=== PATIENT | male | born 1950 | race Caucasian/White ===

== ENCOUNTER 2017-08-02 11:38 | Inpatient (IN) | payer MEDICARE, MEDICAID ==
--- NOTE | 2017-08-02 11:45 | ED Physician Chart ---
ED Chief Complaint/HPI - Patient Information Date Seen:: 08/02/17 Time Seen:: 11:35 Chief Complaint:: Syncope History of Present Illness:: onset x 3 hours of syncope; no report of trauma, H/as, S/T, neck pain, C/P, SOB , Abd. Pain, A/N/V/D/C, fever, chills, or urinary s/s Allergies:: Allergies Allergy/AdvReac Type Severity Reaction Status Date / Time No Known Allergies Allergy Verified 07/03/17 00:57 Historian:: Patient, EMS Review:: Nurse's Note Reviewed, Old Chart Reviewed, EMS run form Reviewed ED Review of Systems - Review of Systems General/Constitutional: No fever, No chills, No weight loss, No weakness, No diaphoresis, No edema, No loss of appetite Skin: No skin lesions, No rash, No bruising Head: No headache, No light-headedness Eyes: No loss of vision, No pain, No diplopia ENT: No earache, No nasal drainage, No sore throat, No tinnitus Neck: No neck pain, No swelling, No thyromegaly, No stiffness, No mass noted Cardio Vascular: No chest pain, No palpitations, No PND, No orthopnea, No edema Pulmonary: No SOB, No cough, No sputum, No wheezing GI: No nausea, No vomiting, No diarrhea, No pain, No melena, No hematochezia, No constipation, No hematemesis G/U: No dysuria, No frequency, No hematuria, No nacturia Musculoskeletal: No bone or joint pain, No back pain, No muscle pain Endocrine: No polyuria, No polydipsia Psychiatric: Prior psych history, No depression, No anxiety, No suicidal ideation, No homicidal ideation, Auditory hallucination, No visual hallucination Hematopoietic: No bruising, No lymphadenopathy Allergic/Immuno: No urticaria, No angioedema Neurological: Syncope, No focal symptoms, No weakness, No paresthesia, No headache, No seizure, No dizziness, Confusion, No vertigo ED Past Medical History - Past Medical History Obtainable: Yes Past Medical History: HTN, Asthma/COPD, PUD/GERD, Dementia Family History: HTN Social History: Non Smoker, No Alcohol, No Drug Use, Single, Care Facility Surgical History: None Psychiatricy History: Schizophrenia, Dementia Medication: Reviewed Family Medical History - Family Member Mother History Unknown: Yes Ethnicity: Unknown Living Status: Unknown ED Physical Exam - Physical Examination General/Constitutional: Awake, Well-developed, well-nourished, Alert, No distress, GCS 15, Non-toxic appearing, Ambulatory Head: Atraumatic Eyes: Lids, conjuctiva normal, PERRL, EOMI Skin: Nl inspection, No rash, No skin lesions, No ecchymosis, Well hydrated, No lymphadenopathy ENMT: External ears, nose nl, TM canals nl, Nasal exam nl, Lips, teeth, gums nl , Oropharynx nl, Tonsils nl Neck: Nontender, Full ROM w/o pain, No JVD, No nuchal rigidity, No bruit, No mass, No stridor Respiratory: Nl effort/Exclusion, Clear to Auscultation, No Wheeze/Rhonchi/Rales Cardio Vascular: RRR, No murmur, gallop, rubs, NL S1 S2, Carotid/Femoral/Distal pulses equal bilaterally GI: No tenderness/rebounding/guarding, No organomegaly, No hernia, Normal BS's, Nondistended, No mass/bruits, No McBurney tenderness : No CVA tenderness Extremities: No tenderness or effusion, Full ROM, normal strength in all extremities, No edema, Normal digits & nails Neuro/Psych: Alert/oriented, DTR's symmetric, Normal sensory exam, Normal motor strength, Judgement/insight normal, Mood normal, Normal gait, No focal deficits Misc: Normal back, No paraspinal tenderness ED Labs/Radiology/EKG Results - Lab Results Comments:: WBC: 16.7; LA: 2.22 - Radiology Results Comments:: NAD - EKG Interpretations EKG Time:: 12:05 Rate & Rhythm: 89; NSR Comments:: RBBB; LAFB; non-specific st-t changes ED Septic Shock - . Is Septic Shock (SBP<90, OR Lactate>4 mmol\L) present?: No ED Reassessment (Disposition) - Reassessment Reassessment Condition:: Improved - Diagnosis Diagnosis:: Dx: Syncope; Lactic Acidosis; Sepsis; Leukocytosis; TIA; Cardiac Arrythmias; Dementia - Aftercare/Follow up Instructions Aftercare/Follow-Up Instructions:: Counseled pt regarding lab results/diagnosis & need follow up, Counseled pt & family regarding lab results/diagnosis & need follow up - Patient Disposition Discharge/Transfer:: Acute Care w/in this hosp Accepting Physician:: Dr. Tucker Time Called:: 1330 Time Responded:: 13:30 Admitted to:: Telemetry Spoke to:: Dr. Tucker Admitting Medical Physician:: Dr. Tucker Condition at Disposition:: Stable, Improved
[2017-08-02 12:11] LABS: % EOSINOPHILS 0.4 % (0.0-5.0); % LYMPHOCYTES 8.9 % (20.0-50.0); % MONOCYTES 8.4 % (2.0-10.0); % NEUTROPHILS 82.3 % (40.0-80.0); EOSINOPHILE ABSOLUTE 0.1 Th/cmm (0.1-0.4); HEMATOCRIT 40.2 % (41.0-60); HEMOGLOBIN 13.9 gm/dL (12-16); LYMPHOCYTE ABSOLUTE 1.5 Th/cmm (1.5-3.0); MEAN CELL VOLUME 89.7 fl (80-99); MEAN CORPUSCULAR HGB CONC 34.5 pg (28.0-36.0); MEAN PLATELET VOLUME 8.5 fl; MONOCYTE ABSOLUTE 1.4 Th/cmm (0.3-1.0); NEUTROPHILE ABSOLUTE 13.7 Th/cmm (1.8-8.0); PLATELET COUNT 272 Th/cmm (150-400); RED BLOOD COUNT 4.48 Mil/cmm (3.80-5.80)
[2017-08-02 12:14] LABS: WHITE BLOOD COUNT 16.7 Th/cmm (4.8-10.8)
[2017-08-02 12:21] LABS: ALBUMIN 3.7 gm/dL (4.2-5.5); ALKALINE PHOSPHATASE 64 U/L (34-104); ANION GAP 12.8 (7.0-16.0); BILIRUBIN,TOTAL 0.5 mg/dL (0.3-1.0); BUN - UREA NITROGEN 20 mg/dL (7-25); CALCIUM SERUM 9.2 mg/dL (8.6-10.3); CHLORIDE 102 mEq/L (98-107); CHOLESTEROL 139 mg/dL (<200); CREATININE - SERUM 0.7 mg/dL (0.7-1.3); CREATININE KINASE 169 U/L (30-223); GFR AFRICAN-AMERICAN > 60.0 ml/min (>90); GFR NON AFRICAN-AMERICAN > 60.0 ml/min; GLUCOSE 99 mg/dL (70-105); HDL -HIGH DENSITY LIPOPROTEIN 27 mg/dL (23-92); INR 1.12 (0.5-1.4); POTASSIUM SERUM 3.8 mEq/L (3.5-5.1); PROTHROMBIN TIME (TEST) 11.7 SECONDS (9.5-11.5); SGOT 18 U/L (13-39); SGPT/ALT 18 U/L (7-52); SODIUM SERUM 138 mEq/L (136-145); TOTAL PROTEIN,SERUM 7.3 gm/dL (6.0-8.3); TRIGLYCERIDES 100 mg/dL (<150)
--- NOTE | 2017-08-02 12:29 | Diagnostic Imaging Report ---
CHEST X-RAY: AP view INDICATION: pain COMPARISON: None FINDINGS: Chronic changes are seen with faint increased left basal lung markings. No focal consolidation or definite effusions. Heart size is normal. Degenerative changes of the spine and shoulders are noted. IMPRESSION: Chronic lung changes with faint increased left basal lung markings which may be atelectasis versus less likely infiltrate.
--- NOTE | 2017-08-02 12:31 | Diagnostic Imaging Report ---
Head CT without intravenous contrast Indication: pain Comparison: Syncope Technique: Axial images were obtained from the vertex to the skull base without IV contrast. Coronal reconstructions were made. Total DLP: 714, CTDI34.8 FINDINGS: Images of the brain obtained without contrast demonstrate no evidence of an acute hemorrhage. Atrophy is noted. Bilateral basal ganglia calcifications are noted. The ventricles and basal cisterns are patent. No mass effect or midline shift. No evidence of a skull fracture focal soft tissue swelling. IMPRESSION: No evidence of and acute intracranial hemorrhage. Atrophy.
[2017-08-02] MEDS ORDERED: cefTRIAXone 1 GM in Sodium Chloride 0.9% 50 ML IV ONE (13:01)
[2017-08-02] MEDS: D5-0.45NS w/20 mEq KCL 1,000 ML IV SCH (16:00)
[2017-08-02] MEDS: Azithromycin 500 MG in Sodium Chloride 0.9% 250 ML IV SCH (17:49)
[2017-08-02 17:57] LABS: URINE MICROSCOPIC INDICATED? YES; URINE SOURCE CLEAN C
[2017-08-02 17:59] LABS: URINE BILIRUBIN NEGATIVE (NEGATIVE); URINE BLOOD TRACE (NEGATIVE); URINE GLUCOSE (UA) NEGATIVE (NEGATIVE); URINE KETONE TRACE mg/dL (NEGATIVE); URINE LEUKOCYTE ESTERASE NEGATIVE (NEGATIVE); URINE NITRATE NEGATIVE (NEGATIVE); URINE PH 6.5 (4.6 - 8.0); URINE PROTEIN NEGATIVE (NEGATIVE); URINE UROBILINOGEN 0.2 E.U./dL (0.2 - 1.0)
[2017-08-02 18:00] LABS: URINE CLARITY CLEAR (CLEAR); URINE COLOR YELLOW
[2017-08-02 18:01] LABS: URINE BACTERIA NONE SEEN /hpf (NONE SEEN); URINE EPITHELIAL CELLS NONE SEEN /lpf (FEW); URINE WBC NONE SEEN /hpf (0-5)
[2017-08-02] MEDS: Albuterol/Ipratropium Neb 3 ML AERS HHN SCH (18:50)
[2017-08-02] MEDS ORDERED: Maalox 30 mL Cup PO PRN (20:20)
[2017-08-02] MEDS ORDERED: Magnesium Hydroxide (MOM) 30 mL UDC PO PRN (20:20)
[2017-08-02] MEDS ORDERED: Non-Formulary Item 1 EA (Melatonin [Melatonin] 6 MG) PO SCH (21:00)
--- NOTE | 2017-08-02 21:22 | History & Physical ---
ADMIT DATE: 08/02/2017 CHIEF COMPLAINT: Cough, shortness of breath. HISTORY OF PRESENT ILLNESS: The patient is a 66-year-old male with long history of COPD, dementia, presented to the Emergency Room with cough, shortness of breath, evaluated by the ER physician. Initial workup for pneumonia, admitted to the hospital, started on IV antibiotic, breathing treatment, IV fluids, regular diet. The patient denies any chest pain, nausea or vomiting. PAST MEDICAL HISTORY: COPD, dementia. PAST SURGICAL HISTORY: No recent surgery. ALLERGIES: None. MEDICATIONS: Follow admission reconciliation. SOCIAL HISTORY: He is a chronic smoker. No alcohol or drug use. FAMILY HISTORY: Noncontributory. REVIEW OF SYSTEMS: RENAL SYSTEM: No history of chronic renal disorder. CARDIOVASCULAR SYSTEM: No coronary artery disease. ENDOCRINE SYSTEM: No diabetes or thyroid problem. GASTROINTESTINAL SYSTEM: No upper or lower gastrointestinal bleed. NEUROLOGICAL SYSTEM: No seizure disorder. SKELETOMUSCULAR SYSTEM: No muscular dystrophy. HEMATOLOGICAL SYSTEM: No bleeding tendencies. RESPIRATORY SYSTEM: History of COPD, pneumonia. GENITOURINARY SYSTEM: No dysuria or hematuria. PHYSICAL EXAMINATION: GENERAL: He is awake, alert, mildly confused. VITAL SIGNS: Temperature 98, heart rate 77, blood pressure 110/73. HEENT: Normocephalic. Pupils reactive to light and accommodation. Sclerae clear. NECK: Supple. Negative for lymphadenopathy, JVD or bruit. CHEST: Air bilaterally normal. No rhonchi or wheezing. HEART: S1, S2 normal. No murmur or gallop rhythm. ABDOMEN: Soft, bowel sounds positive. EXTREMITIES: No edema. NEUROLOGIC: He is awake, alert, oriented. No focal motor or sensory deficit. Cranial nerves 2-12 are intact. ASSESSMENT: 1. Bilateral pneumonia. 2. Chronic obstructive pulmonary disease. 3. Dementia. 4. Lactic acidosis. PLAN: The patient is in the hospital under Dr. Tucker's service. The patient started on IV fluid, IV antibiotic, breathing treatment. Regular diet. The patient will resume his medication and diet. JOB# [id number]
[2017-08-03 06:04] LABS: % BASOPHILS 0.4 % (0.0-2.0); % EOSINOPHILS 1.3 % (0.0-5.0); % MONOCYTES 10.8 % (2.0-10.0); % NEUTROPHILS 75.5 % (40.0-80.0); EOSINOPHILE ABSOLUTE 0.2 Th/cmm (0.1-0.4); HEMATOCRIT 36.9 % (41.0-60); HEMOGLOBIN 12.7 gm/dL (12-16); LYMPHOCYTE ABSOLUTE 1.5 Th/cmm (1.5-3.0); MEAN CELL VOLUME 89.5 fl (80-99); MEAN CORPUSCULAR HEMOGLOBIN 30.8 pg (27.0-31.0); MEAN CORPUSCULAR HGB CONC 34.4 pg (28.0-36.0); MEAN PLATELET VOLUME 8.3 fl; MONOCYTE ABSOLUTE 1.3 Th/cmm (0.3-1.0); NEUTROPHILE ABSOLUTE 9.3 Th/cmm (1.8-8.0); PLATELET COUNT 261 Th/cmm (150-400); RED BLOOD COUNT 4.13 Mil/cmm (3.80-5.80); RED CELL DISTRIBUTION WIDTH 13.1 % (11.5-20.0); WHITE BLOOD COUNT 12.3 Th/cmm (4.8-10.8)
[2017-08-03] MEDS: Albuterol/Ipratropium Neb 3 ML AERS HHN SCH ×5 (06:58→12:28)
[2017-08-03] MEDS ORDERED: Multivitamin Tab PO SCH (09:00)
[2017-08-03] MEDS ORDERED: Enoxaparin 30 mg/0.3 mL 0.3mL Syr SUBQ SCH (09:00)
[2017-08-03] MEDS ORDERED: cefTRIAXone 1 GM in Sodium Chloride 0.9% 50 ML IV SCH (10:00)
[2017-08-03] MEDS ORDERED: Haloperidol Lactate 5 mg/mL 1mL Vial IM ONE (10:28)
[2017-08-03] MEDS ORDERED: Haloperidol Lactate 5 mg/mL 1mL Vial ONE (10:30)
[2017-08-03] MEDS: D5-0.45NS w/20 mEq KCL 1,000 ML IV SCH (11:52)
[2017-08-03] MEDS: Azithromycin 500 MG in Sodium Chloride 0.9% 250 ML IV SCH (17:24)
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
--- NOTE | 2017-08-03 21:22 | Internal Medicine Prog Note ---
Internal Medicine Subjective - Subjective Service Date: 08/03/17 Patient seen and examined:: with staff Patient is:: awake, verbal, in bed, confused Per staff patient has:: no adverse event Internal Medicine Objective - Results Result Diagrams: 08/03/17 05:35 08/02/17 11:56 Recent Labs: Laboratory Last Values WBC 12.3 Th/cmm (4.8-10.8) H 08/03/17 05:35 RBC 4.13 Mil/cmm (3.80-5.80) 08/03/17 05:35 Hgb 12.7 gm/dL (12-16) 08/03/17 05:35 Hct 36.9 % (41.0-60) L 08/03/17 05:35 MCV 89.5 fl (80-99) 08/03/17 05:35 MCH 30.8 pg (27.0-31.0) 08/03/17 05:35 MCHC Differential 34.4 pg (28.0-36.0) 08/03/17 05:35 RDW 13.1 % (11.5-20.0) 08/03/17 05:35 Plt Count 261 Th/cmm (150-400) 08/03/17 05:35 MPV 8.3 fl 08/03/17 05:35 Neutrophils % 75.5 % (40.0-80.0) 08/03/17 05:35 Lymphocytes % 12.0 % (20.0-50.0) L 08/03/17 05:35 Monocytes % 10.8 % (2.0-10.0) H 08/03/17 05:35 Eosinophils % 1.3 % (0.0-5.0) 08/03/17 05:35 Basophils % 0.4 % (0.0-2.0) 08/03/17 05:35 PT 11.7 SECONDS (9.5-11.5) H 08/02/17 11:56 INR 1.12 (0.5-1.4) 08/02/17 11:56 Sodium 138 mEq/L (136-145) 08/02/17 11:56 Potassium 3.8 mEq/L (3.5-5.1) 08/02/17 11:56 Chloride 102 mEq/L (98-107) 08/02/17 11:56 Carbon Dioxide 27.0 mEq/L (21.0-31.0) 08/02/17 11:56 Anion Gap 12.8 (7.0-16.0) 08/02/17 11:56 BUN 20 mg/dL (7-25) 08/02/17 11:56 Creatinine 0.7 mg/dL (0.7-1.3) 08/02/17 11:56 Est GFR ( Amer) > 60.0 ml/min (>90) 08/02/17 11:56 Est GFR (Non-Af Amer) > 60.0 ml/min 08/02/17 11:56 BUN/Creatinine Ratio 28.6 08/02/17 11:56 Glucose 99 mg/dL (70-105) 08/02/17 11:56 Whole Bld Lactic Acid 1.34 mmol/L (0.60-1.99) 08/02/17 13:47 Calcium 9.2 mg/dL (8.6-10.3) 08/02/17 11:56 Total Bilirubin 0.5 mg/dL (0.3-1.0) 08/02/17 11:56 AST 18 U/L (13-39) 08/02/17 11:56 ALT 18 U/L (7-52) 08/02/17 11:56 Alkaline Phosphatase 64 U/L (34-104) 08/02/17 11:56 Creatine Kinase 169 U/L (30-223) 08/02/17 11:56 Troponin I 0.01 ng/mL (0.01-0.05) 08/02/17 11:56 B-Natriuretic Peptide 18.3 pg/mL (5.0-100.0) 08/02/17 11:56 Total Protein 7.3 gm/dL (6.0-8.3) 08/02/17 11:56 Albumin 3.7 gm/dL (4.2-5.5) L 08/02/17 11:56 Globulin 3.6 gm/dL 08/02/17 11:56 Albumin/Globulin Ratio 1.0 (1.0-1.8) 08/02/17 11:56 Triglycerides 100 mg/dL (<150) 08/02/17 11:56 Cholesterol 139 mg/dL (<200) 08/02/17 11:56 LDL Cholesterol Direct 107 mg/dL (75-193) 08/02/17 11:56 HDL Cholesterol 27 mg/dL (23-92) 08/02/17 11:56 Urine Source CLEAN C 08/02/17 15:30 Urine Color YELLOW 08/02/17 15:30 Urine Clarity CLEAR (CLEAR) 08/02/17 15:30 Urine pH 6.5 (4.6 - 8.0) 08/02/17 15:30 Ur Specific Hilger 1.015 (1.005-1.030) 08/02/17 15:30 Urine Protein NEGATIVE mg/dL (NEGATIVE) 08/02/17 15:30 Urine Glucose (UA) NEGATIVE mg/dL (NEGATIVE) 08/02/17 15:30 Urine Ketones TRACE mg/dL (NEGATIVE) 08/02/17 15:30 Urine Blood TRACE (NEGATIVE) 08/02/17 15:30 Urine Nitrate NEGATIVE (NEGATIVE) 08/02/17 15:30 Urine Bilirubin NEGATIVE (NEGATIVE) 08/02/17 15:30 Urine Urobilinogen 0.2 E.U./dL (0.2 - 1.0) 08/02/17 15:30 Ur Leukocyte Esterase NEGATIVE (NEGATIVE) 08/02/17 15:30 Urine RBC 2-5 /hpf (0-5) H 08/02/17 15:30 Urine WBC NONE SEEN /hpf (0-5) 08/02/17 15:30 Ur Epithelial Cells NONE SEEN /lpf (FEW) 08/02/17 15:30 Urine Bacteria NONE SEEN /hpf (NONE SEEN) 08/02/17 15:30 - Physical Exam Vitals and I&O: Vital Signs Temp 97.6 F 08/03/17 16:00 Pulse 91 08/03/17 16:00 Resp 20 08/03/17 16:00 BP 117/71 08/03/17 16:00 Pulse Ox 95 08/03/17 16:00 Intake & Output 08/03/17 08/03/17 08/04/17 06:59 18:59 06:59 Intake Total 1240 1200 Balance 1240 1200 Weight (lbs) 63.503 kg 63.049 kg Intake: Intake, IV Amount 1000 D5-0.45NS w/20 mEq KCL 1, 1000 000 ml @ 75 mls/hr IV . [id number] [facility] Rx#:[id number] Oral 240 1200 Other: # Voids 3 5 # Bowel Movements 2 Weight Source Bedscale Bedscale Active Medications: Current Medications Acetaminophen (Tylenol) 650 mg PO Q4H PRN PRN Reason: Pain or Fever >101 Stop: 10/01/17 20:19 Al Hydrox/Mg Hydrox/Simethicone (Maalox) 30 ml PO Q4H PRN PRN Reason: GI DISTRESS Stop: 10/01/17 20:19 Albuterol/Ipratropium (Duoneb Neb) 3 ml HHN Q6HRT [facility] Stop: 10/01/17 18:59 Last Admin: 08/03/17 06:58 Dose: 3 ml Albuterol/Ipratropium (Duoneb Neb) 3 ml HHN Q6HRT [facility] Stop: 10/02/17 00:59 Last Admin: 08/03/17 12:28 Dose: Not Given Docusate Sodium (Colace) 100 mg PO BID [facility] Stop: 10/02/17 08:59 Last Admin: 08/03/17 17:24 Dose: 100 mg Enoxaparin Sodium (Lovenox) 30 mg SUBQ DAILY [facility] Stop: 10/02/17 08:59 Last Admin: 08/03/17 08:53 Dose: 30 mg Famotidine (Pepcid) 20 mg PO DAILY [facility] Stop: 10/02/17 08:59 Last Admin: 08/03/17 08:53 Dose: 20 mg Azithromycin 500 mg/ Sodium (Chloride) 250 mls @ 250 mls/hr IV Q24HR [facility] Stop: 10/01/17 15:59 Last Admin: 08/03/17 17:24 Dose: 250 mls/hr Ceftriaxone Sodium 1 gm/ (Sodium Chloride) 50 mls @ 100 mls/hr IV Q24HR [facility] Stop: 10/02/17 09:59 Last Admin: 08/03/17 11:47 Dose: 100 mls/hr Potassium Chloride/Dextrose/Sod Cl (D5-0.45ns W/20 Meq Kcl) 1,000 mls @ 75 mls/ hr IV .[id number] [facility] Stop: 10/01/17 15:00 Last Admin: 08/03/17 11:52 Dose: 75 mls/hr Lorazepam (Ativan) 1 mg PO Q6HR PRN; Protocol PRN Reason: Anxiety Stop: 10/02/17 19:43 Magnesium Hydroxide (Milk Of Magnesia) 30 ml PO HS PRN PRN Reason: Constipation Stop: 10/01/17 20:19 Miscellaneous (Melatonin [Melatonin]) 6 mg PO HS [facility] Stop: 10/01/17 20:59 Multivitamins/Vitamin C (Theragran) 1 tab PO DAILY [facility] Stop: 10/02/17 08:59 Last Admin: 08/03/17 08:53 Dose: 1 tab General: demented HEENT: NC/AT, PERRLA, EOMI, anicteric sclerae, throat clear Neck: Supple, No JVD, No thyromegaly, +2 carotid pulse wo bruit, No LAD Cardiovascular: RRR, Normal S1, Normal S2, without murmur Abdomen: non-tender, non-distended Extremities: clear Neurological: no change Internal Medicine Assmt/Plan - Assessment Assessment: 1.PNEUMONIA. 2.DEMENTIA. 3.COPD. 4.PSYCHOSIS. - Plan Plan: PSYCH EVALUATION.
[2017-08-04] MEDS: Albuterol/Ipratropium Neb 3 ML AERS HHN SCH ×2 (01:10→01:11)
== END 2017-08-04 01:53 | DRG 194 ==
LOC: ER 11:38 → MSI 15:08
PROVIDERS: ADMIT Family Medicine; ATTEND Family Medicine
DX: J18.9 Pneumonia, unspecified organism (principal); J44.0 Chronic obstructive pulmonary disease with (acute) lower respiratory infection; E87.2 Acidosis; F03.91 Unspecified dementia, unspecified severity, with behavioral disturbance; I10 Essential (primary) hypertension; K21.9 Gastro-esophageal reflux disease without esophagitis; R55 Syncope and collapse; F29 Unspecified psychosis not due to a substance or known physiological condition; Z82.49 Family history of ischemic heart disease and other diseases of the circulatory system
CPT/HCPCS: 36415-UA; 70450-TC; 71045-TC; 80053-TC; 80061-TC; 81001-TC; 82550-TC; 83605; 83880-TC; 84484-TC; 85025-TC; 85610-TC; 90784; 93005; 94760; 96375; J0456; J0696; J1630; J1650; J2060; Z7610

== ENCOUNTER 2017-08-04 01:55 | Inpatient (IN) | payer MEDICARE, MEDICAID ==
[2017-08-04 02:30] VITALS: BP 103/56
[2017-08-04] MEDS ORDERED: Maalox 30 mL Cup PO PRN (02:34)
[2017-08-04] MEDS ORDERED: Magnesium Hydroxide (MOM) 30 mL UDC PO PRN (02:34)
[2017-08-04] MEDS: Multivitamin Tab PO SCH (09:04)
[2017-08-04] MEDS ORDERED: Codeine /Guaifenesin 200mg-20mg/10 mL UDC PO PRN (19:31)
--- NOTE | 2017-08-04 20:58 | History & Physical ---
ADMIT DATE: 08/04/2017 HISTORY OF PRESENT ILLNESS: The patient is a 66-year-old male with long history of dementia, degenerative joint disease, admitted to medical floor with pneumonia. The patient stabilized clinically, transferred to [facility] under Dr. Ramirez's service. The patient feels better, still has some cough, no fever, no chills. PAST MEDICAL HISTORY: Significant for dementia, degenerative joint disease, COPD. PAST SURGICAL HISTORY: No recent surgery. ALLERGIES: None. MEDICATIONS: Follow admission reconciliation. SOCIAL HISTORY: Ex-smoker, no alcohol or drug. FAMILY HISTORY: Noncontributory. REVIEW OF SYSTEMS: RENAL SYSTEM: No history of chronic renal disorder. CARDIOVASCULAR SYSTEM: No coronary artery disease. ENDOCRINE SYSTEM: No diabetes or thyroid problem. GASTROINTESTINAL SYSTEM: No upper or lower gastrointestinal bleed. NEUROLOGICAL SYSTEM: Has history of psychosis. PHYSICAL EXAMINATION: GENERAL: Awake, not coherent. VITAL SIGNS: Temperature 98.6, heart rate 94, blood pressure 149/93. HEENT: Normocephalic. Pupils reactive to light and accommodation. Sclerae are clear. NECK: Supple. Negative for lymphadenopathy, JVD, or bruit. CHEST: Entry of air bilaterally diminished, associated with some rhonchi. No wheezing. HEART: S1, S2 normal. No murmur or gallop rhythm. ABDOMEN: Soft, bowel sounds positive. EXTREMITIES: No edema. NEUROLOGIC: He is awake, alert, not fully oriented. ASSESSMENT: 1. Bilateral pneumonia. 2. Chronic obstructive pulmonary disease. 3. Degenerative joint disease. 4. Constipation. 5. Dementia. 6. Psychosis. PLAN: The patient admitted to hospital under Dr. Ramirez's service. Medical problems to address during hospitalization are psychosis and pneumonia. Medical problems to address at discharge are COPD, degenerative joint disease. The patient is medically stable for activity. We will continue the patient on Levaquin 750 daily for 5 more days. The patient is clinically stable for activity. Thank you Dr. Ramirez for asking me to see your patient. JOB# [id number]
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
[2017-08-05] MEDS: Multivitamin Tab PO SCH (08:27)
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
--- NOTE | 2017-08-05 14:44 | Internal Medicine Prog Note ---
Internal Medicine Subjective - Subjective Service Date: 08/05/17 Patient seen and examined:: with staff (HE STILL HAS COUGH) Patient is:: awake, verbal, in bed, confused Per staff patient has:: no adverse event Internal Medicine Objective - Physical Exam Vitals and I&O: Vital Signs Temp 97.2 F 08/05/17 14:00 Pulse 87 08/05/17 14:00 Resp 20 08/05/17 14:00 BP 112/77 08/05/17 14:00 Pulse Ox 96 08/05/17 14:00 Intake & Output 08/04/17 08/05/17 08/05/17 18:59 06:59 18:59 Intake Total 1200 120 Balance 1200 120 Intake: Oral 1200 120 Other: # Voids 3 3 # Bowel Movements 1 Active Medications: Current Medications Acetaminophen (Tylenol) 650 mg PO Q4HR PRN PRN Reason: Pain or Fever >101 Stop: 10/03/17 02:33 Al Hydrox/Mg Hydrox/Simethicone (Maalox) 30 ml PO Q4H PRN PRN Reason: GI DISTRESS Stop: 10/03/17 02:33 Divalproex Sodium (Depakote Dr) 125 mg PO Q12HR [facility]; Protocol Stop: 10/03/17 20:59 Docusate Sodium (Colace) 100 mg PO BID [facility] Stop: 10/03/17 08:59 Last Admin: 08/05/17 08:27 Dose: 100 mg Famotidine (Pepcid) 20 mg PO DAILY [facility] Stop: 10/03/17 08:59 Last Admin: 08/05/17 08:26 Dose: 20 mg Guaifenesin/Codeine Phosphate (Robitussin Ac) 10 ml PO Q6HR PRN PRN Reason: Cough Stop: 10/03/17 19:30 Levofloxacin (Levaquin) 750 mg PO DAILY [facility] Stop: 10/04/17 08:59 Last Admin: 08/05/17 08:27 Dose: 750 mg Lorazepam (Ativan) 1 mg PO Q6H PRN; Protocol PRN Reason: Anxiety/Agitation Stop: 10/03/17 02:40 Magnesium Hydroxide (Milk Of Magnesia) 30 ml PO HS PRN PRN Reason: Constipation Stop: 10/03/17 02:33 Multivitamins/Vitamin C (Theragran) 1 tab PO DAILY [facility] Stop: 10/03/17 08:59 Last Admin: 08/05/17 08:27 Dose: 1 tab Quetiapine Fumarate (Seroquel) 25 mg PO HS [facility]; Protocol Stop: 10/04/17 20:59 Zolpidem Tartrate (Ambien) 5 mg PO HS PRN PRN Reason: Insomnia Stop: 10/03/17 02:41 Last Admin: 08/04/17 21:02 Dose: 5 mg General: demented HEENT: NC/AT, PERRLA, anicteric sclerae, throat clear Neck: No JVD, No thyromegaly, +2 carotid pulse wo bruit, No LAD Lungs: CTAB, congested, ronchi Cardiovascular: Normal S1, Normal S2, without murmur Abdomen: soft, non-tender, non-distended Extremities: clear Neurological: no change Internal Medicine Assmt/Plan - Assessment Assessment: 1.BILATERAL PNEUMONIA. 2.COPD. 3.DJD. 4.DEMENTIA. - Plan Plan: CONTINUE ON CURRENT MEDICATION AND DIET.
[2017-08-06] MEDS: Multivitamin Tab PO SCH (08:44)
--- NOTE | 2017-08-06 13:09 | Consultation ---
DATE OF CONSULTATION: 08/05/2017 REFERRING PHYSICIAN: Aditya Ramirez MD TYPE OF CONSULTATION: Psychology. HISTORY OF PRESENT ILLNESS: The patient is a 66-year-old male. The patient is known to this literary writer from a previous hospitalization here on the geropsychiatric unit. The following is by record review and patient self report. The patient is being admitted after being medically cleared on the Med-Surg unit. According to the staff at the patient's facility, the patient had been screaming and yelling and aggressive towards the staff. Reports also included trying to bite staff as well as kicking and was unable to be contained. The patient presents as very angry during the clinical interview. The patient is unable to contract for safety, including no self-harm or no harm to others. The patient is not responding to redirection at the time of this clinical interview. Further evaluation will need to be continued. PAST MEDICAL HISTORY: Please see history and physical by Dr. Tucker. PAST PSYCHIATRIC HISTORY: The patient has a history of dementia and is under the care of a psychiatrist at his detention facility. SUBSTANCE ABUSE HISTORY: The patient did not answer these questions. PSYCHOSOCIAL HISTORY: The patient did not answer any of the questions presented including occupational history, educational history, taoist affiliation, physical and sexual abuse history or current legal problems. The patient is a resident of [facility] in [place]. MENTAL STATUS EXAMINATION: The patient appears to be stated age. The patient's attitude is guarded, suspicious and resistant. Eye contact is poor and avoidant. Mood is irritable and angry. Affect is constricted. Speech is loud. Thought process indicates perseveration as well as paranoid ideation. The patient did not answer questions about experiencing hallucinations or delusions. The patient did not participate in the memory assessment. The patient did not participate in interpretation of proverbs. Sensorium is alert and oriented to self and place. Impulse control is inadequate. Concentration is poor. Insight is impaired. Judgment is impaired. DIAGNOSTIC IMPRESSION: AXIS I: 1. Psychotic disorder, not otherwise specified. 2. Dementia with behavioral disturbance. AXIS II: Deferred. AXIS III: Per Dr. Tucker. TREATMENT PLAN: The patient has been seen by Dr. Ramirez for Psychiatric evaluation and for the management of the patient's psychotropic medications. The patient was started on a low dose of Depakote and Seroquel according to the record. We will provide de-escalation as well as limit setting. We will provide coping strategies for phase of life issues and for chronic severe mental illness. We will encourage the patient to demonstrate emotional, physical and self-regulation prior to discharge. We will provide motivational enhancement for the patient to become compliant and stay compliant with all aspects of his care and treatment. Thank you Dr. Ramirez for this consult and the opportunity to participate in this patient's care. [facility]# [id number] RAFAEL
--- NOTE | 2017-08-06 18:19 | Progress Notes ---
DATE: 08/06/2017 SUBJECTIVE: Staff was spoken to. The patient is interviewed. Mood is noted to be irritable. Affect is constricted. The patient is getting easily irritable and angry. Coping skills are noted to be very poor. Sleep is noted to be poor. Appetite is noted to be improving at this time. ASSESSMENT: The patient is still grossly psychotic and impulsive. PLAN: To continue the patient with the supportive therapy. I encouraged the patient to verbalize the concerns rather than to act out. JOB# [id number]
--- NOTE | 2017-08-06 23:20 | General Progress Note ---
Subjective - Review of Systems Service Date: 08/06/17 Subjective: resting comfortably no distress Objective - Physical Exam Vitals and I&O: Vital Signs Temp 98.9 F 08/06/17 20:32 Pulse 75 08/06/17 20:32 Resp 19 08/06/17 20:32 BP 153/80 08/06/17 20:32 Pulse Ox 95 08/06/17 20:32 Intake & Output 08/06/17 08/06/17 08/07/17 06:59 18:59 06:59 Intake Total 240 Balance 240 Intake: Oral 240 Other: # Voids 1 Active Medications: Current Medications Acetaminophen (Tylenol) 650 mg PO Q4HR PRN PRN Reason: Pain or Fever >101 Stop: 10/03/17 02:33 Al Hydrox/Mg Hydrox/Simethicone (Maalox) 30 ml PO Q4H PRN PRN Reason: GI DISTRESS Stop: 10/03/17 02:33 Divalproex Sodium (Depakote Dr) 125 mg PO Q12HR SIMIN; Protocol Stop: 10/03/17 20:59 Last Admin: 08/06/17 20:27 Dose: 125 mg Docusate Sodium (Colace) 100 mg PO BID [facility] Stop: 10/03/17 08:59 Last Admin: 08/06/17 17:52 Dose: 100 mg Famotidine (Pepcid) 20 mg PO DAILY [facility] Stop: 10/03/17 08:59 Last Admin: 08/06/17 08:43 Dose: 20 mg Guaifenesin/Codeine Phosphate (Robitussin Ac) 10 ml PO Q6HR PRN PRN Reason: Cough Stop: 10/03/17 19:30 Levofloxacin (Levaquin) 750 mg PO DAILY [facility] Stop: 10/04/17 08:59 Last Admin: 08/06/17 08:43 Dose: 750 mg Lorazepam (Ativan) 1 mg PO Q6H PRN; Protocol PRN Reason: Anxiety/Agitation Stop: 10/03/17 02:40 Last Admin: 08/06/17 14:11 Dose: 1 mg Magnesium Hydroxide (Milk Of Magnesia) 30 ml PO HS PRN PRN Reason: Constipation Stop: 10/03/17 02:33 Multivitamins/Vitamin C (Theragran) 1 tab PO DAILY [facility] Stop: 10/03/17 08:59 Last Admin: 08/06/17 08:44 Dose: 1 tab Quetiapine Fumarate (Seroquel) 25 mg PO HS SIMIN; Protocol Stop: 10/04/17 20:59 Last Admin: 08/06/17 20:26 Dose: 25 mg Zolpidem Tartrate (Ambien) 5 mg PO HS PRN PRN Reason: Insomnia Stop: 10/03/17 02:41 Last Admin: 08/06/17 20:26 Dose: 5 mg General: No acute distress HEENT: Atraumatic Neck: Supple, JVD Cardiovascular: Regular rate, Normal S1, Normal S2 Lungs: Clear to auscultation, Normal air movement Abdomen: Bowel sounds, Soft Assessment/Plan - Assessment Assessment: 1.BILATERAL PNEUMONIA. 2.COPD. 3.DJD. 4.DEMENTIA. - Plan Plan: cont current treatment
[2017-08-07] MEDS: Multivitamin Tab PO SCH (08:34)
--- NOTE | 2017-08-07 15:29 | Progress Notes ---
DATE: 08/07/2017 SUBJECTIVE: Staff was spoken to. The patient is interviewed. Mood is noted to be irritable. Affect is constricted. Coping skills are noted to be poor. The patient has been still very deceptive. The patient has difficult time to cope with the stress. The patient needs to be redirected. The patient has been placed on the Depakote 125 mg twice a day and Seroquel was given 25 mg at bedtime. The patient has been able to tolerate the medications at this time. ASSESSMENT: The patient is still impulsive. PLAN: To continue the patient with the supportive therapy. I encouraged the patient to verbalize the concerns rather than to act out. JOB# [id number]
[2017-08-08] MEDS: Multivitamin Tab PO SCH (09:07)
--- NOTE | 2017-08-08 17:37 | Internal Medicine Prog Note ---
Internal Medicine Subjective - Subjective Service Date: 08/08/17 Patient seen and examined:: with staff Patient is:: awake, verbal, in bed, confused Per staff patient has:: no adverse event Internal Medicine Objective - Physical Exam Vitals and I&O: Vital Signs Temp 97.3 F 08/08/17 16:00 Pulse 92 08/08/17 16:00 Resp 20 08/08/17 16:00 BP 116/72 08/08/17 16:00 Pulse Ox 96 08/08/17 16:00 Intake & Output 08/07/17 08/08/17 08/08/17 18:59 06:59 18:59 Intake Total 1200 360 Balance 1200 360 Intake: Oral 1200 360 Other: # Voids 2 2 # Bowel Movements 0 Active Medications: Current Medications Acetaminophen (Tylenol) 650 mg PO Q4HR PRN PRN Reason: Pain or Fever >101 Stop: 10/03/17 02:33 Al Hydrox/Mg Hydrox/Simethicone (Maalox) 30 ml PO Q4H PRN PRN Reason: GI DISTRESS Stop: 10/03/17 02:33 Divalproex Sodium (Depakote Dr) 125 mg PO Q12HR SIMIN; Protocol Stop: 10/03/17 20:59 Last Admin: 08/08/17 09:07 Dose: 125 mg Docusate Sodium (Colace) 100 mg PO BID [facility] Stop: 10/03/17 08:59 Last Admin: 08/08/17 09:07 Dose: 100 mg Famotidine (Pepcid) 20 mg PO DAILY [facility] Stop: 10/03/17 08:59 Last Admin: 08/08/17 09:07 Dose: 20 mg Guaifenesin/Codeine Phosphate (Robitussin Ac) 10 ml PO Q6HR PRN PRN Reason: Cough Stop: 10/03/17 19:30 Levofloxacin (Levaquin) 750 mg PO DAILY [facility] Stop: 10/04/17 08:59 Last Admin: 08/08/17 09:07 Dose: 750 mg Lorazepam (Ativan) 1 mg PO Q6H PRN; Protocol PRN Reason: Anxiety/Agitation Stop: 10/03/17 02:40 Last Admin: 08/07/17 03:19 Dose: 1 mg Magnesium Hydroxide (Milk Of Magnesia) 30 ml PO HS PRN PRN Reason: Constipation Stop: 10/03/17 02:33 Multivitamins/Vitamin C (Theragran) 1 tab PO DAILY [facility] Stop: 10/03/17 08:59 Last Admin: 08/08/17 09:07 Dose: 1 tab Quetiapine Fumarate (Seroquel) 25 mg PO HS SIMIN; Protocol Stop: 10/04/17 20:59 Last Admin: 08/07/17 21:36 Dose: 25 mg Zolpidem Tartrate (Ambien) 5 mg PO HS PRN PRN Reason: Insomnia Stop: 10/03/17 02:41 Last Admin: 08/07/17 21:37 Dose: 5 mg General: demented HEENT: NC/AT, PERRLA, anicteric sclerae, throat clear Neck: No JVD, No thyromegaly, +2 carotid pulse wo bruit, No LAD Lungs: CTAB, congested, ronchi Cardiovascular: Normal S1, Normal S2, without murmur Abdomen: soft, non-tender, non-distended Extremities: clear Neurological: no change Internal Medicine Assmt/Plan - Assessment Assessment: 1.BILATERAL PNEUMONIA. 2.COPD. 3.DJD. 4.DEMENTIA. - Plan Plan: CONTINUE ON CURRENT MEDICATION AND DIET. Nutritional Asmnt/Malnutr-PDOC - Dietary Evaluation Malnutrition Findings (Please click <Entered> for more info): Nutritional Asmnt/Malnutrition Start: 08/08/17 12: 09 Text: Status: Complete Freq: Protocol: Document 08/08/17 12:09 LCHENG (Rec: 08/08/17 12:23 [email or web address] Nutritional Asmnt/Malnutrition Patient General Information Nutritional Screening Moderate Risk Diagnosis psychosis Pertinent Medical Hx/Surgical Hx dementia, DJD, COPD Subjective Information Pt seen in rich-chair , confused. Per nurse, pt eats well. Per EMR, PO intake 100% of meals. Current Diet Order/ Nutrition Support [facility] Pertinent Medications colace, pepcid, levaquin, theragran, seroquel Pertinent Labs no labs Nutritional Hx/Data Height 1.65 m Height (Calculated Centimeters) 165.1 Current Weight (lbs) 63.049 kg Weight (Calculated Kilograms) 63.0 Weight (Calculated Grams) 28782.3 [place] Body Weight 136 Body Mass Index (BMI) 23.1 Weight Status Approriate GI Symptoms GI Symptoms None Last BM 08/05 Difficult in: None Skin Integrity/Comment: nithya, kami 15 Current %PO Good (75-100%) Estimated Nutritional Goals BEE in Kcals: Using Current wt Calories/Kcals/Kg 25-30 Kcals Calculated 7577-1120 Protein: Using Current wt Protein g/k.8-1 Protein Calculated 50-63 Fluid: ml 1575-1890ml (1ml/kcal) Nutritional Problem No current Nutrition Prob Problem N/A Malnutrition Alert Is there a minimum of two criteria No selected? Query Text:Check all the applicable criteria. A minimum of two criteria are recommended for diagnosis of either severe or non-severe malnutrition. Malnutrition Related to Morbid Obesity Malnutrition related to morbid obesity No Intervention/Recommendation Comments 1. Continue with [facility] soft [facility] diet as ordered. 2. Monitor PO intake, wt, labs and skin integrity 3. F/U as low risk in 7 days, 08/15 Expected Outcomes/Goals Expected Outcomes/Goals 1. PO intake to meet at least 75% of nutritional needs. 2. Wt stability, skin to remain intact, labs to approach WNL.
--- NOTE | 2017-08-09 04:20 | Progress Notes ---
DATE: 08/08/2017 PSYCHIATRIC PROGRESS NOTE SUBJECTIVE: Staff was spoken to. The patient is interviewed. Mood is noted to be irritable. Affect is constricted. The patient is very dysphoric. Coping skills are noted to be very poor. The patient has been getting easily agitated. The patient has both short-term as well as long-term memory deficits. ASSESSMENT: The patient is still impulsive and agitated. PLAN: To continue the patient with the current medications. I encouraged the patient to verbalize the concerns rather than to act out. JOB# [id number]
[2017-08-09] MEDS ORDERED: Probiotic Screen MC PRN (08:30)
[2017-08-09] MEDS: Multivitamin Tab PO SCH (08:40)
[2017-08-09] MEDS: Lactobacillus Rhamnosus GG 15 Billion CFU CAP.SPRINK PO SCH (08:41)
--- NOTE | 2017-08-09 21:27 | Internal Medicine Prog Note ---
Internal Medicine Subjective - Subjective Service Date: 08/09/17 Patient seen and examined:: with staff Patient is:: awake, verbal, in bed, confused Per staff patient has:: no adverse event Internal Medicine Objective - Physical Exam Vitals and I&O: Vital Signs Temp 98.1 F 08/09/17 14:53 Pulse 81 08/09/17 14:53 Resp 18 08/09/17 14:53 BP 125/66 08/09/17 14:53 Pulse Ox 96 08/09/17 14:53 Intake & Output 08/09/17 08/09/17 08/10/17 06:59 18:59 06:59 Intake Total 420 1200 Balance 420 1200 Intake: Oral 420 1200 Other: # Voids 2 3 # Bowel Movements 0 1 Active Medications: Current Medications Acetaminophen (Tylenol) 650 mg PO Q4HR PRN PRN Reason: Pain or Fever >101 Stop: 10/03/17 02:33 Al Hydrox/Mg Hydrox/Simethicone (Maalox) 30 ml PO Q4H PRN PRN Reason: GI DISTRESS Stop: 10/03/17 02:33 Divalproex Sodium (Depakote Dr) 250 mg PO Q12HR SIMIN; Protocol Stop: 10/08/17 20:59 Last Admin: 08/09/17 21:05 Dose: 250 mg Docusate Sodium (Colace) 100 mg PO BID [facility] Stop: 10/03/17 08:59 Last Admin: 08/09/17 17:26 Dose: Not Given Famotidine (Pepcid) 20 mg PO DAILY [facility] Stop: 10/03/17 08:59 Last Admin: 08/09/17 08:39 Dose: 20 mg Guaifenesin/Codeine Phosphate (Robitussin Ac) 10 ml PO Q6HR PRN PRN Reason: Cough Stop: 10/03/17 19:30 Lactobacillus Rhamnosus (Culturelle 15b) 1 each PO DAILY [facility] Stop: 10/08/17 08:59 Last Admin: 08/09/17 08:41 Dose: Not Given Levofloxacin (Levaquin) 750 mg PO DAILY [facility] Stop: 10/04/17 08:59 Last Admin: 08/09/17 08:40 Dose: 750 mg Lorazepam (Ativan) 1 mg PO Q6H PRN; Protocol PRN Reason: Anxiety/Agitation Stop: 10/03/17 02:40 Last Admin: 08/07/17 03:19 Dose: 1 mg Magnesium Hydroxide (Milk Of Magnesia) 30 ml PO HS PRN PRN Reason: Constipation Stop: 10/03/17 02:33 Miscellaneous (Probiotic Screen) 1 ea MC PRN PRN PRN Reason: PROTOCOL Stop: 10/08/17 08:29 Multivitamins/Vitamin C (Theragran) 1 tab PO DAILY [facility] Stop: 10/03/17 08:59 Last Admin: 08/09/17 08:40 Dose: 1 tab Quetiapine Fumarate (Seroquel) 25 mg PO HS [facility]IN; Protocol Stop: 10/04/17 20:59 Last Admin: 08/09/17 21:05 Dose: 25 mg Zolpidem Tartrate (Ambien) 5 mg PO HS PRN PRN Reason: Insomnia Stop: 10/03/17 02:41 Last Admin: 08/09/17 21:06 Dose: 5 mg General: demented HEENT: NC/AT, PERRLA, anicteric sclerae, throat clear Neck: No JVD, No thyromegaly, +2 carotid pulse wo bruit, No LAD Lungs: CTAB, congested, ronchi Cardiovascular: Normal S1, Normal S2, without murmur Abdomen: soft, non-tender, non-distended Extremities: clear Neurological: no change Internal Medicine Assmt/Plan - Assessment Assessment: 1.BILATERAL PNEUMONIA. 2.COPD. 3.DJD. 4.DEMENTIA. - Plan Plan: CONTINUE ON CURRENT MEDICATION AND DIET. Nutritional Asmnt/Malnutr-PDOC - Dietary Evaluation Malnutrition Findings (Please click <Entered> for more info): Nutritional Asmnt/Malnutrition Start: 08/08/17 12: 09 Text: Status: Complete Freq: Protocol: Document 08/08/17 12:09 LCHENG (Rec: 08/08/17 12:23 LCHENG [email or web address]) Nutritional Asmnt/Malnutrition Patient General Information Nutritional Screening Moderate Risk Diagnosis psychosis Pertinent Medical Hx/Surgical Hx dementia, DJD, COPD Subjective Information Pt seen in rich-chair , confused. Per nurse, pt eats well. Per EMR, PO intake 100% of meals. Current Diet Order/ Nutrition Support [facility] Pertinent Medications colace, pepcid, levaquin, theragran, seroquel Pertinent Labs no labs Nutritional Hx/Data Height 1.65 m Height (Calculated Centimeters) 165.1 Current Weight (lbs) 63.049 kg Weight (Calculated Kilograms) 63.0 Weight (Calculated Grams) 49580.3 [place] Body Weight 136 Body Mass Index (BMI) 23.1 Weight Status Approriate GI Symptoms GI Symptoms None Last BM 08/05 Difficult in: None Skin Integrity/Comment: nithya kami 15 Current %PO Good (75-100%) Estimated Nutritional Goals BEE in Kcals: Using Current wt Calories/Kcals/Kg 25-30 Kcals Calculated 8389-5929 Protein: Using Current wt Protein g/k.8-1 Protein Calculated 50-63 Fluid: ml 1575-1890ml (1ml/kcal) Nutritional Problem No current Nutrition Prob Problem N/A Malnutrition Alert Is there a minimum of two criteria No selected? Query Text:Check all the applicable criteria. A minimum of two criteria are recommended for diagnosis of either severe or non-severe malnutrition. Malnutrition Related to Morbid Obesity Malnutrition related to morbid obesity No Intervention/Recommendation Comments 1. Continue with [facility] diet as ordered. 2. Monitor PO intake, wt, labs and skin integrity 3. F/U as low risk in 7 days, 7/ Expected Outcomes/Goals Expected Outcomes/Goals 1. PO intake to meet at least 75% of nutritional needs. 2. Wt stability, skin to remain intact, labs to approach WNL.
--- NOTE | 2017-08-10 02:43 | Progress Notes ---
DATE: 08/09/2017 PSYCHIATRIC PROGRESS NOTE SUBJECTIVE: Staff was spoken to. The patient is interviewed. Mood is noted to be irritable. Affect is constricted. The patient is still very disruptive. Insight and judgment are noted to be very much impaired. Impulse control seems to be limited. The patient needs to be redirected. No side effects to the medications are noted. The patient is currently on 125 mg twice a day of the Depakote, which is going to be gradually increased to 250 mg in view of his impulsivity and the patient is going to be closely monitored. ASSESSMENT: The patient is still impulsive and demented. PLAN: To continue the patient with the supportive therapy and increase the dose on the Depakote and then follow the patient. JOB# [id number]
[2017-08-10] MEDS: Multivitamin Tab PO SCH (08:28)
[2017-08-10] MEDS: Lactobacillus Rhamnosus GG 15 Billion CFU CAP.SPRINK PO SCH (08:29)
--- NOTE | 2017-08-10 11:50 | Progress Notes ---
DATE: 08/10/2017 SUBJECTIVE: Staff was spoken to. The patient is interviewed. Chart is reviewed. The patient continues to be very disruptive today. The patient could not be redirected. The patient has no insight into his illness and constantly testing the limits at this time. The patient is hard to redirect and the patient has both short-term as well as long-term memory deficits. ASSESSMENT: The patient is still impulsive. PLAN: To continue the patient with the supportive therapy. I encouraged the patient to verbalize the concerns rather than to act out. Please note that the patient has been currently on the valproic acid 250 mg twice a day and Seroquel 25 mg at bedtime, has been able to tolerate. [facility]# [id number]
--- NOTE | 2017-08-10 19:10 | Internal Medicine Prog Note ---
Internal Medicine Subjective - Subjective Service Date: 08/10/17 Patient seen and examined:: without staff Patient is:: awake, verbal, in bed, confused Per staff patient has:: no adverse event Internal Medicine Objective - Physical Exam Vitals and I&O: Vital Signs Temp 97.6 F 08/10/17 14:49 Pulse 94 08/10/17 14:49 Resp 20 08/10/17 14:49 BP 121/73 08/10/17 14:49 Pulse Ox 97 08/10/17 14:49 Intake & Output 08/10/17 08/10/17 08/11/17 06:59 18:59 06:59 Intake Total 1320 Balance 1320 Intake: Oral 1320 Other: # Voids 3 # Bowel Movements 1 Active Medications: Current Medications Acetaminophen (Tylenol) 650 mg PO Q4HR PRN PRN Reason: Pain or Fever >101 Stop: 10/03/17 02:33 Al Hydrox/Mg Hydrox/Simethicone (Maalox) 30 ml PO Q4H PRN PRN Reason: GI DISTRESS Stop: 10/03/17 02:33 Divalproex Sodium (Depakote Dr) 250 mg PO Q12HR [facility]; Protocol Stop: 10/08/17 20:59 Last Admin: 08/10/17 08:30 Dose: 250 mg Docusate Sodium (Colace) 100 mg PO BID [facility] Stop: 10/03/17 08:59 Last Admin: 08/10/17 16:39 Dose: Not Given Famotidine (Pepcid) 20 mg PO DAILY [facility] Stop: 10/03/17 08:59 Last Admin: 08/10/17 08:29 Dose: 20 mg Guaifenesin/Codeine Phosphate (Robitussin Ac) 10 ml PO Q6HR PRN PRN Reason: Cough Stop: 10/03/17 19:30 Lactobacillus Rhamnosus (Culturelle 15b) 1 each PO DAILY [facility] Stop: 10/08/17 08:59 Last Admin: 08/10/17 08:29 Dose: 1 each Levofloxacin (Levaquin) 750 mg PO DAILY [facility] Stop: 10/04/17 08:59 Last Admin: 08/10/17 08:28 Dose: 750 mg Lorazepam (Ativan) 1 mg PO Q6H PRN; Protocol PRN Reason: Anxiety/Agitation Stop: 10/03/17 02:40 Last Admin: 08/09/17 22:03 Dose: 1 mg Magnesium Hydroxide (Milk Of Magnesia) 30 ml PO HS PRN PRN Reason: Constipation Stop: 10/03/17 02:33 Miscellaneous (Probiotic Screen) 1 ea MC PRN PRN PRN Reason: PROTOCOL Stop: 10/08/17 08:29 Multivitamins/Vitamin C (Theragran) 1 tab PO DAILY [facility] Stop: 10/03/17 08:59 Last Admin: 08/10/17 08:28 Dose: 1 tab Quetiapine Fumarate (Seroquel) 25 mg PO HS [facility]; Protocol Stop: 10/04/17 20:59 Last Admin: 08/09/17 21:05 Dose: 25 mg Zolpidem Tartrate (Ambien) 5 mg PO HS PRN PRN Reason: Insomnia Stop: 10/03/17 02:41 Last Admin: 08/09/17 21:06 Dose: 5 mg General: demented HEENT: NC/AT, PERRLA, anicteric sclerae, throat clear Neck: No JVD, No thyromegaly, +2 carotid pulse wo bruit, No LAD Lungs: CTAB, congested, ronchi Cardiovascular: Normal S1, Normal S2, without murmur Abdomen: soft, non-tender, non-distended Extremities: clear Neurological: no change Internal Medicine Assmt/Plan - Assessment Assessment: 1.COPD. 2.DJD. 3.DEMENTIA. - Plan Plan: CONTINUE ON CURRENT MEDICATION AND DIET. Nutritional Asmnt/Malnutr-PDOC - Dietary Evaluation Malnutrition Findings (Please click <Entered> for more info): Nutritional Asmnt/Malnutrition Start: 08/08/17 12: 09 Text: Status: Complete Freq: Protocol: Document 08/08/17 12:09 [facility]ENG ([facility]: 08/08/17 12[email or web address] Nutritional Asmnt/Malnutrition Patient General Information Nutritional Screening Moderate Risk Diagnosis psychosis Pertinent Medical Hx/Surgical Hx dementia, DJD, COPD Subjective Information Pt seen in rich-chair , confused. Per nurse, pt eats well. Per EMR, PO intake 100% of meals. Current Diet Order/ Nutrition Support [facility] Pertinent Medications colace, pepcid, levaquin, theragran, seroquel Pertinent Labs no labs Nutritional Hx/Data Height 1.65 m Height (Calculated Centimeters) 165.1 Current Weight (lbs) 63.049 kg Weight (Calculated Kilograms) 63.0 Weight (Calculated Grams) 14251.3 [place] Body Weight 136 Body Mass Index (BMI) 23.1 Weight Status Approriate GI Symptoms GI Symptoms None Last BM 08/05 Difficult in: None Skin Integrity/Comment: dryness, kami 15 Current %PO Good (75-100%) Estimated Nutritional Goals BEE in Kcals: Using Current wt Calories/Kcals/Kg 25-30 Kcals Calculated 2956-9421 Protein: Using Current wt Protein g/k.8-1 Protein Calculated 50-63 Fluid: ml 1575-1890ml (1ml/kcal) Nutritional Problem No current Nutrition Prob Problem N/A Malnutrition Alert Is there a minimum of two criteria No selected? Query Text:Check all the applicable criteria. A minimum of two criteria are recommended for diagnosis of either severe or non-severe malnutrition. Malnutrition Related to Morbid Obesity Malnutrition related to morbid obesity No Intervention/Recommendation Comments 1. Continue with [facility] soft ground diet as ordered. 2. Monitor PO intake, wt, labs and skin integrity 3. F/U as low risk in 7 days, 7/ Expected Outcomes/Goals Expected Outcomes/Goals 1. PO intake to meet at least 75% of nutritional needs. 2. Wt stability, skin to remain intact, labs to approach WNL.
[2017-08-11] MEDS: Multivitamin Tab PO SCH (10:20)
[2017-08-11] MEDS: Lactobacillus Rhamnosus GG 15 Billion CFU CAP.SPRINK PO SCH (10:21)
--- NOTE | 2017-08-11 17:35 | Internal Medicine Prog Note ---
Internal Medicine Subjective - Subjective Service Date: 08/11/17 Patient seen and examined:: with staff Patient is:: awake, verbal, in bed, confused Per staff patient has:: no adverse event Internal Medicine Objective - Physical Exam Vitals and I&O: Vital Signs Temp 97.6 F 08/11/17 14:00 Pulse 91 08/11/17 14:00 Resp 20 08/11/17 14:00 BP 106/68 08/11/17 14:00 Pulse Ox 98 08/11/17 14:00 Intake & Output 08/10/17 08/11/17 08/11/17 18:59 06:59 18:59 Intake Total 120 Balance 120 Intake: Oral 120 Other: # Voids 3 Active Medications: Current Medications Acetaminophen (Tylenol) 650 mg PO Q4HR PRN PRN Reason: Pain or Fever >101 Stop: 10/03/17 02:33 Al Hydrox/Mg Hydrox/Simethicone (Maalox) 30 ml PO Q4H PRN PRN Reason: GI DISTRESS Stop: 10/03/17 02:33 Divalproex Sodium (Depakote Dr) 250 mg PO Q12HR SIMIN; Protocol Stop: 10/10/17 20:59 Docusate Sodium (Colace) 100 mg PO BID [facility] Stop: 10/03/17 08:59 Last Admin: 08/11/17 10:21 Dose: 100 mg Famotidine (Pepcid) 20 mg PO DAILY [facility] Stop: 10/03/17 08:59 Last Admin: 08/11/17 10:20 Dose: 20 mg Guaifenesin/Codeine Phosphate (Robitussin Ac) 10 ml PO Q6HR PRN PRN Reason: Cough Stop: 10/03/17 19:30 Lactobacillus Rhamnosus (Culturelle 15b) 1 each PO DAILY [facility] Stop: 10/08/17 08:59 Last Admin: 08/11/17 10:21 Dose: 1 each Levofloxacin (Levaquin) 750 mg PO DAILY [facility] Stop: 10/04/17 08:59 Last Admin: 08/11/17 10:21 Dose: 750 mg Lorazepam (Ativan) 1 mg PO Q6H PRN; Protocol PRN Reason: Anxiety/Agitation Stop: 10/03/17 02:40 Last Admin: 08/09/17 22:03 Dose: 1 mg Magnesium Hydroxide (Milk Of Magnesia) 30 ml PO HS PRN PRN Reason: Constipation Stop: 10/03/17 02:33 Miscellaneous (Probiotic Screen) 1 ea MC PRN PRN PRN Reason: PROTOCOL Stop: 10/08/17 08:29 Multivitamins/Vitamin C (Theragran) 1 tab PO DAILY [facility] Stop: 10/03/17 08:59 Last Admin: 08/11/17 10:20 Dose: 1 tab Quetiapine Fumarate (Seroquel) 25 mg PO HS [facility]; Protocol Stop: 10/04/17 20:59 Last Admin: 08/10/17 21:29 Dose: 25 mg General: demented HEENT: NC/AT, PERRLA, anicteric sclerae, throat clear Neck: No JVD, No thyromegaly, +2 carotid pulse wo bruit, No LAD Lungs: CTAB, congested, ronchi Cardiovascular: Normal S1, Normal S2, without murmur Abdomen: soft, non-tender, non-distended Extremities: clear Neurological: no change Internal Medicine Assmt/Plan - Assessment Assessment: 1.COPD. 2.DJD. 3.DEMENTIA. - Plan Plan: CONTINUE ON CURRENT MEDICATION AND DIET. Nutritional Asmnt/Malnutr-PDOC - Dietary Evaluation Malnutrition Findings (Please click <Entered> for more info): Nutritional Asmnt/Malnutrition Start: 08/08/17 12: 09 Text: Status: Complete Freq: Protocol: Document 08/08/17 12:09 LCHENG (Rec: 08/08/17 12:23 LCHENG [email or web address]) Nutritional Asmnt/Malnutrition Patient General Information Nutritional Screening Moderate Risk Diagnosis psychosis Pertinent Medical Hx/Surgical Hx dementia, DJD, COPD Subjective Information Pt seen in rich-chair , confused. Per nurse, pt eats well. Per EMR, PO intake 100% of meals. Current Diet Order/ Nutrition Support [facility] soft [facility] Pertinent Medications colace, pepcid, levaquin, theragran, seroquel Pertinent Labs no labs Nutritional Hx/Data Height 1.65 m Height (Calculated Centimeters) 165.1 Current Weight (lbs) 63.049 kg Weight (Calculated Kilograms) 63.0 Weight (Calculated Grams) 35754.3 [place] Body Weight 136 Body Mass Index (BMI) 23.1 Weight Status Approriate GI Symptoms GI Symptoms None Last BM 08/05 Difficult in: None Skin Integrity/Comment: dryness, kami 15 Current %PO Good (75-100%) Estimated Nutritional Goals BEE in Kcals: Using Current wt Calories/Kcals/Kg 25-30 Kcals Calculated 1781-8204 Protein: Using Current wt Protein g/k.8-1 Protein Calculated 50-63 Fluid: ml 1575-1890ml (1ml/kcal) Nutritional Problem No current Nutrition Prob Problem N/A Malnutrition Alert Is there a minimum of two criteria No selected? Query Text:Check all the applicable criteria. A minimum of two criteria are recommended for diagnosis of either severe or non-severe malnutrition. Malnutrition Related to Morbid Obesity Malnutrition related to morbid obesity No Intervention/Recommendation Comments 1. Continue with [facility] soft ground diet as ordered. 2. Monitor PO intake, wt, labs and skin integrity 3. F/U as low risk in 7 days, 08/15 Expected Outcomes/Goals Expected Outcomes/Goals 1. PO intake to meet at least 75% of nutritional needs. 2. Wt stability, skin to remain intact, labs to approach WNL.
--- NOTE | 2017-08-12 02:47 | Progress Notes ---
DATE: 08/11/2017 SUBJECTIVE: Staff was spoken to. The patient is interviewed. Mood is noted to be irritable. Affect is constricted. The patient is still testing the limits. Coping skills are noted to be very poor. The patient is currently on Depakote and low dose of Seroquel and has been able to tolerate the medications. No side effects to the medications are noted. ASSESSMENT: The patient is still impulsive. PLAN: To continue the patient with the supportive therapy and followup. JOB# [id number]
[2017-08-12] MEDS: Lactobacillus Rhamnosus GG 15 Billion CFU CAP.SPRINK PO SCH (09:00)
[2017-08-12] MEDS: Multivitamin Tab PO SCH (09:00)
--- NOTE | 2017-08-12 16:07 | Internal Medicine Prog Note ---
Internal Medicine Subjective - Subjective Service Date: 08/12/17 Patient seen and examined:: with staff Patient is:: awake, verbal, in bed, confused Per staff patient has:: no adverse event Internal Medicine Objective - Physical Exam Vitals and I&O: Vital Signs Temp 97.6 F 08/11/17 14:00 Pulse 91 08/11/17 14:00 Resp 18 08/12/17 08:00 BP 106/68 08/11/17 14:00 Pulse Ox 98 08/11/17 14:00 Intake & Output 08/11/17 08/12/17 08/12/17 18:59 06:59 18:59 Intake Total 960 Balance 960 Intake: Oral 960 Other: # Voids 3 # Bowel Movements 1 Active Medications: Current Medications Acetaminophen (Tylenol) 650 mg PO Q4HR PRN PRN Reason: Pain or Fever >101 Stop: 10/03/17 02:33 Al Hydrox/Mg Hydrox/Simethicone (Maalox) 30 ml PO Q4H PRN PRN Reason: GI DISTRESS Stop: 10/03/17 02:33 Divalproex Sodium (Depakote Dr) 250 mg PO Q12HR [facility]; Protocol Stop: 10/10/17 20:59 Last Admin: 08/12/17 09:00 Dose: 250 mg Docusate Sodium (Colace) 100 mg PO BID [facility] Stop: 10/03/17 08:59 Last Admin: 08/12/17 09:00 Dose: 100 mg Famotidine (Pepcid) 20 mg PO DAILY [facility] Stop: 10/03/17 08:59 Last Admin: 08/12/17 09:00 Dose: 20 mg Guaifenesin/Codeine Phosphate (Robitussin Ac) 10 ml PO Q6HR PRN PRN Reason: Cough Stop: 10/03/17 19:30 Lactobacillus Rhamnosus (Culturelle 15b) 1 each PO DAILY [facility] Stop: 10/08/17 08:59 Last Admin: 08/12/17 09:00 Dose: 1 each Levofloxacin (Levaquin) 750 mg PO DAILY [facility] Stop: 10/04/17 08:59 Last Admin: 08/12/17 08:59 Dose: 750 mg Lorazepam (Ativan) 1 mg PO Q6H PRN; Protocol PRN Reason: Anxiety/Agitation Stop: 10/03/17 02:40 Last Admin: 08/11/17 20:04 Dose: 1 mg Magnesium Hydroxide (Milk Of Magnesia) 30 ml PO HS PRN PRN Reason: Constipation Stop: 10/03/17 02:33 Miscellaneous (Probiotic Screen) 1 ea MC PRN PRN PRN Reason: PROTOCOL Stop: 10/08/17 08:29 Multivitamins/Vitamin C (Theragran) 1 tab PO DAILY [facility] Stop: 10/03/17 08:59 Last Admin: 08/12/17 09:00 Dose: 1 tab Quetiapine Fumarate (Seroquel) 25 mg PO HS [facility]; Protocol Stop: 10/04/17 20:59 Last Admin: 08/11/17 20:04 Dose: 25 mg General: demented HEENT: NC/AT, PERRLA, anicteric sclerae, throat clear Neck: No JVD, No thyromegaly, +2 carotid pulse wo bruit, No LAD Lungs: CTAB, congested, ronchi Cardiovascular: Normal S1, Normal S2, without murmur Abdomen: soft, non-tender, non-distended Extremities: clear Neurological: no change Internal Medicine Assmt/Plan - Assessment Assessment: 1.COPD. 2.DJD. 3.DEMENTIA. - Plan Plan: CONTINUE ON CURRENT MEDICATION AND DIET. Nutritional Asmnt/Malnutr-PDOC - Dietary Evaluation Malnutrition Findings (Please click <Entered> for more info): Nutritional Asmnt/Malnutrition Start: 08/08/17 12: 09 Text: Status: Complete Freq: Protocol: Document 08/08/17 12:09 LCBRENDONG (Rec: 08/08/17 12:23 BRENDON [email or web address]) Nutritional Asmnt/Malnutrition Patient General Information Nutritional Screening Moderate Risk Diagnosis psychosis Pertinent Medical Hx/Surgical Hx dementia, DJD, COPD Subjective Information Pt seen in rich-chair , confused. Per nurse, pt eats well. Per EMR, PO intake 100% of meals. Current Diet Order/ Nutrition Support [facility] Pertinent Medications colace, pepcid, levaquin, theragran, seroquel Pertinent Labs no labs Nutritional Hx/Data Height 1.65 m Height (Calculated Centimeters) 165.1 Current Weight (lbs) 63.049 kg Weight (Calculated Kilograms) 63.0 Weight (Calculated Grams) 16614.3 [place] Body Weight 136 Body Mass Index (BMI) 23.1 Weight Status Approriate GI Symptoms GI Symptoms None Last BM 08/05 Difficult in: None Skin Integrity/Comment: nithya, kami 15 Current %PO Good (75-100%) Estimated Nutritional Goals BEE in Kcals: Using Current wt Calories/Kcals/Kg 25-30 Kcals Calculated 8616-6491 Protein: Using Current wt Protein g/k.8-1 Protein Calculated 50-63 Fluid: ml 1575-1890ml (1ml/kcal) Nutritional Problem No current Nutrition Prob Problem N/A Malnutrition Alert Is there a minimum of two criteria No selected? Query Text:Check all the applicable criteria. A minimum of two criteria are recommended for diagnosis of either severe or non-severe malnutrition. Malnutrition Related to Morbid Obesity Malnutrition related to morbid obesity No Intervention/Recommendation Comments 1. Continue with [facility] soft [facility] diet as ordered. 2. Monitor PO intake, wt, labs and skin integrity 3. F/U as low risk in 7 days, 7/2 Expected Outcomes/Goals Expected Outcomes/Goals 1. PO intake to meet at least 75% of nutritional needs. 2. Wt stability, skin to remain intact, labs to approach WNL.
--- NOTE | 2017-08-13 04:50 | Progress Notes ---
DATE: 08/12/2017 SUBJECTIVE: Staff was spoken to. The patient is interviewed. Mood is noted to be anxious. The patient's coping skills are noted to be poor at this time. Sleep and appetite are also noted to be poor. The patient has been walking with chair and the patient has no coping skills and impulse control is noted to be extremely poor at this time. ASSESSMENT: The patient is still impulsive. PLAN: To continue the patient with the current medications and follow up. JOB# [id number]
[2017-08-13] MEDS: Lactobacillus Rhamnosus GG 15 Billion CFU CAP.SPRINK PO SCH (08:31)
[2017-08-13] MEDS: Multivitamin Tab PO SCH (08:31)
--- NOTE | 2017-08-13 09:31 | Progress Notes ---
DATE: 08/13/2017 PSYCHIATRIC PROGRESS NOTE SUBJECTIVE: Staff was spoken to. The patient is interviewed. Mood is noted to be irritable. Affect is constricted. Insight and judgment at this time are noted to be still impaired. Impulse control is noted to be limited. Coping skills are noted be ____ throwing things around, the rest ____ to him. The patient has no insight into his illness. Impulsivity is a major concern. The patient is currently on the valproic acid 250 mg twice a day and Seroquel 25 mg at bedtime. Plan to increase the dose on the Seroquel to b.i.d. and if possible discharge with the supportive therapy. Increase the dose of the medications to 25 mg b.i.d. and follow the patient with the supportive therapy. Please note that the patient is not ready to be discharged to a lower level of care yet. JOB# [id number]
--- NOTE | 2017-08-13 09:55 | Diagnostic Imaging Report ---
Exam: KUB of the abdomen. HISTORY: Abdominal distention. Findings: Frontal summation the abdomen was reviewed. The study demonstrates distention of small large bowel consistent with ileus. Large amount of fecal impaction is noted in the cecum. Bony structures intact. IMPRESSION: fecal impaction cecum, proximal distention of the small bowel loops, distended air-filled colon . Clinical correlation recommended.
--- NOTE | 2017-08-13 11:03 | Internal Medicine Prog Note ---
Internal Medicine Subjective - Subjective Service Date: 08/13/17 Patient seen and examined:: with staff Patient is:: awake, verbal, rich chair, talking, confused Patient Complaints of:: constipation Per staff patient has:: no adverse event Internal Medicine Objective - Physical Exam Vitals and I&O: Vital Signs Temp 97.4 F 08/13/17 06:50 Pulse 71 08/13/17 06:50 Resp 18 08/13/17 06:50 BP 121/76 08/13/17 06:50 Pulse Ox 96 08/13/17 06:50 Intake & Output 08/12/17 08/13/17 08/13/17 18:59 06:59 18:59 Intake Total 1200 480 Output Total 2 Balance 1200 478 Intake: Oral 1200 480 Output: Stool 1 Urine/Stool Mix 1 Other: # Voids 3 1 # Bowel Movements 1 Active Medications: Current Medications Acetaminophen (Tylenol) 650 mg PO Q4HR PRN PRN Reason: Pain or Fever >101 Stop: 10/03/17 02:33 Al Hydrox/Mg Hydrox/Simethicone (Maalox) 30 ml PO Q4H PRN PRN Reason: GI DISTRESS Stop: 10/03/17 02:33 Divalproex Sodium (Depakote Dr) 250 mg PO Q12HR [facility]; Protocol Stop: 10/10/17 20:59 Last Admin: 08/13/17 08:31 Dose: 250 mg Docusate Sodium (Colace) 100 mg PO BID [facility] Stop: 10/03/17 08:59 Last Admin: 08/13/17 08:31 Dose: 100 mg Famotidine (Pepcid) 20 mg PO DAILY [facility] Stop: 10/03/17 08:59 Last Admin: 08/13/17 08:31 Dose: 20 mg Guaifenesin/Codeine Phosphate (Robitussin Ac) 10 ml PO Q6HR PRN PRN Reason: Cough Stop: 10/03/17 19:30 Lactobacillus Rhamnosus (Culturelle 15b) 1 each PO DAILY [facility] Stop: 10/08/17 08:59 Last Admin: 08/13/17 08:31 Dose: 1 each Lorazepam (Ativan) 1 mg PO Q6H PRN; Protocol PRN Reason: Anxiety/Agitation Stop: 10/03/17 02:40 Last Admin: 06/28/18 20:04 Dose: 1 mg Magnesium Hydroxide (Milk Of Magnesia) 30 ml PO HS PRN PRN Reason: Constipation Stop: 10/03/17 02:33 Last Admin: 08/12/17 21:04 Dose: 30 ml Metoclopramide HCl (Reglan) 10 mg PO TID [facility] Stop: 10/12/17 13:59 Miscellaneous (Probiotic Screen) 1 ea MC PRN PRN PRN Reason: PROTOCOL Stop: 10/08/17 08:29 Multivitamins/Vitamin C (Theragran) 1 tab PO DAILY [facility] Stop: 10/03/17 08:59 Last Admin: 08/13/17 08:31 Dose: 1 tab Quetiapine Fumarate (Seroquel) 25 mg PO BID [facility]; Protocol Stop: 10/12/17 08:59 Last Admin: 08/13/17 10:00 Dose: Not Given General: demented HEENT: NC/AT, PERRLA, anicteric sclerae, throat clear Neck: No JVD, No thyromegaly, +2 carotid pulse wo bruit, No LAD Lungs: CTAB, congested, ronchi Cardiovascular: Normal S1, Normal S2, without murmur Abdomen: soft, non-tender, distended Extremities: clear Neurological: no change Internal Medicine Assmt/Plan - Assessment Assessment: 1.COPD. 2.DJD. 3.DEMENTIA. 4.ABDOMINAL DISTENTION. - Plan Plan: CONTINUE ON CURRENT MEDICATION AND DIET. Nutritional Asmnt/Malnutr-PDOC - Dietary Evaluation Malnutrition Findings (Please click <Entered> for more info): Nutritional Asmnt/Malnutrition Start: 08/08/17 12: 09 Text: Status: Complete Freq: Protocol: Document 08/08/17 12:09 LCHENG (Rec: 08/08/17 12:23 LCHENG [email or web address]) Nutritional Asmnt/Malnutrition Patient General Information Nutritional Screening Moderate Risk Diagnosis psychosis Pertinent Medical Hx/Surgical Hx dementia, DJD, COPD Subjective Information Pt seen in rich-chair , confused. Per nurse, pt eats well. Per EMR, PO intake 100% of meals. Current Diet Order/ Nutrition Support [facility] Pertinent Medications colace, pepcid, levaquin, theragran, seroquel Pertinent Labs no labs Nutritional Hx/Data Height 1.65 m Height (Calculated Centimeters) 165.1 Current Weight (lbs) 63.049 kg Weight (Calculated Kilograms) 63.0 Weight (Calculated Grams) 28341.3 [place] Body Weight 136 Body Mass Index (BMI) 23.1 Weight Status Approriate GI Symptoms GI Symptoms None Last BM 08/05 Difficult in: None Skin Integrity/Comment: kami barriga 15 Current %PO Good (75-100%) Estimated Nutritional Goals BEE in Kcals: Using Current wt Calories/Kcals/Kg 25-30 Kcals Calculated 3543-0641 Protein: Using Current wt Protein g/k.8-1 Protein Calculated 50-63 Fluid: ml 1575-1890ml (1ml/kcal) Nutritional Problem No current Nutrition Prob Problem N/A Malnutrition Alert Is there a minimum of two criteria No selected? Query Text:Check all the applicable criteria. A minimum of two criteria are recommended for diagnosis of either severe or non-severe malnutrition. Malnutrition Related to Morbid Obesity Malnutrition related to morbid obesity No Intervention/Recommendation Comments 1. Continue with [facility] diet as ordered. 2. Monitor PO intake, wt, labs and skin integrity 3. F/U as low risk in 7 days, 7/2 Expected Outcomes/Goals Expected Outcomes/Goals 1. PO intake to meet at least 75% of nutritional needs. 2. Wt stability, skin to remain intact, labs to approach WNL.
[2017-08-14] MEDS: Lactobacillus Rhamnosus GG 15 Billion CFU CAP.SPRINK PO SCH (08:24)
[2017-08-14] MEDS: Multivitamin Tab PO SCH (08:24)
[2017-08-14] MEDS ORDERED: Albuterol Nebulizer 2.5mg/3mL HHN PRN (09:22)
[2017-08-14 10:20] LABS: BASOPHILE ABSOLUTE 0.2 Th/cumm (0-0.2); EOSINOPHILE ABSOLUTE 0.1 Th/cmm (0.1-0.4); HEMATOCRIT 40.5 % (41.0-60); HEMOGLOBIN 13.7 gm/dL (12-16); LYMPHOCYTE ABSOLUTE 1.1 Th/cmm (1.5-3.0); MANUAL DIFF REQUIRED? YES; MEAN CELL VOLUME 89.9 fl (80-99); MEAN CORPUSCULAR HEMOGLOBIN 30.4 pg (27.0-31.0); MEAN CORPUSCULAR HGB CONC 33.8 pg (28.0-36.0); MEAN PLATELET VOLUME 9.9 fl; MONOCYTE ABSOLUTE 1.6 Th/cmm (0.3-1.0); NEUTROPHILE ABSOLUTE 24.2 Th/cmm (1.8-8.0); PLATELET COUNT 171 Th/cmm (150-400); RED CELL DISTRIBUTION WIDTH 13.2 % (11.5-20.0)
[2017-08-14 10:38] LABS: ALB/GLOB RATIO 0.9 (1.0-1.8); ALBUMIN 2.9 gm/dL (4.2-5.5); ANION GAP 36.5 (7.0-16.0); BILIRUBIN,TOTAL 0.4 mg/dL (0.3-1.0); GFR AFRICAN-AMERICAN 4.6 ml/min (>90); GFR NON AFRICAN-AMERICAN 3.8 ml/min; TOTAL PROTEIN,SERUM 6.2 gm/dL (6.0-8.3)
[2017-08-14 10:48] LABS: WHITE BLOOD COUNT 27.2 Th/cmm (4.8-10.8)
[2017-08-14 10:56] LABS: POTASSIUM SERUM 8.7 mEq/L (3.5-5.1)
[2017-08-14 10:57] LABS: CARBON DIOXIDE 5.2 mEq/L (21.0-31.0); CREATININE - SERUM 13.8 mg/dL (0.7-1.3)
[2017-08-14 11:03] LABS: BAND NEUTROPHILE 6 % (0-10); LYMPHOCYTE 5 % (20-50); MONOCYTE 3 % (2-10); NEUTROPHILS 86 % (40-80); TOTAL CELLS COUNTED 100
--- NOTE | 2017-08-14 19:57 | Progress Notes ---
DATE: 08/14/2017 PSYCHIATRIC PROGRESS NOTE SUBJECTIVE: Staff was spoken to. The patient is reported to have been feeling to have low blood pressure and pulse rate was going very low and the patient has to be transferred to the ICU. The patient is noted to be disorganized and paranoid, but the major concerns were reported as far as the psychiatric problems are concerns. During the visit to the ICU, the patient has been getting easily anxious and agitated with labored breathing and the primary care physician is reported to have been contacted and the patient's family has been contacted with regards to the pacemaker and brother has agreed for the pacemaker placement and the brother is requested to give the papers with regards to his durable power of assistant prosecuting attorney. The patient's brother is reported to have been going to contact the assistant prosecuting attorney and then fax the paper so this is related to the staff on the ICU. JOB# [id number]
== END 2017-08-14 10:00 | disposition short-term general hospital (02) | DRG 885 ==
LOC: GERO 01:55
PROVIDERS: ADMIT Psychiatry & Neurology Psychiatry; ATTEND Psychiatry & Neurology Psychiatry
DX: F29 Unspecified psychosis not due to a substance or known physiological condition (principal); J18.9 Pneumonia, unspecified organism; F03.91 Unspecified dementia, unspecified severity, with behavioral disturbance; J44.0 Chronic obstructive pulmonary disease with (acute) lower respiratory infection; M19.90 Unspecified osteoarthritis, unspecified site; K59.00 Constipation, unspecified; R14.0 Abdominal distension (gaseous)
CPT/HCPCS: 36415-UA; 74000-TC; 80053-TC; 85007-TC; 85025-TC; 85027-TC; 90899; 94760; G0410; Z7610

== ENCOUNTER 2017-08-14 11:00 | Inpatient (IN) | payer MEDICARE, MEDICAID ==
[2017-08-14 11:29] LABS: INR 1.33 (0.5-1.4)
[2017-08-14] MEDS: Sodium Bicarbonate 8.4% 50mEq PFS IVP ONE ×2 (12:33→12:51)
[2017-08-14] MEDS: D5-0.9%NS 1,000 ML IV SCH (12:33)
[2017-08-14] MEDS: metroNIDAZOLE 500mg/NS 100mL 500 MG/100 ML BAG IV SCH ×2 (12:57→21:00)
[2017-08-14 13:00] LABS: URINE MICROSCOPIC INDICATED? YES; URINE SOURCE CATH
[2017-08-14 13:01] LABS: URINE BILIRUBIN NEGATIVE (NEGATIVE); URINE BLOOD LARGE (NEGATIVE); URINE GLUCOSE (UA) NEGATIVE (NEGATIVE); URINE KETONE NEGATIVE (NEGATIVE); URINE LEUKOCYTE ESTERASE NEGATIVE (NEGATIVE); URINE NITRATE NEGATIVE (NEGATIVE); URINE PROTEIN NEGATIVE (NEGATIVE); URINE UROBILINOGEN 0.2 E.U./dL (0.2 - 1.0)
[2017-08-14 13:10] LABS: URINE CLARITY HAZY (CLEAR); URINE COLOR YELLOW
[2017-08-14 13:12] LABS: ALB/GLOB RATIO 0.9 (1.0-1.8); ALBUMIN 2.9 gm/dL (4.2-5.5); ANION GAP 33.8 (7.0-16.0); BILIRUBIN,TOTAL 0.5 mg/dL (0.3-1.0); CALCIUM SERUM 9.2 mg/dL (8.6-10.3); GFR NON AFRICAN-AMERICAN 4.1 ml/min; TOTAL PROTEIN,SERUM 6.3 gm/dL (6.0-8.3)
[2017-08-14 13:15] LABS: URINE BACTERIA FEW /hpf (NONE SEEN); URINE EPITHELIAL CELLS FEW /lpf (FEW); URINE RBC 50-100 /hpf (0-5); URINE WBC 0-2 /hpf (0-5)
[2017-08-14 13:18] LABS: POTASSIUM SERUM 8.8 mEq/L (3.5-5.1)
--- NOTE | 2017-08-14 15:54 | History & Physical ---
ADMIT DATE: 08/14/2017 CHIEF COMPLAINT: Cardiac arrest. HISTORY OF PRESENT ILLNESS: The patient is a 66-year-old male with long history of dementia, benign prostatic hypertrophy, hypertension, resident at [facility] Department today and was found with severe bradycardia. The patient was found with almost no pulses. External pacemaker was placed and admitted to the ICU. Initial workup significant for severe hyperkalemia, his potassium was above 8. The patient started on IV fluid and 2 amp of bicarbonate was given. Freedman catheter was placed and the patient passed almost 4 liters of urine. The patient denies any chest pain, any shortness of breath, any nausea, vomiting. Dr. Jones and Dr. Karthik Marshall, Cardiology was consulted on the case, and Dr. March, the exterminator termite. PAST MEDICAL HISTORY: Significant for hypertension, benign prostatic hypertrophy, and dementia. PAST SURGICAL HISTORY: No recent surgery. ALLERGIES: None. MEDICATIONS: Follow admission reconciliation. SOCIAL HISTORY: No smoking, alcohol or drugs. FAMILY HISTORY: Noncontributory. REVIEW OF SYSTEMS: RENAL SYSTEM: No history of chronic renal disorder. CARDIOVASCULAR SYSTEM: No coronary artery disease. ENDOCRINE SYSTEM: No diabetes or thyroid problem. GASTROINTESTINAL SYSTEM: No upper or lower gastrointestinal bleed. NEUROLOGICAL SYSTEM: No seizure disorders. GENITOURINARY: He has benign prostatic hypertrophy. PHYSICAL EXAMINATION: GENERAL: He is awake, alert, mildly confused. VITAL SIGNS: His temperature is 98, heart rate 88, blood pressure 110/70. HEENT: Normocephalic. Pupils reactive to light and accommodation. Sclerae clear. NECK: Supple. Negative for lymphadenopathy, JVD or bruit. CHEST: Bilateral normal. No rhonchi or wheezing. HEART: S1, S2. No murmur or gallop rhythm. ABDOMEN: Soft, bowel sounds positive. EXTREMITIES: No edema. NEUROLOGIC: Awake, alert, mildly confused. ASSESSMENT: 1. Acute obstructive renal failure. 2. Severe hyperkalemia. 3. Severe sinus bradycardia. 4. History of dementia. PLAN: The patient admitted to the hospital under Dr. Tucker's service, started on IV fluid. The patient n.p.o. for possible dialysis. Chem-7 every 4 hours ordered. JOB# [id number]
[2017-08-14 16:13] LABS: ALB/GLOB RATIO 0.9 (1.0-1.8); ALBUMIN 3.1 gm/dL (4.2-5.5); ANION GAP 15.4 (7.0-16.0); BILIRUBIN,TOTAL 0.6 mg/dL (0.3-1.0); CALCIUM SERUM 8.8 mg/dL (8.6-10.3); CARBON DIOXIDE 28.4 mEq/L (21.0-31.0); GFR AFRICAN-AMERICAN 20.5 ml/min (>90); GFR NON AFRICAN-AMERICAN 16.9 ml/min; TOTAL PROTEIN,SERUM 6.4 gm/dL (6.0-8.3)
--- NOTE | 2017-08-14 16:59 | Consultation ---
DATE OF CONSULTATION: 08/14/2017 REFERRING PHYSICIAN: Dr. Tucker. REASON FOR CONSULTATION: Hyperkalemia. Thank you for referring this patient to me. HISTORY OF PRESENT ILLNESS: This is a 66-year-old male admitted to Geropsych Unit with a complaint of shortness of breath and was noted to have severe bradycardia in the 30s. The patient underwent CPR and was sent to ICU. The potassium was noted at 8.8 with BUN of 212 and creatinine of 13.0. PT is 14. PHYSICAL EXAMINATION: In the ICU showed the patient to be moaning and groaning with a heart rate now in the 90s. Because of the hyperkalemia, request has been made by Dr. Zavala for immediate dialysis treatment. A call was made to the brother, but has not answered. Two physicians will have to sign emergent indication for the dialysis. JOB# [id number]
--- NOTE | 2017-08-14 17:00 | General Progress Note ---
Subjective - Review of Systems Service Date: 08/14/17 Events since last encounter: Mirlande 8.8, seen by Dr. Estephania Melo inserted, dialysis STAT Objective - Results Result Diagrams: 08/14/17 12:50 Recent Labs: Laboratory Last Values PT 14.0 SECONDS (9.5-11.5) H 08/14/17 10:10 INR 1.33 (0.5-1.4) 08/14/17 10:10 PTT (Actin FS) 31.6 SECONDS (26.0-38.0) 08/14/17 10:10 Sodium 128 mEq/L (136-145) L 08/14/17 12:50 Potassium 8.8 mEq/L (3.5-5.1) H* 08/14/17 12:50 Chloride 93 mEq/L (98-107) L 08/14/17 12:50 Carbon Dioxide 10.0 mEq/L (21.0-31.0) L 08/14/17 12:50 Anion Gap 33.8 (7.0-16.0) H 08/14/17 12:50 BUN 212 mg/dL (7-25) H* 08/14/17 12:50 Creatinine 13.0 mg/dL (0.7-1.3) H* 08/14/17 12:50 Est GFR ( Amer) 5.0 ml/min (>90) 08/14/17 12:50 Est GFR (Non-Af Amer) 4.1 ml/min 08/14/17 12:50 BUN/Creatinine Ratio 16.3 08/14/17 12:50 Glucose 174 mg/dL (70-105) H 08/14/17 12:50 Calcium 9.2 mg/dL (8.6-10.3) 08/14/17 12:50 Total Bilirubin 0.5 mg/dL (0.3-1.0) 08/14/17 12:50 AST 22 U/L (13-39) 08/14/17 12:50 ALT 14 U/L (7-52) 08/14/17 12:50 Alkaline Phosphatase 68 U/L (34-104) 08/14/17 12:50 Total Protein 6.3 gm/dL (6.0-8.3) 08/14/17 12:50 Albumin 2.9 gm/dL (4.2-5.5) L 08/14/17 12:50 Globulin 3.4 gm/dL 08/14/17 12:50 Albumin/Globulin Ratio 0.9 (1.0-1.8) L 08/14/17 12:50 Urine Source CATH 08/14/17 12:50 Urine Color YELLOW 08/14/17 12:50 Urine Clarity HAZY (CLEAR) 08/14/17 12:50 Urine pH 6.0 (4.6 - 8.0) 08/14/17 12:50 Ur Specific [place] <= 1.005 (1.005-1.030) 08/14/17 12:50 Urine Protein NEGATIVE mg/dL (NEGATIVE) 08/14/17 12:50 Urine Glucose (UA) NEGATIVE mg/dL (NEGATIVE) 08/14/17 12:50 Urine Ketones NEGATIVE mg/dL (NEGATIVE) 08/14/17 12:50 Urine Blood LARGE (NEGATIVE) H 08/14/17 12:50 Urine Nitrate NEGATIVE (NEGATIVE) 08/14/17 12:50 Urine Bilirubin NEGATIVE (NEGATIVE) 08/14/17 12:50 Urine Urobilinogen 0.2 E.U./dL (0.2 - 1.0) 08/14/17 12:50 Ur Leukocyte Esterase NEGATIVE (NEGATIVE) 08/14/17 12:50 Urine RBC 50-100 /hpf (0-5) H 08/14/17 12:50 Urine WBC 0-2 /hpf (0-5) 08/14/17 12:50 Ur Epithelial Cells FEW /lpf (FEW) 08/14/17 12:50 Urine Bacteria FEW /hpf (NONE SEEN) 08/14/17 12:50 Urine Mucus FEW /lpf (FEW) 08/14/17 12:50 - Physical Exam Vitals and I&O: Vital Signs Temp 98.6 F 08/14/17 16:00 Pulse 100 08/14/17 16:45 Resp 25 08/14/17 16:45 BP 102/66 08/14/17 16:45 Pulse Ox 94 08/14/17 16:45 Intake & Output 08/13/17 08/14/17 08/14/17 18:59 06:59 18:59 Intake Total 150 Balance 150 Intake: Intake, IV Amount 150 Piperacillin Sodium/ 50 Tazobact 2.25 gm In Sodium Chloride 0.9% 50 ml @ 100 mls/hr IV Q8HR [facility] Rx#:[id number] metroNIDAZOLE 500mg/NS 100 100mL 500 mg In 100 ml @ 100 mls/hr IV Q8HR [facility] Rx #:[id number] Active Medications: Current Medications Dextrose/Sodium Chloride (D5-0.9%Ns) 1,000 mls @ 100 mls/hr IV .Q10H [facility] Stop: 10/13/17 11:53 Last Admin: 08/14/17 12:33 Dose: 100 mls/hr Metronidazole (Flagyl) 500 mg in 100 mls @ 100 mls/hr IV Q8HR [facility] Stop: 10/13/17 12:59 Last Infusion: 08/14/17 14:00 Dose: Infused Piperacillin Sod/Tazobactam (Sod 2.25 gm/ Sodium Chloride) 50 mls @ 100 mls/hr IV Q8HR [facility] Stop: 10/13/17 12:59 Last Infusion: 08/14/17 12:50 Dose: Infused
[2017-08-14 17:01] LABS: CREATININE - SERUM 3.8 mg/dL (0.7-1.3); POTASSIUM SERUM 2.8 mEq/L (3.5-5.1)
[2017-08-14 17:31] LABS: POTASSIUM SERUM 3.7 mEq/L (3.5-5.1)
[2017-08-14 17:38] LABS: CREATININE - SERUM 4.8 mg/dL (0.7-1.3)
--- NOTE | 2017-08-14 18:13 | Operative Report ---
DATE OF SURGERY: 08/14/2017 PREOPERATIVE DIAGNOSES: 1. Hyperkalemia acute. 2. Bradycardia. POSTOPERATIVE DIAGNOSES: 1. Hyperkalemia acute. 2. Bradycardia. OPERATION DONE: Insertion of Kameron catheter, left subclavian vein under ultrasound guidance. Brother was called via phone about the consent, but not available. Two physicians have to sign. Immediate necessity for hemodialysis treatment. With potassium of 8.8. DESCRIPTION OF PROCEDURE: Left chest was prepped with ChloraPrep and draped in appropriate manner. A 1% lidocaine was used to infiltrate the area identified on ultrasound. An incision was made and a size 18 needle was used to locate the vein. Guide was inserted, the dilator and then the triple lumen catheter. It was anchored to chest wall with 3-0 silk. Portable chest x-ray was done and placement was verified. The superior vena cava with no pneumothorax. JOB# [id number]
[2017-08-14 20:25] LABS: ALB/GLOB RATIO 0.9 (1.0-1.8); ALBUMIN 2.8 gm/dL (4.2-5.5); ANION GAP 15.6 (7.0-16.0); BILIRUBIN,TOTAL 0.6 mg/dL (0.3-1.0); CARBON DIOXIDE 24.1 mEq/L (21.0-31.0); CREATININE - SERUM 3.5 mg/dL (0.7-1.3); GFR AFRICAN-AMERICAN 22.5 ml/min (>90); GFR NON AFRICAN-AMERICAN 18.6 ml/min; POTASSIUM SERUM 3.7 mEq/L (3.5-5.1)
[2017-08-15 00:50] LABS: ALB/GLOB RATIO 0.9 (1.0-1.8); ALBUMIN 2.8 gm/dL (4.2-5.5); ANION GAP 13.2 (7.0-16.0); BILIRUBIN,TOTAL 0.7 mg/dL (0.3-1.0); CARBON DIOXIDE 26.6 mEq/L (21.0-31.0); CREATININE - SERUM 2.1 mg/dL (0.7-1.3); GFR AFRICAN-AMERICAN 40.6 ml/min (>90); GFR NON AFRICAN-AMERICAN 33.5 ml/min; POTASSIUM SERUM 3.8 mEq/L (3.5-5.1); TOTAL PROTEIN,SERUM 5.9 gm/dL (6.0-8.3)
[2017-08-15] MEDS: D5-0.9%NS 1,000 ML IV SCH ×2 (01:22→12:15)
--- NOTE | 2017-08-15 02:41 | Consultation ---
DATE OF CONSULTATION: 08/14/2017 RENAL CONSULTATION I am seeing this consult through the kind request of Dr. Tucker. REASON FOR CONSULTATION: Acute renal failure with hyperkalemia critical and bradycardia. HISTORY OF PRESENT ILLNESS: Information is obtained from the bedside nurse. Reportedly, the patient is a 66-year-old man from [facility] brought over to the ICU because he was bradycardic. Blood test shows he was severely hyperkalemic with a potassium of 8.7. The patient is in the ICU with an external pacemaker. They called me. I ordered for a stat Freedman catheter placement and the patient does have evidence of obstructive uropathy, so far 2 liters of urine has come out, but at the same time the patient is still extremely critical. We still have to correct his potassium, acidosis, BUN of 217 and creatinine of 13.8. PAST MEDICAL HISTORY: Chronic psychosis, dementia, degenerative joint disease, COPD. PAST SURGICAL HISTORY: Nothing recent. ALLERGIES: None. SOCIAL HISTORY: Ex-smoker, no alcohol or drug use. FAMILY HISTORY: Noncontributory. MEDICATIONS: Tylenol, Maalox, Colace, famotidine, melatonin, multivitamin. REVIEW OF SYSTEMS: Unable to obtain from the patient due to his poor mental status. PHYSICAL EXAMINATION: VITAL SIGNS: Heart rate was in the 30s, it is better now improving after the Freedman catheter was placed and he does have the external pacemaker. Blood pressure 109/64, heart rate now is 103, respiratory rate 19. He is confused. HEENT: Normocephalic, atraumatic. Pupils reactive. Oral mucosa is dry. NECK: Supple. HEART: Regular rhythm at this time. LUNGS: Clear. ABDOMEN: Soft, nondistended, nontender. EXTREMITIES: Have no edema. Freedman catheter is now in place. LABORATORY DATA: From [facility], sodium 125, potassium 8.7, chloride 92, bicarb of 5.2, BUN 217, creatinine 13.8, glucose 166. Albumin 2.9. WBC is 27.2, hemoglobin of 13.7, hematocrit 40.5, and platelet is 171. IMPRESSION AND RECOMMENDATIONS: 1. Acute kidney injury likely due to obstruction. 2. Critical hyperkalemia. The patient was bradycardic, it is better with the Freedman catheter placed. The patient still needs dialysis at least temporarily to lower potassium to a safe level. 3. Severe acidosis, will also correct with dialysis. 4. Obstructive uropathy. We will leave Freedman catheter in. Hopefully, the patient will start having renal recovery. 5. History of psychosis. Dr. Jones has been requested for the Kameron catheter placement. We will dialyze the patient, low potassium to a safe level and correct the severe acidosis. Then after that, we will be able to have time to monitor for renal function recovery. We will dialyze only 2 hours today, make sure that the patient would not have any disequilibrium syndrome. Then if needed again, we can reassess that tomorrow. Thank you again for the consult. We will follow the patient with you. JOB# [id number]
[2017-08-15 04:49] LABS: HEMOGLOBIN 13.4 gm/dL (12-16); MEAN CELL VOLUME 89.6 fl (80-99); MEAN CORPUSCULAR HEMOGLOBIN 29.9 pg (27.0-31.0); MEAN CORPUSCULAR HGB CONC 33.4 pg (28.0-36.0); PLATELET COUNT 139 Th/cmm (150-400); RED BLOOD COUNT 4.47 Mil/cmm (3.80-5.80); RED CELL DISTRIBUTION WIDTH 13.2 % (11.5-20.0)
[2017-08-15] MEDS: metroNIDAZOLE 500mg/NS 100mL 500 MG/100 ML BAG IV SCH ×3 (04:55→20:55)
[2017-08-15 05:05] LABS: ALB/GLOB RATIO 0.9 (1.0-1.8); ALBUMIN 2.8 gm/dL (4.2-5.5); ANION GAP 11.8 (7.0-16.0); BILIRUBIN,TOTAL 0.7 mg/dL (0.3-1.0); CALCIUM SERUM 9.1 mg/dL (8.6-10.3); CARBON DIOXIDE 28.1 mEq/L (21.0-31.0); CREATININE - SERUM 1.5 mg/dL (0.7-1.3); GFR AFRICAN-AMERICAN 59.9 ml/min (>90); GFR NON AFRICAN-AMERICAN 49.5 ml/min; POTASSIUM SERUM 3.9 mEq/L (3.5-5.1); TOTAL PROTEIN,SERUM 6.1 gm/dL (6.0-8.3)
[2017-08-15 06:04] LABS: LYMPHOCYTE 13 % (20-50); MONOCYTE 4 % (2-10); NEUTROPHILS 83 % (40-80); TOTAL CELLS COUNTED 100
--- NOTE | 2017-08-15 08:19 | Diagnostic Imaging Report ---
CHEST X-RAY: AP view INDICATION: Shortness of breath COMPARISON: 08/02/2017 FINDINGS: Increase bibasal lung markings are noted. No focal consolidation. There may be a small left effusion. Heart size at the upper limits of normal. IMPRESSION: Increased bibasilar lung markings, left greater than right. Findings may be due to atelectatic changes. Faint infiltrate is less likely. Clinical correlation is recommended.
--- NOTE | 2017-08-15 08:22 | Diagnostic Imaging Report ---
CHEST X-RAY: AP view INDICATION: Kameron catheter placement COMPARISON: Chest x-ray earlier the same day FINDINGS: Multiple images were obtained with final images demonstrating a left subclavian Kameron catheter with tip in the SVC. There may be a small left pneumothorax. Bibasal atelectatic changes are noted. Heart size is normal. IMPRESSION: Left subclavian Kameron catheter with tip in SVC. There may be a small left pneumothorax. Recommend repeat chest x-ray for further assessment Bibasal atelectatic changes. Results relayed to the referring team on 08/15/2017 at 8:19 AM.
--- NOTE | 2017-08-15 08:29 | General Progress Note ---
Subjective - Review of Systems Service Date: 08/15/17 Events since last encounter: Hr in 60s improving labs Objective - Results Result Diagrams: 08/15/17 04:05 08/15/17 04:05 Recent Labs: Laboratory Last Values WBC 14.0 Th/cmm (4.8-10.8) H D 08/15/17 04:05 RBC 4.47 Mil/cmm (3.80-5.80) 08/15/17 04:05 Hgb 13.4 gm/dL (12-16) 08/15/17 04:05 Hct 40.0 % (41.0-60) L 08/15/17 04:05 MCV 89.6 fl (80-99) 08/15/17 04:05 MCH 29.9 pg (27.0-31.0) 08/15/17 04:05 MCHC Differential 33.4 pg (28.0-36.0) 08/15/17 04:05 RDW 13.2 % (11.5-20.0) 08/15/17 04:05 Plt Count 139 Th/cmm (150-400) L 08/15/17 04:05 MPV 9.0 fl 08/15/17 04:05 Neutrophils % PHOTOLITHOGRAPHIC STRIPPER 08/15/17 04:05 Lymphocytes % PHOTOLITHOGRAPHIC STRIPPER 08/15/17 04:05 Monocytes % PHOTOLITHOGRAPHIC STRIPPER 08/15/17 04:05 Eosinophils % PHOTOLITHOGRAPHIC STRIPPER 08/15/17 04:05 Basophils % PHOTOLITHOGRAPHIC STRIPPER 08/15/17 04:05 Neutrophils (Manual) 83 % (40-80) H 08/15/17 04:05 Lymphocytes 13 % (20-50) L 08/15/17 04:05 Monocytes 4 % (2-10) 08/15/17 04:05 PT 14.0 SECONDS (9.5-11.5) H 08/14/17 10:10 INR 1.33 (0.5-1.4) 08/14/17 10:10 PTT (Actin FS) 31.6 SECONDS (26.0-38.0) 08/14/17 10:10 Sodium 153 mEq/L (136-145) H 08/15/17 04:05 Potassium 3.9 mEq/L (3.5-5.1) 08/15/17 04:05 Chloride 117 mEq/L (98-107) H 08/15/17 04:05 Carbon Dioxide 28.1 mEq/L (21.0-31.0) 08/15/17 04:05 Anion Gap 11.8 (7.0-16.0) 08/15/17 04:05 BUN 51 mg/dL (7-25) H 08/15/17 04:05 Creatinine 1.5 mg/dL (0.7-1.3) H 08/15/17 04:05 Est GFR ( Amer) 59.9 ml/min (>90) 08/15/17 04:05 Est GFR (Non-Af Amer) 49.5 ml/min 08/15/17 04:05 BUN/Creatinine Ratio 34.0 08/15/17 04:05 Glucose 107 mg/dL (70-105) H 08/15/17 04:05 Calcium 9.1 mg/dL (8.6-10.3) 08/15/17 04:05 Total Bilirubin 0.7 mg/dL (0.3-1.0) 08/15/17 04:05 AST 21 U/L (13-39) 08/15/17 04:05 ALT 15 U/L (7-52) 08/15/17 04:05 Alkaline Phosphatase 59 U/L (34-104) 08/15/17 04:05 Total Protein 6.1 gm/dL (6.0-8.3) 08/15/17 04:05 Albumin 2.8 gm/dL (4.2-5.5) L 08/15/17 04:05 Globulin 3.3 gm/dL 08/15/17 04:05 Albumin/Globulin Ratio 0.9 (1.0-1.8) L 08/15/17 04:05 Urine Source CATH 08/14/17 12:50 Urine Color YELLOW 08/14/17 12:50 Urine Clarity HAZY (CLEAR) 08/14/17 12:50 Urine pH 6.0 (4.6 - 8.0) 08/14/17 12:50 Ur Specific [place] <= 1.005 (1.005-1.030) 08/14/17 12:50 Urine Protein NEGATIVE mg/dL (NEGATIVE) 08/14/17 12:50 Urine Glucose (UA) NEGATIVE mg/dL (NEGATIVE) 08/14/17 12:50 Urine Ketones NEGATIVE mg/dL (NEGATIVE) 08/14/17 12:50 Urine Blood LARGE (NEGATIVE) H 08/14/17 12:50 Urine Nitrate NEGATIVE (NEGATIVE) 08/14/17 12:50 Urine Bilirubin NEGATIVE (NEGATIVE) 08/14/17 12:50 Urine Urobilinogen 0.2 E.U./dL (0.2 - 1.0) 08/14/17 12:50 Ur Leukocyte Esterase NEGATIVE (NEGATIVE) 08/14/17 12:50 Urine RBC 50-100 /hpf (0-5) H 08/14/17 12:50 Urine WBC 0-2 /hpf (0-5) 08/14/17 12:50 Ur Epithelial Cells FEW /lpf (FEW) 08/14/17 12:50 Urine Bacteria FEW /hpf (NONE SEEN) 08/14/17 12:50 Urine Mucus FEW /lpf (FEW) 08/14/17 12:50 - Physical Exam Vitals and I&O: Vital Signs Temp 97.2 F 08/15/17 05:00 Pulse 70 08/15/17 06:00 Resp 14 08/15/17 06:00 BP 97/43 08/15/17 06:00 Pulse Ox 96 08/15/17 08:00 Intake & Output 08/14/17 08/15/17 08/15/17 18:59 06:59 18:59 Intake Total 270 1150 Output Total 6800 3500 Balance -6530 -2350 Weight (lbs) 60.951 kg 59.421 kg Intake: Intake, IV Amount 150 1150 D5-0.9%Ns 1,000 ml @ 100 1000 mls/hr IV .Q10H [facility] Rx#: [id number] Piperacillin Sodium/ 50 50 Tazobact 2.25 gm In Sodium Chloride 0.9% 50 ml @ 100 mls/hr IV Q8HR [facility] Rx#:[id number] metroNIDAZOLE 500mg/NS 100 100 100mL 500 mg In 100 ml @ 100 mls/hr IV Q8HR [facility] Rx #:[id number] Oral 120 Output: Urine 6800 3500 Other: # Bowel Movements 0 Weight Source Bedscale Bedscale Active Medications: Current Medications Dextrose/Sodium Chloride (D5-0.9%Ns) 1,000 mls @ 100 mls/hr IV .Q10H [facility] Stop: 10/13/17 11:53 Last Admin: 08/15/17 01:22 Dose: 100 mls/hr Metronidazole (Flagyl) 500 mg in 100 mls @ 100 mls/hr IV Q8HR [facility] Stop: 10/13/17 12:59 Last Admin: 08/15/17 04:55 Dose: 100 mls/hr Piperacillin Sod/Tazobactam (Sod 2.25 gm/ Sodium Chloride) 50 mls @ 100 mls/hr IV Q8HR [facility] Stop: 10/13/17 12:59 Last Admin: 08/15/17 04:55 Dose: 100 mls/hr Norepinephrine Bitartrate 4 mg (/ Dextrose) 254 mls @ 0 mls/hr IV TITR PRN; Protocol PRN Reason: BP MAINTENANCE (PER PROTOCOL) Stop: 10/13/17 18:16
--- NOTE | 2017-08-15 08:32 | Diagnostic Imaging Report ---
Renal ultrasound HISTORY: Acute renal failure. COMPARISON: None Technique: Sonography of the kidneys and urinary bladder was performed in multiple planes. FINDINGS: Exam is limited due to body habitus. The right kidney measures 13.2 x 6.9 cm. There is mild right hydronephrosis. There is a sonolucent lesion probably arising from the right kidney measuring 6.6 x 6.2 cm. The left kidney measures 13.3 x 6 cm. The left renal margin is not well-defined limiting assessment for focal lesions. No obvious focal lesions identified. There is mild left hydronephrosis. The urinary bladder is severely distended with volume of 1244-mL's. A Freedman catheter seen within the urinary bladder. The urinary bladder wall measures 3 mm. The prostate gland measures 5.3 x 3.9 x 2.2 cm. Incidentally noted is a gallstone with borderline prominent gallbladder wall. The common bile duct measures 4 mm. IMPRESSION: Mild bilateral hydronephrosis. Severely distended urinary bladder with volume of 1244-mL's. A Freedman catheter is seen within the urinary bladder. Recommend clinical correlation. Mildly prominent prostate gland. 6.6 x 6.2 cm Cystic lesion of the right retroperitoneum probably a large right renal cyst. CT would further clarify Gallstones and borderline prominent gallbladder wall.
[2017-08-15 09:28] LABS: ALB/GLOB RATIO 0.9 (1.0-1.8); ALBUMIN 2.5 gm/dL (4.2-5.5); ALKALINE PHOSPHATASE 51 U/L (34-104); ANION GAP 7.8 (7.0-16.0); BILIRUBIN,TOTAL 0.6 mg/dL (0.3-1.0); BUN - UREA NITROGEN 37 mg/dL (7-25); CALCIUM SERUM 8.6 mg/dL (8.6-10.3); CARBON DIOXIDE 29.8 mEq/L (21.0-31.0); CHLORIDE 119 mEq/L (98-107); CREATININE - SERUM 0.8 mg/dL (0.7-1.3); GFR AFRICAN-AMERICAN > 60.0 ml/min (>90); GFR NON AFRICAN-AMERICAN > 60.0 ml/min; GLUCOSE 120 mg/dL (70-105); POTASSIUM SERUM 3.6 mEq/L (3.5-5.1); SGOT 21 U/L (13-39); SGPT/ALT 14 U/L (7-52); SODIUM SERUM 153 mEq/L (136-145); TOTAL PROTEIN,SERUM 5.2 gm/dL (6.0-8.3)
[2017-08-15] MEDS ORDERED: Probiotic Screen MC PRN (12:34)
--- NOTE | 2017-08-15 14:38 | General Progress Note ---
Subjective - Review of Systems Service Date: 08/15/17 Subjective: in bed no distress العراقي in place Objective - Results Result Diagrams: 08/15/17 04:05 08/15/17 08:31 Recent Labs: Laboratory Last Values WBC 14.0 Th/cmm (4.8-10.8) H D 08/15/17 04:05 RBC 4.47 Mil/cmm (3.80-5.80) 08/15/17 04:05 Hgb 13.4 gm/dL (12-16) 08/15/17 04:05 Hct 40.0 % (41.0-60) L 08/15/17 04:05 MCV 89.6 fl (80-99) 08/15/17 04:05 MCH 29.9 pg (27.0-31.0) 08/15/17 04:05 MCHC Differential 33.4 pg (28.0-36.0) 08/15/17 04:05 RDW 13.2 % (11.5-20.0) 08/15/17 04:05 Plt Count 139 Th/cmm (150-400) L 08/15/17 04:05 MPV 9.0 fl 08/15/17 04:05 Neutrophils % STATISTICAL MACHINE MECHANIC 08/15/17 04:05 Lymphocytes % STATISTICAL MACHINE MECHANIC 08/15/17 04:05 Monocytes % STATISTICAL MACHINE MECHANIC 08/15/17 04:05 Eosinophils % STATISTICAL MACHINE MECHANIC 08/15/17 04:05 Basophils % STATISTICAL MACHINE MECHANIC 08/15/17 04:05 Neutrophils (Manual) 83 % (40-80) H 08/15/17 04:05 Lymphocytes 13 % (20-50) L 08/15/17 04:05 Monocytes 4 % (2-10) 08/15/17 04:05 PT 14.0 SECONDS (9.5-11.5) H 08/14/17 10:10 INR 1.33 (0.5-1.4) 08/14/17 10:10 PTT (Actin FS) 31.6 SECONDS (26.0-38.0) 08/14/17 10:10 Sodium 153 mEq/L (136-145) H 08/15/17 08:31 Potassium 3.6 mEq/L (3.5-5.1) 08/15/17 08:31 Chloride 119 mEq/L (98-107) H 08/15/17 08:31 Carbon Dioxide 29.8 mEq/L (21.0-31.0) 08/15/17 08:31 Anion Gap 7.8 (7.0-16.0) 08/15/17 08:31 BUN 37 mg/dL (7-25) H 08/15/17 08:31 Creatinine 0.8 mg/dL (0.7-1.3) 08/15/17 08:31 Est GFR ( Amer) > 60.0 ml/min (>90) 08/15/17 08:31 Est GFR (Non-Af Amer) > 60.0 ml/min 08/15/17 08:31 BUN/Creatinine Ratio 46.3 08/15/17 08:31 Glucose 120 mg/dL (70-105) H 08/15/17 08:31 Calcium 8.6 mg/dL (8.6-10.3) 08/15/17 08:31 Total Bilirubin 0.6 mg/dL (0.3-1.0) 08/15/17 08:31 AST 21 U/L (13-39) 08/15/17 08:31 ALT 14 U/L (7-52) 08/15/17 08:31 Alkaline Phosphatase 51 U/L (34-104) 08/15/17 08:31 Total Protein 5.2 gm/dL (6.0-8.3) L 08/15/17 08:31 Albumin 2.5 gm/dL (4.2-5.5) L 08/15/17 08:31 Globulin 2.7 gm/dL 08/15/17 08:31 Albumin/Globulin Ratio 0.9 (1.0-1.8) L 08/15/17 08:31 Urine Source CATH 08/14/17 12:50 Urine Color YELLOW 08/14/17 12:50 Urine Clarity HAZY (CLEAR) 08/14/17 12:50 Urine pH 6.0 (4.6 - 8.0) 08/14/17 12:50 Ur Specific [place] <= 1.005 (1.005-1.030) 08/14/17 12:50 Urine Protein NEGATIVE mg/dL (NEGATIVE) 08/14/17 12:50 Urine Glucose (UA) NEGATIVE mg/dL (NEGATIVE) 08/14/17 12:50 Urine Ketones NEGATIVE mg/dL (NEGATIVE) 08/14/17 12:50 Urine Blood LARGE (NEGATIVE) H 08/14/17 12:50 Urine Nitrate NEGATIVE (NEGATIVE) 08/14/17 12:50 Urine Bilirubin NEGATIVE (NEGATIVE) 08/14/17 12:50 Urine Urobilinogen 0.2 E.U./dL (0.2 - 1.0) 08/14/17 12:50 Ur Leukocyte Esterase NEGATIVE (NEGATIVE) 08/14/17 12:50 Urine RBC 50-100 /hpf (0-5) H 08/14/17 12:50 Urine WBC 0-2 /hpf (0-5) 08/14/17 12:50 Ur Epithelial Cells FEW /lpf (FEW) 08/14/17 12:50 Urine Bacteria FEW /hpf (NONE SEEN) 08/14/17 12:50 Urine Mucus FEW /lpf (FEW) 08/14/17 12:50 - Physical Exam Vitals and I&O: Vital Signs Temp 97.8 F 08/15/17 12:00 Pulse 68 08/15/17 14:00 Resp 14 08/15/17 14:00 BP 100/56 08/15/17 14:00 Pulse Ox 100 08/15/17 14:00 Intake & Output 08/14/17 08/15/17 08/15/17 18:59 06:59 18:59 Intake Total 270 1300 1000 Output Total 6800 3500 Balance -6530 -2200 1000 Weight (lbs) 60.951 kg 59.421 kg Intake: Intake, IV Amount 150 1300 1000 D5-0.9%Ns 1,000 ml @ 100 1000 1000 mls/hr IV .Q10H [facility] Rx#: [id number] Piperacillin Sodium/ 50 100 Tazobact 2.25 gm In Sodium Chloride 0.9% 50 ml @ 100 mls/hr IV Q8HR [facility] Rx#:[id number] metroNIDAZOLE 500mg/NS 100 200 100mL 500 mg In 100 ml @ 100 mls/hr IV Q8HR [facility] Rx #:[id number] Oral 120 Output: Urine 6800 3500 Other: # Bowel Movements 0 Stool Characteristics Soft Brown Weight Source Bedscale Bedscale Active Medications: Current Medications Dextrose/Sodium Chloride (D5-0.9%Ns) 1,000 mls @ 100 mls/hr IV .Q10H [facility] Stop: 10/13/17 11:53 Last Admin: 08/15/17 12:15 Dose: 100 mls/hr Metronidazole (Flagyl) 500 mg in 100 mls @ 100 mls/hr IV Q8HR [facility] Stop: 10/13/17 12:59 Last Admin: 08/15/17 14:11 Dose: 100 mls/hr Piperacillin Sod/Tazobactam (Sod 2.25 gm/ Sodium Chloride) 50 mls @ 100 mls/hr IV Q8HR [facility] Stop: 10/13/17 12:59 Last Admin: 08/15/17 12:15 Dose: 100 mls/hr Norepinephrine Bitartrate 4 mg (/ Dextrose) 254 mls @ 0 mls/hr IV TITR PRN; Protocol PRN Reason: BP MAINTENANCE (PER PROTOCOL) Stop: 10/13/17 18:16 Lactobacillus Rhamnosus (Culturelle 15b) 1 each PO DAILY [facility] Stop: 10/14/17 12:59 Miscellaneous (Probiotic Screen) 1 ea MC PRN PRN PRN Reason: PROTOCOL Stop: 10/14/17 12:33 General: Alert HEENT: Atraumatic Neck: Supple Cardiovascular: Regular rate, Normal S1, Normal S2 Lungs: Clear to auscultation Abdomen: Bowel sounds - Procedures Procedures: Procedures Procedure Code Date INSERTION OF INFUSION DEV INTO L SUBCLAV VEIN, PERC APPROACH 93F668K 08/14/17 ULTRASONOGRAPHY OF LEFT SUBCLAVIAN VEIN, GUIDANCE [id number] 08/14/17 Assessment/Plan - Assessment Assessment: acute obstructive urpathy arf secondary to urinary retention hyperkalemia - Plan Plan: continue ivf D5W will rermove marylou once sure no need for HD
[2017-08-15] MEDS: Lactobacillus Rhamnosus GG 15 Billion CFU CAP.SPRINK PO SCH (15:41)
[2017-08-15] MEDS: Dextrose 5% 1,000 ML IV SCH (15:43)
--- NOTE | 2017-08-15 18:41 | Internal Medicine Prog Note ---
Internal Medicine Subjective - Subjective Service Date: 08/15/17 Patient seen and examined:: with staff Patient is:: awake, verbal, in bed, talking Per staff patient has:: no adverse event Internal Medicine Objective - Results Result Diagrams: 08/15/17 04:05 08/15/17 08:31 Recent Labs: Laboratory Last Values WBC 14.0 Th/cmm (4.8-10.8) H D 08/15/17 04:05 RBC 4.47 Mil/cmm (3.80-5.80) 08/15/17 04:05 Hgb 13.4 gm/dL (12-16) 08/15/17 04:05 Hct 40.0 % (41.0-60) L 08/15/17 04:05 MCV 89.6 fl (80-99) 08/15/17 04:05 MCH 29.9 pg (27.0-31.0) 08/15/17 04:05 MCHC Differential 33.4 pg (28.0-36.0) 08/15/17 04:05 RDW 13.2 % (11.5-20.0) 08/15/17 04:05 Plt Count 139 Th/cmm (150-400) L 08/15/17 04:05 MPV 9.0 fl 08/15/17 04:05 Neutrophils % IN STORE MARKETING ASSOCIATE 08/15/17 04:05 Lymphocytes % IN STORE MARKETING ASSOCIATE 08/15/17 04:05 Monocytes % IN STORE MARKETING ASSOCIATE 08/15/17 04:05 Eosinophils % IN STORE MARKETING ASSOCIATE 08/15/17 04:05 Basophils % IN STORE MARKETING ASSOCIATE 08/15/17 04:05 Neutrophils (Manual) 83 % (40-80) H 08/15/17 04:05 Lymphocytes 13 % (20-50) L 08/15/17 04:05 Monocytes 4 % (2-10) 08/15/17 04:05 PT 14.0 SECONDS (9.5-11.5) H 08/14/17 10:10 INR 1.33 (0.5-1.4) 08/14/17 10:10 PTT (Actin FS) 31.6 SECONDS (26.0-38.0) 08/14/17 10:10 Sodium 153 mEq/L (136-145) H 08/15/17 08:31 Potassium 3.6 mEq/L (3.5-5.1) 08/15/17 08:31 Chloride 119 mEq/L (98-107) H 08/15/17 08:31 Carbon Dioxide 29.8 mEq/L (21.0-31.0) 08/15/17 08:31 Anion Gap 7.8 (7.0-16.0) 08/15/17 08:31 BUN 37 mg/dL (7-25) H 08/15/17 08:31 Creatinine 0.8 mg/dL (0.7-1.3) 08/15/17 08:31 Est GFR ( Amer) > 60.0 ml/min (>90) 08/15/17 08:31 Est GFR (Non-Af Amer) > 60.0 ml/min 08/15/17 08:31 BUN/Creatinine Ratio 46.3 08/15/17 08:31 Glucose 120 mg/dL (70-105) H 08/15/17 08:31 Calcium 8.6 mg/dL (8.6-10.3) 08/15/17 08:31 Total Bilirubin 0.6 mg/dL (0.3-1.0) 08/15/17 08:31 AST 21 U/L (13-39) 08/15/17 08:31 ALT 14 U/L (7-52) 08/15/17 08:31 Alkaline Phosphatase 51 U/L (34-104) 08/15/17 08:31 Total Protein 5.2 gm/dL (6.0-8.3) L 08/15/17 08:31 Albumin 2.5 gm/dL (4.2-5.5) L 08/15/17 08:31 Globulin 2.7 gm/dL 08/15/17 08:31 Albumin/Globulin Ratio 0.9 (1.0-1.8) L 08/15/17 08:31 Urine Source CATH 08/14/17 12:50 Urine Color YELLOW 08/14/17 12:50 Urine Clarity HAZY (CLEAR) 08/14/17 12:50 Urine pH 6.0 (4.6 - 8.0) 08/14/17 12:50 Ur Specific [place] <= 1.005 (1.005-1.030) 08/14/17 12:50 Urine Protein NEGATIVE mg/dL (NEGATIVE) 08/14/17 12:50 Urine Glucose (UA) NEGATIVE mg/dL (NEGATIVE) 08/14/17 12:50 Urine Ketones NEGATIVE mg/dL (NEGATIVE) 08/14/17 12:50 Urine Blood LARGE (NEGATIVE) H 08/14/17 12:50 Urine Nitrate NEGATIVE (NEGATIVE) 08/14/17 12:50 Urine Bilirubin NEGATIVE (NEGATIVE) 08/14/17 12:50 Urine Urobilinogen 0.2 E.U./dL (0.2 - 1.0) 08/14/17 12:50 Ur Leukocyte Esterase NEGATIVE (NEGATIVE) 08/14/17 12:50 Urine RBC 50-100 /hpf (0-5) H 08/14/17 12:50 Urine WBC 0-2 /hpf (0-5) 08/14/17 12:50 Ur Epithelial Cells FEW /lpf (FEW) 08/14/17 12:50 Urine Bacteria FEW /hpf (NONE SEEN) 08/14/17 12:50 Urine Mucus FEW /lpf (FEW) 08/14/17 12:50 - Physical Exam Vitals and I&O: Vital Signs Temp 98.6 F 08/15/17 16:00 Pulse 67 08/15/17 16:00 Resp 14 08/15/17 16:00 BP 111/62 08/15/17 16:00 Pulse Ox 98 08/15/17 16:00 Intake & Output 08/14/17 08/15/17 08/15/17 18:59 06:59 18:59 Intake Total 270 1300 1150 Output Total 6800 3500 Balance -6530 -2200 1150 Weight (lbs) 60.951 kg 59.421 kg Intake: Intake, IV Amount 150 1300 1150 D5-0.9%Ns 1,000 ml @ 100 1000 1000 mls/hr IV .Q10H [facility] Rx#: [id number] Piperacillin Sodium/ 50 100 50 Tazobact 2.25 gm In Sodium Chloride 0.9% 50 ml @ 100 mls/hr IV Q8HR [facility] Rx#:[id number] metroNIDAZOLE 500mg/NS 100 200 100 100mL 500 mg In 100 ml @ 100 mls/hr IV Q8HR [facility] Rx #:[id number] Oral 120 Output: Urine 6800 3500 Other: # Bowel Movements 0 Stool Characteristics Soft Brown Weight Source Bedscale Bedscale Active Medications: Current Medications Metronidazole (Flagyl) 500 mg in 100 mls @ 100 mls/hr IV Q8HR [facility] Stop: 10/13/17 12:59 Last Infusion: 08/15/17 15:10 Dose: Infused Piperacillin Sod/Tazobactam (Sod 2.25 gm/ Sodium Chloride) 50 mls @ 100 mls/hr IV Q8HR [facility] Stop: 10/13/17 12:59 Last Infusion: 08/15/17 13:00 Dose: Infused Norepinephrine Bitartrate 4 mg (/ Dextrose) 254 mls @ 0 mls/hr IV TITR PRN; Protocol PRN Reason: BP MAINTENANCE (PER PROTOCOL) Stop: 10/13/17 18:16 Dextrose (D5w) 1,000 mls @ 100 mls/hr IV .Q10H [facility] Stop: 10/14/17 14:41 Last Admin: 08/15/17 15:43 Dose: 100 mls/hr Lactobacillus Rhamnosus (Culturelle 15b) 1 each PO DAILY [facility] Stop: 10/14/17 12:59 Last Admin: 08/15/17 15:41 Dose: Not Given Miscellaneous (Probiotic Screen) 1 ea MC PRN PRN PRN Reason: PROTOCOL Stop: 10/14/17 12:33 HEENT: PERRLA, anicteric sclerae, throat clear Neck: Supple, No JVD, No thyromegaly, +2 carotid pulse wo bruit, No LAD Cardiovascular: Normal S1, Normal S2, without murmur Abdomen: non-tender, non-distended Extremities: clear Neurological: no change - Procedures Procedures: Procedures Procedure Code Date INSERTION OF INFUSION DEV INTO L SUBCLAV VEIN, PERC APPROACH 12O540B 08/14/17 ULTRASONOGRAPHY OF LEFT SUBCLAVIAN VEIN, GUIDANCE [id number] 08/14/17 Internal Medicine Assmt/Plan - Assessment Assessment: 1.ACUTE OBSTRUCTIVE RENAL FAILURE. 2.BPH. 3.HISTORY OF PSYCHOSIS. 4.CONSTIPATION. - Plan Plan: FLOMAX 0.4 PO DAILY. Nutritional Asmnt/Malnutr-PDOC - Dietary Evaluation Malnutrition Findings (Please click <Entered> for more info): Nutritional Asmnt/Malnutrition Start: 08/15/17 15: 52 Text: Status: Complete Freq: Protocol: Document 08/15/17 15:54 [email or web address] (Rec: 08/15/17 16:24 [email or web address]) Nutritional Asmnt/Malnutrition Patient General Information Nutritional Screening High Risk Consult Diagnosis pacemaker placement Pertinent Medical Hx/Surgical Hx HTN, BPH, dementia Subjective Information Consult received for poor intake and wounds. Pt was NPO since admitted noted. per nurse note in the morning, pt was yelling for water and food . [facility] soft ground diet stated from lunch. Per nurse note in the afternoon, pt fed himself 100% of lunch. Pt had dialysis yetserday per nurse d /t elevated BUN/Crea and hyperkalemia. Current Diet Order/ Nutrition Support [facility] soft ground. Pertinent Medications D5w, culturelle, piperacillin Pertinent Labs 08/15 Na 153, Cl 119, BUN 37, glucose 120 08/14 Na 128, K 8.8, BUN 212, Cr 13 Nutritional Hx/Data Height 1.65 m Height (Calculated Centimeters) 165.1 Current Weight (lbs) 59.421 kg Weight (Calculated Kilograms) 59.4 Weight (Calculated Grams) 20678.6 [place] Body Weight 136 Body Mass Index (BMI) 21.8 Weight Status Approriate GI Symptoms GI Symptoms None Last BM none Difficult in: None Skin Integrity/Comment: pressure area to right buttocks, abrasion to left eye , redded to left toe and right ankle Current %PO Good (75-100%) Estimated Nutritional Goals BEE in Kcals: Using Current wt Calories/Kcals/Kg 25-30 Kcals Calculated 4105-3934 Protein: Using Current wt Protein g/k monitor renal labs Protein Calculated 60 Fluid: ml per MD Nutritional Problem 1. Problem Problem altered nutrition related labs Etiology electrolytes imbalance, renal dysfunction Signs/Symptoms: Na 153, Cl 119, BUN 37 Malnutrition Alert Is there a minimum of two criteria No selected? Query Text:Check all the applicable criteria. A minimum of two criteria are recommended for diagnosis of either severe or non-severe malnutrition. Malnutrition Related to Morbid Obesity Malnutrition related to morbid obesity No Intervention/Recommendation Comments 1. Continue with [facility] soft ground diet as ordered. Monitor renal labs and adjust diet as needed. 2. Monitor PO intake, wt, labs and skin integrity 3. F/U as high risk in 2-3 days, 08/17-08/18 Expected Outcomes/Goals Expected Outcomes/Goals 1. PO intake to meet at least 75% of nutritional needs. 2. Wt stability, skin to remain intact, labs to approach WNL.
[2017-08-15] MEDS ORDERED: Maalox 30 mL Cup PO PRN (18:43)
[2017-08-15] MEDS ORDERED: Magnesium Hydroxide (MOM) 30 mL UDC PO PRN (18:43)
[2017-08-15] MEDS ORDERED: Non-Formulary Item 1 EA (Melatonin [Melatonin] 6 MG) PO SCH (21:00)
--- NOTE | 2017-08-16 00:12 | Consultation ---
DATE OF CONSULTATION: 08/14/[address] Tucker. HISTORY OF PRESENT ILLNESS: This is a 66-year-old male patient who was admitted to [facility] at which time the patient developed bradycardia with cardiopulmonary arrest and transferred to ICU. The patient was found to have acute renal failure with hyperkalemia, which caused bradycardia. PAST MEDICAL HISTORY: The patient has a history of BPH, COPD, dementia, psychosis, and degenerative joint disease. FAMILY HISTORY: Unremarkable. SOCIAL HISTORY: No history of smoking or alcohol abuse. ALLERGIES: No known allergies. PHYSICAL EXAMINATION: VITAL SIGNS: Blood pressure 130/80, pulse 58, and respirations 28. HEAD: Normocephalic. No lumps or bumps. EYES: Pupils equal, reactive to light. Fundi show AV nicking, sclerae white, conjunctivae pink. NECK: Carotid 2+. Normal upstroke. JVD flat. Thyroid not palpable. Lymph nodes not palpable. CHEST: Shows increased AP diameter. No kyphosis, scoliosis. LUNGS: Bilateral bronchovesicular breath sounds. HEART: PMI fifth intercostal space with lateral to midclavicular line. S1, S2. No S3, S4, soft systolic murmur. ABDOMEN: Soft. Liver, spleen not palpable. No organomegaly. Bowel sounds active. NEUROLOGIC: No focal neurological deficit. EXTREMITIES: Peripheral pulses 2+. No pedal edema. CLINICAL IMPRESSION: Severe bradycardia with hyperkalemia. The patient on dialysis at the present time secondary to acute renal failure from benign prostatic hypertrophy, dementia, psychosis, chronic obstructive pulmonary disease, degenerative joint disease, and severe acidosis. PLAN: At the present time, continue dialysis. We will get echocardiogram. Monitor the patient closely for any arrhythmias. JOB# [id number]
--- NOTE | 2017-08-16 02:09 | Progress Notes ---
DATE: 08/15/2017 SUBJECTIVE: Staff was spoken to. The patient is irritable. Affect is constricted. The patient has been seen in the ICU. The patient has been reported to have a distended bladder and once it is evacuated, the patient's blood pressure and pulse rate came down. The blood pressure was normalized. White blood cell count also came down. The patient at the time of the evaluation has been noted to be disruptive, and has been throwing the feces all over. The patient needs to be redirected. No side effects to the medications are noted. The patient has been very demanding at this time. ASSESSMENT AND PLAN: The patient is being closely monitored. We will follow the patient with the supportive therapy. JOB# [id number]
[2017-08-16] MEDS: Dextrose 5% 1,000 ML IV SCH ×2 (04:09→10:45)
[2017-08-16] MEDS: metroNIDAZOLE 500mg/NS 100mL 500 MG/100 ML BAG IV SCH ×3 (04:10→20:28)
[2017-08-16 04:24] LABS: % BASOPHILS 0.3 % (0.0-2.0); % EOSINOPHILS 1.1 % (0.0-5.0); % LYMPHOCYTES 13.4 % (20.0-50.0); % MONOCYTES 10.2 % (2.0-10.0); EOSINOPHILE ABSOLUTE 0.1 Th/cmm (0.1-0.4); HEMATOCRIT 33.9 % (41.0-60); HEMOGLOBIN 11.5 gm/dL (12-16); LYMPHOCYTE ABSOLUTE 1.8 Th/cmm (1.5-3.0); MEAN CELL VOLUME 90.4 fl (80-99); MEAN CORPUSCULAR HEMOGLOBIN 30.7 pg (27.0-31.0); MEAN CORPUSCULAR HGB CONC 33.9 pg (28.0-36.0); MEAN PLATELET VOLUME 8.2 fl; MONOCYTE ABSOLUTE 1.3 Th/cmm (0.3-1.0); NEUTROPHILE ABSOLUTE 9.9 Th/cmm (1.8-8.0); PLATELET COUNT 138 Th/cmm (150-400); RED BLOOD COUNT 3.75 Mil/cmm (3.80-5.80); RED CELL DISTRIBUTION WIDTH 13.1 % (11.5-20.0); WHITE BLOOD COUNT 13.1 Th/cmm (4.8-10.8)
[2017-08-16 04:46] LABS: ALB/GLOB RATIO 0.9 (1.0-1.8); ALBUMIN 2.5 gm/dL (4.2-5.5); ALKALINE PHOSPHATASE 49 U/L (34-104); ANION GAP 7.9 (7.0-16.0); BILIRUBIN,TOTAL 0.6 mg/dL (0.3-1.0); BUN - UREA NITROGEN 14 mg/dL (7-25); CALCIUM SERUM 8.3 mg/dL (8.6-10.3); CARBON DIOXIDE 24.9 mEq/L (21.0-31.0); CHLORIDE 108 mEq/L (98-107); CREATININE - SERUM 0.5 mg/dL (0.7-1.3); GFR AFRICAN-AMERICAN > 60.0 ml/min (>90); GFR NON AFRICAN-AMERICAN > 60.0 ml/min; GLUCOSE 93 mg/dL (70-105); POTASSIUM SERUM 3.8 mEq/L (3.5-5.1); SGOT 34 U/L (13-39); SGPT/ALT 23 U/L (7-52); TOTAL PROTEIN,SERUM 5.3 gm/dL (6.0-8.3)
[2017-08-16 04:48] LABS: SODIUM SERUM 137 mEq/L (136-145)
[2017-08-16] MEDS: Multivitamin Tab PO SCH (08:07)
[2017-08-16] MEDS: Lactobacillus Rhamnosus GG 15 Billion CFU CAP.SPRINK PO SCH (08:07)
--- NOTE | 2017-08-16 09:59 | General Progress Note ---
Subjective - Review of Systems Service Date: 08/16/17 Events since last encounter: Kameron catheter out HR lowest was 57 Objective - Results Result Diagrams: 08/16/17 04:15 08/16/17 04:15 Recent Labs: Laboratory Last Values WBC 13.1 Th/cmm (4.8-10.8) H 08/16/17 04:15 RBC 3.75 Mil/cmm (3.80-5.80) L 08/16/17 04:15 Hgb 11.5 gm/dL (12-16) L 08/16/17 04:15 Hct 33.9 % (41.0-60) L 08/16/17 04:15 MCV 90.4 fl (80-99) 08/16/17 04:15 MCH 30.7 pg (27.0-31.0) 08/16/17 04:15 MCHC Differential 33.9 pg (28.0-36.0) 08/16/17 04:15 RDW 13.1 % (11.5-20.0) 08/16/17 04:15 Plt Count 138 Th/cmm (150-400) L 08/16/17 04:15 MPV 8.2 fl 08/16/17 04:15 Neutrophils % 75.0 % (40.0-80.0) 08/16/17 04:15 Lymphocytes % 13.4 % (20.0-50.0) L 08/16/17 04:15 Monocytes % 10.2 % (2.0-10.0) H 08/16/17 04:15 Eosinophils % 1.1 % (0.0-5.0) 08/16/17 04:15 Basophils % 0.3 % (0.0-2.0) 08/16/17 04:15 Neutrophils (Manual) 83 % (40-80) H 08/15/17 04:05 Lymphocytes 13 % (20-50) L 08/15/17 04:05 Monocytes 4 % (2-10) 08/15/17 04:05 PT 14.0 SECONDS (9.5-11.5) H 08/14/17 10:10 INR 1.33 (0.5-1.4) 08/14/17 10:10 PTT (Actin FS) 31.6 SECONDS (26.0-38.0) 08/14/17 10:10 Sodium 137 mEq/L (136-145) D 08/16/17 04:15 Potassium 3.8 mEq/L (3.5-5.1) 08/16/17 04:15 Chloride 108 mEq/L (98-107) H 08/16/17 04:15 Carbon Dioxide 24.9 mEq/L (21.0-31.0) 08/16/17 04:15 Anion Gap 7.9 (7.0-16.0) 08/16/17 04:15 BUN 14 mg/dL (7-25) 08/16/17 04:15 Creatinine 0.5 mg/dL (0.7-1.3) L 08/16/17 04:15 Est GFR ( Amer) > 60.0 ml/min (>90) 08/16/17 04:15 Est GFR (Non-Af Amer) > 60.0 ml/min 08/16/17 04:15 BUN/Creatinine Ratio 28.0 08/16/17 04:15 Glucose 93 mg/dL (70-105) 08/16/17 04:15 Calcium 8.3 mg/dL (8.6-10.3) L 08/16/17 04:15 Total Bilirubin 0.6 mg/dL (0.3-1.0) 08/16/17 04:15 AST 34 U/L (13-39) 08/16/17 04:15 ALT 23 U/L (7-52) 08/16/17 04:15 Alkaline Phosphatase 49 U/L (34-104) 08/16/17 04:15 Total Protein 5.3 gm/dL (6.0-8.3) L 08/16/17 04:15 Albumin 2.5 gm/dL (4.2-5.5) L 08/16/17 04:15 Globulin 2.8 gm/dL 08/16/17 04:15 Albumin/Globulin Ratio 0.9 (1.0-1.8) L 08/16/17 04:15 Urine Source CATH 08/14/17 12:50 Urine Color YELLOW 08/14/17 12:50 Urine Clarity HAZY (CLEAR) 08/14/17 12:50 Urine pH 6.0 (4.6 - 8.0) 08/14/17 12:50 Ur Specific [place] <= 1.005 (1.005-1.030) 08/14/17 12:50 Urine Protein NEGATIVE mg/dL (NEGATIVE) 08/14/17 12:50 Urine Glucose (UA) NEGATIVE mg/dL (NEGATIVE) 08/14/17 12:50 Urine Ketones NEGATIVE mg/dL (NEGATIVE) 08/14/17 12:50 Urine Blood LARGE (NEGATIVE) H 08/14/17 12:50 Urine Nitrate NEGATIVE (NEGATIVE) 08/14/17 12:50 Urine Bilirubin NEGATIVE (NEGATIVE) 08/14/17 12:50 Urine Urobilinogen 0.2 E.U./dL (0.2 - 1.0) 08/14/17 12:50 Ur Leukocyte Esterase NEGATIVE (NEGATIVE) 08/14/17 12:50 Urine RBC 50-100 /hpf (0-5) H 08/14/17 12:50 Urine WBC 0-2 /hpf (0-5) 08/14/17 12:50 Ur Epithelial Cells FEW /lpf (FEW) 08/14/17 12:50 Urine Bacteria FEW /hpf (NONE SEEN) 08/14/17 12:50 Urine Mucus FEW /lpf (FEW) 08/14/17 12:50 - Physical Exam Vitals and I&O: Vital Signs Temp 98.0 F 08/16/17 08:00 Pulse 64 08/16/17 09:00 Resp 15 08/16/17 09:00 BP 99/54 08/16/17 09:00 Pulse Ox 100 08/16/17 09:00 Intake & Output 08/15/17 08/16/17 08/16/17 18:59 06:59 18:59 Intake Total 3550 2500 Output Total 2000 Balance 1550 2500 Weight (lbs) 59.421 kg 60.781 kg Intake: Intake, IV Amount 1150 1300 D5-0.9%Ns 1,000 ml @ 100 1000 mls/hr IV .Q10H [facility] Rx#: [id number] Dextrose 5% 1,000 ml @ 1000 100 mls/hr IV .Q10H [facility] Rx#:[id number] Piperacillin Sodium/ 50 100 Tazobact 2.25 gm In Sodium Chloride 0.9% 50 ml @ 100 mls/hr IV Q8HR [facility] Rx#:[id number] metroNIDAZOLE 500mg/NS 100 200 100mL 500 mg In 100 ml @ 100 mls/hr IV Q8HR [facility] Rx #:[id number] Oral 2400 1200 Output: Urine 2000 Other: # Voids 2,400 # Bowel Movements 2 Stool Characteristics Soft Brown Weight Source Bedscale Bedscale Active Medications: Current Medications Acetaminophen (Tylenol) 650 mg PO Q4H PRN PRN Reason: Pain or Fever >101 Stop: 10/14/17 18:42 Al Hydrox/Mg Hydrox/Simethicone (Maalox) 30 ml PO Q4H PRN PRN Reason: GI DISTRESS Stop: 10/14/17 18:42 Docusate Sodium (Colace) 100 mg PO BID [facility] Stop: 10/15/17 08:59 Last Admin: 08/16/17 08:07 Dose: 100 mg Famotidine (Pepcid) 20 mg PO DAILY [facility] Stop: 10/15/17 08:59 Last Admin: 08/16/17 08:07 Dose: 20 mg Metronidazole (Flagyl) 500 mg in 100 mls @ 100 mls/hr IV Q8HR [facility] Stop: 10/13/17 12:59 Last Infusion: 08/16/17 05:10 Dose: Infused Piperacillin Sod/Tazobactam (Sod 2.25 gm/ Sodium Chloride) 50 mls @ 100 mls/hr IV Q8HR [facility] Stop: 10/13/17 12:59 Last Infusion: 08/16/17 04:40 Dose: Infused Norepinephrine Bitartrate 4 mg (/ Dextrose) 254 mls @ 0 mls/hr IV TITR PRN; Protocol PRN Reason: BP MAINTENANCE (PER PROTOCOL) Stop: 10/13/17 18:16 Dextrose (D5w) 1,000 mls @ 100 mls/hr IV .Q10H [facility] Stop: 10/14/17 14:41 Last Admin: 08/16/17 04:09 Dose: 100 mls/hr Lactobacillus Rhamnosus (Culturelle 15b) 1 each PO DAILY [facility] Stop: 10/14/17 12:59 Last Admin: 08/16/17 08:07 Dose: 1 each Magnesium Hydroxide (Milk Of Magnesia) 30 ml PO HS PRN PRN Reason: Constipation Stop: 10/14/17 18:42 Miscellaneous (Probiotic Screen) 1 ea MC PRN PRN PRN Reason: PROTOCOL Stop: 10/14/17 12:33 Miscellaneous (Melatonin [Melatonin]) 6 mg PO HS [facility] Stop: 10/14/17 20:59 Multivitamins/Vitamin C (Theragran) 1 tab PO DAILY [facility] Stop: 10/15/17 08:59 Last Admin: 08/16/17 08:07 Dose: 1 tab Tamsulosin HCl (Flomax) 0.4 mg PO DAILY [facility] Stop: 10/14/17 19:59 Last Admin: 08/16/17 08:07 Dose: 0.4 mg General: Alert HEENT: Atraumatic Neck: Supple Cardiovascular: Regular rate, Normal S1, Normal S2 Lungs: Clear to auscultation Abdomen: Bowel sounds - Procedures Procedures: Procedures Procedure Code Date INSERTION OF INFUSION DEV INTO L SUBCLAV VEIN, PERC APPROACH [id number] 08/14/17 ULTRASONOGRAPHY OF LEFT SUBCLAVIAN VEIN, GUIDANCE [id number] 08/14/17 Nutritional Asmnt/Malnutr-PDOC - Dietary Evaluation Malnutrition Findings (Please click <Entered> for more info): Nutritional Asmnt/Malnutrition Start: 08/15/17 15: 52 Text: Status: Complete Freq: Protocol: Document 08/15/17 15:54 LCHENG (Rec: 08/15/17 16:24 [email or web address] [email or web address]) Nutritional Asmnt/Malnutrition Patient General Information Nutritional Screening High Risk Consult Diagnosis pacemaker placement Pertinent Medical Hx/Surgical Hx HTN, BPH, dementia Subjective Information Consult received for poor intake and wounds. Pt was NPO since admitted noted. per nurse note in the morning, pt was yelling for water and food . [facility] soft ground diet stated from lunch. Per nurse note in the afternoon, pt fed himself 100% of lunch. Pt had dialysis yetserday per nurse d /t elevated BUN/Crea and hyperkalemia. Current Diet Order/ Nutrition Support [facility] soft ground. Pertinent Medications D5w, culturelle, piperacillin Pertinent Labs 7/ Na 153, Cl 119, BUN 37, glucose 120 7/1 Na 128, K 8.8, BUN 212, Cr 13 Nutritional Hx/Data Height 1.65 m Height (Calculated Centimeters) 165.1 Current Weight (lbs) 59.421 kg Weight (Calculated Kilograms) 59.4 Weight (Calculated Grams) 28273.6 [place] Body Weight 136 Body Mass Index (BMI) 21.8 Weight Status Approriate GI Symptoms GI Symptoms None Last BM none Difficult in: None Skin Integrity/Comment: pressure area to right buttocks, abrasion to left eye , redded to left toe and right ankle Current %PO Good (75-100%) Estimated Nutritional Goals BEE in Kcals: Using Current wt Calories/Kcals/Kg 25-30 Kcals Calculated 7464-1919 Protein: Using Current wt Protein g/k monitor renal labs Protein Calculated 60 Fluid: ml per MD Nutritional Problem 1. Problem Problem altered nutrition related labs Etiology electrolytes imbalance, renal dysfunction Signs/Symptoms: Na 153, Cl 119, BUN 37 Malnutrition Alert Is there a minimum of two criteria No selected? Query Text:Check all the applicable criteria. A minimum of two criteria are recommended for diagnosis of either severe or non-severe malnutrition. Malnutrition Related to Morbid Obesity Malnutrition related to morbid obesity No Intervention/Recommendation Comments 1. Continue with [facility] soft ground diet as ordered. Monitor renal labs and adjust diet as needed. 2. Monitor PO intake, wt, labs and skin integrity 3. F/U as high risk in 2-3 days, 08/17-08/18 Expected Outcomes/Goals Expected Outcomes/Goals 1. PO intake to meet at least 75% of nutritional needs. 2. Wt stability, skin to remain intact, labs to approach WNL.
--- NOTE | 2017-08-16 10:34 | General Progress Note ---
Subjective - Review of Systems Service Date: 08/16/17 Subjective: in bed no distress العراقي in place Objective - Results Result Diagrams: 08/16/17 04:15 08/16/17 04:15 Recent Labs: Laboratory Last Values WBC 13.1 Th/cmm (4.8-10.8) H 08/16/17 04:15 RBC 3.75 Mil/cmm (3.80-5.80) L 08/16/17 04:15 Hgb 11.5 gm/dL (12-16) L 08/16/17 04:15 Hct 33.9 % (41.0-60) L 08/16/17 04:15 MCV 90.4 fl (80-99) 08/16/17 04:15 MCH 30.7 pg (27.0-31.0) 08/16/17 04:15 MCHC Differential 33.9 pg (28.0-36.0) 08/16/17 04:15 RDW 13.1 % (11.5-20.0) 08/16/17 04:15 Plt Count 138 Th/cmm (150-400) L 08/16/17 04:15 MPV 8.2 fl 08/16/17 04:15 Neutrophils % 75.0 % (40.0-80.0) 08/16/17 04:15 Lymphocytes % 13.4 % (20.0-50.0) L 08/16/17 04:15 Monocytes % 10.2 % (2.0-10.0) H 08/16/17 04:15 Eosinophils % 1.1 % (0.0-5.0) 08/16/17 04:15 Basophils % 0.3 % (0.0-2.0) 08/16/17 04:15 Neutrophils (Manual) 83 % (40-80) H 08/15/17 04:05 Lymphocytes 13 % (20-50) L 08/15/17 04:05 Monocytes 4 % (2-10) 08/15/17 04:05 PT 14.0 SECONDS (9.5-11.5) H 08/14/17 10:10 INR 1.33 (0.5-1.4) 08/14/17 10:10 PTT (Actin FS) 31.6 SECONDS (26.0-38.0) 08/14/17 10:10 Sodium 137 mEq/L (136-145) D 08/16/17 04:15 Potassium 3.8 mEq/L (3.5-5.1) 08/16/17 04:15 Chloride 108 mEq/L (98-107) H 08/16/17 04:15 Carbon Dioxide 24.9 mEq/L (21.0-31.0) 08/16/17 04:15 Anion Gap 7.9 (7.0-16.0) 08/16/17 04:15 BUN 14 mg/dL (7-25) 08/16/17 04:15 Creatinine 0.5 mg/dL (0.7-1.3) L 08/16/17 04:15 Est GFR ( Amer) > 60.0 ml/min (>90) 08/16/17 04:15 Est GFR (Non-Af Amer) > 60.0 ml/min 08/16/17 04:15 BUN/Creatinine Ratio 28.0 08/16/17 04:15 Glucose 93 mg/dL (70-105) 08/16/17 04:15 Calcium 8.3 mg/dL (8.6-10.3) L 08/16/17 04:15 Total Bilirubin 0.6 mg/dL (0.3-1.0) 08/16/17 04:15 AST 34 U/L (13-39) 08/16/17 04:15 ALT 23 U/L (7-52) 08/16/17 04:15 Alkaline Phosphatase 49 U/L (34-104) 08/16/17 04:15 Total Protein 5.3 gm/dL (6.0-8.3) L 08/16/17 04:15 Albumin 2.5 gm/dL (4.2-5.5) L 08/16/17 04:15 Globulin 2.8 gm/dL 08/16/17 04:15 Albumin/Globulin Ratio 0.9 (1.0-1.8) L 08/16/17 04:15 Urine Source CATH 08/14/17 12:50 Urine Color YELLOW 08/14/17 12:50 Urine Clarity HAZY (CLEAR) 08/14/17 12:50 Urine pH 6.0 (4.6 - 8.0) 08/14/17 12:50 Ur Specific [place] <= 1.005 (1.005-1.030) 08/14/17 12:50 Urine Protein NEGATIVE mg/dL (NEGATIVE) 08/14/17 12:50 Urine Glucose (UA) NEGATIVE mg/dL (NEGATIVE) 08/14/17 12:50 Urine Ketones NEGATIVE mg/dL (NEGATIVE) 08/14/17 12:50 Urine Blood LARGE (NEGATIVE) H 08/14/17 12:50 Urine Nitrate NEGATIVE (NEGATIVE) 08/14/17 12:50 Urine Bilirubin NEGATIVE (NEGATIVE) 08/14/17 12:50 Urine Urobilinogen 0.2 E.U./dL (0.2 - 1.0) 08/14/17 12:50 Ur Leukocyte Esterase NEGATIVE (NEGATIVE) 08/14/17 12:50 Urine RBC 50-100 /hpf (0-5) H 08/14/17 12:50 Urine WBC 0-2 /hpf (0-5) 08/14/17 12:50 Ur Epithelial Cells FEW /lpf (FEW) 08/14/17 12:50 Urine Bacteria FEW /hpf (NONE SEEN) 08/14/17 12:50 Urine Mucus FEW /lpf (FEW) 08/14/17 12:50 - Physical Exam Vitals and I&O: Vital Signs Temp 98.0 F 08/16/17 08:00 Pulse 61 08/16/17 10:00 Resp 20 08/16/17 10:00 BP 93/49 08/16/17 10:00 Pulse Ox 100 08/16/17 10:00 Intake & Output 08/15/17 08/16/17 08/16/17 18:59 06:59 18:59 Intake Total 3550 2500 Output Total 2000 Balance 1550 2500 Weight (lbs) 59.421 kg 60.781 kg Intake: Intake, IV Amount 1150 1300 D5-0.9%Ns 1,000 ml @ 100 1000 mls/hr IV .Q10H [facility] Rx#: [id number] Dextrose 5% 1,000 ml @ 1000 100 mls/hr IV .Q10H [facility] Rx#:[id number] Piperacillin Sodium/ 50 100 Tazobact 2.25 gm In Sodium Chloride 0.9% 50 ml @ 100 mls/hr IV Q8HR [facility] Rx#:[id number] metroNIDAZOLE 500mg/NS 100 200 100mL 500 mg In 100 ml @ 100 mls/hr IV Q8HR [facility] Rx #:[id number] Oral 2400 1200 Output: Urine 2000 Other: # Voids 2,400 # Bowel Movements 2 Stool Characteristics Soft Brown Weight Source Bedscale Bedscale Active Medications: Current Medications Acetaminophen (Tylenol) 650 mg PO Q4H PRN PRN Reason: Pain or Fever >101 Stop: 10/14/17 18:42 Al Hydrox/Mg Hydrox/Simethicone (Maalox) 30 ml PO Q4H PRN PRN Reason: GI DISTRESS Stop: 10/14/17 18:42 Docusate Sodium (Colace) 100 mg PO BID [facility] Stop: 10/15/17 08:59 Last Admin: 08/16/17 08:07 Dose: 100 mg Famotidine (Pepcid) 20 mg PO DAILY [facility] Stop: 10/15/17 08:59 Last Admin: 08/16/17 08:07 Dose: 20 mg Metronidazole (Flagyl) 500 mg in 100 mls @ 100 mls/hr IV Q8HR [facility] Stop: 10/13/17 12:59 Last Infusion: 08/16/17 05:10 Dose: Infused Piperacillin Sod/Tazobactam (Sod 2.25 gm/ Sodium Chloride) 50 mls @ 100 mls/hr IV Q8HR [facility] Stop: 10/13/17 12:59 Last Infusion: 08/16/17 04:40 Dose: Infused Norepinephrine Bitartrate 4 mg (/ Dextrose) 254 mls @ 0 mls/hr IV TITR PRN; Protocol PRN Reason: BP MAINTENANCE (PER PROTOCOL) Stop: 10/13/17 18:16 Dextrose (D5w) 1,000 mls @ 100 mls/hr IV .Q10H [facility] Stop: 10/14/17 14:41 Last Admin: 08/16/17 04:09 Dose: 100 mls/hr Lactobacillus Rhamnosus (Culturelle 15b) 1 each PO DAILY [facility] Stop: 10/14/17 12:59 Last Admin: 08/16/17 08:07 Dose: 1 each Magnesium Hydroxide (Milk Of Magnesia) 30 ml PO HS PRN PRN Reason: Constipation Stop: 10/14/17 18:42 Miscellaneous (Probiotic Screen) 1 ea MC PRN PRN PRN Reason: PROTOCOL Stop: 10/14/17 12:33 Miscellaneous (Melatonin [Melatonin]) 6 mg PO HS [facility] Stop: 10/14/17 20:59 Multivitamins/Vitamin C (Theragran) 1 tab PO DAILY [facility] Stop: 10/15/17 08:59 Last Admin: 08/16/17 08:07 Dose: 1 tab Tamsulosin HCl (Flomax) 0.4 mg PO DAILY [facility] Stop: 10/14/17 19:59 Last Admin: 08/16/17 08:07 Dose: 0.4 mg General: Alert HEENT: Atraumatic Neck: Supple Cardiovascular: Regular rate, Normal S1, Normal S2 Lungs: Clear to auscultation Abdomen: Bowel sounds - Procedures Procedures: Procedures Procedure Code Date INSERTION OF INFUSION DEV INTO L SUBCLAV VEIN, PERC APPROACH [id number] 08/14/17 ULTRASONOGRAPHY OF LEFT SUBCLAVIAN VEIN, GUIDANCE [id number] 08/14/17 Assessment/Plan - Assessment Assessment: acute obstructive urpathy arf secondary to urinary retention hyperkalemia - Plan Plan: continue ivf D5W will rermove marylou Nutritional Asmnt/Malnutr-PDOC - Dietary Evaluation Malnutrition Findings (Please click <Entered> for more info): Nutritional Asmnt/Malnutrition Start: 08/15/17 15: 52 Text: Status: Complete Freq: Protocol: Document 08/15/17 15:54 AJG (Rec: 08/15/17 16:24 CURRY [email or web address]) Nutritional Asmnt/Malnutrition Patient General Information Nutritional Screening High Risk Consult Diagnosis pacemaker placement Pertinent Medical Hx/Surgical Hx HTN, BPH, dementia Subjective Information Consult received for poor intake and wounds. Pt was NPO since admitted noted. per nurse note in the morning, pt was yelling for water and food . [facility] soft ground diet stated from lunch. Per nurse note in the afternoon, pt fed himself 100% of lunch. Pt had dialysis yetserday per nurse d /t elevated BUN/Crea and hyperkalemia. Current Diet Order/ Nutrition Support [facility] soft ground. Pertinent Medications D5w, culturelle, piperacillin Pertinent Labs 7/ Na 153, Cl 119, BUN 37, glucose 120 7/ Na 128, K 8.8, BUN 212, Cr 13 Nutritional Hx/Data Height 1.65 m Height (Calculated Centimeters) 165.1 Current Weight (lbs) 59.421 kg Weight (Calculated Kilograms) 59.4 Weight (Calculated Grams) 79399.6 [place] Body Weight 136 Body Mass Index (BMI) 21.8 Weight Status Approriate GI Symptoms GI Symptoms None Last BM none Difficult in: None Skin Integrity/Comment: pressure area to right buttocks, abrasion to left eye , redded to left toe and right ankle Current %PO Good (75-100%) Estimated Nutritional Goals BEE in Kcals: Using Current wt Calories/Kcals/Kg 25-30 Kcals Calculated 1142-2638 Protein: Using Current wt Protein g/k monitor renal labs Protein Calculated 60 Fluid: ml per MD Nutritional Problem 1. Problem Problem altered nutrition related labs Etiology electrolytes imbalance, renal dysfunction Signs/Symptoms: Na 153, Cl 119, BUN 37 Malnutrition Alert Is there a minimum of two criteria No selected? Query Text:Check all the applicable criteria. A minimum of two criteria are recommended for diagnosis of either severe or non-severe malnutrition. Malnutrition Related to Morbid Obesity Malnutrition related to morbid obesity No Intervention/Recommendation Comments 1. Continue with [facility] soft ground diet as ordered. Monitor renal labs and adjust diet as needed. 2. Monitor PO intake, wt, labs and skin integrity 3. F/U as high risk in 2-3 days, 08/17-08/18 Expected Outcomes/Goals Expected Outcomes/Goals 1. PO intake to meet at least 75% of nutritional needs. 2. Wt stability, skin to remain intact, labs to approach WNL.
[2017-08-16 12:18] LABS: HEP A AB IGM Negative (Negative); HEP B CORE IGM Negative (Negative); HEP B SURFACE AG QL Negative (Negative); HEP C ANTIBODY <0.1 s/co ratio (0.0-0.9)
--- NOTE | 2017-08-16 21:36 | Internal Medicine Prog Note ---
Internal Medicine Subjective - Subjective Service Date: 08/16/17 Patient seen and examined:: with staff (HE IS DOING BETTER,EATING WELL.) Patient is:: awake, verbal, in bed, talking Per staff patient has:: no adverse event Internal Medicine Objective - Results Result Diagrams: 08/16/17 04:15 08/16/17 04:15 Recent Labs: Laboratory Last Values WBC 13.1 Th/cmm (4.8-10.8) H 08/16/17 04:15 RBC 3.75 Mil/cmm (3.80-5.80) L 08/16/17 04:15 Hgb 11.5 gm/dL (12-16) L 08/16/17 04:15 Hct 33.9 % (41.0-60) L 08/16/17 04:15 MCV 90.4 fl (80-99) 08/16/17 04:15 MCH 30.7 pg (27.0-31.0) 08/16/17 04:15 MCHC Differential 33.9 pg (28.0-36.0) 08/16/17 04:15 RDW 13.1 % (11.5-20.0) 08/16/17 04:15 Plt Count 138 Th/cmm (150-400) L 08/16/17 04:15 MPV 8.2 fl 08/16/17 04:15 Neutrophils % 75.0 % (40.0-80.0) 08/16/17 04:15 Lymphocytes % 13.4 % (20.0-50.0) L 08/16/17 04:15 Monocytes % 10.2 % (2.0-10.0) H 08/16/17 04:15 Eosinophils % 1.1 % (0.0-5.0) 08/16/17 04:15 Basophils % 0.3 % (0.0-2.0) 08/16/17 04:15 Neutrophils (Manual) 83 % (40-80) H 08/15/17 04:05 Lymphocytes 13 % (20-50) L 08/15/17 04:05 Monocytes 4 % (2-10) 08/15/17 04:05 PT 14.0 SECONDS (9.5-11.5) H 08/14/17 10:10 INR 1.33 (0.5-1.4) 08/14/17 10:10 PTT (Actin FS) 31.6 SECONDS (26.0-38.0) 08/14/17 10:10 Sodium 137 mEq/L (136-145) D 08/16/17 04:15 Potassium 3.8 mEq/L (3.5-5.1) 08/16/17 04:15 Chloride 108 mEq/L (98-107) H 08/16/17 04:15 Carbon Dioxide 24.9 mEq/L (21.0-31.0) 08/16/17 04:15 Anion Gap 7.9 (7.0-16.0) 08/16/17 04:15 BUN 14 mg/dL (7-25) 08/16/17 04:15 Creatinine 0.5 mg/dL (0.7-1.3) L 08/16/17 04:15 Est GFR ( Amer) > 60.0 ml/min (>90) 08/16/17 04:15 Est GFR (Non-Af Amer) > 60.0 ml/min 08/16/17 04:15 BUN/Creatinine Ratio 28.0 08/16/17 04:15 Glucose 93 mg/dL (70-105) 08/16/17 04:15 Calcium 8.3 mg/dL (8.6-10.3) L 08/16/17 04:15 Total Bilirubin 0.6 mg/dL (0.3-1.0) 08/16/17 04:15 AST 34 U/L (13-39) 08/16/17 04:15 ALT 23 U/L (7-52) 08/16/17 04:15 Alkaline Phosphatase 49 U/L (34-104) 08/16/17 04:15 Total Protein 5.3 gm/dL (6.0-8.3) L 08/16/17 04:15 Albumin 2.5 gm/dL (4.2-5.5) L 08/16/17 04:15 Globulin 2.8 gm/dL 08/16/17 04:15 Albumin/Globulin Ratio 0.9 (1.0-1.8) L 08/16/17 04:15 Urine Source CATH 08/14/17 12:50 Urine Color YELLOW 08/14/17 12:50 Urine Clarity HAZY (CLEAR) 08/14/17 12:50 Urine pH 6.0 (4.6 - 8.0) 08/14/17 12:50 Ur Specific [place] <= 1.005 (1.005-1.030) 08/14/17 12:50 Urine Protein NEGATIVE mg/dL (NEGATIVE) 08/14/17 12:50 Urine Glucose (UA) NEGATIVE mg/dL (NEGATIVE) 08/14/17 12:50 Urine Ketones NEGATIVE mg/dL (NEGATIVE) 08/14/17 12:50 Urine Blood LARGE (NEGATIVE) H 08/14/17 12:50 Urine Nitrate NEGATIVE (NEGATIVE) 08/14/17 12:50 Urine Bilirubin NEGATIVE (NEGATIVE) 08/14/17 12:50 Urine Urobilinogen 0.2 E.U./dL (0.2 - 1.0) 08/14/17 12:50 Ur Leukocyte Esterase NEGATIVE (NEGATIVE) 08/14/17 12:50 Urine RBC 50-100 /hpf (0-5) H 08/14/17 12:50 Urine WBC 0-2 /hpf (0-5) 08/14/17 12:50 Ur Epithelial Cells FEW /lpf (FEW) 08/14/17 12:50 Urine Bacteria FEW /hpf (NONE SEEN) 08/14/17 12:50 Urine Mucus FEW /lpf (FEW) 08/14/17 12:50 Hepatitis A IgM Ab Negative (Negative) 08/15/17 04:05 Hep Bs Antigen Negative (Negative) 08/15/17 04:05 Hep B Core IgM Ab Negative (Negative) 08/15/17 04:05 Hepatitis C Antibody <0.1 s/co ratio (0.0-0.9) 08/15/17 04:05 - Physical Exam Vitals and I&O: Vital Signs Temp 98.2 F 08/16/17 16:00 Pulse 76 08/16/17 20:00 Resp 21 08/16/17 20:00 BP 111/61 08/16/17 20:00 Pulse Ox 97 08/16/17 20:00 Intake & Output 08/16/17 08/16/17 08/17/17 06:59 18:59 06:59 Intake Total 2500 1650 50 Output Total 2900 Balance 2500 -1250 50 Weight (lbs) 60.781 kg 60.781 kg Intake: Intake, IV Amount 1300 150 50 Dextrose 5% 1,000 ml @ 1000 100 mls/hr IV .Q10H [facility] Rx#:[id number] Piperacillin Sodium/ 100 50 50 Tazobact 2.25 gm In Sodium Chloride 0.9% 50 ml @ 100 mls/hr IV Q8HR [facility] Rx#:[id number] metroNIDAZOLE 500mg/NS 200 100 100mL 500 mg In 100 ml @ 100 mls/hr IV Q8HR [facility] Rx #:[id number] Oral 1200 1500 Output: Urine 2900 Other: # Voids 2,400 # Bowel Movements 0 Weight Source Bedscale Bedscale Active Medications: Current Medications Acetaminophen (Tylenol) 650 mg PO Q4H PRN PRN Reason: Pain or Fever >101 Stop: 10/14/17 18:42 Al Hydrox/Mg Hydrox/Simethicone (Maalox) 30 ml PO Q4H PRN PRN Reason: GI DISTRESS Stop: 10/14/17 18:42 Docusate Sodium (Colace) 100 mg PO BID [facility] Stop: 10/15/17 08:59 Last Admin: 08/16/17 18:02 Dose: 100 mg Famotidine (Pepcid) 20 mg PO DAILY [facility] Stop: 10/15/17 08:59 Last Admin: 08/16/17 08:07 Dose: 20 mg Metronidazole (Flagyl) 500 mg in 100 mls @ 100 mls/hr IV Q8HR [facility] Stop: 10/13/17 12:59 Last Admin: 08/16/17 20:28 Dose: 100 mls/hr Piperacillin Sod/Tazobactam (Sod 2.25 gm/ Sodium Chloride) 50 mls @ 100 mls/hr IV Q8HR [facility] Stop: 10/13/17 12:59 Last Infusion: 08/16/17 21:02 Dose: Infused Norepinephrine Bitartrate 4 mg (/ Dextrose) 254 mls @ 0 mls/hr IV TITR PRN; Protocol PRN Reason: BP MAINTENANCE (PER PROTOCOL) Stop: 10/13/17 18:16 Dextrose (D5w) 1,000 mls @ 60 mls/hr IV .[id number] [facility] Stop: 10/15/17 10:44 Last Admin: 08/16/17 10:45 Dose: 60 mls/hr Lactobacillus Rhamnosus (Culturelle 15b) 1 each PO DAILY [facility] Stop: 10/14/17 12:59 Last Admin: 08/16/17 08:07 Dose: 1 each Magnesium Hydroxide (Milk Of Magnesia) 30 ml PO HS PRN PRN Reason: Constipation Stop: 10/14/17 18:42 Miscellaneous (Probiotic Screen) 1 ea MC PRN PRN PRN Reason: PROTOCOL Stop: 10/14/17 12:33 Miscellaneous (Melatonin [Melatonin]) 6 mg PO HS [facility] Stop: 10/14/17 20:59 Multivitamins/Vitamin C (Theragran) 1 tab PO DAILY [facility] Stop: 10/15/17 08:59 Last Admin: 08/16/17 08:07 Dose: 1 tab Tamsulosin HCl (Flomax) 0.4 mg PO DAILY [facility] Stop: 10/14/17 19:59 Last Admin: 08/16/17 08:07 Dose: 0.4 mg HEENT: PERRLA, anicteric sclerae, throat clear Neck: Supple, No JVD, No thyromegaly, +2 carotid pulse wo bruit, No LAD Cardiovascular: Normal S1, Normal S2, without murmur Abdomen: non-tender, non-distended Extremities: clear Neurological: no change - Procedures Procedures: Procedures Procedure Code Date INSERTION OF INFUSION DEV INTO L SUBCLAV VEIN, PERC APPROACH [id number] 08/14/17 PERFORMANCE OF URINARY FILTRATION, <6 HRS/DAY [id number] 08/14/17 ULTRASONOGRAPHY OF LEFT SUBCLAVIAN VEIN, GUIDANCE [id number] 08/14/17 Internal Medicine Assmt/Plan - Assessment Assessment: 1.ACUTE OBSTRUCTIVE RENAL FAILURE. 2.BPH. 3.HISTORY OF PSYCHOSIS. 4.CONSTIPATION. 5.DEMENTIA. - Plan Plan: CONTINUE ON CURRENT MEDICATION AND DIET. Nutritional Asmnt/Malnutr-PDOC - Dietary Evaluation Malnutrition Findings (Please click <Entered> for more info): Nutritional Asmnt/Malnutrition Start: 08/15/17 15: 52 Text: Status: Complete Freq: Protocol: Document 08/15/17 15:54 [email or web address] (Rec: 08/15/17 16:24 CURRY [email or web address]) Nutritional Asmnt/Malnutrition Patient General Information Nutritional Screening High Risk Consult Diagnosis pacemaker placement Pertinent Medical Hx/Surgical Hx HTN, BPH, dementia Subjective Information Consult received for poor intake and wounds. Pt was NPO since admitted noted. per nurse note in the morning, pt was yelling for water and food . [facility] soft ground diet stated from lunch. Per nurse note in the afternoon, pt fed himself 100% of lunch. Pt had dialysis yetserday per nurse d /t elevated BUN/Crea and hyperkalemia. Current Diet Order/ Nutrition Support [facility] soft ground. Pertinent Medications D5w, culturelle, piperacillin Pertinent Labs / Na 153, Cl 119, BUN 37, glucose 120 7/ Na 128, K 8.8, BUN 212, Cr 13 Nutritional Hx/Data Height 1.65 m Height (Calculated Centimeters) 165.1 Current Weight (lbs) 59.421 kg Weight (Calculated Kilograms) 59.4 Weight (Calculated Grams) 49317.6 [place] Body Weight 136 Body Mass Index (BMI) 21.8 Weight Status Approriate GI Symptoms GI Symptoms None Last BM none Difficult in: None Skin Integrity/Comment: pressure area to right buttocks, abrasion to left eye , redded to left toe and right ankle Current %PO Good (75-100%) Estimated Nutritional Goals BEE in Kcals: Using Current wt Calories/Kcals/Kg 25-30 Kcals Calculated 6968-2991 Protein: Using Current wt Protein g/k monitor renal labs Protein Calculated 60 Fluid: ml per MD Nutritional Problem 1. Problem Problem altered nutrition related labs Etiology electrolytes imbalance, renal dysfunction Signs/Symptoms: Na 153, Cl 119, BUN 37 Malnutrition Alert Is there a minimum of two criteria No selected? Query Text:Check all the applicable criteria. A minimum of two criteria are recommended for diagnosis of either severe or non-severe malnutrition. Malnutrition Related to Morbid Obesity Malnutrition related to morbid obesity No Intervention/Recommendation Comments 1. Continue with [facility] soft ground diet as ordered. Monitor renal labs and adjust diet as needed. 2. Monitor PO intake, wt, labs and skin integrity 3. F/U as high risk in 2-3 days, 08/17-08/18 Expected Outcomes/Goals Expected Outcomes/Goals 1. PO intake to meet at least 75% of nutritional needs. 2. Wt stability, skin to remain intact, labs to approach WNL.
[2017-08-17] MEDS: Dextrose 5% 1,000 ML IV SCH (04:47)
[2017-08-17] MEDS: metroNIDAZOLE 500mg/NS 100mL 500 MG/100 ML BAG IV SCH ×3 (04:47→21:28)
[2017-08-17 06:09] LABS: ANION GAP 9.9 (7.0-16.0); BUN - UREA NITROGEN 8 mg/dL (7-25); CALCIUM SERUM 8.2 mg/dL (8.6-10.3); CARBON DIOXIDE 22.8 mEq/L (21.0-31.0); CHLORIDE 106 mEq/L (98-107); CREATININE - SERUM 0.4 mg/dL (0.7-1.3); GFR AFRICAN-AMERICAN > 60.0 ml/min (>90); GFR NON AFRICAN-AMERICAN > 60.0 ml/min; GLUCOSE 102 mg/dL (70-105); POTASSIUM SERUM 3.7 mEq/L (3.5-5.1); SODIUM SERUM 135 mEq/L (136-145)
[2017-08-17] MEDS: Lactobacillus Rhamnosus GG 15 Billion CFU CAP.SPRINK PO SCH (08:37)
[2017-08-17] MEDS: Multivitamin Tab PO SCH (08:37)
[2017-08-17] MEDS ORDERED: Sodium Chloride 0.9% 500 ML IV SCH (13:30)
--- NOTE | 2017-08-17 14:50 | General Progress Note ---
Subjective - Review of Systems Service Date: 08/17/17 Subjective: in bed no distress العراقي in place Objective - Results Result Diagrams: 08/16/17 04:15 08/17/17 04:45 Recent Labs: Laboratory Last Values WBC 13.1 Th/cmm (4.8-10.8) H 08/16/17 04:15 RBC 3.75 Mil/cmm (3.80-5.80) L 08/16/17 04:15 Hgb 11.5 gm/dL (12-16) L 08/16/17 04:15 Hct 33.9 % (41.0-60) L 08/16/17 04:15 MCV 90.4 fl (80-99) 08/16/17 04:15 MCH 30.7 pg (27.0-31.0) 08/16/17 04:15 MCHC Differential 33.9 pg (28.0-36.0) 08/16/17 04:15 RDW 13.1 % (11.5-20.0) 08/16/17 04:15 Plt Count 138 Th/cmm (150-400) L 08/16/17 04:15 MPV 8.2 fl 08/16/17 04:15 Neutrophils % 75.0 % (40.0-80.0) 08/16/17 04:15 Lymphocytes % 13.4 % (20.0-50.0) L 08/16/17 04:15 Monocytes % 10.2 % (2.0-10.0) H 08/16/17 04:15 Eosinophils % 1.1 % (0.0-5.0) 08/16/17 04:15 Basophils % 0.3 % (0.0-2.0) 08/16/17 04:15 Neutrophils (Manual) 83 % (40-80) H 08/15/17 04:05 Lymphocytes 13 % (20-50) L 08/15/17 04:05 Monocytes 4 % (2-10) 08/15/17 04:05 PT 14.0 SECONDS (9.5-11.5) H 08/14/17 10:10 INR 1.33 (0.5-1.4) 08/14/17 10:10 PTT (Actin FS) 31.6 SECONDS (26.0-38.0) 08/14/17 10:10 Sodium 135 mEq/L (136-145) L 08/17/17 04:45 Potassium 3.7 mEq/L (3.5-5.1) 08/17/17 04:45 Chloride 106 mEq/L (98-107) 08/17/17 04:45 Carbon Dioxide 22.8 mEq/L (21.0-31.0) 08/17/17 04:45 Anion Gap 9.9 (7.0-16.0) 08/17/17 04:45 BUN 8 mg/dL (7-25) 08/17/17 04:45 Creatinine 0.4 mg/dL (0.7-1.3) L 08/17/17 04:45 Est GFR ( Amer) > 60.0 ml/min (>90) 08/17/17 04:45 Est GFR (Non-Af Amer) > 60.0 ml/min 08/17/17 04:45 BUN/Creatinine Ratio 20.0 08/17/17 04:45 Glucose 102 mg/dL (70-105) 08/17/17 04:45 Calcium 8.2 mg/dL (8.6-10.3) L 08/17/17 04:45 Total Bilirubin 0.6 mg/dL (0.3-1.0) 08/16/17 04:15 AST 34 U/L (13-39) 08/16/17 04:15 ALT 23 U/L (7-52) 08/16/17 04:15 Alkaline Phosphatase 49 U/L (34-104) 08/16/17 04:15 Total Protein 5.3 gm/dL (6.0-8.3) L 08/16/17 04:15 Albumin 2.5 gm/dL (4.2-5.5) L 08/16/17 04:15 Globulin 2.8 gm/dL 08/16/17 04:15 Albumin/Globulin Ratio 0.9 (1.0-1.8) L 08/16/17 04:15 Urine Source CATH 08/14/17 12:50 Urine Color YELLOW 08/14/17 12:50 Urine Clarity HAZY (CLEAR) 08/14/17 12:50 Urine pH 6.0 (4.6 - 8.0) 08/14/17 12:50 Ur Specific [place] <= 1.005 (1.005-1.030) 08/14/17 12:50 Urine Protein NEGATIVE mg/dL (NEGATIVE) 08/14/17 12:50 Urine Glucose (UA) NEGATIVE mg/dL (NEGATIVE) 08/14/17 12:50 Urine Ketones NEGATIVE mg/dL (NEGATIVE) 08/14/17 12:50 Urine Blood LARGE (NEGATIVE) H 08/14/17 12:50 Urine Nitrate NEGATIVE (NEGATIVE) 08/14/17 12:50 Urine Bilirubin NEGATIVE (NEGATIVE) 08/14/17 12:50 Urine Urobilinogen 0.2 E.U./dL (0.2 - 1.0) 08/14/17 12:50 Ur Leukocyte Esterase NEGATIVE (NEGATIVE) 08/14/17 12:50 Urine RBC 50-100 /hpf (0-5) H 08/14/17 12:50 Urine WBC 0-2 /hpf (0-5) 08/14/17 12:50 Ur Epithelial Cells FEW /lpf (FEW) 08/14/17 12:50 Urine Bacteria FEW /hpf (NONE SEEN) 08/14/17 12:50 Urine Mucus FEW /lpf (FEW) 08/14/17 12:50 Hepatitis A IgM Ab Negative (Negative) 08/15/17 04:05 Hep Bs Antigen Negative (Negative) 08/15/17 04:05 Hep B Core IgM Ab Negative (Negative) 08/15/17 04:05 Hepatitis C Antibody <0.1 s/co ratio (0.0-0.9) 08/15/17 04:05 - Physical Exam Vitals and I&O: Vital Signs Temp 98.8 F 08/17/17 14:00 Pulse 67 08/17/17 14:00 Resp 18 08/17/17 14:00 BP 111/61 08/17/17 14:00 Pulse Ox 99 08/17/17 14:00 Intake & Output 08/16/17 08/17/17 08/17/17 18:59 06:59 18:59 Intake Total 1650 2400 150 Output Total 2900 2500 Balance -1250 -100 150 Weight (lbs) 60.781 kg 62.596 kg Intake: Intake, IV Amount 150 900 150 Dextrose 5% 1,000 ml @ 60 600 mls/hr IV .[id number] [facility] Rx#:[id number] Piperacillin Sodium/ 50 100 50 Tazobact 2.25 gm In Sodium Chloride 0.9% 50 ml @ 100 mls/hr IV Q8HR [facility] Rx#:[id number] metroNIDAZOLE 500mg/NS 100 200 100 100mL 500 mg In 100 ml @ 100 mls/hr IV Q8HR [facility] Rx #:[id number] Oral 1500 1500 Output: Urine 2900 2500 Other: # Bowel Movements 0 Stool Characteristics Soft Brown Weight Source Bedscale Bedscale Active Medications: Current Medications Acetaminophen (Tylenol) 650 mg PO Q4H PRN PRN Reason: Pain or Fever >101 Stop: 10/14/17 18:42 Al Hydrox/Mg Hydrox/Simethicone (Maalox) 30 ml PO Q4H PRN PRN Reason: GI DISTRESS Stop: 10/14/17 18:42 Docusate Sodium (Colace) 100 mg PO BID [facility] Stop: 10/15/17 08:59 Last Admin: 08/17/17 08:36 Dose: 100 mg Famotidine (Pepcid) 20 mg PO DAILY [facility] Stop: 10/15/17 08:59 Last Admin: 08/17/17 08:37 Dose: 20 mg Metronidazole (Flagyl) 500 mg in 100 mls @ 100 mls/hr IV Q8HR [facility] Stop: 10/13/17 12:59 Last Infusion: 08/17/17 13:25 Dose: Infused Piperacillin Sod/Tazobactam (Sod 2.25 gm/ Sodium Chloride) 50 mls @ 100 mls/hr IV Q8HR [facility] Stop: 10/13/17 12:59 Last Infusion: 08/17/17 12:55 Dose: Infused Norepinephrine Bitartrate 4 mg (/ Dextrose) 254 mls @ 0 mls/hr IV TITR PRN; Protocol PRN Reason: BP MAINTENANCE (PER PROTOCOL) Stop: 10/13/17 18:16 Sodium Chloride (Nacl 0.9%) 500 mls @ 0 mls/hr IV .Q0M [facility] Stop: 10/16/17 13:29 Lactobacillus Rhamnosus (Culturelle 15b) 1 each PO DAILY [facility] Stop: 10/14/17 12:59 Last Admin: 08/17/17 08:37 Dose: 1 each Magnesium Hydroxide (Milk Of Magnesia) 30 ml PO HS PRN PRN Reason: Constipation Stop: 10/14/17 18:42 Miscellaneous (Probiotic Screen) 1 ea PRN PRN PRN Reason: PROTOCOL Stop: 10/14/17 12:33 Multivitamins/Vitamin C (Theragran) 1 tab PO DAILY [facility] Stop: 10/15/17 08:59 Last Admin: 08/17/17 08:37 Dose: 1 tab Tamsulosin HCl (Flomax) 0.4 mg PO DAILY [facility] Stop: 10/14/17 19:59 Last Admin: 08/17/17 08:36 Dose: 0.4 mg General: Alert HEENT: Atraumatic Neck: Supple Cardiovascular: Regular rate, Normal S1, Normal S2 Lungs: Clear to auscultation Abdomen: Bowel sounds - Procedures Procedures: Procedures Procedure Code Date INSERTION OF INFUSION DEV INTO L SUBCLAV VEIN, PERC APPROACH [id number] 08/14/17 PERFORMANCE OF URINARY FILTRATION, <6 HRS/DAY [id number] 08/14/17 ULTRASONOGRAPHY OF LEFT SUBCLAVIAN VEIN, GUIDANCE [id number] 08/14/17 Assessment/Plan - Assessment Assessment: acute obstructive urpathy arf secondary to urinary retention hyperkalemia - Plan Plan: monitor renal function Nutritional Asmnt/Malnutr-PDOC - Dietary Evaluation Malnutrition Findings (Please click <Entered> for more info): Nutritional Asmnt/Malnutrition Start: 08/15/17 15: 52 Text: Status: Complete Freq: Protocol: Document 08/15/17 15:54 LCHENG (Rec: 08/15/17 16:24 LCHENG [email or web address]) Nutritional Asmnt/Malnutrition Patient General Information Nutritional Screening High Risk Consult Diagnosis pacemaker placement Pertinent Medical Hx/Surgical Hx HTN, BPH, dementia Subjective Information Consult received for poor intake and wounds. Pt was NPO since admitted noted. per nurse note in the morning, pt was yelling for water and food . [facility] soft ground diet stated from lunch. Per nurse note in the afternoon, pt fed himself 100% of lunch. Pt had dialysis yetserday per nurse d /t elevated BUN/Crea and hyperkalemia. Current Diet Order/ Nutrition Support [facility] soft ground. Pertinent Medications D5w, culturelle, piperacillin Pertinent Labs 7/2 Na 153, Cl 119, BUN 37, glucose 120 7/1 Na 128, K 8.8, BUN 212, Cr 13 Nutritional Hx/Data Height 1.65 m Height (Calculated Centimeters) 165.1 Current Weight (lbs) 59.421 kg Weight (Calculated Kilograms) 59.4 Weight (Calculated Grams) 89138.6 [place] Body Weight 136 Body Mass Index (BMI) 21.8 Weight Status Approriate GI Symptoms GI Symptoms None Last BM none Difficult in: None Skin Integrity/Comment: pressure area to right buttocks, abrasion to left eye , redded to left toe and right ankle Current %PO Good (75-100%) Estimated Nutritional Goals BEE in Kcals: Using Current wt Calories/Kcals/Kg 25-30 Kcals Calculated 2101-0328 Protein: Using Current wt Protein g/k monitor renal labs Protein Calculated 60 Fluid: ml per MD Nutritional Problem 1. Problem Problem altered nutrition related labs Etiology electrolytes imbalance, renal dysfunction Signs/Symptoms: Na 153, Cl 119, BUN 37 Malnutrition Alert Is there a minimum of two criteria No selected? Query Text:Check all the applicable criteria. A minimum of two criteria are recommended for diagnosis of either severe or non-severe malnutrition. Malnutrition Related to Morbid Obesity Malnutrition related to morbid obesity No Intervention/Recommendation Comments 1. Continue with [facility] soft ground diet as ordered. Monitor renal labs and adjust diet as needed. 2. Monitor PO intake, wt, labs and skin integrity 3. F/U as high risk in 2-3 days, 08/17-08/18 Expected Outcomes/Goals Expected Outcomes/Goals 1. PO intake to meet at least 75% of nutritional needs. 2. Wt stability, skin to remain intact, labs to approach WNL.
--- NOTE | 2017-08-17 20:40 | Internal Medicine Prog Note ---
Internal Medicine Subjective - Subjective Service Date: 08/17/17 Patient seen and examined:: with staff (HE FEELS BETTER) Patient is:: awake, verbal, in bed, talking Per staff patient has:: no adverse event Internal Medicine Objective - Results Result Diagrams: 08/16/17 04:15 08/17/17 04:45 Recent Labs: Laboratory Last Values WBC 13.1 Th/cmm (4.8-10.8) H 08/16/17 04:15 RBC 3.75 Mil/cmm (3.80-5.80) L 08/16/17 04:15 Hgb 11.5 gm/dL (12-16) L 08/16/17 04:15 Hct 33.9 % (41.0-60) L 08/16/17 04:15 MCV 90.4 fl (80-99) 08/16/17 04:15 MCH 30.7 pg (27.0-31.0) 08/16/17 04:15 MCHC Differential 33.9 pg (28.0-36.0) 08/16/17 04:15 RDW 13.1 % (11.5-20.0) 08/16/17 04:15 Plt Count 138 Th/cmm (150-400) L 08/16/17 04:15 MPV 8.2 fl 08/16/17 04:15 Neutrophils % 75.0 % (40.0-80.0) 08/16/17 04:15 Lymphocytes % 13.4 % (20.0-50.0) L 08/16/17 04:15 Monocytes % 10.2 % (2.0-10.0) H 08/16/17 04:15 Eosinophils % 1.1 % (0.0-5.0) 08/16/17 04:15 Basophils % 0.3 % (0.0-2.0) 08/16/17 04:15 Neutrophils (Manual) 83 % (40-80) H 08/15/17 04:05 Lymphocytes 13 % (20-50) L 08/15/17 04:05 Monocytes 4 % (2-10) 08/15/17 04:05 PT 14.0 SECONDS (9.5-11.5) H 08/14/17 10:10 INR 1.33 (0.5-1.4) 08/14/17 10:10 PTT (Actin FS) 31.6 SECONDS (26.0-38.0) 08/14/17 10:10 Sodium 135 mEq/L (136-145) L 08/17/17 04:45 Potassium 3.7 mEq/L (3.5-5.1) 08/17/17 04:45 Chloride 106 mEq/L (98-107) 08/17/17 04:45 Carbon Dioxide 22.8 mEq/L (21.0-31.0) 08/17/17 04:45 Anion Gap 9.9 (7.0-16.0) 08/17/17 04:45 BUN 8 mg/dL (7-25) 08/17/17 04:45 Creatinine 0.4 mg/dL (0.7-1.3) L 08/17/17 04:45 Est GFR ( Amer) > 60.0 ml/min (>90) 08/17/17 04:45 Est GFR (Non-Af Amer) > 60.0 ml/min 08/17/17 04:45 BUN/Creatinine Ratio 20.0 08/17/17 04:45 Glucose 102 mg/dL (70-105) 08/17/17 04:45 Calcium 8.2 mg/dL (8.6-10.3) L 08/17/17 04:45 Total Bilirubin 0.6 mg/dL (0.3-1.0) 08/16/17 04:15 AST 34 U/L (13-39) 08/16/17 04:15 ALT 23 U/L (7-52) 08/16/17 04:15 Alkaline Phosphatase 49 U/L (34-104) 08/16/17 04:15 Total Protein 5.3 gm/dL (6.0-8.3) L 08/16/17 04:15 Albumin 2.5 gm/dL (4.2-5.5) L 08/16/17 04:15 Globulin 2.8 gm/dL 08/16/17 04:15 Albumin/Globulin Ratio 0.9 (1.0-1.8) L 08/16/17 04:15 Urine Source CATH 08/14/17 12:50 Urine Color YELLOW 08/14/17 12:50 Urine Clarity HAZY (CLEAR) 08/14/17 12:50 Urine pH 6.0 (4.6 - 8.0) 08/14/17 12:50 Ur Specific [place] <= 1.005 (1.005-1.030) 08/14/17 12:50 Urine Protein NEGATIVE mg/dL (NEGATIVE) 08/14/17 12:50 Urine Glucose (UA) NEGATIVE mg/dL (NEGATIVE) 08/14/17 12:50 Urine Ketones NEGATIVE mg/dL (NEGATIVE) 08/14/17 12:50 Urine Blood LARGE (NEGATIVE) H 08/14/17 12:50 Urine Nitrate NEGATIVE (NEGATIVE) 08/14/17 12:50 Urine Bilirubin NEGATIVE (NEGATIVE) 08/14/17 12:50 Urine Urobilinogen 0.2 E.U./dL (0.2 - 1.0) 08/14/17 12:50 Ur Leukocyte Esterase NEGATIVE (NEGATIVE) 08/14/17 12:50 Urine RBC 50-100 /hpf (0-5) H 08/14/17 12:50 Urine WBC 0-2 /hpf (0-5) 08/14/17 12:50 Ur Epithelial Cells FEW /lpf (FEW) 08/14/17 12:50 Urine Bacteria FEW /hpf (NONE SEEN) 08/14/17 12:50 Urine Mucus FEW /lpf (FEW) 08/14/17 12:50 Hepatitis A IgM Ab Negative (Negative) 08/15/17 04:05 Hep Bs Antigen Negative (Negative) 08/15/17 04:05 Hep B Core IgM Ab Negative (Negative) 08/15/17 04:05 Hepatitis C Antibody <0.1 s/co ratio (0.0-0.9) 08/15/17 04:05 - Physical Exam Vitals and I&O: Vital Signs Temp 99.6 F 08/17/17 18:00 Pulse 87 08/17/17 19:56 Resp 16 08/17/17 19:56 BP 108/65 08/17/17 19:00 Pulse Ox 95 08/17/17 19:56 Intake & Output 08/17/17 08/17/17 08/18/17 06:59 18:59 06:59 Intake Total 2400 750 Output Total 2500 4250 Balance -100 -3500 Weight (lbs) 62.596 kg 68.13 kg Intake: Intake, IV Amount 900 150 Dextrose 5% 1,000 ml @ 60 600 mls/hr IV .[id number] [facility] Rx#:[id number] Piperacillin Sodium/ 100 50 Tazobact 2.25 gm In Sodium Chloride 0.9% 50 ml @ 100 mls/hr IV Q8HR [facility] Rx#:[id number] metroNIDAZOLE 500mg/NS 200 100 100mL 500 mg In 100 ml @ 100 mls/hr IV Q8HR [facility] Rx #:[id number] Oral 1500 600 Output: Urine 2500 4250 Other: # Bowel Movements 2 Stool Characteristics Soft Brown Weight Source Bedscale Bedscale Active Medications: Current Medications Acetaminophen (Tylenol) 650 mg PO Q4H PRN PRN Reason: Pain or Fever >101 Stop: 10/14/17 18:42 Al Hydrox/Mg Hydrox/Simethicone (Maalox) 30 ml PO Q4H PRN PRN Reason: GI DISTRESS Stop: 10/14/17 18:42 Docusate Sodium (Colace) 100 mg PO BID [facility] Stop: 10/15/17 08:59 Last Admin: 08/17/17 17:29 Dose: 100 mg Famotidine (Pepcid) 20 mg PO DAILY [facility] Stop: 10/15/17 08:59 Last Admin: 08/17/17 08:37 Dose: 20 mg Metronidazole (Flagyl) 500 mg in 100 mls @ 100 mls/hr IV Q8HR [facility] Stop: 10/13/17 12:59 Last Infusion: 08/17/17 13:25 Dose: Infused Piperacillin Sod/Tazobactam (Sod 2.25 gm/ Sodium Chloride) 50 mls @ 100 mls/hr IV Q8HR [facility] Stop: 10/13/17 12:59 Last Infusion: 08/17/17 12:55 Dose: Infused Norepinephrine Bitartrate 4 mg (/ Dextrose) 254 mls @ 0 mls/hr IV TITR PRN; Protocol PRN Reason: BP MAINTENANCE (PER PROTOCOL) Stop: 10/13/17 18:16 Sodium Chloride (Nacl 0.9%) 500 mls @ 0 mls/hr IV .Q0M [facility] Stop: 10/16/17 13:29 Lactobacillus Rhamnosus (Culturelle 15b) 1 each PO DAILY [facility] Stop: 10/14/17 12:59 Last Admin: 08/17/17 08:37 Dose: 1 each Magnesium Hydroxide (Milk Of Magnesia) 30 ml PO HS PRN PRN Reason: Constipation Stop: 10/14/17 18:42 Miscellaneous (Probiotic Screen) 1 ea MC PRN PRN PRN Reason: PROTOCOL Stop: 10/14/17 12:33 Multivitamins/Vitamin C (Theragran) 1 tab PO DAILY [facility] Stop: 10/15/17 08:59 Last Admin: 08/17/17 08:37 Dose: 1 tab Tamsulosin HCl (Flomax) 0.4 mg PO DAILY [facility] Stop: 10/14/17 19:59 Last Admin: 08/17/17 08:36 Dose: 0.4 mg HEENT: PERRLA, anicteric sclerae, throat clear Neck: Supple, No JVD, No thyromegaly, +2 carotid pulse wo bruit, No LAD Cardiovascular: Normal S1, Normal S2, without murmur Abdomen: non-tender, non-distended Extremities: clear Neurological: no change - Procedures Procedures: Procedures Procedure Code Date INSERTION OF INFUSION DEV INTO L SUBCLAV VEIN, PERC APPROACH [id number] 08/14/17 PERFORMANCE OF URINARY FILTRATION, <6 HRS/DAY [id number] 08/14/17 ULTRASONOGRAPHY OF LEFT SUBCLAVIAN VEIN, GUIDANCE [id number] 08/14/17 Internal Medicine Assmt/Plan - Assessment Assessment: 1.ACUTE OBSTRUCTIVE RENAL FAILURE. 2.BPH. 3.HISTORY OF PSYCHOSIS. 4.CONSTIPATION. 5.DEMENTIA. - Plan Plan: CONTINUE ON CURRENT MEDICATION AND DIET.TRANSFER TO MEDICAL FLOOR. Nutritional Asmnt/Malnutr-PDOC - Dietary Evaluation Malnutrition Findings (Please click <Entered> for more info): Nutritional Asmnt/Malnutrition Start: 08/15/17 15: 52 Text: Status: Complete Freq: Protocol: Document 08/15/17 15:54 LCHENG (Rec: 08/15/17 16:24 [email or web address] [email or web address]) Nutritional Asmnt/Malnutrition Patient General Information Nutritional Screening High Risk Consult Diagnosis pacemaker placement Pertinent Medical Hx/Surgical Hx HTN, BPH, dementia Subjective Information Consult received for poor intake and wounds. Pt was NPO since admitted noted. per nurse note in the morning, pt was yelling for water and food . [facility] soft ground diet stated from lunch. Per nurse note in the afternoon, pt fed himself 100% of lunch. Pt had dialysis yetserday per nurse d /t elevated BUN/Crea and hyperkalemia. Current Diet Order/ Nutrition Support [facility] soft ground. Pertinent Medications D5w, culturelle, piperacillin Pertinent Labs 08/15 Na 153, Cl 119, BUN 37, glucose 120 08/14 Na 128, K 8.8, BUN 212, Cr 13 Nutritional Hx/Data Height 1.65 m Height (Calculated Centimeters) 165.1 Current Weight (lbs) 59.421 kg Weight (Calculated Kilograms) 59.4 Weight (Calculated Grams) 89027.6 [place] Body Weight 136 Body Mass Index (BMI) 21.8 Weight Status Approriate GI Symptoms GI Symptoms None Last BM none Difficult in: None Skin Integrity/Comment: pressure area to right buttocks, abrasion to left eye , redded to left toe and right ankle Current %PO Good (75-100%) Estimated Nutritional Goals BEE in Kcals: Using Current wt Calories/Kcals/Kg 25-30 Kcals Calculated 8791-0529 Protein: Using Current wt Protein g/k monitor renal labs Protein Calculated 60 Fluid: ml per MD Nutritional Problem 1. Problem Problem altered nutrition related labs Etiology electrolytes imbalance, renal dysfunction Signs/Symptoms: Na 153, Cl 119, BUN 37 Malnutrition Alert Is there a minimum of two criteria No selected? Query Text:Check all the applicable criteria. A minimum of two criteria are recommended for diagnosis of either severe or non-severe malnutrition. Malnutrition Related to Morbid Obesity Malnutrition related to morbid obesity No Intervention/Recommendation Comments 1. Continue with [facility] soft ground diet as ordered. Monitor renal labs and adjust diet as needed. 2. Monitor PO intake, wt, labs and skin integrity 3. F/U as high risk in 2-3 days, 08/17-08/18 Expected Outcomes/Goals Expected Outcomes/Goals 1. PO intake to meet at least 75% of nutritional needs. 2. Wt stability, skin to remain intact, labs to approach WNL.
[2017-08-18 05:30] LABS: % MONOCYTES 6.9 % (2.0-10.0); BASOPHILE ABSOLUTE 0.1 Th/cumm (0-0.2); EOSINOPHILE ABSOLUTE 0.5 Th/cmm (0.1-0.4)
[2017-08-18 05:37] LABS: % BASOPHILS 0.9 % (0.0-2.0); % EOSINOPHILS 2.8 % (0.0-5.0); % LYMPHOCYTES 12.8 % (20.0-50.0); % NEUTROPHILS 76.6 % (40.0-80.0); HEMATOCRIT 37.6 % (41.0-60); HEMOGLOBIN 12.8 gm/dL (12-16); LYMPHOCYTE ABSOLUTE 2.1 Th/cmm (1.5-3.0); MEAN CELL VOLUME 90.6 fl (80-99); MEAN CORPUSCULAR HEMOGLOBIN 30.9 pg (27.0-31.0); MEAN CORPUSCULAR HGB CONC 34.1 pg (28.0-36.0); MEAN PLATELET VOLUME 7.9 fl; MONOCYTE ABSOLUTE 1.1 Th/cmm (0.3-1.0); NEUTROPHILE ABSOLUTE 12.8 Th/cmm (1.8-8.0); PLATELET COUNT 211 Th/cmm (150-400); RED BLOOD COUNT 4.15 Mil/cmm (3.80-5.80); RED CELL DISTRIBUTION WIDTH 12.9 % (11.5-20.0)
[2017-08-18 05:39] LABS: ANION GAP 8.6 (7.0-16.0); BUN - UREA NITROGEN 12 mg/dL (7-25); CALCIUM SERUM 8.3 mg/dL (8.6-10.3); CARBON DIOXIDE 24.1 mEq/L (21.0-31.0); CHLORIDE 105 mEq/L (98-107); CREATININE - SERUM 0.4 mg/dL (0.7-1.3); GFR AFRICAN-AMERICAN > 60.0 ml/min (>90); GFR NON AFRICAN-AMERICAN > 60.0 ml/min; GLUCOSE 89 mg/dL (70-105); POTASSIUM SERUM 3.7 mEq/L (3.5-5.1); SODIUM SERUM 134 mEq/L (136-145)
[2017-08-18 05:46] LABS: WHITE BLOOD COUNT 16.6 Th/cmm (4.8-10.8)
[2017-08-18] MEDS: metroNIDAZOLE 500mg/NS 100mL 500 MG/100 ML BAG IV SCH ×3 (06:58→23:08)
[2017-08-18] MEDS: Multivitamin Tab PO SCH (08:58)
[2017-08-18] MEDS: Lactobacillus Rhamnosus GG 15 Billion CFU CAP.SPRINK PO SCH (09:03)
--- NOTE | 2017-08-18 13:24 | General Progress Note ---
Subjective - Review of Systems Service Date: 08/18/17 Subjective: in bed no distress العراقي in place Objective - Results Result Diagrams: 08/18/17 04:40 08/18/17 04:40 Recent Labs: Laboratory Last Values WBC 16.6 Th/cmm (4.8-10.8) H 08/18/17 04:40 RBC 4.15 Mil/cmm (3.80-5.80) 08/18/17 04:40 Hgb 12.8 gm/dL (12-16) 08/18/17 04:40 Hct 37.6 % (41.0-60) L 08/18/17 04:40 MCV 90.6 fl (80-99) 08/18/17 04:40 MCH 30.9 pg (27.0-31.0) 08/18/17 04:40 MCHC Differential 34.1 pg (28.0-36.0) 08/18/17 04:40 RDW 12.9 % (11.5-20.0) 08/18/17 04:40 Plt Count 211 Th/cmm (150-400) 08/18/17 04:40 MPV 7.9 fl 08/18/17 04:40 Neutrophils % 76.6 % (40.0-80.0) 08/18/17 04:40 Lymphocytes % 12.8 % (20.0-50.0) L 08/18/17 04:40 Monocytes % 6.9 % (2.0-10.0) 08/18/17 04:40 Eosinophils % 2.8 % (0.0-5.0) 08/18/17 04:40 Basophils % 0.9 % (0.0-2.0) 08/18/17 04:40 Neutrophils (Manual) 83 % (40-80) H 08/15/17 04:05 Lymphocytes 13 % (20-50) L 08/15/17 04:05 Monocytes 4 % (2-10) 08/15/17 04:05 PT 14.0 SECONDS (9.5-11.5) H 08/14/17 10:10 INR 1.33 (0.5-1.4) 08/14/17 10:10 PTT (Actin FS) 31.6 SECONDS (26.0-38.0) 08/14/17 10:10 Sodium 134 mEq/L (136-145) L 08/18/17 04:40 Potassium 3.7 mEq/L (3.5-5.1) 08/18/17 04:40 Chloride 105 mEq/L (98-107) 08/18/17 04:40 Carbon Dioxide 24.1 mEq/L (21.0-31.0) 08/18/17 04:40 Anion Gap 8.6 (7.0-16.0) 08/18/17 04:40 BUN 12 mg/dL (7-25) 08/18/17 04:40 Creatinine 0.4 mg/dL (0.7-1.3) L 08/18/17 04:40 Est GFR ( Amer) > 60.0 ml/min (>90) 08/18/17 04:40 Est GFR (Non-Af Amer) > 60.0 ml/min 08/18/17 04:40 BUN/Creatinine Ratio 30.0 08/18/17 04:40 Glucose 89 mg/dL (70-105) 08/18/17 04:40 Calcium 8.3 mg/dL (8.6-10.3) L 08/18/17 04:40 Total Bilirubin 0.6 mg/dL (0.3-1.0) 08/16/17 04:15 AST 34 U/L (13-39) 08/16/17 04:15 ALT 23 U/L (7-52) 08/16/17 04:15 Alkaline Phosphatase 49 U/L (34-104) 08/16/17 04:15 Total Protein 5.3 gm/dL (6.0-8.3) L 08/16/17 04:15 Albumin 2.5 gm/dL (4.2-5.5) L 08/16/17 04:15 Globulin 2.8 gm/dL 08/16/17 04:15 Albumin/Globulin Ratio 0.9 (1.0-1.8) L 08/16/17 04:15 Urine Source CATH 08/14/17 12:50 Urine Color YELLOW 08/14/17 12:50 Urine Clarity HAZY (CLEAR) 08/14/17 12:50 Urine pH 6.0 (4.6 - 8.0) 08/14/17 12:50 Ur Specific [place] <= 1.005 (1.005-1.030) 08/14/17 12:50 Urine Protein NEGATIVE mg/dL (NEGATIVE) 08/14/17 12:50 Urine Glucose (UA) NEGATIVE mg/dL (NEGATIVE) 08/14/17 12:50 Urine Ketones NEGATIVE mg/dL (NEGATIVE) 08/14/17 12:50 Urine Blood LARGE (NEGATIVE) H 08/14/17 12:50 Urine Nitrate NEGATIVE (NEGATIVE) 08/14/17 12:50 Urine Bilirubin NEGATIVE (NEGATIVE) 08/14/17 12:50 Urine Urobilinogen 0.2 E.U./dL (0.2 - 1.0) 08/14/17 12:50 Ur Leukocyte Esterase NEGATIVE (NEGATIVE) 08/14/17 12:50 Urine RBC 50-100 /hpf (0-5) H 08/14/17 12:50 Urine WBC 0-2 /hpf (0-5) 08/14/17 12:50 Ur Epithelial Cells FEW /lpf (FEW) 08/14/17 12:50 Urine Bacteria FEW /hpf (NONE SEEN) 08/14/17 12:50 Urine Mucus FEW /lpf (FEW) 08/14/17 12:50 Hepatitis A IgM Ab Negative (Negative) 08/15/17 04:05 Hep Bs Antigen Negative (Negative) 08/15/17 04:05 Hep B Core IgM Ab Negative (Negative) 08/15/17 04:05 Hepatitis C Antibody <0.1 s/co ratio (0.0-0.9) 08/15/17 04:05 - Physical Exam Vitals and I&O: Vital Signs Temp 98 F 08/18/17 12:00 Pulse 65 08/18/17 12:00 Resp 15 08/18/17 12:00 BP 109/65 08/18/17 12:00 Pulse Ox 100 08/18/17 12:00 Intake & Output 08/17/17 08/18/17 08/18/17 18:59 06:59 18:59 Intake Total 750 850 100 Output Total 4250 200 Balance -3500 650 100 Weight (lbs) 68.13 kg 68.039 kg Intake: Intake, IV Amount 150 200 100 Piperacillin Sodium/ 50 100 Tazobact 2.25 gm In Sodium Chloride 0.9% 50 ml @ 100 mls/hr IV Q8HR [facility] Rx#:[id number] metroNIDAZOLE 500mg/NS 100 100 100 100mL 500 mg In 100 ml @ 100 mls/hr IV Q8HR [facility] Rx #:[id number] Oral 600 650 Output: Urine 4250 200 Other: # Bowel Movements 2 Stool Characteristics Soft Brown Weight Source Bedscale Bedscale Active Medications: Current Medications Acetaminophen (Tylenol) 650 mg PO Q4H PRN PRN Reason: Pain or Fever >101 Stop: 10/14/17 18:42 Al Hydrox/Mg Hydrox/Simethicone (Maalox) 30 ml PO Q4H PRN PRN Reason: GI DISTRESS Stop: 10/14/17 18:42 Docusate Sodium (Colace) 100 mg PO BID [facility] Stop: 10/15/17 08:59 Last Admin: 08/18/17 08:58 Dose: 100 mg Famotidine (Pepcid) 20 mg PO DAILY [facility] Stop: 10/15/17 08:59 Last Admin: 08/18/17 08:58 Dose: 20 mg Metronidazole (Flagyl) 500 mg in 100 mls @ 100 mls/hr IV Q8HR [facility] Stop: 10/13/17 12:59 Last Admin: 08/18/17 12:28 Dose: 100 mls/hr Piperacillin Sod/Tazobactam (Sod 2.25 gm/ Sodium Chloride) 50 mls @ 100 mls/hr IV Q8HR [facility] Stop: 10/13/17 12:59 Last Admin: 08/18/17 12:00 Dose: 100 mls/hr Norepinephrine Bitartrate 4 mg (/ Dextrose) 254 mls @ 0 mls/hr IV TITR PRN; Protocol PRN Reason: BP MAINTENANCE (PER PROTOCOL) Stop: 10/13/17 18:16 Sodium Chloride (Nacl 0.9%) 500 mls @ 0 mls/hr IV .Q0M [facility] Stop: 10/16/17 13:29 Lactobacillus Rhamnosus (Culturelle 15b) 1 each PO DAILY [facility] Stop: 10/14/17 12:59 Last Admin: 08/18/17 09:03 Dose: 1 each Magnesium Hydroxide (Milk Of Magnesia) 30 ml PO HS PRN PRN Reason: Constipation Stop: 10/14/17 18:42 Miscellaneous (Probiotic Screen) 1 ea MC PRN PRN PRN Reason: PROTOCOL Stop: 10/14/17 12:33 Multivitamins/Vitamin C (Theragran) 1 tab PO DAILY [facility] Stop: 10/15/17 08:59 Last Admin: 08/18/17 08:58 Dose: 1 tab Tamsulosin HCl (Flomax) 0.4 mg PO DAILY [facility] Stop: 10/14/17 19:59 Last Admin: 08/18/17 09:03 Dose: 0.4 mg Tramadol HCl (Ultram) 50 mg PO Q6H PRN PRN Reason: Pain (Moderate) Stop: 10/17/17 07:18 Last Admin: 08/18/17 08:58 Dose: 50 mg General: Alert HEENT: Atraumatic Neck: Supple Cardiovascular: Regular rate, Normal S1, Normal S2 Lungs: Clear to auscultation Abdomen: Bowel sounds - Procedures Procedures: Procedures Procedure Code Date INSERTION OF INFUSION DEV INTO L SUBCLAV VEIN, PERC APPROACH [id number] 08/14/17 PERFORMANCE OF URINARY FILTRATION, <6 HRS/DAY [id number] 08/14/17 ULTRASONOGRAPHY OF LEFT SUBCLAVIAN VEIN, GUIDANCE [id number] 08/14/17 Assessment/Plan - Assessment Assessment: acute obstructive urpathy arf secondary to urinary retention hyperkalemia - Plan Plan: monitor renal function Nutritional Asmnt/Malnutr-PDOC - Dietary Evaluation Malnutrition Findings (Please click <Entered> for more info): Nutritional Asmnt/Malnutrition Start: 08/15/17 15: 52 Text: Status: Complete Freq: Protocol: Document 08/15/17 15:54 LCHENG (Rec: 08/15/17 16:24 LCHENG [email or web address]) Nutritional Asmnt/Malnutrition Patient General Information Nutritional Screening High Risk Consult Diagnosis pacemaker placement Pertinent Medical Hx/Surgical Hx HTN, BPH, dementia Subjective Information Consult received for poor intake and wounds. Pt was NPO since admitted noted. per nurse note in the morning, pt was yelling for water and food . [facility] soft ground diet stated from lunch. Per nurse note in the afternoon, pt fed himself 100% of lunch. Pt had dialysis yetserday per nurse d /t elevated BUN/Crea and hyperkalemia. Current Diet Order/ Nutrition Support [facility] soft ground. Pertinent Medications D5w, culturelle, piperacillin Pertinent Labs 08/15 Na 153, Cl 119, BUN 37, glucose 120 7/ Na 128, K 8.8, BUN 212, Cr 13 Nutritional Hx/Data Height 1.65 m Height (Calculated Centimeters) 165.1 Current Weight (lbs) 59.421 kg Weight (Calculated Kilograms) 59.4 Weight (Calculated Grams) 06637.6 [place] Body Weight 136 Body Mass Index (BMI) 21.8 Weight Status Approriate GI Symptoms GI Symptoms None Last BM none Difficult in: None Skin Integrity/Comment: pressure area to right buttocks, abrasion to left eye , redded to left toe and right ankle Current %PO Good (75-100%) Estimated Nutritional Goals BEE in Kcals: Using Current wt Calories/Kcals/Kg 25-30 Kcals Calculated 9500-5634 Protein: Using Current wt Protein g/k monitor renal labs Protein Calculated 60 Fluid: ml per MD Nutritional Problem 1. Problem Problem altered nutrition related labs Etiology electrolytes imbalance, renal dysfunction Signs/Symptoms: Na 153, Cl 119, BUN 37 Malnutrition Alert Is there a minimum of two criteria No selected? Query Text:Check all the applicable criteria. A minimum of two criteria are recommended for diagnosis of either severe or non-severe malnutrition. Malnutrition Related to Morbid Obesity Malnutrition related to morbid obesity No Intervention/Recommendation Comments 1. Continue with [facility] soft ground diet as ordered. Monitor renal labs and adjust diet as needed. 2. Monitor PO intake, wt, labs and skin integrity 3. F/U as high risk in 2-3 days, 08/17-08/18 Expected Outcomes/Goals Expected Outcomes/Goals 1. PO intake to meet at least 75% of nutritional needs. 2. Wt stability, skin to remain intact, labs to approach WNL.
--- NOTE | 2017-08-18 17:17 | Internal Medicine Prog Note ---
Internal Medicine Subjective - Subjective Service Date: 08/18/17 Patient seen and examined:: with staff (HE FEELS BETTER.) Patient is:: awake, verbal, in bed, talking Per staff patient has:: no adverse event Internal Medicine Objective - Results Result Diagrams: 08/18/17 04:40 08/18/17 04:40 Recent Labs: Laboratory Last Values WBC 16.6 Th/cmm (4.8-10.8) H 08/18/17 04:40 RBC 4.15 Mil/cmm (3.80-5.80) 08/18/17 04:40 Hgb 12.8 gm/dL (12-16) 08/18/17 04:40 Hct 37.6 % (41.0-60) L 08/18/17 04:40 MCV 90.6 fl (80-99) 08/18/17 04:40 MCH 30.9 pg (27.0-31.0) 08/18/17 04:40 MCHC Differential 34.1 pg (28.0-36.0) 08/18/17 04:40 RDW 12.9 % (11.5-20.0) 08/18/17 04:40 Plt Count 211 Th/cmm (150-400) 08/18/17 04:40 MPV 7.9 fl 08/18/17 04:40 Neutrophils % 76.6 % (40.0-80.0) 08/18/17 04:40 Lymphocytes % 12.8 % (20.0-50.0) L 08/18/17 04:40 Monocytes % 6.9 % (2.0-10.0) 08/18/17 04:40 Eosinophils % 2.8 % (0.0-5.0) 08/18/17 04:40 Basophils % 0.9 % (0.0-2.0) 08/18/17 04:40 Neutrophils (Manual) 83 % (40-80) H 08/15/17 04:05 Lymphocytes 13 % (20-50) L 08/15/17 04:05 Monocytes 4 % (2-10) 08/15/17 04:05 PT 14.0 SECONDS (9.5-11.5) H 08/14/17 10:10 INR 1.33 (0.5-1.4) 08/14/17 10:10 PTT (Actin FS) 31.6 SECONDS (26.0-38.0) 08/14/17 10:10 Sodium 134 mEq/L (136-145) L 08/18/17 04:40 Potassium 3.7 mEq/L (3.5-5.1) 08/18/17 04:40 Chloride 105 mEq/L (98-107) 08/18/17 04:40 Carbon Dioxide 24.1 mEq/L (21.0-31.0) 08/18/17 04:40 Anion Gap 8.6 (7.0-16.0) 08/18/17 04:40 BUN 12 mg/dL (7-25) 08/18/17 04:40 Creatinine 0.4 mg/dL (0.7-1.3) L 08/18/17 04:40 Est GFR ( Amer) > 60.0 ml/min (>90) 08/18/17 04:40 Est GFR (Non-Af Amer) > 60.0 ml/min 08/18/17 04:40 BUN/Creatinine Ratio 30.0 08/18/17 04:40 Glucose 89 mg/dL (70-105) 08/18/17 04:40 Calcium 8.3 mg/dL (8.6-10.3) L 08/18/17 04:40 Total Bilirubin 0.6 mg/dL (0.3-1.0) 08/16/17 04:15 AST 34 U/L (13-39) 08/16/17 04:15 ALT 23 U/L (7-52) 08/16/17 04:15 Alkaline Phosphatase 49 U/L (34-104) 08/16/17 04:15 Total Protein 5.3 gm/dL (6.0-8.3) L 08/16/17 04:15 Albumin 2.5 gm/dL (4.2-5.5) L 08/16/17 04:15 Globulin 2.8 gm/dL 08/16/17 04:15 Albumin/Globulin Ratio 0.9 (1.0-1.8) L 08/16/17 04:15 Urine Source CATH 08/14/17 12:50 Urine Color YELLOW 08/14/17 12:50 Urine Clarity HAZY (CLEAR) 08/14/17 12:50 Urine pH 6.0 (4.6 - 8.0) 08/14/17 12:50 Ur Specific [place] <= 1.005 (1.005-1.030) 08/14/17 12:50 Urine Protein NEGATIVE mg/dL (NEGATIVE) 08/14/17 12:50 Urine Glucose (UA) NEGATIVE mg/dL (NEGATIVE) 08/14/17 12:50 Urine Ketones NEGATIVE mg/dL (NEGATIVE) 08/14/17 12:50 Urine Blood LARGE (NEGATIVE) H 08/14/17 12:50 Urine Nitrate NEGATIVE (NEGATIVE) 08/14/17 12:50 Urine Bilirubin NEGATIVE (NEGATIVE) 08/14/17 12:50 Urine Urobilinogen 0.2 E.U./dL (0.2 - 1.0) 08/14/17 12:50 Ur Leukocyte Esterase NEGATIVE (NEGATIVE) 08/14/17 12:50 Urine RBC 50-100 /hpf (0-5) H 08/14/17 12:50 Urine WBC 0-2 /hpf (0-5) 08/14/17 12:50 Ur Epithelial Cells FEW /lpf (FEW) 08/14/17 12:50 Urine Bacteria FEW /hpf (NONE SEEN) 08/14/17 12:50 Urine Mucus FEW /lpf (FEW) 08/14/17 12:50 Hepatitis A IgM Ab Negative (Negative) 08/15/17 04:05 Hep Bs Antigen Negative (Negative) 08/15/17 04:05 Hep B Core IgM Ab Negative (Negative) 08/15/17 04:05 Hepatitis C Antibody <0.1 s/co ratio (0.0-0.9) 08/15/17 04:05 - Physical Exam Vitals and I&O: Vital Signs Temp 98.3 F 08/18/17 16:56 Pulse 67 08/18/17 16:56 Resp 21 08/18/17 16:56 BP 116/66 08/18/17 16:56 Pulse Ox 99 08/18/17 16:56 Intake & Output 08/17/17 08/18/17 08/18/17 18:59 06:59 18:59 Intake Total 750 850 250 Output Total 4250 200 Balance -3500 650 250 Weight (lbs) 68.13 kg 68.039 kg Intake: Intake, IV Amount 150 200 250 Piperacillin Sodium/ 50 100 50 Tazobact 2.25 gm In Sodium Chloride 0.9% 50 ml @ 100 mls/hr IV Q8HR [facility] Rx#:[id number] metroNIDAZOLE 500mg/NS 100 100 200 100mL 500 mg In 100 ml @ 100 mls/hr IV Q8HR [facility] Rx #:[id number] Oral 600 650 Output: Urine 4250 200 Other: # Bowel Movements 2 Stool Characteristics Soft Brown Weight Source Bedscale Bedscale Active Medications: Current Medications Acetaminophen (Tylenol) 650 mg PO Q4H PRN PRN Reason: Pain or Fever >101 Stop: 10/14/17 18:42 Al Hydrox/Mg Hydrox/Simethicone (Maalox) 30 ml PO Q4H PRN PRN Reason: GI DISTRESS Stop: 10/14/17 18:42 Docusate Sodium (Colace) 100 mg PO BID [facility] Stop: 10/15/17 08:59 Last Admin: 08/18/17 08:58 Dose: 100 mg Famotidine (Pepcid) 20 mg PO DAILY [facility] Stop: 10/15/17 08:59 Last Admin: 08/18/17 08:58 Dose: 20 mg Metronidazole (Flagyl) 500 mg in 100 mls @ 100 mls/hr IV Q8HR [facility] Stop: 10/13/17 12:59 Last Infusion: 08/18/17 13:30 Dose: Infused Piperacillin Sod/Tazobactam (Sod 2.25 gm/ Sodium Chloride) 50 mls @ 100 mls/hr IV Q8HR [facility] Stop: 10/13/17 12:59 Last Infusion: 08/18/17 12:30 Dose: Infused Norepinephrine Bitartrate 4 mg (/ Dextrose) 254 mls @ 0 mls/hr IV TITR PRN; Protocol PRN Reason: BP MAINTENANCE (PER PROTOCOL) Stop: 10/13/17 18:16 Sodium Chloride (Nacl 0.9%) 500 mls @ 0 mls/hr IV .Q0M [facility] Stop: 10/16/17 13:29 Lactobacillus Rhamnosus (Culturelle 15b) 1 each PO DAILY [facility] Stop: 10/14/17 12:59 Last Admin: 08/18/17 09:03 Dose: 1 each Magnesium Hydroxide (Milk Of Magnesia) 30 ml PO HS PRN PRN Reason: Constipation Stop: 10/14/17 18:42 Miscellaneous (Probiotic Screen) 1 ea MC PRN PRN PRN Reason: PROTOCOL Stop: 10/14/17 12:33 Multivitamins/Vitamin C (Theragran) 1 tab PO DAILY [facility] Stop: 10/15/17 08:59 Last Admin: 08/18/17 08:58 Dose: 1 tab Tamsulosin HCl (Flomax) 0.4 mg PO DAILY [facility] Stop: 10/14/17 19:59 Last Admin: 08/18/17 09:03 Dose: 0.4 mg Tramadol HCl (Ultram) 50 mg PO Q6H PRN PRN Reason: Pain (Moderate) Stop: 10/17/17 07:18 Last Admin: 08/18/17 08:58 Dose: 50 mg HEENT: PERRLA, anicteric sclerae, throat clear Neck: Supple, No JVD, No thyromegaly, +2 carotid pulse wo bruit, No LAD Cardiovascular: Normal S1, Normal S2, without murmur Abdomen: non-tender, non-distended Extremities: clear Neurological: no change - Procedures Procedures: Procedures Procedure Code Date INSERTION OF INFUSION DEV INTO L SUBCLAV VEIN, PERC APPROACH 88X052L 08/14/17 PERFORMANCE OF URINARY FILTRATION, <6 HRS/DAY [id number] 08/14/17 ULTRASONOGRAPHY OF LEFT SUBCLAVIAN VEIN, GUIDANCE [id number] 08/14/17 Internal Medicine Assmt/Plan - Assessment Assessment: 1.ACUTE OBSTRUCTIVE RENAL FAILURE. 2.BPH. 3.HISTORY OF PSYCHOSIS. 4.CONSTIPATION. 5.DEMENTIA. - Plan Plan: CONTINUE ON CURRENT MEDICATION AND DIET. Nutritional Asmnt/Malnutr-PDOC - Dietary Evaluation Malnutrition Findings (Please click <Entered> for more info): Nutritional Asmnt/Malnutrition Start: 08/15/17 15: 52 Text: Status: Complete Freq: Protocol: Document 08/15/17 15:54 LCHENG (Rec: 08/15/17 16:24 [email or web address] [email or web address]) Nutritional Asmnt/Malnutrition Patient General Information Nutritional Screening High Risk Consult Diagnosis pacemaker placement Pertinent Medical Hx/Surgical Hx HTN, BPH, dementia Subjective Information Consult received for poor intake and wounds. Pt was NPO since admitted noted. per nurse note in the morning, pt was yelling for water and food . [facility] soft ground diet stated from lunch. Per nurse note in the afternoon, pt fed himself 100% of lunch. Pt had dialysis yetserday per nurse d /t elevated BUN/Crea and hyperkalemia. Current Diet Order/ Nutrition Support [facility] soft ground. Pertinent Medications D5w, culturelle, piperacillin Pertinent Labs 08/15 Na 153, Cl 119, BUN 37, glucose 120 08/14 Na 128, K 8.8, BUN 212, Cr 13 Nutritional Hx/Data Height 1.65 m Height (Calculated Centimeters) 165.1 Current Weight (lbs) 59.421 kg Weight (Calculated Kilograms) 59.4 Weight (Calculated Grams) 37642.6 [place] Body Weight 136 Body Mass Index (BMI) 21.8 Weight Status Approriate GI Symptoms GI Symptoms None Last BM none Difficult in: None Skin Integrity/Comment: pressure area to right buttocks, abrasion to left eye , redded to left toe and right ankle Current %PO Good (75-100%) Estimated Nutritional Goals BEE in Kcals: Using Current wt Calories/Kcals/Kg 25-30 Kcals Calculated 2683-0391 Protein: Using Current wt Protein g/k monitor renal labs Protein Calculated 60 Fluid: ml per MD Nutritional Problem 1. Problem Problem altered nutrition related labs Etiology electrolytes imbalance, renal dysfunction Signs/Symptoms: Na 153, Cl 119, BUN 37 Malnutrition Alert Is there a minimum of two criteria No selected? Query Text:Check all the applicable criteria. A minimum of two criteria are recommended for diagnosis of either severe or non-severe malnutrition. Malnutrition Related to Morbid Obesity Malnutrition related to morbid obesity No Intervention/Recommendation Comments 1. Continue with [facility] soft ground diet as ordered. Monitor renal labs and adjust diet as needed. 2. Monitor PO intake, wt, labs and skin integrity 3. F/U as high risk in 2-3 days, 08/17-08/18 Expected Outcomes/Goals Expected Outcomes/Goals 1. PO intake to meet at least 75% of nutritional needs. 2. Wt stability, skin to remain intact, labs to approach WNL.
[2017-08-19] MEDS ORDERED: Haloperidol Lactate 5 mg/mL 1mL Vial IVP ONE (00:57)
[2017-08-19] MEDS ORDERED: Haloperidol Lactate 5 mg/mL 1mL Vial IM ONE (01:36)
[2017-08-19 03:52] LABS: % BASOPHILS 0.7 % (0.0-2.0); BASOPHILE ABSOLUTE 0.1 Th/cumm (0-0.2); EOSINOPHILE ABSOLUTE 0.5 Th/cmm (0.1-0.4)
[2017-08-19 04:06] LABS: % EOSINOPHILS 3.6 % (0.0-5.0); % LYMPHOCYTES 12.2 % (20.0-50.0); % MONOCYTES 6.8 % (2.0-10.0); % NEUTROPHILS 76.7 % (40.0-80.0); HEMATOCRIT 34.6 % (41.0-60); LYMPHOCYTE ABSOLUTE 1.8 Th/cmm (1.5-3.0); MEAN CELL VOLUME 90.2 fl (80-99); MEAN CORPUSCULAR HEMOGLOBIN 31.3 pg (27.0-31.0); MEAN CORPUSCULAR HGB CONC 34.7 pg (28.0-36.0); MEAN PLATELET VOLUME 7.7 fl; NEUTROPHILE ABSOLUTE 11.3 Th/cmm (1.8-8.0); PLATELET COUNT 244 Th/cmm (150-400); RED BLOOD COUNT 3.84 Mil/cmm (3.80-5.80); RED CELL DISTRIBUTION WIDTH 12.9 % (11.5-20.0); WHITE BLOOD COUNT 14.7 Th/cmm (4.8-10.8)
[2017-08-19 04:21] LABS: ANION GAP 5.6 (7.0-16.0); BUN - UREA NITROGEN 12 mg/dL (7-25); CALCIUM SERUM 8.3 mg/dL (8.6-10.3); CARBON DIOXIDE 26.9 mEq/L (21.0-31.0); CHLORIDE 105 mEq/L (98-107); CREATININE - SERUM 0.6 mg/dL (0.7-1.3); GFR AFRICAN-AMERICAN > 60.0 ml/min (>90); GFR NON AFRICAN-AMERICAN > 60.0 ml/min; GLUCOSE 96 mg/dL (70-105); POTASSIUM SERUM 3.5 mEq/L (3.5-5.1); SODIUM SERUM 134 mEq/L (136-145)
[2017-08-19] MEDS: metroNIDAZOLE 500mg/NS 100mL 500 MG/100 ML BAG IV SCH ×3 (05:10→20:02)
[2017-08-19] MEDS: Lactobacillus Rhamnosus GG 15 Billion CFU CAP.SPRINK PO SCH (08:44)
[2017-08-19] MEDS: Multivitamin Tab PO SCH (08:44)
--- NOTE | 2017-08-19 14:50 | General Progress Note ---
Subjective - Review of Systems Service Date: 08/19/17 Subjective: in bed no distress العراقي in place Objective - Results Result Diagrams: 08/19/17 03:30 08/19/17 03:30 Recent Labs: Laboratory Last Values WBC 14.7 Th/cmm (4.8-10.8) H 08/19/17 03:30 RBC 3.84 Mil/cmm (3.80-5.80) 08/19/17 03:30 Hgb 12.0 gm/dL (12-16) 08/19/17 03:30 Hct 34.6 % (41.0-60) L 08/19/17 03:30 MCV 90.2 fl (80-99) 08/19/17 03:30 MCH 31.3 pg (27.0-31.0) H 08/19/17 03:30 MCHC Differential 34.7 pg (28.0-36.0) 08/19/17 03:30 RDW 12.9 % (11.5-20.0) 08/19/17 03:30 Plt Count 244 Th/cmm (150-400) 08/19/17 03:30 MPV 7.7 fl 08/19/17 03:30 Neutrophils % 76.7 % (40.0-80.0) 08/19/17 03:30 Lymphocytes % 12.2 % (20.0-50.0) L 08/19/17 03:30 Monocytes % 6.8 % (2.0-10.0) 08/19/17 03:30 Eosinophils % 3.6 % (0.0-5.0) 08/19/17 03:30 Basophils % 0.7 % (0.0-2.0) 08/19/17 03:30 Neutrophils (Manual) 83 % (40-80) H 08/15/17 04:05 Lymphocytes 13 % (20-50) L 08/15/17 04:05 Monocytes 4 % (2-10) 08/15/17 04:05 PT 14.0 SECONDS (9.5-11.5) H 08/14/17 10:10 INR 1.33 (0.5-1.4) 08/14/17 10:10 PTT (Actin FS) 31.6 SECONDS (26.0-38.0) 08/14/17 10:10 Sodium 134 mEq/L (136-145) L 08/19/17 03:30 Potassium 3.5 mEq/L (3.5-5.1) 08/19/17 03:30 Chloride 105 mEq/L (98-107) 08/19/17 03:30 Carbon Dioxide 26.9 mEq/L (21.0-31.0) 08/19/17 03:30 Anion Gap 5.6 (7.0-16.0) L 08/19/17 03:30 BUN 12 mg/dL (7-25) 08/19/17 03:30 Creatinine 0.6 mg/dL (0.7-1.3) L 08/19/17 03:30 Est GFR ( Amer) > 60.0 ml/min (>90) 08/19/17 03:30 Est GFR (Non-Af Amer) > 60.0 ml/min 08/19/17 03:30 BUN/Creatinine Ratio 20.0 08/19/17 03:30 Glucose 96 mg/dL (70-105) 08/19/17 03:30 Calcium 8.3 mg/dL (8.6-10.3) L 08/19/17 03:30 Total Bilirubin 0.6 mg/dL (0.3-1.0) 08/16/17 04:15 AST 34 U/L (13-39) 08/16/17 04:15 ALT 23 U/L (7-52) 08/16/17 04:15 Alkaline Phosphatase 49 U/L (34-104) 08/16/17 04:15 Total Protein 5.3 gm/dL (6.0-8.3) L 08/16/17 04:15 Albumin 2.5 gm/dL (4.2-5.5) L 08/16/17 04:15 Globulin 2.8 gm/dL 08/16/17 04:15 Albumin/Globulin Ratio 0.9 (1.0-1.8) L 08/16/17 04:15 Urine Source CATH 08/14/17 12:50 Urine Color YELLOW 08/14/17 12:50 Urine Clarity HAZY (CLEAR) 08/14/17 12:50 Urine pH 6.0 (4.6 - 8.0) 08/14/17 12:50 Ur Specific [place] <= 1.005 (1.005-1.030) 08/14/17 12:50 Urine Protein NEGATIVE mg/dL (NEGATIVE) 08/14/17 12:50 Urine Glucose (UA) NEGATIVE mg/dL (NEGATIVE) 08/14/17 12:50 Urine Ketones NEGATIVE mg/dL (NEGATIVE) 08/14/17 12:50 Urine Blood LARGE (NEGATIVE) H 08/14/17 12:50 Urine Nitrate NEGATIVE (NEGATIVE) 08/14/17 12:50 Urine Bilirubin NEGATIVE (NEGATIVE) 08/14/17 12:50 Urine Urobilinogen 0.2 E.U./dL (0.2 - 1.0) 08/14/17 12:50 Ur Leukocyte Esterase NEGATIVE (NEGATIVE) 08/14/17 12:50 Urine RBC 50-100 /hpf (0-5) H 08/14/17 12:50 Urine WBC 0-2 /hpf (0-5) 08/14/17 12:50 Ur Epithelial Cells FEW /lpf (FEW) 08/14/17 12:50 Urine Bacteria FEW /hpf (NONE SEEN) 08/14/17 12:50 Urine Mucus FEW /lpf (FEW) 08/14/17 12:50 Hepatitis A IgM Ab Negative (Negative) 08/15/17 04:05 Hep Bs Antigen Negative (Negative) 08/15/17 04:05 Hep B Core IgM Ab Negative (Negative) 08/15/17 04:05 Hepatitis C Antibody <0.1 s/co ratio (0.0-0.9) 08/15/17 04:05 - Physical Exam Vitals and I&O: Vital Signs Temp 97.3 F 08/19/17 11:02 Pulse 70 08/19/17 11:02 Resp 18 08/19/17 11:02 BP 94/57 08/19/17 11:02 Pulse Ox 98 08/19/17 11:02 Intake & Output 08/18/17 08/19/17 08/19/17 18:59 06:59 18:59 Intake Total 1650 750 Output Total 1300 1100 Balance 350 -350 Weight (lbs) 67.84 kg 67.585 kg Intake: Intake, IV Amount 250 300 Piperacillin Sodium/ 50 100 Tazobact 2.25 gm In Sodium Chloride 0.9% 50 ml @ 100 mls/hr IV Q8HR [facility] Rx#:[id number] metroNIDAZOLE 500mg/NS 200 200 100mL 500 mg In 100 ml @ 100 mls/hr IV Q8HR [facility] Rx #:[id number] Oral 1400 450 Output: Urine 1300 1100 Other: # Bowel Movements 1 2 Weight Source Bedscale Bedscale Active Medications: Current Medications Acetaminophen (Tylenol) 650 mg PO Q4H PRN PRN Reason: Pain or Fever >101 Stop: 10/14/17 18:42 Al Hydrox/Mg Hydrox/Simethicone (Maalox) 30 ml PO Q4H PRN PRN Reason: GI DISTRESS Stop: 10/14/17 18:42 Docusate Sodium (Colace) 100 mg PO BID [facility] Stop: 10/15/17 08:59 Last Admin: 08/19/17 08:44 Dose: 100 mg Famotidine (Pepcid) 20 mg PO DAILY [facility] Stop: 10/15/17 08:59 Last Admin: 08/19/17 08:43 Dose: 20 mg Metronidazole (Flagyl) 500 mg in 100 mls @ 100 mls/hr IV Q8HR [facility] Stop: 10/13/17 12:59 Last Infusion: 08/19/17 06:17 Dose: Infused Piperacillin Sod/Tazobactam (Sod 2.25 gm/ Sodium Chloride) 50 mls @ 100 mls/hr IV Q8HR [facility] Stop: 10/13/17 12:59 Last Infusion: 08/19/17 04:35 Dose: Infused Norepinephrine Bitartrate 4 mg (/ Dextrose) 254 mls @ 0 mls/hr IV TITR PRN; Protocol PRN Reason: BP MAINTENANCE (PER PROTOCOL) Stop: 10/13/17 18:16 Sodium Chloride (Nacl 0.9%) 500 mls @ 0 mls/hr IV .Q0M [facility] Stop: 10/16/17 13:29 Lactobacillus Rhamnosus (Culturelle 15b) 1 each PO DAILY [facility] Stop: 10/14/17 12:59 Last Admin: 08/19/17 08:44 Dose: 1 each Magnesium Hydroxide (Milk Of Magnesia) 30 ml PO HS PRN PRN Reason: Constipation Stop: 10/14/17 18:42 Miscellaneous (Probiotic Screen) 1 ea MC PRN PRN PRN Reason: PROTOCOL Stop: 10/14/17 12:33 Multivitamins/Vitamin C (Theragran) 1 tab PO DAILY [facility] Stop: 10/15/17 08:59 Last Admin: 08/19/17 08:44 Dose: 1 tab Tamsulosin HCl (Flomax) 0.4 mg PO DAILY [facility] Stop: 10/14/17 19:59 Last Admin: 08/19/17 08:44 Dose: 0.4 mg Tramadol HCl (Ultram) 50 mg PO Q6H PRN PRN Reason: Pain (Moderate) Stop: 10/17/17 07:18 Last Admin: 08/18/17 08:58 Dose: 50 mg General: Alert HEENT: Atraumatic Neck: Supple Cardiovascular: Regular rate, Normal S1, Normal S2 Lungs: Clear to auscultation Abdomen: Bowel sounds - Procedures Procedures: Procedures Procedure Code Date INSERTION OF INFUSION DEV INTO L SUBCLAV VEIN, PERC APPROACH [id number] 08/14/17 PERFORMANCE OF URINARY FILTRATION, <6 HRS/DAY [id number] 08/14/17 ULTRASONOGRAPHY OF LEFT SUBCLAVIAN VEIN, GUIDANCE [id number] 08/14/17 Assessment/Plan - Assessment Assessment: acute obstructive urpathy arf secondary to urinary retention hyperkalemia - Plan Plan: adequate renal function will sign off Nutritional Asmnt/Malnutr-PDOC - Dietary Evaluation Malnutrition Findings (Please click <Entered> for more info): Nutritional Asmnt/Malnutrition Start: 08/15/17 15: 52 Text: Status: Complete Freq: Protocol: Document 08/15/17 15:54 LCHENG (Rec: 08/15/17 16:24 [email or web address] [email or web address]) Nutritional Asmnt/Malnutrition Patient General Information Nutritional Screening High Risk Consult Diagnosis pacemaker placement Pertinent Medical Hx/Surgical Hx HTN, BPH, dementia Subjective Information Consult received for poor intake and wounds. Pt was NPO since admitted noted. per nurse note in the morning, pt was yelling for water and food . [facility] soft ground diet stated from lunch. Per nurse note in the afternoon, pt fed himself 100% of lunch. Pt had dialysis yetserday per nurse d /t elevated BUN/Crea and hyperkalemia. Current Diet Order/ Nutrition Support [facility] soft ground. Pertinent Medications D5w, culturelle, piperacillin Pertinent Labs 7/2 Na 153, Cl 119, BUN 37, glucose 120 7/1 Na 128, K 8.8, BUN 212, Cr 13 Nutritional Hx/Data Height 1.65 m Height (Calculated Centimeters) 165.1 Current Weight (lbs) 59.421 kg Weight (Calculated Kilograms) 59.4 Weight (Calculated Grams) 21225.6 [place] Body Weight 136 Body Mass Index (BMI) 21.8 Weight Status Approriate GI Symptoms GI Symptoms None Last BM none Difficult in: None Skin Integrity/Comment: pressure area to right buttocks, abrasion to left eye , redded to left toe and right ankle Current %PO Good (75-100%) Estimated Nutritional Goals BEE in Kcals: Using Current wt Calories/Kcals/Kg 25-30 Kcals Calculated 1214-4642 Protein: Using Current wt Protein g/k monitor renal labs Protein Calculated 60 Fluid: ml per MD Nutritional Problem 1. Problem Problem altered nutrition related labs Etiology electrolytes imbalance, renal dysfunction Signs/Symptoms: Na 153, Cl 119, BUN 37 Malnutrition Alert Is there a minimum of two criteria No selected? Query Text:Check all the applicable criteria. A minimum of two criteria are recommended for diagnosis of either severe or non-severe malnutrition. Malnutrition Related to Morbid Obesity Malnutrition related to morbid obesity No Intervention/Recommendation Comments 1. Continue with [facility] soft ground diet as ordered. Monitor renal labs and adjust diet as needed. 2. Monitor PO intake, wt, labs and skin integrity 3. F/U as high risk in 2-3 days, 08/17-08/18 Expected Outcomes/Goals Expected Outcomes/Goals 1. PO intake to meet at least 75% of nutritional needs. 2. Wt stability, skin to remain intact, labs to approach WNL.
--- NOTE | 2017-08-19 16:33 | Internal Medicine Prog Note ---
Internal Medicine Subjective - Subjective Service Date: 08/19/17 Patient seen and examined:: with staff (HE IS CONFUSED) Patient is:: awake, verbal, in bed, talking Per staff patient has:: no adverse event Internal Medicine Objective - Results Result Diagrams: 08/19/17 03:30 08/19/17 03:30 Recent Labs: Laboratory Last Values WBC 14.7 Th/cmm (4.8-10.8) H 08/19/17 03:30 RBC 3.84 Mil/cmm (3.80-5.80) 08/19/17 03:30 Hgb 12.0 gm/dL (12-16) 08/19/17 03:30 Hct 34.6 % (41.0-60) L 08/19/17 03:30 MCV 90.2 fl (80-99) 08/19/17 03:30 MCH 31.3 pg (27.0-31.0) H 08/19/17 03:30 MCHC Differential 34.7 pg (28.0-36.0) 08/19/17 03:30 RDW 12.9 % (11.5-20.0) 08/19/17 03:30 Plt Count 244 Th/cmm (150-400) 08/19/17 03:30 MPV 7.7 fl 08/19/17 03:30 Neutrophils % 76.7 % (40.0-80.0) 08/19/17 03:30 Lymphocytes % 12.2 % (20.0-50.0) L 08/19/17 03:30 Monocytes % 6.8 % (2.0-10.0) 08/19/17 03:30 Eosinophils % 3.6 % (0.0-5.0) 08/19/17 03:30 Basophils % 0.7 % (0.0-2.0) 08/19/17 03:30 Neutrophils (Manual) 83 % (40-80) H 08/15/17 04:05 Lymphocytes 13 % (20-50) L 08/15/17 04:05 Monocytes 4 % (2-10) 08/15/17 04:05 PT 14.0 SECONDS (9.5-11.5) H 08/14/17 10:10 INR 1.33 (0.5-1.4) 08/14/17 10:10 PTT (Actin FS) 31.6 SECONDS (26.0-38.0) 08/14/17 10:10 Sodium 134 mEq/L (136-145) L 08/19/17 03:30 Potassium 3.5 mEq/L (3.5-5.1) 08/19/17 03:30 Chloride 105 mEq/L (98-107) 08/19/17 03:30 Carbon Dioxide 26.9 mEq/L (21.0-31.0) 08/19/17 03:30 Anion Gap 5.6 (7.0-16.0) L 08/19/17 03:30 BUN 12 mg/dL (7-25) 08/19/17 03:30 Creatinine 0.6 mg/dL (0.7-1.3) L 08/19/17 03:30 Est GFR ( Amer) > 60.0 ml/min (>90) 08/19/17 03:30 Est GFR (Non-Af Amer) > 60.0 ml/min 08/19/17 03:30 BUN/Creatinine Ratio 20.0 08/19/17 03:30 Glucose 96 mg/dL (70-105) 08/19/17 03:30 Calcium 8.3 mg/dL (8.6-10.3) L 08/19/17 03:30 Total Bilirubin 0.6 mg/dL (0.3-1.0) 08/16/17 04:15 AST 34 U/L (13-39) 08/16/17 04:15 ALT 23 U/L (7-52) 08/16/17 04:15 Alkaline Phosphatase 49 U/L (34-104) 08/16/17 04:15 Total Protein 5.3 gm/dL (6.0-8.3) L 08/16/17 04:15 Albumin 2.5 gm/dL (4.2-5.5) L 08/16/17 04:15 Globulin 2.8 gm/dL 08/16/17 04:15 Albumin/Globulin Ratio 0.9 (1.0-1.8) L 08/16/17 04:15 Urine Source CATH 08/14/17 12:50 Urine Color YELLOW 08/14/17 12:50 Urine Clarity HAZY (CLEAR) 08/14/17 12:50 Urine pH 6.0 (4.6 - 8.0) 08/14/17 12:50 Ur Specific [place] <= 1.005 (1.005-1.030) 08/14/17 12:50 Urine Protein NEGATIVE mg/dL (NEGATIVE) 08/14/17 12:50 Urine Glucose (UA) NEGATIVE mg/dL (NEGATIVE) 08/14/17 12:50 Urine Ketones NEGATIVE mg/dL (NEGATIVE) 08/14/17 12:50 Urine Blood LARGE (NEGATIVE) H 08/14/17 12:50 Urine Nitrate NEGATIVE (NEGATIVE) 08/14/17 12:50 Urine Bilirubin NEGATIVE (NEGATIVE) 08/14/17 12:50 Urine Urobilinogen 0.2 E.U./dL (0.2 - 1.0) 08/14/17 12:50 Ur Leukocyte Esterase NEGATIVE (NEGATIVE) 08/14/17 12:50 Urine RBC 50-100 /hpf (0-5) H 08/14/17 12:50 Urine WBC 0-2 /hpf (0-5) 08/14/17 12:50 Ur Epithelial Cells FEW /lpf (FEW) 08/14/17 12:50 Urine Bacteria FEW /hpf (NONE SEEN) 08/14/17 12:50 Urine Mucus FEW /lpf (FEW) 08/14/17 12:50 Hepatitis A IgM Ab Negative (Negative) 08/15/17 04:05 Hep Bs Antigen Negative (Negative) 08/15/17 04:05 Hep B Core IgM Ab Negative (Negative) 08/15/17 04:05 Hepatitis C Antibody <0.1 s/co ratio (0.0-0.9) 08/15/17 04:05 - Physical Exam Vitals and I&O: Vital Signs Temp 97.5 F 08/19/17 15:57 Pulse 108 08/19/17 15:57 Resp 18 08/19/17 15:57 BP 100/61 08/19/17 15:57 Pulse Ox 98 08/19/17 15:57 Intake & Output 08/18/17 08/19/17 08/19/17 18:59 06:59 18:59 Intake Total 1650 750 Output Total 1300 1100 Balance 350 -350 Weight (lbs) 67.84 kg 67.585 kg Intake: Intake, IV Amount 250 300 Piperacillin Sodium/ 50 100 Tazobact 2.25 gm In Sodium Chloride 0.9% 50 ml @ 100 mls/hr IV Q8HR [facility] Rx#:[id number] metroNIDAZOLE 500mg/NS 200 200 100mL 500 mg In 100 ml @ 100 mls/hr IV Q8HR [facility] Rx #:[id number] Oral 1400 450 Output: Urine 1300 1100 Other: # Bowel Movements 1 2 Weight Source Bedscale Bedscale Active Medications: Current Medications Acetaminophen (Tylenol) 650 mg PO Q4H PRN PRN Reason: Pain or Fever >101 Stop: 10/14/17 18:42 Al Hydrox/Mg Hydrox/Simethicone (Maalox) 30 ml PO Q4H PRN PRN Reason: GI DISTRESS Stop: 10/14/17 18:42 Docusate Sodium (Colace) 100 mg PO BID [facility] Stop: 10/15/17 08:59 Last Admin: 08/19/17 08:44 Dose: 100 mg Famotidine (Pepcid) 20 mg PO DAILY [facility] Stop: 10/15/17 08:59 Last Admin: 08/19/17 08:43 Dose: 20 mg Metronidazole (Flagyl) 500 mg in 100 mls @ 100 mls/hr IV Q8HR [facility] Stop: 10/13/17 12:59 Last Admin: 08/19/17 13:30 Dose: 100 mls/hr Piperacillin Sod/Tazobactam (Sod 2.25 gm/ Sodium Chloride) 50 mls @ 100 mls/hr IV Q8HR [facility] Stop: 10/13/17 12:59 Last Infusion: 08/19/17 04:35 Dose: Infused Norepinephrine Bitartrate 4 mg (/ Dextrose) 254 mls @ 0 mls/hr IV TITR PRN; Protocol PRN Reason: BP MAINTENANCE (PER PROTOCOL) Stop: 10/13/17 18:16 Sodium Chloride (Nacl 0.9%) 500 mls @ 0 mls/hr IV .Q0M [facility] Stop: 10/16/17 13:29 Lactobacillus Rhamnosus (Culturelle 15b) 1 each PO DAILY [facility] Stop: 10/14/17 12:59 Last Admin: 08/19/17 08:44 Dose: 1 each Magnesium Hydroxide (Milk Of Magnesia) 30 ml PO HS PRN PRN Reason: Constipation Stop: 10/14/17 18:42 Miscellaneous (Probiotic Screen) 1 ea MC PRN PRN PRN Reason: PROTOCOL Stop: 10/14/17 12:33 Multivitamins/Vitamin C (Theragran) 1 tab PO DAILY [facility] Stop: 10/15/17 08:59 Last Admin: 08/19/17 08:44 Dose: 1 tab Tamsulosin HCl (Flomax) 0.4 mg PO DAILY [facility] Stop: 10/14/17 19:59 Last Admin: 08/19/17 08:44 Dose: 0.4 mg Tramadol HCl (Ultram) 50 mg PO Q6H PRN PRN Reason: Pain (Moderate) Stop: 10/17/17 07:18 Last Admin: 08/18/17 08:58 Dose: 50 mg HEENT: PERRLA, anicteric sclerae, throat clear Neck: Supple, No JVD, No thyromegaly, +2 carotid pulse wo bruit, No LAD Cardiovascular: Normal S1, Normal S2, without murmur Abdomen: non-tender, non-distended Extremities: clear Neurological: no change - Procedures Procedures: Procedures Procedure Code Date INSERTION OF INFUSION DEV INTO L SUBCLAV VEIN, PERC APPROACH [id number] 08/14/17 PERFORMANCE OF URINARY FILTRATION, <6 HRS/DAY [id number] 08/14/17 ULTRASONOGRAPHY OF LEFT SUBCLAVIAN VEIN, GUIDANCE [id number] 08/14/17 Internal Medicine Assmt/Plan - Assessment Assessment: 1.ACUTE OBSTRUCTIVE RENAL FAILURE. 2.BPH. 3.HISTORY OF PSYCHOSIS. 4.CONSTIPATION. 5.DEMENTIA. - Plan Plan: CONTINUE ON CURRENT MEDICATION AND DIET. Nutritional Asmnt/Malnutr-PDOC - Dietary Evaluation Malnutrition Findings (Please click <Entered> for more info): Nutritional Asmnt/Malnutrition Start: 08/15/17 15: 52 Text: Status: Complete Freq: Protocol: Document 08/15/17 15:54 LCHENG (Rec: 08/15/17 16:24 [email or web address]) Nutritional Asmnt/Malnutrition Patient General Information Nutritional Screening High Risk Consult Diagnosis pacemaker placement Pertinent Medical Hx/Surgical Hx HTN, BPH, dementia Subjective Information Consult received for poor intake and wounds. Pt was NPO since admitted noted. per nurse note in the morning, pt was yelling for water and food . Mech soft ground diet stated from lunch. Per nurse note in the afternoon, pt fed himself 100% of lunch. Pt had dialysis yetserday per nurse d /t elevated BUN/Crea and hyperkalemia. Current Diet Order/ Nutrition Support [facility] soft [facility]. Pertinent Medications D5w, culturelle, piperacillin Pertinent Labs 08/15 Na 153, Cl 119, BUN 37, glucose 120 08/14 Na 128, K 8.8, BUN 212, Cr 13 Nutritional Hx/Data Height 1.65 m Height (Calculated Centimeters) 165.1 Current Weight (lbs) 59.421 kg Weight (Calculated Kilograms) 59.4 Weight (Calculated Grams) 75121.6 [place] Body Weight 136 Body Mass Index (BMI) 21.8 Weight Status Approriate GI Symptoms GI Symptoms None Last BM none Difficult in: None Skin Integrity/Comment: pressure area to right buttocks, abrasion to left eye , redded to left toe and right ankle Current %PO Good (75-100%) Estimated Nutritional Goals BEE in Kcals: Using Current wt Calories/Kcals/Kg 25-30 Kcals Calculated 1605-2498 Protein: Using Current wt Protein g/k monitor renal labs Protein Calculated 60 Fluid: ml per MD Nutritional Problem 1. Problem Problem altered nutrition related labs Etiology electrolytes imbalance, renal dysfunction Signs/Symptoms: Na 153, Cl 119, BUN 37 Malnutrition Alert Is there a minimum of two criteria No selected? Query Text:Check all the applicable criteria. A minimum of two criteria are recommended for diagnosis of either severe or non-severe malnutrition. Malnutrition Related to Morbid Obesity Malnutrition related to morbid obesity No Intervention/Recommendation Comments 1. Continue with [facility] soft ground diet as ordered. Monitor renal labs and adjust diet as needed. 2. Monitor PO intake, wt, labs and skin integrity 3. F/U as high risk in 2-3 days, 08/17-08/18 Expected Outcomes/Goals Expected Outcomes/Goals 1. PO intake to meet at least 75% of nutritional needs. 2. Wt stability, skin to remain intact, labs to approach WNL.
[2017-08-20 01:43] VITALS: BP 84/51
[2017-08-20] MEDS: metroNIDAZOLE 500mg/NS 100mL 500 MG/100 ML BAG IV SCH ×3 (04:00→22:42)
--- NOTE | 2017-08-20 04:39 | Progress Notes ---
DATE: 08/19/2017 PSYCHIATRIC PROGRESS NOTE SUBJECTIVE: Staff was spoken to. The patient is interviewed. Mood is noted to be very irritable. Affect is constricted. The patient is getting easily frustrated. The patient tends to scream and yell. The patient has been trying to get out of the bed. The patient has no insight into his illness. ASSESSMENT: The patient is still impulsive. PLAN: To continue the patient with the current medications. Closely monitor the patient's behavior, possibly use low dose of Ativan to calm the patient down. Continue the patient with supportive therapy and follow up. JOB# [id number]
[2017-08-20] MEDS: Multivitamin Tab PO SCH (11:00)
[2017-08-20] MEDS: Lactobacillus Rhamnosus GG 15 Billion CFU CAP.SPRINK PO SCH (11:00)
--- NOTE | 2017-08-20 15:58 | Internal Medicine Prog Note ---
Internal Medicine Subjective - Subjective Service Date: 08/20/17 Patient seen and examined:: without staff Patient is:: awake, verbal, in bed, talking Per staff patient has:: no adverse event Internal Medicine Objective - Results Result Diagrams: 08/19/17 03:30 08/19/17 03:30 Recent Labs: Laboratory Last Values WBC 14.7 Th/cmm (4.8-10.8) H 08/19/17 03:30 RBC 3.84 Mil/cmm (3.80-5.80) 08/19/17 03:30 Hgb 12.0 gm/dL (12-16) 08/19/17 03:30 Hct 34.6 % (41.0-60) L 08/19/17 03:30 MCV 90.2 fl (80-99) 08/19/17 03:30 MCH 31.3 pg (27.0-31.0) H 08/19/17 03:30 MCHC Differential 34.7 pg (28.0-36.0) 08/19/17 03:30 RDW 12.9 % (11.5-20.0) 08/19/17 03:30 Plt Count 244 Th/cmm (150-400) 08/19/17 03:30 MPV 7.7 fl 08/19/17 03:30 Neutrophils % 76.7 % (40.0-80.0) 08/19/17 03:30 Lymphocytes % 12.2 % (20.0-50.0) L 08/19/17 03:30 Monocytes % 6.8 % (2.0-10.0) 08/19/17 03:30 Eosinophils % 3.6 % (0.0-5.0) 08/19/17 03:30 Basophils % 0.7 % (0.0-2.0) 08/19/17 03:30 Neutrophils (Manual) 83 % (40-80) H 08/15/17 04:05 Lymphocytes 13 % (20-50) L 08/15/17 04:05 Monocytes 4 % (2-10) 08/15/17 04:05 PT 14.0 SECONDS (9.5-11.5) H 08/14/17 10:10 INR 1.33 (0.5-1.4) 08/14/17 10:10 PTT (Actin FS) 31.6 SECONDS (26.0-38.0) 08/14/17 10:10 Sodium 134 mEq/L (136-145) L 08/19/17 03:30 Potassium 3.5 mEq/L (3.5-5.1) 08/19/17 03:30 Chloride 105 mEq/L (98-107) 08/19/17 03:30 Carbon Dioxide 26.9 mEq/L (21.0-31.0) 08/19/17 03:30 Anion Gap 5.6 (7.0-16.0) L 08/19/17 03:30 BUN 12 mg/dL (7-25) 08/19/17 03:30 Creatinine 0.6 mg/dL (0.7-1.3) L 08/19/17 03:30 Est GFR ( Amer) > 60.0 ml/min (>90) 08/19/17 03:30 Est GFR (Non-Af Amer) > 60.0 ml/min 08/19/17 03:30 BUN/Creatinine Ratio 20.0 08/19/17 03:30 Glucose 96 mg/dL (70-105) 08/19/17 03:30 Calcium 8.3 mg/dL (8.6-10.3) L 08/19/17 03:30 Total Bilirubin 0.6 mg/dL (0.3-1.0) 08/16/17 04:15 AST 34 U/L (13-39) 08/16/17 04:15 ALT 23 U/L (7-52) 08/16/17 04:15 Alkaline Phosphatase 49 U/L (34-104) 08/16/17 04:15 Total Protein 5.3 gm/dL (6.0-8.3) L 08/16/17 04:15 Albumin 2.5 gm/dL (4.2-5.5) L 08/16/17 04:15 Globulin 2.8 gm/dL 08/16/17 04:15 Albumin/Globulin Ratio 0.9 (1.0-1.8) L 08/16/17 04:15 Urine Source CATH 08/14/17 12:50 Urine Color YELLOW 08/14/17 12:50 Urine Clarity HAZY (CLEAR) 08/14/17 12:50 Urine pH 6.0 (4.6 - 8.0) 08/14/17 12:50 Ur Specific [place] <= 1.005 (1.005-1.030) 08/14/17 12:50 Urine Protein NEGATIVE mg/dL (NEGATIVE) 08/14/17 12:50 Urine Glucose (UA) NEGATIVE mg/dL (NEGATIVE) 08/14/17 12:50 Urine Ketones NEGATIVE mg/dL (NEGATIVE) 08/14/17 12:50 Urine Blood LARGE (NEGATIVE) H 08/14/17 12:50 Urine Nitrate NEGATIVE (NEGATIVE) 08/14/17 12:50 Urine Bilirubin NEGATIVE (NEGATIVE) 08/14/17 12:50 Urine Urobilinogen 0.2 E.U./dL (0.2 - 1.0) 08/14/17 12:50 Ur Leukocyte Esterase NEGATIVE (NEGATIVE) 08/14/17 12:50 Urine RBC 50-100 /hpf (0-5) H 08/14/17 12:50 Urine WBC 0-2 /hpf (0-5) 08/14/17 12:50 Ur Epithelial Cells FEW /lpf (FEW) 08/14/17 12:50 Urine Bacteria FEW /hpf (NONE SEEN) 08/14/17 12:50 Urine Mucus FEW /lpf (FEW) 08/14/17 12:50 Hepatitis A IgM Ab Negative (Negative) 08/15/17 04:05 Hep Bs Antigen Negative (Negative) 08/15/17 04:05 Hep B Core IgM Ab Negative (Negative) 08/15/17 04:05 Hepatitis C Antibody <0.1 s/co ratio (0.0-0.9) 08/15/17 04:05 - Physical Exam Vitals and I&O: Vital Signs Temp 98.5 F 08/20/17 12:00 Pulse 69 08/20/17 12:00 Resp 18 08/20/17 12:00 BP 111/66 08/20/17 12:00 Pulse Ox 95 08/20/17 11:40 Intake & Output 08/19/17 08/20/17 08/20/17 18:59 06:59 18:59 Intake Total 1240 350 Output Total 1100 Balance 140 350 Weight (lbs) 67.585 kg 59.783 kg Intake: Intake, IV Amount 150 150 Piperacillin Sodium/ 50 50 Tazobact 2.25 gm In Sodium Chloride 0.9% 50 ml @ 100 mls/hr IV Q8HR [facility] Rx#:[id number] metroNIDAZOLE 500mg/NS 100 100 100mL 500 mg In 100 ml @ 100 mls/hr IV Q8HR [facility] Rx #:[id number] Oral 1090 200 Output: Urine 1100 Other: # Bowel Movements 1 Weight Source Bedscale Bedscale Active Medications: Current Medications Acetaminophen (Tylenol) 650 mg PO Q4H PRN PRN Reason: Pain or Fever >101 Stop: 10/14/17 18:42 Last Admin: 08/20/17 11:00 Dose: 650 mg Al Hydrox/Mg Hydrox/Simethicone (Maalox) 30 ml PO Q4H PRN PRN Reason: GI DISTRESS Stop: 10/14/17 18:42 Docusate Sodium (Colace) 100 mg PO BID [facility] Stop: 10/15/17 08:59 Last Admin: 08/20/17 11:00 Dose: Not Given Famotidine (Pepcid) 20 mg PO DAILY [facility] Stop: 10/15/17 08:59 Last Admin: 08/20/17 11:00 Dose: Not Given Metronidazole (Flagyl) 500 mg in 100 mls @ 100 mls/hr IV Q8HR [facility] Stop: 10/13/17 12:59 Last Admin: 08/20/17 04:00 Dose: 100 mls/hr Piperacillin Sod/Tazobactam (Sod 2.25 gm/ Sodium Chloride) 50 mls @ 100 mls/hr IV Q8HR [facility] Stop: 10/13/17 12:59 Last Admin: 08/20/17 04:00 Dose: 100 mls/hr Norepinephrine Bitartrate 4 mg (/ Dextrose) 254 mls @ 0 mls/hr IV TITR PRN; Protocol PRN Reason: BP MAINTENANCE (PER PROTOCOL) Stop: 10/13/17 18:16 Sodium Chloride (Nacl 0.9%) 500 mls @ 0 mls/hr IV .Q0M [facility] Stop: 10/16/17 13:29 Lactobacillus Rhamnosus (Culturelle 15b) 1 each PO DAILY [facility] Stop: 10/14/17 12:59 Last Admin: 08/20/17 11:00 Dose: Not Given Magnesium Hydroxide (Milk Of Magnesia) 30 ml PO HS PRN PRN Reason: Constipation Stop: 10/14/17 18:42 Miscellaneous (Probiotic Screen) 1 ea MC PRN PRN PRN Reason: PROTOCOL Stop: 10/14/17 12:33 Multivitamins/Vitamin C (Theragran) 1 tab PO DAILY [facility] Stop: 10/15/17 08:59 Last Admin: 08/20/17 11:00 Dose: Not Given Tamsulosin HCl (Flomax) 0.4 mg PO DAILY [facility] Stop: 10/14/17 19:59 Last Admin: 08/20/17 11:00 Dose: 0.4 mg Tramadol HCl (Ultram) 50 mg PO Q6H PRN PRN Reason: Pain (Moderate) Stop: 10/17/17 07:18 Last Admin: 08/20/17 11:00 Dose: 50 mg HEENT: PERRLA, anicteric sclerae, throat clear Neck: Supple, No JVD, No thyromegaly, +2 carotid pulse wo bruit, No LAD Cardiovascular: Normal S1, Normal S2, without murmur Abdomen: non-tender, non-distended Extremities: clear Neurological: no change - Procedures Procedures: Procedures Procedure Code Date INSERTION OF INFUSION DEV INTO L SUBCLAV VEIN, PERC APPROACH [id number] 08/14/17 PERFORMANCE OF URINARY FILTRATION, <6 HRS/DAY [id number] 08/14/17 ULTRASONOGRAPHY OF LEFT SUBCLAVIAN VEIN, GUIDANCE [id number] 08/14/17 Internal Medicine Assmt/Plan - Assessment Assessment: 1.ACUTE OBSTRUCTIVE RENAL FAILURE. 2.BPH. 3.HISTORY OF PSYCHOSIS. 4.CONSTIPATION. 5.DEMENTIA. - Plan Plan: CONTINUE ON CURRENT MEDICATION AND DIET. Nutritional Asmnt/Malnutr-PDOC - Dietary Evaluation Malnutrition Findings (Please click <Entered> for more info): Nutritional Asmnt/Malnutrition Start: 08/15/17 15: 52 Text: Status: Complete Freq: Protocol: Document 08/15/17 15:54 LCHENG (Rec: 08/15/17 16:24 [email or web address]) Nutritional Asmnt/Malnutrition Patient General Information Nutritional Screening High Risk Consult Diagnosis pacemaker placement Pertinent Medical Hx/Surgical Hx HTN, BPH, dementia Subjective Information Consult received for poor intake and wounds. Pt was NPO since admitted noted. per nurse note in the morning, pt was yelling for water and food . Mech soft ground diet stated from lunch. Per nurse note in the afternoon, pt fed himself 100% of lunch. Pt had dialysis yetserday per nurse d /t elevated BUN/Crea and hyperkalemia. Current Diet Order/ Nutrition Support [facility]. Pertinent Medications D5w, culturelle, piperacillin Pertinent Labs 08/15 Na 153, Cl 119, BUN 37, glucose 120 08/14 Na 128, K 8.8, BUN 212, Cr 13 Nutritional Hx/Data Height 1.65 m Height (Calculated Centimeters) 165.1 Current Weight (lbs) 59.421 kg Weight (Calculated Kilograms) 59.4 Weight (Calculated Grams) 85815.6 [place] Body Weight 136 Body Mass Index (BMI) 21.8 Weight Status Approriate GI Symptoms GI Symptoms None Last BM none Difficult in: None Skin Integrity/Comment: pressure area to right buttocks, abrasion to left eye , redded to left toe and right ankle Current %PO Good (75-100%) Estimated Nutritional Goals BEE in Kcals: Using Current wt Calories/Kcals/Kg 25-30 Kcals Calculated 1880-1667 Protein: Using Current wt Protein g/k monitor renal labs Protein Calculated 60 Fluid: ml per MD Nutritional Problem 1. Problem Problem altered nutrition related labs Etiology electrolytes imbalance, renal dysfunction Signs/Symptoms: Na 153, Cl 119, BUN 37 Malnutrition Alert Is there a minimum of two criteria No selected? Query Text:Check all the applicable criteria. A minimum of two criteria are recommended for diagnosis of either severe or non-severe malnutrition. Malnutrition Related to Morbid Obesity Malnutrition related to morbid obesity No Intervention/Recommendation Comments 1. Continue with [facility] soft ground diet as ordered. Monitor renal labs and adjust diet as needed. 2. Monitor PO intake, wt, labs and skin integrity 3. F/U as high risk in 2-3 days, 08/17-08/18 Expected Outcomes/Goals Expected Outcomes/Goals 1. PO intake to meet at least 75% of nutritional needs. 2. Wt stability, skin to remain intact, labs to approach WNL.
[2017-08-21] MEDS: metroNIDAZOLE 500mg/NS 100mL 500 MG/100 ML BAG IV SCH ×3 (05:09→21:48)
[2017-08-21] MEDS: Lactobacillus Rhamnosus GG 15 Billion CFU CAP.SPRINK PO SCH (08:43)
[2017-08-21] MEDS: Multivitamin Tab PO SCH (08:43)
--- NOTE | 2017-08-21 15:33 | Internal Medicine Prog Note ---
Internal Medicine Subjective - Subjective Service Date: 08/21/17 Patient seen and examined:: with staff Patient is:: awake, verbal, in bed, talking Per staff patient has:: no adverse event Internal Medicine Objective - Results Result Diagrams: 08/19/17 03:30 08/19/17 03:30 Recent Labs: Laboratory Last Values WBC 14.7 Th/cmm (4.8-10.8) H 08/19/17 03:30 RBC 3.84 Mil/cmm (3.80-5.80) 08/19/17 03:30 Hgb 12.0 gm/dL (12-16) 08/19/17 03:30 Hct 34.6 % (41.0-60) L 08/19/17 03:30 MCV 90.2 fl (80-99) 08/19/17 03:30 MCH 31.3 pg (27.0-31.0) H 08/19/17 03:30 MCHC Differential 34.7 pg (28.0-36.0) 08/19/17 03:30 RDW 12.9 % (11.5-20.0) 08/19/17 03:30 Plt Count 244 Th/cmm (150-400) 08/19/17 03:30 MPV 7.7 fl 08/19/17 03:30 Neutrophils % 76.7 % (40.0-80.0) 08/19/17 03:30 Lymphocytes % 12.2 % (20.0-50.0) L 08/19/17 03:30 Monocytes % 6.8 % (2.0-10.0) 08/19/17 03:30 Eosinophils % 3.6 % (0.0-5.0) 08/19/17 03:30 Basophils % 0.7 % (0.0-2.0) 08/19/17 03:30 Neutrophils (Manual) 83 % (40-80) H 08/15/17 04:05 Lymphocytes 13 % (20-50) L 08/15/17 04:05 Monocytes 4 % (2-10) 08/15/17 04:05 PT 14.0 SECONDS (9.5-11.5) H 08/14/17 10:10 INR 1.33 (0.5-1.4) 08/14/17 10:10 PTT (Actin FS) 31.6 SECONDS (26.0-38.0) 08/14/17 10:10 Sodium 134 mEq/L (136-145) L 08/19/17 03:30 Potassium 3.5 mEq/L (3.5-5.1) 08/19/17 03:30 Chloride 105 mEq/L (98-107) 08/19/17 03:30 Carbon Dioxide 26.9 mEq/L (21.0-31.0) 08/19/17 03:30 Anion Gap 5.6 (7.0-16.0) L 08/19/17 03:30 BUN 12 mg/dL (7-25) 08/19/17 03:30 Creatinine 0.6 mg/dL (0.7-1.3) L 08/19/17 03:30 Est GFR ( Amer) > 60.0 ml/min (>90) 08/19/17 03:30 Est GFR (Non-Af Amer) > 60.0 ml/min 08/19/17 03:30 BUN/Creatinine Ratio 20.0 08/19/17 03:30 Glucose 96 mg/dL (70-105) 08/19/17 03:30 Calcium 8.3 mg/dL (8.6-10.3) L 08/19/17 03:30 Total Bilirubin 0.6 mg/dL (0.3-1.0) 08/16/17 04:15 AST 34 U/L (13-39) 08/16/17 04:15 ALT 23 U/L (7-52) 08/16/17 04:15 Alkaline Phosphatase 49 U/L (34-104) 08/16/17 04:15 Total Protein 5.3 gm/dL (6.0-8.3) L 08/16/17 04:15 Albumin 2.5 gm/dL (4.2-5.5) L 08/16/17 04:15 Globulin 2.8 gm/dL 08/16/17 04:15 Albumin/Globulin Ratio 0.9 (1.0-1.8) L 08/16/17 04:15 Urine Source CATH 08/14/17 12:50 Urine Color YELLOW 08/14/17 12:50 Urine Clarity HAZY (CLEAR) 08/14/17 12:50 Urine pH 6.0 (4.6 - 8.0) 08/14/17 12:50 Ur Specific [place] <= 1.005 (1.005-1.030) 08/14/17 12:50 Urine Protein NEGATIVE mg/dL (NEGATIVE) 08/14/17 12:50 Urine Glucose (UA) NEGATIVE mg/dL (NEGATIVE) 08/14/17 12:50 Urine Ketones NEGATIVE mg/dL (NEGATIVE) 08/14/17 12:50 Urine Blood LARGE (NEGATIVE) H 08/14/17 12:50 Urine Nitrate NEGATIVE (NEGATIVE) 08/14/17 12:50 Urine Bilirubin NEGATIVE (NEGATIVE) 08/14/17 12:50 Urine Urobilinogen 0.2 E.U./dL (0.2 - 1.0) 08/14/17 12:50 Ur Leukocyte Esterase NEGATIVE (NEGATIVE) 08/14/17 12:50 Urine RBC 50-100 /hpf (0-5) H 08/14/17 12:50 Urine WBC 0-2 /hpf (0-5) 08/14/17 12:50 Ur Epithelial Cells FEW /lpf (FEW) 08/14/17 12:50 Urine Bacteria FEW /hpf (NONE SEEN) 08/14/17 12:50 Urine Mucus FEW /lpf (FEW) 08/14/17 12:50 Hepatitis A IgM Ab Negative (Negative) 08/15/17 04:05 Hep Bs Antigen Negative (Negative) 08/15/17 04:05 Hep B Core IgM Ab Negative (Negative) 08/15/17 04:05 Hepatitis C Antibody <0.1 s/co ratio (0.0-0.9) 08/15/17 04:05 - Physical Exam Vitals and I&O: Vital Signs Temp 98.6 F 08/21/17 13:19 Pulse 73 08/21/17 13:19 Resp 18 08/21/17 13:19 BP 103/69 08/21/17 13:19 Pulse Ox 95 08/21/17 12:32 Intake & Output 08/20/17 08/21/17 08/21/17 18:59 06:59 18:59 Intake Total 150 1455 Output Total 2100 Balance 150 -645 Weight (lbs) 58.06 kg Intake: Intake, IV Amount 150 255 Piperacillin Sodium/ 50 100 Tazobact 2.25 gm In Sodium Chloride 0.9% 50 ml @ 100 mls/hr IV Q8HR [facility] Rx#:[id number] metroNIDAZOLE 500mg/NS 100 155 100mL 500 mg In 100 ml @ 100 mls/hr IV Q8HR [facility] Rx #:[id number] Oral 1200 Output: Urine 2100 Stool 0 Other: Weight Source Bedscale Active Medications: Current Medications Acetaminophen (Tylenol) 650 mg PO Q4H PRN PRN Reason: Pain or Fever >101 Stop: 10/14/17 18:42 Last Admin: 08/20/17 11:00 Dose: 650 mg Al Hydrox/Mg Hydrox/Simethicone (Maalox) 30 ml PO Q4H PRN PRN Reason: GI DISTRESS Stop: 10/14/17 18:42 Docusate Sodium (Colace) 100 mg PO BID [facility] Stop: 10/15/17 08:59 Last Admin: 08/21/17 08:43 Dose: 100 mg Famotidine (Pepcid) 20 mg PO DAILY [facility] Stop: 10/15/17 08:59 Last Admin: 08/21/17 08:43 Dose: 20 mg Metronidazole (Flagyl) 500 mg in 100 mls @ 100 mls/hr IV Q8HR [facility] Stop: 10/13/17 12:59 Last Admin: 08/21/17 12:28 Dose: 100 mls/hr Piperacillin Sod/Tazobactam (Sod 2.25 gm/ Sodium Chloride) 50 mls @ 100 mls/hr IV Q8HR [facility] Stop: 10/13/17 12:59 Last Admin: 08/21/17 12:00 Dose: 100 mls/hr Norepinephrine Bitartrate 4 mg (/ Dextrose) 254 mls @ 0 mls/hr IV TITR PRN; Protocol PRN Reason: BP MAINTENANCE (PER PROTOCOL) Stop: 10/13/17 18:16 Sodium Chloride (Nacl 0.9%) 500 mls @ 0 mls/hr IV .Q0M [facility] Stop: 10/16/17 13:29 Lactobacillus Rhamnosus (Culturelle 15b) 1 each PO DAILY [facility] Stop: 10/14/17 12:59 Last Admin: 08/21/17 08:43 Dose: 1 each Magnesium Hydroxide (Milk Of Magnesia) 30 ml PO HS PRN PRN Reason: Constipation Stop: 10/14/17 18:42 Miscellaneous (Probiotic Screen) 1 ea MC PRN PRN PRN Reason: PROTOCOL Stop: 10/14/17 12:33 Multivitamins/Vitamin C (Theragran) 1 tab PO DAILY [facility] Stop: 10/15/17 08:59 Last Admin: 08/21/17 08:43 Dose: 1 tab Tamsulosin HCl (Flomax) 0.4 mg PO DAILY [facility] Stop: 10/14/17 19:59 Last Admin: 08/21/17 08:43 Dose: 0.4 mg Tramadol HCl (Ultram) 50 mg PO Q6H PRN PRN Reason: Pain (Moderate) Stop: 10/17/17 07:18 Last Admin: 08/20/17 11:00 Dose: 50 mg HEENT: PERRLA, anicteric sclerae, throat clear Neck: Supple, No JVD, No thyromegaly, +2 carotid pulse wo bruit, No LAD Cardiovascular: Normal S1, Normal S2, without murmur Abdomen: non-tender, non-distended Extremities: clear Neurological: no change - Procedures Procedures: Procedures Procedure Code Date INSERTION OF INFUSION DEV INTO L SUBCLAV VEIN, PERC APPROACH [id number] 08/14/17 PERFORMANCE OF URINARY FILTRATION, <6 HRS/DAY [id number] 08/14/17 ULTRASONOGRAPHY OF LEFT SUBCLAVIAN VEIN, GUIDANCE [id number] 08/14/17 Internal Medicine Assmt/Plan - Assessment Assessment: 1.ACUTE OBSTRUCTIVE RENAL FAILURE. 2.BPH. 3.HISTORY OF PSYCHOSIS. 4.CONSTIPATION. 5.DEMENTIA. - Plan Plan: CONTINUE ON CURRENT MEDICATION AND DIET. Nutritional Asmnt/Malnutr-PDOC - Dietary Evaluation Malnutrition Findings (Please click <Entered> for more info): Nutritional Asmnt/Malnutrition Start: 08/15/17 15: 52 Text: Status: Complete Freq: Protocol: Document 08/15/17 15:54 LCHENG (Rec: 08/15/17 16:24 [email or web address] [email or web address]) Nutritional Asmnt/Malnutrition Patient General Information Nutritional Screening High Risk Consult Diagnosis pacemaker placement Pertinent Medical Hx/Surgical Hx HTN, BPH, dementia Subjective Information Consult received for poor intake and wounds. Pt was NPO since admitted noted. per nurse note in the morning, pt was yelling for water and food . [facility] soft ground diet stated from lunch. Per nurse note in the afternoon, pt fed himself 100% of lunch. Pt had dialysis yetserday per nurse d /t elevated BUN/Crea and hyperkalemia. Current Diet Order/ Nutrition Support [facility] soft ground. Pertinent Medications D5w, culturelle, piperacillin Pertinent Labs 08/15 Na 153, Cl 119, BUN 37, glucose 120 08/14 Na 128, K 8.8, BUN 212, Cr 13 Nutritional Hx/Data Height 1.65 m Height (Calculated Centimeters) 165.1 Current Weight (lbs) 59.421 kg Weight (Calculated Kilograms) 59.4 Weight (Calculated Grams) [address]3092.6 [place] Body Weight 136 Body Mass Index (BMI) 21.8 Weight Status Approriate GI Symptoms GI Symptoms None Last BM none Difficult in: None Skin Integrity/Comment: pressure area to right buttocks, abrasion to left eye , redded to left toe and right ankle Current %PO Good (75-100%) Estimated Nutritional Goals BEE in Kcals: Using Current wt Calories/Kcals/Kg 25-30 Kcals Calculated 6073-6339 Protein: Using Current wt Protein g/k monitor renal labs Protein Calculated 60 Fluid: ml per MD Nutritional Problem 1. Problem Problem altered nutrition related labs Etiology electrolytes imbalance, renal dysfunction Signs/Symptoms: Na 153, Cl 119, BUN 37 Malnutrition Alert Is there a minimum of two criteria No selected? Query Text:Check all the applicable criteria. A minimum of two criteria are recommended for diagnosis of either severe or non-severe malnutrition. Malnutrition Related to Morbid Obesity Malnutrition related to morbid obesity No Intervention/Recommendation Comments 1. Continue with [facility] soft ground diet as ordered. Monitor renal labs and adjust diet as needed. 2. Monitor PO intake, wt, labs and skin integrity 3. F/U as high risk in 2-3 days, 08/17-08/18 Expected Outcomes/Goals Expected Outcomes/Goals 1. PO intake to meet at least 75% of nutritional needs. 2. Wt stability, skin to remain intact, labs to approach WNL.
[2017-08-22] MEDS: metroNIDAZOLE 500mg/NS 100mL 500 MG/100 ML BAG IV SCH ×3 (05:12→21:01)
[2017-08-22 05:52] LABS: % BASOPHILS 0.9 % (0.0-2.0); % EOSINOPHILS 1.2 % (0.0-5.0); % LYMPHOCYTES 17.8 % (20.0-50.0); % MONOCYTES 9.4 % (2.0-10.0); % NEUTROPHILS 70.7 % (40.0-80.0); BASOPHILE ABSOLUTE 0.1 Th/cumm (0-0.2); EOSINOPHILE ABSOLUTE 0.1 Th/cmm (0.1-0.4); HEMOGLOBIN 11.6 gm/dL (12-16); LYMPHOCYTE ABSOLUTE 2.1 Th/cmm (1.5-3.0); MEAN CORPUSCULAR HEMOGLOBIN 30.6 pg (27.0-31.0); MEAN CORPUSCULAR HGB CONC 34.1 pg (28.0-36.0); MEAN PLATELET VOLUME 8.2 fl; MONOCYTE ABSOLUTE 1.1 Th/cmm (0.3-1.0); NEUTROPHILE ABSOLUTE 8.6 Th/cmm (1.8-8.0); PLATELET COUNT 415 Th/cmm (150-400); RED BLOOD COUNT 3.78 Mil/cmm (3.80-5.80); RED CELL DISTRIBUTION WIDTH 13.4 % (11.5-20.0)
[2017-08-22 05:53] LABS: ALB/GLOB RATIO 0.7 (1.0-1.8); ALBUMIN 2.7 gm/dL (4.2-5.5); ALKALINE PHOSPHATASE 44 U/L (34-104); ANION GAP 8.6 (7.0-16.0); BILIRUBIN,TOTAL 0.4 mg/dL (0.3-1.0); BUN - UREA NITROGEN 14 mg/dL (7-25); CALCIUM SERUM 8.4 mg/dL (8.6-10.3); CARBON DIOXIDE 25.5 mEq/L (21.0-31.0); CHLORIDE 105 mEq/L (98-107); CREATININE - SERUM 0.5 mg/dL (0.7-1.3); GFR AFRICAN-AMERICAN > 60.0 ml/min (>90); GFR NON AFRICAN-AMERICAN > 60.0 ml/min; GLUCOSE 87 mg/dL (70-105); POTASSIUM SERUM 3.1 mEq/L (3.5-5.1); SGOT 15 U/L (13-39); SGPT/ALT 14 U/L (7-52); SODIUM SERUM 136 mEq/L (136-145); TOTAL PROTEIN,SERUM 6.6 gm/dL (6.0-8.3)
[2017-08-22] MEDS: Multivitamin Tab PO SCH (09:28)
[2017-08-22] MEDS: Lactobacillus Rhamnosus GG 15 Billion CFU CAP.SPRINK PO SCH (09:28)
[2017-08-22] MEDS ORDERED: Potassium Chloride 40 MEQ, Lidocaine 1% 20mL Vial 25 MG in Sodium Chloride 0.9% 250 ML IV ONE (09:32)
[2017-08-22] MEDS: KCL 20mEq/100mL Premix Bag IV SCH ×2 (11:18→11:23)
--- NOTE | 2017-08-22 18:03 | Internal Medicine Prog Note ---
Internal Medicine Subjective - Subjective Service Date: 08/22/17 Patient seen and examined:: with staff (HE IS STILL CONFUSED.) Patient is:: awake, verbal, in bed, talking Per staff patient has:: no adverse event Internal Medicine Objective - Results Result Diagrams: 08/22/17 05:05 08/22/17 05:05 Recent Labs: Laboratory Last Values WBC 12.0 Th/cmm (4.8-10.8) H 08/22/17 05:05 RBC 3.78 Mil/cmm (3.80-5.80) L 08/22/17 05:05 Hgb 11.6 gm/dL (12-16) L 08/22/17 05:05 Hct 34.0 % (41.0-60) L 08/22/17 05:05 MCV 90.0 fl (80-99) 08/22/17 05:05 MCH 30.6 pg (27.0-31.0) 08/22/17 05:05 MCHC Differential 34.1 pg (28.0-36.0) 08/22/17 05:05 RDW 13.4 % (11.5-20.0) 08/22/17 05:05 Plt Count 415 Th/cmm (150-400) H 08/22/17 05:05 MPV 8.2 fl 08/22/17 05:05 Neutrophils % 70.7 % (40.0-80.0) 08/22/17 05:05 Lymphocytes % 17.8 % (20.0-50.0) L 08/22/17 05:05 Monocytes % 9.4 % (2.0-10.0) 08/22/17 05:05 Eosinophils % 1.2 % (0.0-5.0) 08/22/17 05:05 Basophils % 0.9 % (0.0-2.0) 08/22/17 05:05 Neutrophils (Manual) 83 % (40-80) H 08/15/17 04:05 Lymphocytes 13 % (20-50) L 08/15/17 04:05 Monocytes 4 % (2-10) 08/15/17 04:05 PT 14.0 SECONDS (9.5-11.5) H 08/14/17 10:10 INR 1.33 (0.5-1.4) 08/14/17 10:10 PTT (Actin FS) 31.6 SECONDS (26.0-38.0) 08/14/17 10:10 Sodium 136 mEq/L (136-145) 08/22/17 05:05 Potassium 3.1 mEq/L (3.5-5.1) L 08/22/17 05:05 Chloride 105 mEq/L (98-107) 08/22/17 05:05 Carbon Dioxide 25.5 mEq/L (21.0-31.0) 08/22/17 05:05 Anion Gap 8.6 (7.0-16.0) 08/22/17 05:05 BUN 14 mg/dL (7-25) 08/22/17 05:05 Creatinine 0.5 mg/dL (0.7-1.3) L 08/22/17 05:05 Est GFR ( Amer) > 60.0 ml/min (>90) 08/22/17 05:05 Est GFR (Non-Af Amer) > 60.0 ml/min 08/22/17 05:05 BUN/Creatinine Ratio 28.0 08/22/17 05:05 Glucose 87 mg/dL (70-105) 08/22/17 05:05 Calcium 8.4 mg/dL (8.6-10.3) L 08/22/17 05:05 Total Bilirubin 0.4 mg/dL (0.3-1.0) 08/22/17 05:05 AST 15 U/L (13-39) 08/22/17 05:05 ALT 14 U/L (7-52) 08/22/17 05:05 Alkaline Phosphatase 44 U/L (34-104) 08/22/17 05:05 Total Protein 6.6 gm/dL (6.0-8.3) 08/22/17 05:05 Albumin 2.7 gm/dL (4.2-5.5) L 08/22/17 05:05 Globulin 3.9 gm/dL 08/22/17 05:05 Albumin/Globulin Ratio 0.7 (1.0-1.8) L 08/22/17 05:05 Urine Source CATH 08/14/17 12:50 Urine Color YELLOW 08/14/17 12:50 Urine Clarity HAZY (CLEAR) 08/14/17 12:50 Urine pH 6.0 (4.6 - 8.0) 08/14/17 12:50 Ur Specific [place] <= 1.005 (1.005-1.030) 08/14/17 12:50 Urine Protein NEGATIVE mg/dL (NEGATIVE) 08/14/17 12:50 Urine Glucose (UA) NEGATIVE mg/dL (NEGATIVE) 08/14/17 12:50 Urine Ketones NEGATIVE mg/dL (NEGATIVE) 08/14/17 12:50 Urine Blood LARGE (NEGATIVE) H 08/14/17 12:50 Urine Nitrate NEGATIVE (NEGATIVE) 08/14/17 12:50 Urine Bilirubin NEGATIVE (NEGATIVE) 08/14/17 12:50 Urine Urobilinogen 0.2 E.U./dL (0.2 - 1.0) 08/14/17 12:50 Ur Leukocyte Esterase NEGATIVE (NEGATIVE) 08/14/17 12:50 Urine RBC 50-100 /hpf (0-5) H 08/14/17 12:50 Urine WBC 0-2 /hpf (0-5) 08/14/17 12:50 Ur Epithelial Cells FEW /lpf (FEW) 08/14/17 12:50 Urine Bacteria FEW /hpf (NONE SEEN) 08/14/17 12:50 Urine Mucus FEW /lpf (FEW) 08/14/17 12:50 Hepatitis A IgM Ab Negative (Negative) 08/15/17 04:05 Hep Bs Antigen Negative (Negative) 08/15/17 04:05 Hep B Core IgM Ab Negative (Negative) 08/15/17 04:05 Hepatitis C Antibody <0.1 s/co ratio (0.0-0.9) 08/15/17 04:05 - Physical Exam Vitals and I&O: Vital Signs Temp 97.8 F 08/22/17 15:56 Pulse 60 08/22/17 15:56 Resp 18 08/22/17 15:56 BP 92/63 08/22/17 15:56 Pulse Ox 97 08/22/17 15:56 Intake & Output 08/21/17 08/22/17 08/22/17 18:59 06:59 18:59 Intake Total 1150 500 4.167 Output Total 1800 650 Balance -650 -150 4.167 Weight (lbs) 58.967 kg 58.967 kg Intake: Intake, IV Amount 150 300 4.167 KCL 20mEq/100mL Premix 20 4.167 meq In 100 ml @ 50 mls/ hr IV Q2H [facility] Rx#: [id number] Piperacillin Sodium/ 50 100 Tazobact 2.25 gm In Sodium Chloride 0.9% 50 ml @ 100 mls/hr IV Q8HR [facility] Rx#:[id number] metroNIDAZOLE 500mg/NS 100 200 100mL 500 mg In 100 ml @ 100 mls/hr IV Q8HR [facility] Rx #:[id number] Oral 1000 200 Output: Urine 1800 650 Other: # Bowel Movements 3 1 Weight Source Bedscale Bedscale Active Medications: Current Medications Acetaminophen (Tylenol) 650 mg PO Q4H PRN PRN Reason: Pain or Fever >101 Stop: 10/14/17 18:42 Last Admin: 08/20/17 11:00 Dose: 650 mg Al Hydrox/Mg Hydrox/Simethicone (Maalox) 30 ml PO Q4H PRN PRN Reason: GI DISTRESS Stop: 10/14/17 18:42 Docusate Sodium (Colace) 100 mg PO BID [facility] Stop: 10/15/17 08:59 Last Admin: 08/22/17 17:02 Dose: 100 mg Famotidine (Pepcid) 20 mg PO DAILY [facility] Stop: 10/15/17 08:59 Last Admin: 08/22/17 09:28 Dose: 20 mg Metronidazole (Flagyl) 500 mg in 100 mls @ 100 mls/hr IV Q8HR [facility] Stop: 10/13/17 12:59 Last Admin: 08/22/17 12:20 Dose: 100 mls/hr Piperacillin Sod/Tazobactam (Sod 2.25 gm/ Sodium Chloride) 50 mls @ 100 mls/hr IV Q8HR [facility] Stop: 10/13/17 12:59 Last Admin: 08/22/17 12:20 Dose: 100 mls/hr Norepinephrine Bitartrate 4 mg (/ Dextrose) 254 mls @ 0 mls/hr IV TITR PRN; Protocol PRN Reason: BP MAINTENANCE (PER PROTOCOL) Stop: 10/13/17 18:16 Sodium Chloride (Nacl 0.9%) 500 mls @ 0 mls/hr IV .Q0M [facility] Stop: 10/16/17 13:29 Lactobacillus Rhamnosus (Culturelle 15b) 1 each PO DAILY [facility] Stop: 10/14/17 12:59 Last Admin: 08/22/17 09:28 Dose: 1 each Magnesium Hydroxide (Milk Of Magnesia) 30 ml PO HS PRN PRN Reason: Constipation Stop: 10/14/17 18:42 Miscellaneous (Probiotic Screen) 1 ea MC PRN PRN PRN Reason: PROTOCOL Stop: 10/14/17 12:33 Multivitamins/Vitamin C (Theragran) 1 tab PO DAILY [facility] Stop: 10/15/17 08:59 Last Admin: 08/22/17 09:28 Dose: 1 tab Tamsulosin HCl (Flomax) 0.4 mg PO DAILY [facility] Stop: 10/14/17 19:59 Last Admin: 08/22/17 09:28 Dose: 0.4 mg Tramadol HCl (Ultram) 50 mg PO Q6H PRN PRN Reason: Pain (Moderate) Stop: 10/17/17 07:18 Last Admin: 08/20/17 11:00 Dose: 50 mg HEENT: PERRLA, anicteric sclerae, throat clear Neck: Supple, No JVD, No thyromegaly, +2 carotid pulse wo bruit, No LAD Cardiovascular: Normal S1, Normal S2, without murmur Abdomen: non-tender, non-distended Extremities: clear Neurological: no change - Procedures Procedures: Procedures Procedure Code Date INSERTION OF INFUSION DEV INTO L SUBCLAV VEIN, PERC APPROACH [id number] 08/14/17 PERFORMANCE OF URINARY FILTRATION, <6 HRS/DAY [id number] 08/14/17 ULTRASONOGRAPHY OF LEFT SUBCLAVIAN VEIN, GUIDANCE [id number] 08/14/17 Internal Medicine Assmt/Plan - Assessment Assessment: 1.ACUTE OBSTRUCTIVE RENAL FAILURE. 2.BPH. 3.HISTORY OF PSYCHOSIS. 4.CONSTIPATION. 5.DEMENTIA. - Plan Plan: CONTINUE ON CURRENT MEDICATION AND DIET.HE CAN BE TRANSFERRED TO GERIATRIC SIDE. Nutritional Asmnt/Malnutr-PDOC - Dietary Evaluation Malnutrition Findings (Please click <Entered> for more info): Nutritional Asmnt/Malnutrition Start: 08/15/17 15: 52 Text: Status: Complete Freq: Protocol: Document 08/15/17 15:54 LCHENG (Rec: 08/15/17 16:24 [email or web address] [email or web address]) Nutritional Asmnt/Malnutrition Patient General Information Nutritional Screening High Risk Consult Diagnosis pacemaker placement Pertinent Medical Hx/Surgical Hx HTN, BPH, dementia Subjective Information Consult received for poor intake and wounds. Pt was NPO since admitted noted. per nurse note in the morning, pt was yelling for water and food . [facility] soft ground diet stated from lunch. Per nurse note in the afternoon, pt fed himself 100% of lunch. Pt had dialysis yetserday per nurse d /t elevated BUN/Crea and hyperkalemia. Current Diet Order/ Nutrition Support [facility] soft ground. Pertinent Medications D5w, culturelle, piperacillin Pertinent Labs 08/15 Na 153, Cl 119, BUN 37, glucose 120 08/14 Na 128, K 8.8, BUN 212, Cr 13 Nutritional Hx/Data Height 1.65 m Height (Calculated Centimeters) 165.1 Current Weight (lbs) 59.421 kg Weight (Calculated Kilograms) 59.4 Weight (Calculated Grams) 69959.6 [place] Body Weight 136 Body Mass Index (BMI) 21.8 Weight Status Approriate GI Symptoms GI Symptoms None Last BM none Difficult in: None Skin Integrity/Comment: pressure area to right buttocks, abrasion to left eye , redded to left toe and right ankle Current %PO Good (75-100%) Estimated Nutritional Goals BEE in Kcals: Using Current wt Calories/Kcals/Kg 25-30 Kcals Calculated 5102-1075 Protein: Using Current wt Protein g/k monitor renal labs Protein Calculated 60 Fluid: ml per MD Nutritional Problem 1. Problem Problem altered nutrition related labs Etiology electrolytes imbalance, renal dysfunction Signs/Symptoms: Na 153, Cl 119, BUN 37 Malnutrition Alert Is there a minimum of two criteria No selected? Query Text:Check all the applicable criteria. A minimum of two criteria are recommended for diagnosis of either severe or non-severe malnutrition. Malnutrition Related to Morbid Obesity Malnutrition related to morbid obesity No Intervention/Recommendation Comments 1. Continue with [facility] soft ground diet as ordered. Monitor renal labs and adjust diet as needed. 2. Monitor PO intake, wt, labs and skin integrity 3. F/U as high risk in 2-3 days, 08/17-08/18 Expected Outcomes/Goals Expected Outcomes/Goals 1. PO intake to meet at least 75% of nutritional needs. 2. Wt stability, skin to remain intact, labs to approach WNL.
[2017-08-23] MEDS: metroNIDAZOLE 500mg/NS 100mL 500 MG/100 ML BAG IV SCH ×3 (05:08→21:45)
[2017-08-23 05:54] LABS: ANION GAP 9.9 (7.0-16.0); BUN - UREA NITROGEN 13 mg/dL (7-25); CALCIUM SERUM 8.7 mg/dL (8.6-10.3); CARBON DIOXIDE 22.7 mEq/L (21.0-31.0); CHLORIDE 103 mEq/L (98-107); CREATININE - SERUM 0.5 mg/dL (0.7-1.3); GFR AFRICAN-AMERICAN > 60.0 ml/min (>90); GFR NON AFRICAN-AMERICAN > 60.0 ml/min; GLUCOSE 97 mg/dL (70-105); POTASSIUM SERUM 3.6 mEq/L (3.5-5.1); SODIUM SERUM 132 mEq/L (136-145)
[2017-08-23] MEDS: Multivitamin Tab PO SCH (09:13)
[2017-08-23] MEDS: Lactobacillus Rhamnosus GG 15 Billion CFU CAP.SPRINK PO SCH (09:13)
--- NOTE | 2017-08-23 21:24 | Internal Medicine Prog Note ---
Internal Medicine Subjective - Subjective Service Date: 08/23/17 Patient seen and examined:: with staff Patient is:: awake, verbal, in bed, talking Per staff patient has:: no adverse event Internal Medicine Objective - Results Result Diagrams: 08/22/17 05:05 08/23/17 05:25 Recent Labs: Laboratory Last Values WBC 12.0 Th/cmm (4.8-10.8) H 08/22/17 05:05 RBC 3.78 Mil/cmm (3.80-5.80) L 08/22/17 05:05 Hgb 11.6 gm/dL (12-16) L 08/22/17 05:05 Hct 34.0 % (41.0-60) L 08/22/17 05:05 MCV 90.0 fl (80-99) 08/22/17 05:05 MCH 30.6 pg (27.0-31.0) 08/22/17 05:05 MCHC Differential 34.1 pg (28.0-36.0) 08/22/17 05:05 RDW 13.4 % (11.5-20.0) 08/22/17 05:05 Plt Count 415 Th/cmm (150-400) H 08/22/17 05:05 MPV 8.2 fl 08/22/17 05:05 Neutrophils % 70.7 % (40.0-80.0) 08/22/17 05:05 Lymphocytes % 17.8 % (20.0-50.0) L 08/22/17 05:05 Monocytes % 9.4 % (2.0-10.0) 08/22/17 05:05 Eosinophils % 1.2 % (0.0-5.0) 08/22/17 05:05 Basophils % 0.9 % (0.0-2.0) 08/22/17 05:05 Neutrophils (Manual) 83 % (40-80) H 08/15/17 04:05 Lymphocytes 13 % (20-50) L 08/15/17 04:05 Monocytes 4 % (2-10) 08/15/17 04:05 PT 14.0 SECONDS (9.5-11.5) H 08/14/17 10:10 INR 1.33 (0.5-1.4) 08/14/17 10:10 PTT (Actin FS) 31.6 SECONDS (26.0-38.0) 08/14/17 10:10 Sodium 132 mEq/L (136-145) L 08/23/17 05:25 Potassium 3.6 mEq/L (3.5-5.1) 08/23/17 05:25 Chloride 103 mEq/L (98-107) 08/23/17 05:25 Carbon Dioxide 22.7 mEq/L (21.0-31.0) 08/23/17 05:25 Anion Gap 9.9 (7.0-16.0) 08/23/17 05:25 BUN 13 mg/dL (7-25) 08/23/17 05:25 Creatinine 0.5 mg/dL (0.7-1.3) L 08/23/17 05:25 Est GFR ( Amer) > 60.0 ml/min (>90) 08/23/17 05:25 Est GFR (Non-Af Amer) > 60.0 ml/min 08/23/17 05:25 BUN/Creatinine Ratio 26.0 08/23/17 05:25 Glucose 97 mg/dL (70-105) 08/23/17 05:25 Calcium 8.7 mg/dL (8.6-10.3) 08/23/17 05:25 Total Bilirubin 0.4 mg/dL (0.3-1.0) 08/22/17 05:05 AST 15 U/L (13-39) 08/22/17 05:05 ALT 14 U/L (7-52) 08/22/17 05:05 Alkaline Phosphatase 44 U/L (34-104) 08/22/17 05:05 Total Protein 6.6 gm/dL (6.0-8.3) 08/22/17 05:05 Albumin 2.7 gm/dL (4.2-5.5) L 08/22/17 05:05 Globulin 3.9 gm/dL 08/22/17 05:05 Albumin/Globulin Ratio 0.7 (1.0-1.8) L 08/22/17 05:05 Urine Source CATH 08/14/17 12:50 Urine Color YELLOW 08/14/17 12:50 Urine Clarity HAZY (CLEAR) 08/14/17 12:50 Urine pH 6.0 (4.6 - 8.0) 08/14/17 12:50 Ur Specific [place] <= 1.005 (1.005-1.030) 08/14/17 12:50 Urine Protein NEGATIVE mg/dL (NEGATIVE) 08/14/17 12:50 Urine Glucose (UA) NEGATIVE mg/dL (NEGATIVE) 08/14/17 12:50 Urine Ketones NEGATIVE mg/dL (NEGATIVE) 08/14/17 12:50 Urine Blood LARGE (NEGATIVE) H 08/14/17 12:50 Urine Nitrate NEGATIVE (NEGATIVE) 08/14/17 12:50 Urine Bilirubin NEGATIVE (NEGATIVE) 08/14/17 12:50 Urine Urobilinogen 0.2 E.U./dL (0.2 - 1.0) 08/14/17 12:50 Ur Leukocyte Esterase NEGATIVE (NEGATIVE) 08/14/17 12:50 Urine RBC 50-100 /hpf (0-5) H 08/14/17 12:50 Urine WBC 0-2 /hpf (0-5) 08/14/17 12:50 Ur Epithelial Cells FEW /lpf (FEW) 08/14/17 12:50 Urine Bacteria FEW /hpf (NONE SEEN) 08/14/17 12:50 Urine Mucus FEW /lpf (FEW) 08/14/17 12:50 Hepatitis A IgM Ab Negative (Negative) 08/15/17 04:05 Hep Bs Antigen Negative (Negative) 08/15/17 04:05 Hep B Core IgM Ab Negative (Negative) 08/15/17 04:05 Hepatitis C Antibody <0.1 s/co ratio (0.0-0.9) 08/15/17 04:05 - Physical Exam Vitals and I&O: Vital Signs Temp 98.1 F 08/23/17 17:44 Pulse 78 08/23/17 19:08 Resp 20 08/23/17 19:08 BP 125/61 08/23/17 17:44 Pulse Ox 95 08/23/17 19:08 Intake & Output 08/23/17 08/23/17 08/24/17 06:59 18:59 06:59 Intake Total 300 800 150 Balance 300 800 150 Weight (lbs) 3.671 kg 58.967 kg Intake: Intake, IV Amount 300 150 Piperacillin Sodium/ 100 50 Tazobact 2.25 gm In Sodium Chloride 0.9% 50 ml @ 100 mls/hr IV Q8HR [facility] Rx#:[id number] metroNIDAZOLE 500mg/NS 200 100 100mL 500 mg In 100 ml @ 100 mls/hr IV Q8HR [facility] Rx #:[id number] Oral 800 Other: # Voids 6 # Bowel Movements 5 Stool Characteristics Soft Weight Source Bedscale Bedscale Active Medications: Current Medications Acetaminophen (Tylenol) 650 mg PO Q4H PRN PRN Reason: Pain or Fever >101 Stop: 10/14/17 18:42 Last Admin: 08/20/17 11:00 Dose: 650 mg Al Hydrox/Mg Hydrox/Simethicone (Maalox) 30 ml PO Q4H PRN PRN Reason: GI DISTRESS Stop: 10/14/17 18:42 Docusate Sodium (Colace) 100 mg PO BID [facility] Stop: 10/15/17 08:59 Last Admin: 08/23/17 17:41 Dose: Not Given Famotidine (Pepcid) 20 mg PO DAILY [facility] Stop: 10/15/17 08:59 Last Admin: 08/23/17 09:13 Dose: 20 mg Metronidazole (Flagyl) 500 mg in 100 mls @ 100 mls/hr IV Q8HR [facility] Stop: 10/13/17 12:59 Last Infusion: 08/23/17 19:58 Dose: Infused Piperacillin Sod/Tazobactam (Sod 2.25 gm/ Sodium Chloride) 50 mls @ 100 mls/hr IV Q8HR [facility] Stop: 10/13/17 12:59 Last Admin: 08/23/17 20:29 Dose: 100 mls/hr Norepinephrine Bitartrate 4 mg (/ Dextrose) 254 mls @ 0 mls/hr IV TITR PRN; Protocol PRN Reason: BP MAINTENANCE (PER PROTOCOL) Stop: 10/13/17 18:16 Sodium Chloride (Nacl 0.9%) 500 mls @ 0 mls/hr IV .Q0M [facility] Stop: 10/16/17 13:29 Lactobacillus Rhamnosus (Culturelle 15b) 1 each PO DAILY [facility] Stop: 10/14/17 12:59 Last Admin: 08/23/17 09:13 Dose: 1 each Magnesium Hydroxide (Milk Of Magnesia) 30 ml PO HS PRN PRN Reason: Constipation Stop: 10/14/17 18:42 Miscellaneous (Probiotic Screen) 1 ea MC PRN PRN PRN Reason: PROTOCOL Stop: 10/14/17 12:33 Multivitamins/Vitamin C (Theragran) 1 tab PO DAILY [facility] Stop: 10/15/17 08:59 Last Admin: 08/23/17 09:13 Dose: 1 tab Tamsulosin HCl (Flomax) 0.4 mg PO DAILY [facility] Stop: 10/14/17 19:59 Last Admin: 08/23/17 09:13 Dose: 0.4 mg Tramadol HCl (Ultram) 50 mg PO Q6H PRN PRN Reason: Pain (Moderate) Stop: 10/17/17 07:18 Last Admin: 08/20/17 11:00 Dose: 50 mg HEENT: PERRLA, anicteric sclerae, throat clear Neck: Supple, No JVD, No thyromegaly, +2 carotid pulse wo bruit, No LAD Cardiovascular: Normal S1, Normal S2, without murmur Abdomen: non-tender, non-distended Extremities: clear Neurological: no change - Procedures Procedures: Procedures Procedure Code Date INSERTION OF INFUSION DEV INTO L SUBCLAV VEIN, PERC APPROACH [id number] 08/14/17 PERFORMANCE OF URINARY FILTRATION, <6 HRS/DAY [id number] 08/14/17 ULTRASONOGRAPHY OF LEFT SUBCLAVIAN VEIN, GUIDANCE [id number] 08/14/17 Internal Medicine Assmt/Plan - Assessment Assessment: 1.ACUTE OBSTRUCTIVE RENAL FAILURE. 2.BPH. 3.HISTORY OF PSYCHOSIS. 4.CONSTIPATION. 5.DEMENTIA. - Plan Plan: CONTINUE ON CURRENT MEDICATION AND DIET. Nutritional Asmnt/Malnutr-PDOC - Dietary Evaluation Malnutrition Findings (Please click <Entered> for more info): Nutritional Asmnt/Malnutrition Start: 08/15/17 15: 52 Text: Status: Complete Freq: Protocol: Document 08/15/17 15:54 LCHENG (Rec: 08/15/17 16:24 [email or web address] [email or web address]) Nutritional Asmnt/Malnutrition Patient General Information Nutritional Screening High Risk Consult Diagnosis pacemaker placement Pertinent Medical Hx/Surgical Hx HTN, BPH, dementia Subjective Information Consult received for poor intake and wounds. Pt was NPO since admitted noted. per nurse note in the morning, pt was yelling for water and food . Mech soft ground diet stated from lunch. Per nurse note in the afternoon, pt fed himself 100% of lunch. Pt had dialysis yetserday per nurse d /t elevated BUN/Crea and hyperkalemia. Current Diet Order/ Nutrition Support [facility] soft ground. Pertinent Medications D5w, culturelle, piperacillin Pertinent Labs 08/15 Na 153, Cl 119, BUN 37, glucose 120 08/14 Na 128, K 8.8, BUN 212, Cr 13 Nutritional Hx/Data Height 1.65 m Height (Calculated Centimeters) 165.1 Current Weight (lbs) 59.421 kg Weight (Calculated Kilograms) 59.4 Weight (Calculated Grams) 05330.6 [place] Body Weight 136 Body Mass Index (BMI) 21.8 Weight Status Approriate GI Symptoms GI Symptoms None Last BM none Difficult in: None Skin Integrity/Comment: pressure area to right buttocks, abrasion to left eye , redded to left toe and right ankle Current %PO Good (75-100%) Estimated Nutritional Goals BEE in Kcals: Using Current wt Calories/Kcals/Kg 25-30 Kcals Calculated 1079-8381 Protein: Using Current wt Protein g/k monitor renal labs Protein Calculated 60 Fluid: ml per MD Nutritional Problem 1. Problem Problem altered nutrition related labs Etiology electrolytes imbalance, renal dysfunction Signs/Symptoms: Na 153, Cl 119, BUN 37 Malnutrition Alert Is there a minimum of two criteria No selected? Query Text:Check all the applicable criteria. A minimum of two criteria are recommended for diagnosis of either severe or non-severe malnutrition. Malnutrition Related to Morbid Obesity Malnutrition related to morbid obesity No Intervention/Recommendation Comments 1. Continue with [facility] soft ground diet as ordered. Monitor renal labs and adjust diet as needed. 2. Monitor PO intake, wt, labs and skin integrity 3. F/U as high risk in 2-3 days, 08/17-08/18 Expected Outcomes/Goals Expected Outcomes/Goals 1. PO intake to meet at least 75% of nutritional needs. 2. Wt stability, skin to remain intact, labs to approach WNL.
[2017-08-24] MEDS: metroNIDAZOLE 500mg/NS 100mL 500 MG/100 ML BAG IV SCH ×3 (05:11→21:20)
[2017-08-24] MEDS: Lactobacillus Rhamnosus GG 15 Billion CFU CAP.SPRINK PO SCH (08:37)
[2017-08-24] MEDS: Multivitamin Tab PO SCH (08:38)
--- NOTE | 2017-08-24 20:49 | Internal Medicine Prog Note ---
Internal Medicine Subjective - Subjective Service Date: 08/24/17 Patient is:: awake, verbal, in bed, talking Per staff patient has:: no adverse event Internal Medicine Objective - Results Result Diagrams: 08/22/17 05:05 08/23/17 05:25 Recent Labs: Laboratory Last Values WBC 12.0 Th/cmm (4.8-10.8) H 08/22/17 05:05 RBC 3.78 Mil/cmm (3.80-5.80) L 08/22/17 05:05 Hgb 11.6 gm/dL (12-16) L 08/22/17 05:05 Hct 34.0 % (41.0-60) L 08/22/17 05:05 MCV 90.0 fl (80-99) 08/22/17 05:05 MCH 30.6 pg (27.0-31.0) 08/22/17 05:05 MCHC Differential 34.1 pg (28.0-36.0) 08/22/17 05:05 RDW 13.4 % (11.5-20.0) 08/22/17 05:05 Plt Count 415 Th/cmm (150-400) H 08/22/17 05:05 MPV 8.2 fl 08/22/17 05:05 Neutrophils % 70.7 % (40.0-80.0) 08/22/17 05:05 Lymphocytes % 17.8 % (20.0-50.0) L 08/22/17 05:05 Monocytes % 9.4 % (2.0-10.0) 08/22/17 05:05 Eosinophils % 1.2 % (0.0-5.0) 08/22/17 05:05 Basophils % 0.9 % (0.0-2.0) 08/22/17 05:05 Neutrophils (Manual) 83 % (40-80) H 08/15/17 04:05 Lymphocytes 13 % (20-50) L 08/15/17 04:05 Monocytes 4 % (2-10) 08/15/17 04:05 PT 14.0 SECONDS (9.5-11.5) H 08/14/17 10:10 INR 1.33 (0.5-1.4) 08/14/17 10:10 PTT (Actin FS) 31.6 SECONDS (26.0-38.0) 08/14/17 10:10 Sodium 132 mEq/L (136-145) L 08/23/17 05:25 Potassium 3.6 mEq/L (3.5-5.1) 08/23/17 05:25 Chloride 103 mEq/L (98-107) 08/23/17 05:25 Carbon Dioxide 22.7 mEq/L (21.0-31.0) 08/23/17 05:25 Anion Gap 9.9 (7.0-16.0) 08/23/17 05:25 BUN 13 mg/dL (7-25) 08/23/17 05:25 Creatinine 0.5 mg/dL (0.7-1.3) L 08/23/17 05:25 Est GFR ( Amer) > 60.0 ml/min (>90) 08/23/17 05:25 Est GFR (Non-Af Amer) > 60.0 ml/min 08/23/17 05:25 BUN/Creatinine Ratio 26.0 08/23/17 05:25 Glucose 97 mg/dL (70-105) 08/23/17 05:25 Calcium 8.7 mg/dL (8.6-10.3) 08/23/17 05:25 Total Bilirubin 0.4 mg/dL (0.3-1.0) 08/22/17 05:05 AST 15 U/L (13-39) 08/22/17 05:05 ALT 14 U/L (7-52) 08/22/17 05:05 Alkaline Phosphatase 44 U/L (34-104) 08/22/17 05:05 Total Protein 6.6 gm/dL (6.0-8.3) 08/22/17 05:05 Albumin 2.7 gm/dL (4.2-5.5) L 08/22/17 05:05 Globulin 3.9 gm/dL 08/22/17 05:05 Albumin/Globulin Ratio 0.7 (1.0-1.8) L 08/22/17 05:05 Urine Source CATH 08/14/17 12:50 Urine Color YELLOW 08/14/17 12:50 Urine Clarity HAZY (CLEAR) 08/14/17 12:50 Urine pH 6.0 (4.6 - 8.0) 08/14/17 12:50 Ur Specific [place] <= 1.005 (1.005-1.030) 08/14/17 12:50 Urine Protein NEGATIVE mg/dL (NEGATIVE) 08/14/17 12:50 Urine Glucose (UA) NEGATIVE mg/dL (NEGATIVE) 08/14/17 12:50 Urine Ketones NEGATIVE mg/dL (NEGATIVE) 08/14/17 12:50 Urine Blood LARGE (NEGATIVE) H 08/14/17 12:50 Urine Nitrate NEGATIVE (NEGATIVE) 08/14/17 12:50 Urine Bilirubin NEGATIVE (NEGATIVE) 08/14/17 12:50 Urine Urobilinogen 0.2 E.U./dL (0.2 - 1.0) 08/14/17 12:50 Ur Leukocyte Esterase NEGATIVE (NEGATIVE) 08/14/17 12:50 Urine RBC 50-100 /hpf (0-5) H 08/14/17 12:50 Urine WBC 0-2 /hpf (0-5) 08/14/17 12:50 Ur Epithelial Cells FEW /lpf (FEW) 08/14/17 12:50 Urine Bacteria FEW /hpf (NONE SEEN) 08/14/17 12:50 Urine Mucus FEW /lpf (FEW) 08/14/17 12:50 Hepatitis A IgM Ab Negative (Negative) 08/15/17 04:05 Hep Bs Antigen Negative (Negative) 08/15/17 04:05 Hep B Core IgM Ab Negative (Negative) 08/15/17 04:05 Hepatitis C Antibody <0.1 s/co ratio (0.0-0.9) 08/15/17 04:05 - Physical Exam Vitals and I&O: Vital Signs Temp 98.3 F 08/24/17 18:00 Pulse 68 08/24/17 19:24 Resp 18 08/24/17 19:24 BP 101/63 08/24/17 18:00 Pulse Ox 97 08/24/17 19:24 Intake & Output 08/24/17 08/24/17 08/25/17 06:59 18:59 06:59 Intake Total 450 900 150 Balance 450 900 150 Weight (lbs) 60.872 kg Intake: Intake, IV Amount 450 150 Piperacillin Sodium/ 150 50 Tazobact 2.25 gm In Sodium Chloride 0.9% 50 ml @ 100 mls/hr IV Q8HR [facility] Rx#:[id number] metroNIDAZOLE 500mg/NS 300 100 100mL 500 mg In 100 ml @ 100 mls/hr IV Q8HR [facility] Rx #:[id number] Oral 900 Other: # Voids 5 # Bowel Movements 3 Stool Characteristics Soft Soft Weight Source Bedscale Active Medications: Current Medications Acetaminophen (Tylenol) 650 mg PO Q4H PRN PRN Reason: Pain or Fever >101 Stop: 10/14/17 18:42 Last Admin: 08/20/17 11:00 Dose: 650 mg Al Hydrox/Mg Hydrox/Simethicone (Maalox) 30 ml PO Q4H PRN PRN Reason: GI DISTRESS Stop: 10/14/17 18:42 Docusate Sodium (Colace) 100 mg PO BID [facility] Stop: 10/15/17 08:59 Last Admin: 08/24/17 16:41 Dose: Not Given Famotidine (Pepcid) 20 mg PO DAILY [facility] Stop: 10/15/17 08:59 Last Admin: 08/24/17 08:37 Dose: 20 mg Metronidazole (Flagyl) 500 mg in 100 mls @ 100 mls/hr IV Q8HR [facility] Stop: 10/13/17 12:59 Last Infusion: 08/24/17 19:53 Dose: Infused Piperacillin Sod/Tazobactam (Sod 2.25 gm/ Sodium Chloride) 50 mls @ 100 mls/hr IV Q8HR [facility] Stop: 10/13/17 12:59 Last Infusion: 08/24/17 19:57 Dose: Infused Norepinephrine Bitartrate 4 mg (/ Dextrose) 254 mls @ 0 mls/hr IV TITR PRN; Protocol PRN Reason: BP MAINTENANCE (PER PROTOCOL) Stop: 10/13/17 18:16 Sodium Chloride (Nacl 0.9%) 500 mls @ 0 mls/hr IV .Q0M [facility] Stop: 10/16/17 13:29 Lactobacillus Rhamnosus (Culturelle 15b) 1 each PO DAILY [facility] Stop: 10/14/17 12:59 Last Admin: 08/24/17 08:37 Dose: 1 each Magnesium Hydroxide (Milk Of Magnesia) 30 ml PO HS PRN PRN Reason: Constipation Stop: 10/14/17 18:42 Miscellaneous (Probiotic Screen) 1 ea MC PRN PRN PRN Reason: PROTOCOL Stop: 10/14/17 12:33 Multivitamins/Vitamin C (Theragran) 1 tab PO DAILY [facility] Stop: 10/15/17 08:59 Last Admin: 08/24/17 08:38 Dose: 1 tab Tamsulosin HCl (Flomax) 0.4 mg PO DAILY [facility] Stop: 10/14/17 19:59 Last Admin: 08/24/17 08:37 Dose: 0.4 mg Tramadol HCl (Ultram) 50 mg PO Q6H PRN PRN Reason: Pain (Moderate) Stop: 10/17/17 07:18 Last Admin: 08/20/17 11:00 Dose: 50 mg HEENT: PERRLA, anicteric sclerae, throat clear Neck: Supple, No JVD, No thyromegaly, +2 carotid pulse wo bruit, No LAD Cardiovascular: Normal S1, Normal S2, without murmur Abdomen: non-tender, non-distended Extremities: clear Neurological: no change - Procedures Procedures: Procedures Procedure Code Date INSERTION OF INFUSION DEV INTO L SUBCLAV VEIN, PERC APPROACH [id number] 08/14/17 PERFORMANCE OF URINARY FILTRATION, <6 HRS/DAY [id number] 08/14/17 ULTRASONOGRAPHY OF LEFT SUBCLAVIAN VEIN, GUIDANCE [id number] 08/14/17 Internal Medicine Assmt/Plan - Assessment Assessment: 1.ACUTE OBSTRUCTIVE RENAL FAILURE. 2.BPH. 3.HISTORY OF PSYCHOSIS. 4.CONSTIPATION. 5.DEMENTIA. - Plan Plan: CONTINUE ON CURRENT MEDICATION AND DIET. Nutritional Asmnt/Malnutr-PDOC - Dietary Evaluation Malnutrition Findings (Please click <Entered> for more info): Nutritional Asmnt/Malnutrition Start: 08/15/17 15: 52 Text: Status: Complete Freq: Protocol: Document 08/15/17 15:54 LCHENG (Rec: 08/15/17 16:24 LCHENG [email or web address]) Nutritional Asmnt/Malnutrition Patient General Information Nutritional Screening High Risk Consult Diagnosis pacemaker placement Pertinent Medical Hx/Surgical Hx HTN, BPH, dementia Subjective Information Consult received for poor intake and wounds. Pt was NPO since admitted noted. per nurse note in the morning, pt was yelling for water and food . Mech soft ground diet stated from lunch. Per nurse note in the afternoon, pt fed himself 100% of lunch. Pt had dialysis yetserday per nurse d /t elevated BUN/Crea and hyperkalemia. Current Diet Order/ Nutrition Support [facility] soft ground. Pertinent Medications D5w, culturelle, piperacillin Pertinent Labs 08/15 Na 153, Cl 119, BUN 37, glucose 120 08/14 Na 128, K 8.8, BUN 212, Cr 13 Nutritional Hx/Data Height 1.65 m Height (Calculated Centimeters) 165.1 Current Weight (lbs) 59.421 kg Weight (Calculated Kilograms) 59.4 Weight (Calculated Grams) 66448.6 [place] Body Weight 136 Body Mass Index (BMI) 21.8 Weight Status Approriate GI Symptoms GI Symptoms None Last BM none Difficult in: None Skin Integrity/Comment: pressure area to right buttocks, abrasion to left eye , redded to left toe and right ankle Current %PO Good (75-100%) Estimated Nutritional Goals BEE in Kcals: Using Current wt Calories/Kcals/Kg 25-30 Kcals Calculated 6472-7680 Protein: Using Current wt Protein g/k monitor renal labs Protein Calculated 60 Fluid: ml per MD Nutritional Problem 1. Problem Problem altered nutrition related labs Etiology electrolytes imbalance, renal dysfunction Signs/Symptoms: Na 153, Cl 119, BUN 37 Malnutrition Alert Is there a minimum of two criteria No selected? Query Text:Check all the applicable criteria. A minimum of two criteria are recommended for diagnosis of either severe or non-severe malnutrition. Malnutrition Related to Morbid Obesity Malnutrition related to morbid obesity No Intervention/Recommendation Comments 1. Continue with [facility] soft ground diet as ordered. Monitor renal labs and adjust diet as needed. 2. Monitor PO intake, wt, labs and skin integrity 3. F/U as high risk in 2-3 days, 08/17-08/18 Expected Outcomes/Goals Expected Outcomes/Goals 1. PO intake to meet at least 75% of nutritional needs. 2. Wt stability, skin to remain intact, labs to approach WNL.
[2017-08-25] MEDS: metroNIDAZOLE 500mg/NS 100mL 500 MG/100 ML BAG IV SCH ×3 (05:19→21:49)
[2017-08-25] MEDS: Lactobacillus Rhamnosus GG 15 Billion CFU CAP.SPRINK PO SCH (08:15)
[2017-08-25] MEDS: Multivitamin Tab PO SCH (08:15)
--- NOTE | 2017-08-25 23:13 | Internal Medicine Prog Note ---
Internal Medicine Subjective - Subjective Service Date: 08/25/17 Patient seen and examined:: with staff Patient is:: awake, verbal, in bed, talking Per staff patient has:: no adverse event Internal Medicine Objective - Results Result Diagrams: 08/22/17 05:05 08/23/17 05:25 Recent Labs: Laboratory Last Values WBC 12.0 Th/cmm (4.8-10.8) H 08/22/17 05:05 RBC 3.78 Mil/cmm (3.80-5.80) L 08/22/17 05:05 Hgb 11.6 gm/dL (12-16) L 08/22/17 05:05 Hct 34.0 % (41.0-60) L 08/22/17 05:05 MCV 90.0 fl (80-99) 08/22/17 05:05 MCH 30.6 pg (27.0-31.0) 08/22/17 05:05 MCHC Differential 34.1 pg (28.0-36.0) 08/22/17 05:05 RDW 13.4 % (11.5-20.0) 08/22/17 05:05 Plt Count 415 Th/cmm (150-400) H 08/22/17 05:05 MPV 8.2 fl 08/22/17 05:05 Neutrophils % 70.7 % (40.0-80.0) 08/22/17 05:05 Lymphocytes % 17.8 % (20.0-50.0) L 08/22/17 05:05 Monocytes % 9.4 % (2.0-10.0) 08/22/17 05:05 Eosinophils % 1.2 % (0.0-5.0) 08/22/17 05:05 Basophils % 0.9 % (0.0-2.0) 08/22/17 05:05 Neutrophils (Manual) 83 % (40-80) H 08/15/17 04:05 Lymphocytes 13 % (20-50) L 08/15/17 04:05 Monocytes 4 % (2-10) 08/15/17 04:05 PT 14.0 SECONDS (9.5-11.5) H 08/14/17 10:10 INR 1.33 (0.5-1.4) 08/14/17 10:10 PTT (Actin FS) 31.6 SECONDS (26.0-38.0) 08/14/17 10:10 Sodium 132 mEq/L (136-145) L 08/23/17 05:25 Potassium 3.6 mEq/L (3.5-5.1) 08/23/17 05:25 Chloride 103 mEq/L (98-107) 08/23/17 05:25 Carbon Dioxide 22.7 mEq/L (21.0-31.0) 08/23/17 05:25 Anion Gap 9.9 (7.0-16.0) 08/23/17 05:25 BUN 13 mg/dL (7-25) 08/23/17 05:25 Creatinine 0.5 mg/dL (0.7-1.3) L 08/23/17 05:25 Est GFR ( Amer) > 60.0 ml/min (>90) 08/23/17 05:25 Est GFR (Non-Af Amer) > 60.0 ml/min 08/23/17 05:25 BUN/Creatinine Ratio 26.0 08/23/17 05:25 Glucose 97 mg/dL (70-105) 08/23/17 05:25 Calcium 8.7 mg/dL (8.6-10.3) 08/23/17 05:25 Total Bilirubin 0.4 mg/dL (0.3-1.0) 08/22/17 05:05 AST 15 U/L (13-39) 08/22/17 05:05 ALT 14 U/L (7-52) 08/22/17 05:05 Alkaline Phosphatase 44 U/L (34-104) 08/22/17 05:05 Total Protein 6.6 gm/dL (6.0-8.3) 08/22/17 05:05 Albumin 2.7 gm/dL (4.2-5.5) L 08/22/17 05:05 Globulin 3.9 gm/dL 08/22/17 05:05 Albumin/Globulin Ratio 0.7 (1.0-1.8) L 08/22/17 05:05 Urine Source CATH 08/14/17 12:50 Urine Color YELLOW 08/14/17 12:50 Urine Clarity HAZY (CLEAR) 08/14/17 12:50 Urine pH 6.0 (4.6 - 8.0) 08/14/17 12:50 Ur Specific [place] <= 1.005 (1.005-1.030) 08/14/17 12:50 Urine Protein NEGATIVE mg/dL (NEGATIVE) 08/14/17 12:50 Urine Glucose (UA) NEGATIVE mg/dL (NEGATIVE) 08/14/17 12:50 Urine Ketones NEGATIVE mg/dL (NEGATIVE) 08/14/17 12:50 Urine Blood LARGE (NEGATIVE) H 08/14/17 12:50 Urine Nitrate NEGATIVE (NEGATIVE) 08/14/17 12:50 Urine Bilirubin NEGATIVE (NEGATIVE) 08/14/17 12:50 Urine Urobilinogen 0.2 E.U./dL (0.2 - 1.0) 08/14/17 12:50 Ur Leukocyte Esterase NEGATIVE (NEGATIVE) 08/14/17 12:50 Urine RBC 50-100 /hpf (0-5) H 08/14/17 12:50 Urine WBC 0-2 /hpf (0-5) 08/14/17 12:50 Ur Epithelial Cells FEW /lpf (FEW) 08/14/17 12:50 Urine Bacteria FEW /hpf (NONE SEEN) 08/14/17 12:50 Urine Mucus FEW /lpf (FEW) 08/14/17 12:50 Hepatitis A IgM Ab Negative (Negative) 08/15/17 04:05 Hep Bs Antigen Negative (Negative) 08/15/17 04:05 Hep B Core IgM Ab Negative (Negative) 08/15/17 04:05 Hepatitis C Antibody <0.1 s/co ratio (0.0-0.9) 08/15/17 04:05 - Physical Exam Vitals and I&O: Vital Signs Temp 97.8 F 08/25/17 18:03 Pulse 60 08/25/17 18:03 Resp 17 08/25/17 18:03 BP 98/74 08/25/17 18:03 Pulse Ox 97 08/25/17 18:03 Intake & Output 08/25/17 08/25/17 08/26/17 06:59 18:59 06:59 Intake Total 980 520 50 Output Total 2 Balance 978 520 50 Weight (lbs) 57.969 kg 60.872 kg Intake: Intake, IV Amount 400 200 50 Piperacillin Sodium/ 100 100 50 Tazobact 2.25 gm In Sodium Chloride 0.9% 50 ml @ 100 mls/hr IV Q8HR [facility] Rx#:[id number] metroNIDAZOLE 500mg/NS 300 100 100mL 500 mg In 100 ml @ 100 mls/hr IV Q8HR [facility] Rx #:[id number] Oral 580 320 Output: Stool 2 Other: # Voids 5 # Bowel Movements 0 Weight Source Bedscale Bedscale Active Medications: Current Medications Acetaminophen (Tylenol) 650 mg PO Q4H PRN PRN Reason: Pain or Fever >101 Stop: 10/14/17 18:42 Last Admin: 08/20/17 11:00 Dose: 650 mg Al Hydrox/Mg Hydrox/Simethicone (Maalox) 30 ml PO Q4H PRN PRN Reason: GI DISTRESS Stop: 10/14/17 18:42 Docusate Sodium (Colace) 100 mg PO BID [facility] Stop: 10/15/17 08:59 Last Admin: 08/25/17 18:05 Dose: 100 mg Famotidine (Pepcid) 20 mg PO DAILY [facility] Stop: 10/15/17 08:59 Last Admin: 08/25/17 08:15 Dose: 20 mg Metronidazole (Flagyl) 500 mg in 100 mls @ 100 mls/hr IV Q8HR [facility] Stop: 10/13/17 12:59 Last Admin: 08/25/17 21:49 Dose: 100 mls/hr Piperacillin Sod/Tazobactam (Sod 2.25 gm/ Sodium Chloride) 50 mls @ 100 mls/hr IV Q8HR [facility] Stop: 10/13/17 12:59 Last Infusion: 08/25/17 21:49 Dose: Infused Norepinephrine Bitartrate 4 mg (/ Dextrose) 254 mls @ 0 mls/hr IV TITR PRN; Protocol PRN Reason: BP MAINTENANCE (PER PROTOCOL) Stop: 10/13/17 18:16 Sodium Chloride (Nacl 0.9%) 500 mls @ 0 mls/hr IV .Q0M [facility] Stop: 10/16/17 13:29 Lactobacillus Rhamnosus (Culturelle 15b) 1 each PO DAILY [facility] Stop: 10/14/17 12:59 Last Admin: 08/25/17 08:15 Dose: 1 each Magnesium Hydroxide (Milk Of Magnesia) 30 ml PO HS PRN PRN Reason: Constipation Stop: 10/14/17 18:42 Miscellaneous (Probiotic Screen) 1 ea PRN PRN PRN Reason: PROTOCOL Stop: 10/14/17 12:33 Multivitamins/Vitamin C (Theragran) 1 tab PO DAILY [facility] Stop: 10/15/17 08:59 Last Admin: 08/25/17 08:15 Dose: 1 tab Tamsulosin HCl (Flomax) 0.4 mg PO DAILY [facility] Stop: 10/14/17 19:59 Last Admin: 08/25/17 08:15 Dose: 0.4 mg HEENT: PERRLA, anicteric sclerae, throat clear Neck: Supple, No JVD, No thyromegaly, +2 carotid pulse wo bruit, No LAD Cardiovascular: Normal S1, Normal S2, without murmur Abdomen: non-tender, non-distended Extremities: clear Neurological: no change - Procedures Procedures: Procedures Procedure Code Date INSERTION OF INFUSION DEV INTO L SUBCLAV VEIN, PERC APPROACH [id number] 08/14/17 PERFORMANCE OF URINARY FILTRATION, <6 HRS/DAY [id number] 08/14/17 ULTRASONOGRAPHY OF LEFT SUBCLAVIAN VEIN, GUIDANCE [id number] 08/14/17 Internal Medicine Assmt/Plan - Assessment Assessment: 1.ACUTE OBSTRUCTIVE RENAL FAILURE. 2.BPH. 3.HISTORY OF PSYCHOSIS. 4.CONSTIPATION. 5.DEMENTIA. - Plan Plan: CONTINUE ON CURRENT MEDICATION AND DIET. Nutritional Asmnt/Malnutr-PDOC - Dietary Evaluation Malnutrition Findings (Please click <Entered> for more info): Nutritional Asmnt/Malnutrition Start: 08/15/17 15: 52 Text: Status: Complete Freq: Protocol: Document 08/15/17 15:54 LCHENG (Rec: 08/15/17 16:24 [email or web address] [email or web address]) Nutritional Asmnt/Malnutrition Patient General Information Nutritional Screening High Risk Consult Diagnosis pacemaker placement Pertinent Medical Hx/Surgical Hx HTN, BPH, dementia Subjective Information Consult received for poor intake and wounds. Pt was NPO since admitted noted. per nurse note in the morning, pt was yelling for water and food . [facility] soft ground diet stated from lunch. Per nurse note in the afternoon, pt fed himself 100% of lunch. Pt had dialysis yetserday per nurse d /t elevated BUN/Crea and hyperkalemia. Current Diet Order/ Nutrition Support [facility]. Pertinent Medications D5w, culturelle, piperacillin Pertinent Labs 08/15 Na 153, Cl 119, BUN 37, glucose 120 08/14 Na 128, K 8.8, BUN 212, Cr 13 Nutritional Hx/Data Height 1.65 m Height (Calculated Centimeters) 165.1 Current Weight (lbs) 59.421 kg Weight (Calculated Kilograms) 59.4 Weight (Calculated Grams) 76603.6 [place] Body Weight 136 Body Mass Index (BMI) 21.8 Weight Status Approriate GI Symptoms GI Symptoms None Last BM none Difficult in: None Skin Integrity/Comment: pressure area to right buttocks, abrasion to left eye , redded to left toe and right ankle Current %PO Good (75-100%) Estimated Nutritional Goals BEE in Kcals: Using Current wt Calories/Kcals/Kg 25-30 Kcals Calculated 2951-4594 Protein: Using Current wt Protein g/k monitor renal labs Protein Calculated 60 Fluid: ml per MD Nutritional Problem 1. Problem Problem altered nutrition related labs Etiology electrolytes imbalance, renal dysfunction Signs/Symptoms: Na 153, Cl 119, BUN 37 Malnutrition Alert Is there a minimum of two criteria No selected? Query Text:Check all the applicable criteria. A minimum of two criteria are recommended for diagnosis of either severe or non-severe malnutrition. Malnutrition Related to Morbid Obesity Malnutrition related to morbid obesity No Intervention/Recommendation Comments 1. Continue with [facility] diet as ordered. Monitor renal labs and adjust diet as needed. 2. Monitor PO intake, wt, labs and skin integrity 3. F/U as high risk in 2-3 days, 08/17-08/18 Expected Outcomes/Goals Expected Outcomes/Goals 1. PO intake to meet at least 75% of nutritional needs. 2. Wt stability, skin to remain intact, labs to approach WNL.
[2017-08-25] MEDS ORDERED: Menthol/Zinc Oxide Oint 113gm Tube TP PRN (23:43)
[2017-08-26] MEDS: metroNIDAZOLE 500mg/NS 100mL 500 MG/100 ML BAG IV SCH ×3 (05:25→21:00)
[2017-08-26] MEDS: Multivitamin Tab PO SCH (09:20)
[2017-08-26] MEDS: Lactobacillus Rhamnosus GG 15 Billion CFU CAP.SPRINK PO SCH (09:21)
--- NOTE | 2017-08-26 19:40 | Internal Medicine Prog Note ---
Internal Medicine Subjective - Subjective Service Date: 08/26/17 Patient seen and examined:: with staff Patient is:: awake, verbal, in bed, talking Per staff patient has:: no adverse event Internal Medicine Objective - Results Result Diagrams: 08/22/17 05:05 08/23/17 05:25 Recent Labs: Laboratory Last Values WBC 12.0 Th/cmm (4.8-10.8) H 08/22/17 05:05 RBC 3.78 Mil/cmm (3.80-5.80) L 08/22/17 05:05 Hgb 11.6 gm/dL (12-16) L 08/22/17 05:05 Hct 34.0 % (41.0-60) L 08/22/17 05:05 MCV 90.0 fl (80-99) 08/22/17 05:05 MCH 30.6 pg (27.0-31.0) 08/22/17 05:05 MCHC Differential 34.1 pg (28.0-36.0) 08/22/17 05:05 RDW 13.4 % (11.5-20.0) 08/22/17 05:05 Plt Count 415 Th/cmm (150-400) H 08/22/17 05:05 MPV 8.2 fl 08/22/17 05:05 Neutrophils % 70.7 % (40.0-80.0) 08/22/17 05:05 Lymphocytes % 17.8 % (20.0-50.0) L 08/22/17 05:05 Monocytes % 9.4 % (2.0-10.0) 08/22/17 05:05 Eosinophils % 1.2 % (0.0-5.0) 08/22/17 05:05 Basophils % 0.9 % (0.0-2.0) 08/22/17 05:05 Neutrophils (Manual) 83 % (40-80) H 08/15/17 04:05 Lymphocytes 13 % (20-50) L 08/15/17 04:05 Monocytes 4 % (2-10) 08/15/17 04:05 PT 14.0 SECONDS (9.5-11.5) H 08/14/17 10:10 INR 1.33 (0.5-1.4) 08/14/17 10:10 PTT (Actin FS) 31.6 SECONDS (26.0-38.0) 08/14/17 10:10 Sodium 132 mEq/L (136-145) L 08/23/17 05:25 Potassium 3.6 mEq/L (3.5-5.1) 08/23/17 05:25 Chloride 103 mEq/L (98-107) 08/23/17 05:25 Carbon Dioxide 22.7 mEq/L (21.0-31.0) 08/23/17 05:25 Anion Gap 9.9 (7.0-16.0) 08/23/17 05:25 BUN 13 mg/dL (7-25) 08/23/17 05:25 Creatinine 0.5 mg/dL (0.7-1.3) L 08/23/17 05:25 Est GFR ( Amer) > 60.0 ml/min (>90) 08/23/17 05:25 Est GFR (Non-Af Amer) > 60.0 ml/min 08/23/17 05:25 BUN/Creatinine Ratio 26.0 08/23/17 05:25 Glucose 97 mg/dL (70-105) 08/23/17 05:25 Calcium 8.7 mg/dL (8.6-10.3) 08/23/17 05:25 Total Bilirubin 0.4 mg/dL (0.3-1.0) 08/22/17 05:05 AST 15 U/L (13-39) 08/22/17 05:05 ALT 14 U/L (7-52) 08/22/17 05:05 Alkaline Phosphatase 44 U/L (34-104) 08/22/17 05:05 Total Protein 6.6 gm/dL (6.0-8.3) 08/22/17 05:05 Albumin 2.7 gm/dL (4.2-5.5) L 08/22/17 05:05 Globulin 3.9 gm/dL 08/22/17 05:05 Albumin/Globulin Ratio 0.7 (1.0-1.8) L 08/22/17 05:05 Urine Source CATH 08/14/17 12:50 Urine Color YELLOW 08/14/17 12:50 Urine Clarity HAZY (CLEAR) 08/14/17 12:50 Urine pH 6.0 (4.6 - 8.0) 08/14/17 12:50 Ur Specific [place] <= 1.005 (1.005-1.030) 08/14/17 12:50 Urine Protein NEGATIVE mg/dL (NEGATIVE) 08/14/17 12:50 Urine Glucose (UA) NEGATIVE mg/dL (NEGATIVE) 08/14/17 12:50 Urine Ketones NEGATIVE mg/dL (NEGATIVE) 08/14/17 12:50 Urine Blood LARGE (NEGATIVE) H 08/14/17 12:50 Urine Nitrate NEGATIVE (NEGATIVE) 08/14/17 12:50 Urine Bilirubin NEGATIVE (NEGATIVE) 08/14/17 12:50 Urine Urobilinogen 0.2 E.U./dL (0.2 - 1.0) 08/14/17 12:50 Ur Leukocyte Esterase NEGATIVE (NEGATIVE) 08/14/17 12:50 Urine RBC 50-100 /hpf (0-5) H 08/14/17 12:50 Urine WBC 0-2 /hpf (0-5) 08/14/17 12:50 Ur Epithelial Cells FEW /lpf (FEW) 08/14/17 12:50 Urine Bacteria FEW /hpf (NONE SEEN) 08/14/17 12:50 Urine Mucus FEW /lpf (FEW) 08/14/17 12:50 Hepatitis A IgM Ab Negative (Negative) 08/15/17 04:05 Hep Bs Antigen Negative (Negative) 08/15/17 04:05 Hep B Core IgM Ab Negative (Negative) 08/15/17 04:05 Hepatitis C Antibody <0.1 s/co ratio (0.0-0.9) 08/15/17 04:05 - Physical Exam Vitals and I&O: Vital Signs Temp 97.8 F 08/26/17 16:00 Pulse 60 08/26/17 16:00 Resp 18 08/26/17 16:00 BP 118/72 08/26/17 16:00 Pulse Ox 100 08/26/17 16:00 Intake & Output 08/26/17 08/26/17 08/27/17 06:59 18:59 06:59 Intake Total 780 650 Balance 780 650 Weight (lbs) 60.781 kg 60.781 kg Intake: Intake, IV Amount 300 Piperacillin Sodium/ 100 Tazobact 2.25 gm In Sodium Chloride 0.9% 50 ml @ 100 mls/hr IV Q8HR [facility] Rx#:[id number] metroNIDAZOLE 500mg/NS 200 100mL 500 mg In 100 ml @ 100 mls/hr IV Q8HR [facility] Rx #:[id number] Oral 480 650 Other: # Voids 3 4 # Bowel Movements 1 3 Weight Source Bedscale Bedscale Active Medications: Current Medications Acetaminophen (Tylenol) 650 mg PO Q4H PRN PRN Reason: Pain or Fever >101 Stop: 10/14/17 18:42 Last Admin: 08/20/17 11:00 Dose: 650 mg Al Hydrox/Mg Hydrox/Simethicone (Maalox) 30 ml PO Q4H PRN PRN Reason: GI DISTRESS Stop: 10/14/17 18:42 Calamine/Phenol (Calmoseptine) 1 appl TP PRN PRN PRN Reason: AFFECTED AREA(PERIANAL AREA) Stop: 10/24/17 23:44 Docusate Sodium (Colace) 100 mg PO BID [facility] Stop: 10/15/17 08:59 Last Admin: 08/26/17 16:31 Dose: 100 mg Famotidine (Pepcid) 20 mg PO DAILY [facility] Stop: 10/15/17 08:59 Last Admin: 08/26/17 09:21 Dose: 20 mg Metronidazole (Flagyl) 500 mg in 100 mls @ 100 mls/hr IV Q8HR [facility] Stop: 10/13/17 12:59 Last Admin: 08/26/17 12:28 Dose: 100 mls/hr Piperacillin Sod/Tazobactam (Sod 2.25 gm/ Sodium Chloride) 50 mls @ 100 mls/hr IV Q8HR [facility] Stop: 10/13/17 12:59 Last Admin: 08/26/17 12:28 Dose: 100 mls/hr Sodium Chloride (Nacl 0.9%) 500 mls @ 0 mls/hr IV .Q0M [facility] Stop: 10/16/17 13:29 Lactobacillus Rhamnosus (Culturelle 15b) 1 each PO DAILY [facility] Stop: 10/14/17 12:59 Last Admin: 08/26/17 09:21 Dose: 1 each Magnesium Hydroxide (Milk Of Magnesia) 30 ml PO HS PRN PRN Reason: Constipation Stop: 10/14/17 18:42 Miscellaneous (Probiotic Screen) 1 ea MC PRN PRN PRN Reason: PROTOCOL Stop: 10/14/17 12:33 Multivitamins/Vitamin C (Theragran) 1 tab PO DAILY [facility] Stop: 10/15/17 08:59 Last Admin: 08/26/17 09:20 Dose: 1 tab Tamsulosin HCl (Flomax) 0.4 mg PO DAILY [facility] Stop: 10/14/17 19:59 Last Admin: 08/26/17 09:21 Dose: 0.4 mg HEENT: PERRLA, anicteric sclerae, throat clear Neck: Supple, No JVD, No thyromegaly, +2 carotid pulse wo bruit, No LAD Cardiovascular: Normal S1, Normal S2, without murmur Abdomen: non-tender, non-distended Extremities: clear Neurological: no change - Procedures Procedures: Procedures Procedure Code Date INSERTION OF INFUSION DEV INTO L SUBCLAV VEIN, PERC APPROACH [id number] 08/14/17 PERFORMANCE OF URINARY FILTRATION, <6 HRS/DAY [id number] 08/14/17 ULTRASONOGRAPHY OF LEFT SUBCLAVIAN VEIN, GUIDANCE [id number] 08/14/17 Internal Medicine Assmt/Plan - Assessment Assessment: 1.ACUTE OBSTRUCTIVE RENAL FAILURE. 2.BPH. 3.HISTORY OF PSYCHOSIS. 4.CONSTIPATION. 5.DEMENTIA. - Plan Plan: CONTINUE ON CURRENT MEDICATION AND DIET.TRANSFER TO [facility] WHEN BED IS AVAILABLE. Nutritional Asmnt/Malnutr-PDOC - Dietary Evaluation Malnutrition Findings (Please click <Entered> for more info): Nutritional Asmnt/Malnutrition Start: 08/15/17 15: 52 Text: Status: Complete Freq: Protocol: Document 08/15/17 15:54 LCHENG (Rec: 08/15/17 16:24 LCHENG [email or web address]) Nutritional Asmnt/Malnutrition Patient General Information Nutritional Screening High Risk Consult Diagnosis pacemaker placement Pertinent Medical Hx/Surgical Hx HTN, BPH, dementia Subjective Information Consult received for poor intake and wounds. Pt was NPO since admitted noted. per nurse note in the morning, pt was yelling for water and food . [facility] soft ground diet stated from lunch. Per nurse note in the afternoon, pt fed himself 100% of lunch. Pt had dialysis yetserday per nurse d /t elevated BUN/Crea and hyperkalemia. Current Diet Order/ Nutrition Support [facility]. Pertinent Medications D5w, culturelle, piperacillin Pertinent Labs 08/15 Na 153, Cl 119, BUN 37, glucose 120 08/14 Na 128, K 8.8, BUN 212, Cr 13 Nutritional Hx/Data Height 1.65 m Height (Calculated Centimeters) 165.1 Current Weight (lbs) 59.421 kg Weight (Calculated Kilograms) 59.4 Weight (Calculated Grams) 20985.6 [place] Body Weight 136 Body Mass Index (BMI) 21.8 Weight Status Approriate GI Symptoms GI Symptoms None Last BM none Difficult in: None Skin Integrity/Comment: pressure area to right buttocks, abrasion to left eye , redded to left toe and right ankle Current %PO Good (75-100%) Estimated Nutritional Goals BEE in Kcals: Using Current wt Calories/Kcals/Kg 25-30 Kcals Calculated 8935-9357 Protein: Using Current wt Protein g/k monitor renal labs Protein Calculated 60 Fluid: ml per MD Nutritional Problem 1. Problem Problem altered nutrition related labs Etiology electrolytes imbalance, renal dysfunction Signs/Symptoms: Na 153, Cl 119, BUN 37 Malnutrition Alert Is there a minimum of two criteria No selected? Query Text:Check all the applicable criteria. A minimum of two criteria are recommended for diagnosis of either severe or non-severe malnutrition. Malnutrition Related to Morbid Obesity Malnutrition related to morbid obesity No Intervention/Recommendation Comments 1. Continue with [facility] soft [facility] diet as ordered. Monitor renal labs and adjust diet as needed. 2. Monitor PO intake, wt, labs and skin integrity 3. F/U as high risk in 2-3 days, 08/17-08/18 Expected Outcomes/Goals Expected Outcomes/Goals 1. PO intake to meet at least 75% of nutritional needs. 2. Wt stability, skin to remain intact, labs to approach WNL.
[2017-08-27] MEDS: metroNIDAZOLE 500mg/NS 100mL 500 MG/100 ML BAG IV SCH ×3 (05:30→22:00)
[2017-08-27] MEDS: Multivitamin Tab PO SCH (09:03)
[2017-08-27] MEDS: Lactobacillus Rhamnosus GG 15 Billion CFU CAP.SPRINK PO SCH (09:03)
--- NOTE | 2017-08-27 20:28 | Internal Medicine Prog Note ---
Internal Medicine Subjective - Subjective Service Date: 08/27/17 Patient seen and examined:: with staff Patient is:: awake, verbal, in bed, talking Per staff patient has:: no adverse event Internal Medicine Objective - Results Result Diagrams: 08/22/17 05:05 08/23/17 05:25 Recent Labs: Laboratory Last Values WBC 12.0 Th/cmm (4.8-10.8) H 08/22/17 05:05 RBC 3.78 Mil/cmm (3.80-5.80) L 08/22/17 05:05 Hgb 11.6 gm/dL (12-16) L 08/22/17 05:05 Hct 34.0 % (41.0-60) L 08/22/17 05:05 MCV 90.0 fl (80-99) 08/22/17 05:05 MCH 30.6 pg (27.0-31.0) 08/22/17 05:05 MCHC Differential 34.1 pg (28.0-36.0) 08/22/17 05:05 RDW 13.4 % (11.5-20.0) 08/22/17 05:05 Plt Count 415 Th/cmm (150-400) H 08/22/17 05:05 MPV 8.2 fl 08/22/17 05:05 Neutrophils % 70.7 % (40.0-80.0) 08/22/17 05:05 Lymphocytes % 17.8 % (20.0-50.0) L 08/22/17 05:05 Monocytes % 9.4 % (2.0-10.0) 08/22/17 05:05 Eosinophils % 1.2 % (0.0-5.0) 08/22/17 05:05 Basophils % 0.9 % (0.0-2.0) 08/22/17 05:05 Neutrophils (Manual) 83 % (40-80) H 08/15/17 04:05 Lymphocytes 13 % (20-50) L 08/15/17 04:05 Monocytes 4 % (2-10) 08/15/17 04:05 PT 14.0 SECONDS (9.5-11.5) H 08/14/17 10:10 INR 1.33 (0.5-1.4) 08/14/17 10:10 PTT (Actin FS) 31.6 SECONDS (26.0-38.0) 08/14/17 10:10 Sodium 132 mEq/L (136-145) L 08/23/17 05:25 Potassium 3.6 mEq/L (3.5-5.1) 08/23/17 05:25 Chloride 103 mEq/L (98-107) 08/23/17 05:25 Carbon Dioxide 22.7 mEq/L (21.0-31.0) 08/23/17 05:25 Anion Gap 9.9 (7.0-16.0) 08/23/17 05:25 BUN 13 mg/dL (7-25) 08/23/17 05:25 Creatinine 0.5 mg/dL (0.7-1.3) L 08/23/17 05:25 Est GFR ( Amer) > 60.0 ml/min (>90) 08/23/17 05:25 Est GFR (Non-Af Amer) > 60.0 ml/min 08/23/17 05:25 BUN/Creatinine Ratio 26.0 08/23/17 05:25 Glucose 97 mg/dL (70-105) 08/23/17 05:25 Calcium 8.7 mg/dL (8.6-10.3) 08/23/17 05:25 Total Bilirubin 0.4 mg/dL (0.3-1.0) 08/22/17 05:05 AST 15 U/L (13-39) 08/22/17 05:05 ALT 14 U/L (7-52) 08/22/17 05:05 Alkaline Phosphatase 44 U/L (34-104) 08/22/17 05:05 Total Protein 6.6 gm/dL (6.0-8.3) 08/22/17 05:05 Albumin 2.7 gm/dL (4.2-5.5) L 08/22/17 05:05 Globulin 3.9 gm/dL 08/22/17 05:05 Albumin/Globulin Ratio 0.7 (1.0-1.8) L 08/22/17 05:05 Urine Source CATH 08/14/17 12:50 Urine Color YELLOW 08/14/17 12:50 Urine Clarity HAZY (CLEAR) 08/14/17 12:50 Urine pH 6.0 (4.6 - 8.0) 08/14/17 12:50 Ur Specific [place] <= 1.005 (1.005-1.030) 08/14/17 12:50 Urine Protein NEGATIVE mg/dL (NEGATIVE) 08/14/17 12:50 Urine Glucose (UA) NEGATIVE mg/dL (NEGATIVE) 08/14/17 12:50 Urine Ketones NEGATIVE mg/dL (NEGATIVE) 08/14/17 12:50 Urine Blood LARGE (NEGATIVE) H 08/14/17 12:50 Urine Nitrate NEGATIVE (NEGATIVE) 08/14/17 12:50 Urine Bilirubin NEGATIVE (NEGATIVE) 08/14/17 12:50 Urine Urobilinogen 0.2 E.U./dL (0.2 - 1.0) 08/14/17 12:50 Ur Leukocyte Esterase NEGATIVE (NEGATIVE) 08/14/17 12:50 Urine RBC 50-100 /hpf (0-5) H 08/14/17 12:50 Urine WBC 0-2 /hpf (0-5) 08/14/17 12:50 Ur Epithelial Cells FEW /lpf (FEW) 08/14/17 12:50 Urine Bacteria FEW /hpf (NONE SEEN) 08/14/17 12:50 Urine Mucus FEW /lpf (FEW) 08/14/17 12:50 Hepatitis A IgM Ab Negative (Negative) 08/15/17 04:05 Hep Bs Antigen Negative (Negative) 08/15/17 04:05 Hep B Core IgM Ab Negative (Negative) 08/15/17 04:05 Hepatitis C Antibody <0.1 s/co ratio (0.0-0.9) 08/15/17 04:05 - Physical Exam Vitals and I&O: Vital Signs Temp 97.2 F 08/27/17 16:37 Pulse 57 08/27/17 16:37 Resp 18 08/27/17 16:37 BP 137/67 08/27/17 16:37 Pulse Ox 100 08/27/17 16:37 Intake & Output 08/27/17 08/27/17 08/28/17 06:59 18:59 06:59 Intake Total 1110 1750 Output Total 1 Balance 1109 1750 Weight (lbs) 60.781 kg 60.781 kg Intake: Intake, IV Amount 450 Piperacillin Sodium/ 150 Tazobact 2.25 gm In Sodium Chloride 0.9% 50 ml @ 100 mls/hr IV Q8HR [facility] Rx#:[id number] metroNIDAZOLE 500mg/NS 300 100mL 500 mg In 100 ml @ 100 mls/hr IV Q8HR [facility] Rx #:[id number] Oral 600 1750 Other 60 Output: Stool 1 Other: # Voids 4 5 # Bowel Movements 1 1 Stool Characteristics Soft Weight Source Bedscale Bedscale Active Medications: Current Medications Acetaminophen (Tylenol) 650 mg PO Q4H PRN PRN Reason: Pain or Fever >101 Stop: 10/14/17 18:42 Last Admin: 08/20/17 11:00 Dose: 650 mg Al Hydrox/Mg Hydrox/Simethicone (Maalox) 30 ml PO Q4H PRN PRN Reason: GI DISTRESS Stop: 10/14/17 18:42 Calamine/Phenol (Calmoseptine) 1 appl TP PRN PRN PRN Reason: AFFECTED AREA(PERIANAL AREA) Stop: 10/24/17 23:44 Docusate Sodium (Colace) 100 mg PO BID [facility] Stop: 10/15/17 08:59 Last Admin: 08/27/17 16:24 Dose: 100 mg Famotidine (Pepcid) 20 mg PO DAILY [facility] Stop: 10/15/17 08:59 Last Admin: 08/27/17 09:03 Dose: 20 mg Metronidazole (Flagyl) 500 mg in 100 mls @ 100 mls/hr IV Q8HR [facility] Stop: 10/13/17 12:59 Last Admin: 08/27/17 12:04 Dose: 100 mls/hr Piperacillin Sod/Tazobactam (Sod 2.25 gm/ Sodium Chloride) 50 mls @ 100 mls/hr IV Q8HR [facility] Stop: 10/13/17 12:59 Last Admin: 08/27/17 12:04 Dose: 100 mls/hr Sodium Chloride (Nacl 0.9%) 500 mls @ 0 mls/hr IV .Q0M [facility] Stop: 10/16/17 13:29 Lactobacillus Rhamnosus (Culturelle 15b) 1 each PO DAILY [facility] Stop: 10/14/17 12:59 Last Admin: 08/27/17 09:03 Dose: 1 each Magnesium Hydroxide (Milk Of Magnesia) 30 ml PO HS PRN PRN Reason: Constipation Stop: 10/14/17 18:42 Miscellaneous (Probiotic Screen) 1 ea PRN PRN PRN Reason: PROTOCOL Stop: 10/14/17 12:33 Multivitamins/Vitamin C (Theragran) 1 tab PO DAILY [facility] Stop: 10/15/17 08:59 Last Admin: 08/27/17 09:03 Dose: 1 tab Tamsulosin HCl (Flomax) 0.4 mg PO DAILY [facility] Stop: 10/14/17 19:59 Last Admin: 08/27/17 09:03 Dose: 0.4 mg HEENT: PERRLA, anicteric sclerae, throat clear Neck: Supple, No JVD, No thyromegaly, +2 carotid pulse wo bruit, No LAD Cardiovascular: Normal S1, Normal S2, without murmur Abdomen: non-tender, non-distended Extremities: clear Neurological: no change - Procedures Procedures: Procedures Procedure Code Date INSERTION OF INFUSION DEV INTO L SUBCLAV VEIN, PERC APPROACH [id number] 08/14/17 PERFORMANCE OF URINARY FILTRATION, <6 HRS/DAY [id number] 08/14/17 ULTRASONOGRAPHY OF LEFT SUBCLAVIAN VEIN, GUIDANCE [id number] 08/14/17 Internal Medicine Assmt/Plan - Assessment Assessment: 1.ACUTE OBSTRUCTIVE RENAL FAILURE. 2.BPH. 3.HISTORY OF PSYCHOSIS. 4.CONSTIPATION. 5.DEMENTIA. - Plan Plan: CONTINUE ON CURRENT MEDICATION AND DIET.TRANSFER TO [place] WHEN BED IS AVAILABLE.CBC AND CMP IN AM. Nutritional Asmnt/Malnutr-PDOC - Dietary Evaluation Malnutrition Findings (Please click <Entered> for more info): Nutritional Asmnt/Malnutrition Start: 08/15/17 15: 52 Text: Status: Complete Freq: Protocol: Document 08/15/17 15:54 LCHENG (Rec: 08/15/17 16:24 [email or web address] [email or web address]) Nutritional Asmnt/Malnutrition Patient General Information Nutritional Screening High Risk Consult Diagnosis pacemaker placement Pertinent Medical Hx/Surgical Hx HTN, BPH, dementia Subjective Information Consult received for poor intake and wounds. Pt was NPO since admitted noted. per nurse note in the morning, pt was yelling [facility] water and food [facility]. Per nurse note in the afternoon, pt fed himself 100% of lunch. Pt had dialysis yetserday per nurse d /t elevated BUN/Crea and hyperkalemia. Current Diet Order/ Nutrition Support [facility] soft ground. Pertinent Medications D5w, culturelle, piperacillin Pertinent Labs 08/15 Na 153, Cl 119, BUN 37, glucose 120 08/14 Na 128, K 8.8, BUN 212, Cr 13 Nutritional Hx/Data Height 1.65 m Height (Calculated Centimeters) 165.1 Current Weight (lbs) 59.421 kg Weight (Calculated Kilograms) 59.4 Weight (Calculated Grams) 98079.6 [place] Body Weight 136 Body Mass Index (BMI) 21.8 Weight Status Approriate GI Symptoms GI Symptoms None Last BM none Difficult in: None Skin Integrity/Comment: pressure area to right buttocks, abrasion to left eye , redded to left toe and right ankle Current %PO Good (75-100%) Estimated Nutritional Goals BEE in Kcals: Using Current wt Calories/Kcals/Kg 25-30 Kcals Calculated 2972-7233 Protein: Using Current wt Protein g/k monitor renal labs Protein Calculated 60 Fluid: ml per MD Nutritional Problem 1. Problem Problem altered nutrition related labs Etiology electrolytes imbalance, renal dysfunction Signs/Symptoms: Na 153, Cl 119, BUN 37 Malnutrition Alert Is there a minimum of two criteria No selected? Query Text:Check all the applicable criteria. A minimum of two criteria are recommended for diagnosis of either severe or non-severe malnutrition. Malnutrition Related to Morbid Obesity Malnutrition related to morbid obesity No Intervention/Recommendation Comments 1. Continue with [facility] soft ground diet as ordered. Monitor renal labs and adjust diet as needed. 2. Monitor PO intake, wt, labs and skin integrity 3. F/U as high risk in 2-3 days, 08/17-08/18 Expected Outcomes/Goals Expected Outcomes/Goals 1. PO intake to meet at least 75% of nutritional needs. 2. Wt stability, skin to remain intact, labs to approach WNL.
[2017-08-28] MEDS: metroNIDAZOLE 500mg/NS 100mL 500 MG/100 ML BAG IV SCH ×3 (05:38→21:04)
[2017-08-28] MEDS: Multivitamin Tab PO SCH (08:09)
[2017-08-28] MEDS: Lactobacillus Rhamnosus GG 15 Billion CFU CAP.SPRINK PO SCH (08:09)
--- NOTE | 2017-08-28 17:04 | Internal Medicine Prog Note ---
Internal Medicine Subjective - Subjective Service Date: 08/28/17 Patient seen and examined:: with staff (HE FEELS BETTER) Patient is:: awake, verbal, in bed, talking Per staff patient has:: no adverse event Internal Medicine Objective - Results Result Diagrams: 08/22/17 05:05 08/23/17 05:25 Recent Labs: Laboratory Last Values WBC 12.0 Th/cmm (4.8-10.8) H 08/22/17 05:05 RBC 3.78 Mil/cmm (3.80-5.80) L 08/22/17 05:05 Hgb 11.6 gm/dL (12-16) L 08/22/17 05:05 Hct 34.0 % (41.0-60) L 08/22/17 05:05 MCV 90.0 fl (80-99) 08/22/17 05:05 MCH 30.6 pg (27.0-31.0) 08/22/17 05:05 MCHC Differential 34.1 pg (28.0-36.0) 08/22/17 05:05 RDW 13.4 % (11.5-20.0) 08/22/17 05:05 Plt Count 415 Th/cmm (150-400) H 08/22/17 05:05 MPV 8.2 fl 08/22/17 05:05 Neutrophils % 70.7 % (40.0-80.0) 08/22/17 05:05 Lymphocytes % 17.8 % (20.0-50.0) L 08/22/17 05:05 Monocytes % 9.4 % (2.0-10.0) 08/22/17 05:05 Eosinophils % 1.2 % (0.0-5.0) 08/22/17 05:05 Basophils % 0.9 % (0.0-2.0) 08/22/17 05:05 Neutrophils (Manual) 83 % (40-80) H 08/15/17 04:05 Lymphocytes 13 % (20-50) L 08/15/17 04:05 Monocytes 4 % (2-10) 08/15/17 04:05 PT 14.0 SECONDS (9.5-11.5) H 08/14/17 10:10 INR 1.33 (0.5-1.4) 08/14/17 10:10 PTT (Actin FS) 31.6 SECONDS (26.0-38.0) 08/14/17 10:10 Sodium 132 mEq/L (136-145) L 08/23/17 05:25 Potassium 3.6 mEq/L (3.5-5.1) 08/23/17 05:25 Chloride 103 mEq/L (98-107) 08/23/17 05:25 Carbon Dioxide 22.7 mEq/L (21.0-31.0) 08/23/17 05:25 Anion Gap 9.9 (7.0-16.0) 08/23/17 05:25 BUN 13 mg/dL (7-25) 08/23/17 05:25 Creatinine 0.5 mg/dL (0.7-1.3) L 08/23/17 05:25 Est GFR ( Amer) > 60.0 ml/min (>90) 08/23/17 05:25 Est GFR (Non-Af Amer) > 60.0 ml/min 08/23/17 05:25 BUN/Creatinine Ratio 26.0 08/23/17 05:25 Glucose 97 mg/dL (70-105) 08/23/17 05:25 Calcium 8.7 mg/dL (8.6-10.3) 08/23/17 05:25 Total Bilirubin 0.4 mg/dL (0.3-1.0) 08/22/17 05:05 AST 15 U/L (13-39) 08/22/17 05:05 ALT 14 U/L (7-52) 08/22/17 05:05 Alkaline Phosphatase 44 U/L (34-104) 08/22/17 05:05 Total Protein 6.6 gm/dL (6.0-8.3) 08/22/17 05:05 Albumin 2.7 gm/dL (4.2-5.5) L 08/22/17 05:05 Globulin 3.9 gm/dL 08/22/17 05:05 Albumin/Globulin Ratio 0.7 (1.0-1.8) L 08/22/17 05:05 Urine Source CATH 08/14/17 12:50 Urine Color YELLOW 08/14/17 12:50 Urine Clarity HAZY (CLEAR) 08/14/17 12:50 Urine pH 6.0 (4.6 - 8.0) 08/14/17 12:50 Ur Specific [place] <= 1.005 (1.005-1.030) 08/14/17 12:50 Urine Protein NEGATIVE mg/dL (NEGATIVE) 08/14/17 12:50 Urine Glucose (UA) NEGATIVE mg/dL (NEGATIVE) 08/14/17 12:50 Urine Ketones NEGATIVE mg/dL (NEGATIVE) 08/14/17 12:50 Urine Blood LARGE (NEGATIVE) H 08/14/17 12:50 Urine Nitrate NEGATIVE (NEGATIVE) 08/14/17 12:50 Urine Bilirubin NEGATIVE (NEGATIVE) 08/14/17 12:50 Urine Urobilinogen 0.2 E.U./dL (0.2 - 1.0) 08/14/17 12:50 Ur Leukocyte Esterase NEGATIVE (NEGATIVE) 08/14/17 12:50 Urine RBC 50-100 /hpf (0-5) H 08/14/17 12:50 Urine WBC 0-2 /hpf (0-5) 08/14/17 12:50 Ur Epithelial Cells FEW /lpf (FEW) 08/14/17 12:50 Urine Bacteria FEW /hpf (NONE SEEN) 08/14/17 12:50 Urine Mucus FEW /lpf (FEW) 08/14/17 12:50 Hepatitis A IgM Ab Negative (Negative) 08/15/17 04:05 Hep Bs Antigen Negative (Negative) 08/15/17 04:05 Hep B Core IgM Ab Negative (Negative) 08/15/17 04:05 Hepatitis C Antibody <0.1 s/co ratio (0.0-0.9) 08/15/17 04:05 - Physical Exam Vitals and I&O: Vital Signs Temp 96.8 F 08/28/17 16:00 Pulse 70 08/28/17 16:00 Resp 18 08/28/17 16:00 BP 107/66 08/28/17 16:00 Pulse Ox 98 08/28/17 16:00 Intake & Output 08/27/17 08/28/17 08/28/17 18:59 06:59 18:59 Intake Total 1750 450 560 Output Total 1 Balance 1750 450 559 Weight (lbs) 60.781 kg 60.781 kg Intake: Intake, IV Amount 450 Piperacillin Sodium/ 150 Tazobact 2.25 gm In Sodium Chloride 0.9% 50 ml @ 100 mls/hr IV Q8HR [facility] Rx#:[id number] metroNIDAZOLE 500mg/NS 300 100mL 500 mg In 100 ml @ 100 mls/hr IV Q8HR [facility] Rx #:[id number] Oral 1750 500 Other 60 Output: Stool 1 Other: # Voids 5 4 # Bowel Movements 1 1 Stool Characteristics Soft Soft Soft Weight Source Bedscale Bedscale Active Medications: Current Medications Acetaminophen (Tylenol) 650 mg PO Q4H PRN PRN Reason: Pain or Fever >101 Stop: 10/14/17 18:42 Last Admin: 08/20/17 11:00 Dose: 650 mg Al Hydrox/Mg Hydrox/Simethicone (Maalox) 30 ml PO Q4H PRN PRN Reason: GI DISTRESS Stop: 10/14/17 18:42 Calamine/Phenol (Calmoseptine) 1 appl TP PRN PRN PRN Reason: AFFECTED AREA(PERIANAL AREA) Stop: 10/24/17 23:44 Docusate Sodium (Colace) 100 mg PO BID [facility] Stop: 10/15/17 08:59 Last Admin: 08/28/17 16:20 Dose: 100 mg Famotidine (Pepcid) 20 mg PO DAILY [facility] Stop: 10/15/17 08:59 Last Admin: 08/28/17 08:08 Dose: 20 mg Metronidazole (Flagyl) 500 mg in 100 mls @ 100 mls/hr IV Q8HR [facility] Stop: 10/13/17 12:59 Last Admin: 08/28/17 12:46 Dose: 100 mls/hr Piperacillin Sod/Tazobactam (Sod 2.25 gm/ Sodium Chloride) 50 mls @ 100 mls/hr IV Q8HR [facility] Stop: 10/13/17 12:59 Last Admin: 08/28/17 12:46 Dose: 100 mls/hr Sodium Chloride (Nacl 0.9%) 500 mls @ 0 mls/hr IV .Q0M [facility] Stop: 10/16/17 13:29 Lactobacillus Rhamnosus (Culturelle 15b) 1 each PO DAILY [facility] Stop: 10/14/17 12:59 Last Admin: 08/28/17 08:09 Dose: 1 each Magnesium Hydroxide (Milk Of Magnesia) 30 ml PO HS PRN PRN Reason: Constipation Stop: 10/14/17 18:42 Miscellaneous (Probiotic Screen) 1 ea MC PRN PRN PRN Reason: PROTOCOL Stop: 10/14/17 12:33 Multivitamins/Vitamin C (Theragran) 1 tab PO DAILY [facility] Stop: 10/15/17 08:59 Last Admin: 08/28/17 08:09 Dose: 1 tab Tamsulosin HCl (Flomax) 0.4 mg PO DAILY [facility] Stop: 10/14/17 19:59 Last Admin: 08/28/17 08:09 Dose: 0.4 mg HEENT: PERRLA, anicteric sclerae, throat clear Neck: Supple, No JVD, No thyromegaly, +2 carotid pulse wo bruit, No LAD Cardiovascular: Normal S1, Normal S2, without murmur Abdomen: non-tender, non-distended Extremities: clear Neurological: no change - Procedures Procedures: Procedures Procedure Code Date INSERTION OF INFUSION DEV INTO L SUBCLAV VEIN, PERC APPROACH [id number] 08/14/17 PERFORMANCE OF URINARY FILTRATION, <6 HRS/DAY [id number] 08/14/17 ULTRASONOGRAPHY OF LEFT SUBCLAVIAN VEIN, GUIDANCE [id number] 08/14/17 Internal Medicine Assmt/Plan - Assessment Assessment: 1.ACUTE OBSTRUCTIVE RENAL FAILURE. 2.BPH. 3.HISTORY OF PSYCHOSIS. 4.CONSTIPATION. 5.DEMENTIA. 6.LEFT LOWER PNEUMONIA - Plan Plan: CONTINUE ON CURRENT MEDICATION AND DIET.TRANSFER TO [place] WHEN BED IS AVAILABLE.CBC AND CMP IN AM. Nutritional Asmnt/Malnutr-PDOC - Dietary Evaluation Malnutrition Findings (Please click <Entered> for more info): Nutritional Asmnt/Malnutrition Start: 08/15/17 15: 52 Text: Status: Complete Freq: Protocol: Document 08/15/17 15:54 LCHENG (Rec: 08/15/17 16:24 LCHENG [email or web address]) Nutritional Asmnt/Malnutrition Patient General Information Nutritional Screening High Risk Consult Diagnosis pacemaker placement Pertinent Medical Hx/Surgical Hx HTN, BPH, dementia Subjective Information Consult received for poor intake and wounds. Pt was NPO since admitted noted. per nurse note in the morning, pt was yelling for water and food . [facility] soft [facility] diet stated from lunch. Per nurse note in the afternoon, pt fed himself 100% of lunch. Pt had dialysis yetserday per nurse d /t elevated BUN/Crea and hyperkalemia. Current Diet Order/ Nutrition Support [facility] soft ground. Pertinent Medications D5w, culturelle, piperacillin Pertinent Labs 08/15 Na 153, Cl 119, BUN 37, glucose 120 08/14 Na 128, K 8.8, BUN 212, Cr 13 Nutritional Hx/Data Height 1.65 m Height (Calculated Centimeters) 165.1 Current Weight (lbs) 59.421 kg Weight (Calculated Kilograms) 59.4 Weight (Calculated Grams) 52298.6 [place] Body Weight 136 Body Mass Index (BMI) 21.8 Weight Status Approriate GI Symptoms GI Symptoms None Last BM none Difficult in: None Skin Integrity/Comment: pressure area to right buttocks, abrasion to left eye , redded to left toe and right ankle Current %PO Good (75-100%) Estimated Nutritional Goals BEE in Kcals: Using Current wt Calories/Kcals/Kg 25-30 Kcals Calculated 1295-8847 Protein: Using Current wt Protein g/k monitor renal labs Protein Calculated 60 Fluid: ml per MD Nutritional Problem 1. Problem Problem altered nutrition related labs Etiology electrolytes imbalance, renal dysfunction Signs/Symptoms: Na 153, Cl 119, BUN 37 Malnutrition Alert Is there a minimum of two criteria No selected? Query Text:Check all the applicable criteria. A minimum of two criteria are recommended for diagnosis of either severe or non-severe malnutrition. Malnutrition Related to Morbid Obesity Malnutrition related to morbid obesity No Intervention/Recommendation Comments 1. Continue with [facility] soft ground diet as ordered. Monitor renal labs and adjust diet as needed. 2. Monitor PO intake, wt, labs and skin integrity 3. F/U as high risk in 2-3 days, 08/17-08/18 Expected Outcomes/Goals Expected Outcomes/Goals 1. PO intake to meet at least 75% of nutritional needs. 2. Wt stability, skin to remain intact, labs to approach WNL.
[2017-08-29 06:29] LABS: % BASOPHILS 1.4 % (0.0-2.0); % EOSINOPHILS 3.7 % (0.0-5.0); % LYMPHOCYTES 21.4 % (20.0-50.0); % MONOCYTES 8.1 % (2.0-10.0); % NEUTROPHILS 65.4 % (40.0-80.0); BASOPHILE ABSOLUTE 0.1 Th/cumm (0-0.2); EOSINOPHILE ABSOLUTE 0.3 Th/cmm (0.1-0.4); HEMATOCRIT 33.8 % (41.0-60); HEMOGLOBIN 11.6 gm/dL (12-16); LYMPHOCYTE ABSOLUTE 1.5 Th/cmm (1.5-3.0); MEAN CELL VOLUME 90.5 fl (80-99); MEAN CORPUSCULAR HGB CONC 34.2 pg (28.0-36.0); MONOCYTE ABSOLUTE 0.6 Th/cmm (0.3-1.0); NEUTROPHILE ABSOLUTE 4.5 Th/cmm (1.8-8.0); PLATELET COUNT 274 Th/cmm (150-400); RED BLOOD COUNT 3.74 Mil/cmm (3.80-5.80)
[2017-08-29 06:43] LABS: ALB/GLOB RATIO 0.8 (1.0-1.8); ALBUMIN 2.7 gm/dL (4.2-5.5); ALKALINE PHOSPHATASE 47 U/L (34-104); ANION GAP 7.8 (7.0-16.0); BILIRUBIN,TOTAL 0.6 mg/dL (0.3-1.0); BUN - UREA NITROGEN 11 mg/dL (7-25); CALCIUM SERUM 8.6 mg/dL (8.6-10.3); CARBON DIOXIDE 29.1 mEq/L (21.0-31.0); CHLORIDE 108 mEq/L (98-107); CREATININE - SERUM 0.6 mg/dL (0.7-1.3); GFR AFRICAN-AMERICAN > 60.0 ml/min (>90); GFR NON AFRICAN-AMERICAN > 60.0 ml/min; GLUCOSE 90 mg/dL (70-105); SGOT 15 U/L (13-39); SGPT/ALT 9 U/L (7-52); SODIUM SERUM 142 mEq/L (136-145); TOTAL PROTEIN,SERUM 6.2 gm/dL (6.0-8.3)
[2017-08-29 06:51] LABS: POTASSIUM SERUM 2.9 mEq/L (3.5-5.1)
[2017-08-29] MEDS ORDERED: Potassium Chloride 20 mEq ER Tab PO ONE (08:00)
[2017-08-29] MEDS: KCL 20mEq/100mL Premix 20 MEQ/100 ML PIGGYBACK IV SCH ×2 (09:07→11:04)
[2017-08-29] MEDS: Multivitamin Tab PO SCH (09:07)
[2017-08-29] MEDS: Lactobacillus Rhamnosus GG 15 Billion CFU CAP.SPRINK PO SCH (09:07)
[2017-08-29] MEDS: NYSTATIN 100000 UNITS/GM POWD TP SCH (17:16)
--- NOTE | 2017-08-29 20:50 | Internal Medicine Prog Note ---
Internal Medicine Subjective - Subjective Service Date: 08/29/17 Patient seen and examined:: with staff Patient is:: awake, verbal, in bed, talking Per staff patient has:: no adverse event Internal Medicine Objective - Results Result Diagrams: 08/29/17 05:55 08/29/17 05:55 Recent Labs: Laboratory Last Values WBC 7.0 Th/cmm (4.8-10.8) 08/29/17 05:55 RBC 3.74 Mil/cmm (3.80-5.80) L 08/29/17 05:55 Hgb 11.6 gm/dL (12-16) L 08/29/17 05:55 Hct 33.8 % (41.0-60) L 08/29/17 05:55 MCV 90.5 fl (80-99) 08/29/17 05:55 MCH 31.0 pg (27.0-31.0) 08/29/17 05:55 MCHC Differential 34.2 pg (28.0-36.0) 08/29/17 05:55 RDW 15.0 % (11.5-20.0) 08/29/17 05:55 Plt Count 274 Th/cmm (150-400) 08/29/17 05:55 MPV 8.0 fl 08/29/17 05:55 Neutrophils % 65.4 % (40.0-80.0) 08/29/17 05:55 Lymphocytes % 21.4 % (20.0-50.0) 08/29/17 05:55 Monocytes % 8.1 % (2.0-10.0) 08/29/17 05:55 Eosinophils % 3.7 % (0.0-5.0) 08/29/17 05:55 Basophils % 1.4 % (0.0-2.0) 08/29/17 05:55 Neutrophils (Manual) 83 % (40-80) H 08/15/17 04:05 Lymphocytes 13 % (20-50) L 08/15/17 04:05 Monocytes 4 % (2-10) 08/15/17 04:05 PT 14.0 SECONDS (9.5-11.5) H 08/14/17 10:10 INR 1.33 (0.5-1.4) 08/14/17 10:10 PTT (Actin FS) 31.6 SECONDS (26.0-38.0) 08/14/17 10:10 Sodium 142 mEq/L (136-145) 08/29/17 05:55 Potassium 2.9 mEq/L (3.5-5.1) L* 08/29/17 05:55 Chloride 108 mEq/L (98-107) H 08/29/17 05:55 Carbon Dioxide 29.1 mEq/L (21.0-31.0) 08/29/17 05:55 Anion Gap 7.8 (7.0-16.0) 08/29/17 05:55 BUN 11 mg/dL (7-25) 08/29/17 05:55 Creatinine 0.6 mg/dL (0.7-1.3) L 08/29/17 05:55 Est GFR ( Amer) > 60.0 ml/min (>90) 08/29/17 05:55 Est GFR (Non-Af Amer) > 60.0 ml/min 08/29/17 05:55 BUN/Creatinine Ratio 18.3 08/29/17 05:55 Glucose 90 mg/dL (70-105) 08/29/17 05:55 Calcium 8.6 mg/dL (8.6-10.3) 08/29/17 05:55 Total Bilirubin 0.6 mg/dL (0.3-1.0) 08/29/17 05:55 AST 15 U/L (13-39) 08/29/17 05:55 ALT 9 U/L (7-52) 08/29/17 05:55 Alkaline Phosphatase 47 U/L (34-104) 08/29/17 05:55 Total Protein 6.2 gm/dL (6.0-8.3) 08/29/17 05:55 Albumin 2.7 gm/dL (4.2-5.5) L 08/29/17 05:55 Globulin 3.5 gm/dL 08/29/17 05:55 Albumin/Globulin Ratio 0.8 (1.0-1.8) L 08/29/17 05:55 Urine Source CATH 08/14/17 12:50 Urine Color YELLOW 08/14/17 12:50 Urine Clarity HAZY (CLEAR) 08/14/17 12:50 Urine pH 6.0 (4.6 - 8.0) 08/14/17 12:50 Ur Specific [place] <= 1.005 (1.005-1.030) 08/14/17 12:50 Urine Protein NEGATIVE mg/dL (NEGATIVE) 08/14/17 12:50 Urine Glucose (UA) NEGATIVE mg/dL (NEGATIVE) 08/14/17 12:50 Urine Ketones NEGATIVE mg/dL (NEGATIVE) 08/14/17 12:50 Urine Blood LARGE (NEGATIVE) H 08/14/17 12:50 Urine Nitrate NEGATIVE (NEGATIVE) 08/14/17 12:50 Urine Bilirubin NEGATIVE (NEGATIVE) 08/14/17 12:50 Urine Urobilinogen 0.2 E.U./dL (0.2 - 1.0) 08/14/17 12:50 Ur Leukocyte Esterase NEGATIVE (NEGATIVE) 08/14/17 12:50 Urine RBC 50-100 /hpf (0-5) H 08/14/17 12:50 Urine WBC 0-2 /hpf (0-5) 08/14/17 12:50 Ur Epithelial Cells FEW /lpf (FEW) 08/14/17 12:50 Urine Bacteria FEW /hpf (NONE SEEN) 08/14/17 12:50 Urine Mucus FEW /lpf (FEW) 08/14/17 12:50 Hepatitis A IgM Ab Negative (Negative) 08/15/17 04:05 Hep Bs Antigen Negative (Negative) 08/15/17 04:05 Hep B Core IgM Ab Negative (Negative) 08/15/17 04:05 Hepatitis C Antibody <0.1 s/co ratio (0.0-0.9) 08/15/17 04:05 - Physical Exam Vitals and I&O: Vital Signs Temp 98.6 F 08/29/17 20:00 Pulse 62 08/29/17 20:00 Resp 19 08/29/17 20:00 BP 108/59 08/29/17 20:00 Pulse Ox 97 08/29/17 20:00 Intake & Output 08/29/17 08/29/17 08/30/17 06:59 18:59 06:59 Intake Total 550 97.5 Balance 550 97.5 Weight (lbs) 59.874 kg Intake: Intake, IV Amount 150 97.5 KCL 20mEq/100mL Premix 20 97.5 meq In 100 ml @ 50 mls/ hr IV Q2H [facility] Rx#: [id number] Piperacillin Sodium/ 50 Tazobact 2.25 gm In Sodium Chloride 0.9% 50 ml @ 100 mls/hr IV Q8HR [facility] Rx#:[id number] metroNIDAZOLE 500mg/NS 100 100mL 500 mg In 100 ml @ 100 mls/hr IV Q8HR [facility] Rx #:[id number] Oral 400 Other: # Voids 2 # Bowel Movements 0 Stool Characteristics Soft Soft Weight Source Bedscale Active Medications: Current Medications Acetaminophen (Tylenol) 650 mg PO Q4H PRN PRN Reason: Pain or Fever >101 Stop: 10/14/17 18:42 Last Admin: 08/28/17 21:03 Dose: 650 mg Al Hydrox/Mg Hydrox/Simethicone (Maalox) 30 ml PO Q4H PRN PRN Reason: GI DISTRESS Stop: 10/14/17 18:42 Calamine/Phenol (Calmoseptine) 1 appl TP PRN PRN PRN Reason: AFFECTED AREA(PERIANAL AREA) Stop: 10/24/17 23:44 Docusate Sodium (Colace) 100 mg PO BID [facility] Stop: 10/15/17 08:59 Last Admin: 08/29/17 16:49 Dose: 100 mg Famotidine (Pepcid) 20 mg PO DAILY [facility] Stop: 10/15/17 08:59 Last Admin: 08/29/17 09:07 Dose: 20 mg Sodium Chloride (Nacl 0.9%) 500 mls @ 0 mls/hr IV .Q0M [facility] Stop: 10/16/17 13:29 Lactobacillus Rhamnosus (Culturelle 15b) 1 each PO DAILY [facility] Stop: 10/14/17 12:59 Last Admin: 08/29/17 09:07 Dose: 1 each Magnesium Hydroxide (Milk Of Magnesia) 30 ml PO HS PRN PRN Reason: Constipation Stop: 10/14/17 18:42 Miscellaneous (Probiotic Screen) 1 ea MC PRN PRN PRN Reason: PROTOCOL Stop: 10/14/17 12:33 Multivitamins/Vitamin C (Theragran) 1 tab PO DAILY [facility] Stop: 10/15/17 08:59 Last Admin: 08/29/17 09:07 Dose: 1 tab Nystatin (Nystop) 100,000 units TP BID [facility] Stop: 10/28/17 16:59 Last Admin: 08/29/17 17:16 Dose: 100,000 units Tamsulosin HCl (Flomax) 0.4 mg PO DAILY [facility] Stop: 10/14/17 19:59 Last Admin: 08/29/17 09:07 Dose: 0.4 mg HEENT: PERRLA, anicteric sclerae, throat clear Neck: Supple, No JVD, No thyromegaly, +2 carotid pulse wo bruit, No LAD Cardiovascular: Normal S1, Normal S2, without murmur Abdomen: non-tender, non-distended Extremities: clear Neurological: no change - Procedures Procedures: Procedures Procedure Code Date INSERTION OF INFUSION DEV INTO L SUBCLAV VEIN, PERC APPROACH 55I157D 08/14/17 PERFORMANCE OF URINARY FILTRATION, <6 HRS/DAY [id number] 08/14/17 ULTRASONOGRAPHY OF LEFT SUBCLAVIAN VEIN, GUIDANCE [id number] 08/14/17 Internal Medicine Assmt/Plan - Assessment Assessment: 1.ACUTE OBSTRUCTIVE RENAL FAILURE. 2.BPH. 3.HISTORY OF PSYCHOSIS. 4.CONSTIPATION. 5.DEMENTIA. 6.LEFT LOWER PNEUMONIA - Plan Plan: CONTINUE ON CURRENT MEDICATION AND DIET.TRANSFER TO [facility] IN AM. Nutritional Asmnt/Malnutr-PDOC - Dietary Evaluation Malnutrition Findings (Please click <Entered> for more info): Nutritional Asmnt/Malnutrition Start: 08/15/17 15: 52 Text: Status: Complete Freq: Protocol: Document 08/15/17 15:54 LCHENG (Rec: 08/15/17 16:24 [email or web address] [email or web address]) Nutritional Asmnt/Malnutrition Patient General Information Nutritional Screening High Risk Consult Diagnosis pacemaker placement Pertinent Medical Hx/Surgical Hx HTN, BPH, dementia Subjective Information Consult received for poor intake and wounds. Pt was NPO since admitted noted. per nurse note in the morning, pt was yelling for water and food . [facility] soft ground diet stated from lunch. Per nurse note in the afternoon, pt fed himself 100% of lunch. Pt had dialysis yetserday per nurse d /t elevated BUN/Crea and hyperkalemia. Current Diet Order/ Nutrition Support [facility] soft ground. Pertinent Medications D5w, culturelle, piperacillin Pertinent Labs 7/ Na 153, Cl 119, BUN 37, glucose 120 7/ Na 128, K 8.8, BUN 212, Cr 13 Nutritional Hx/Data Height 1.65 m Height (Calculated Centimeters) 165.1 Current Weight (lbs) 59.421 kg Weight (Calculated Kilograms) 59.4 Weight (Calculated Grams) 03173.6 [place] Body Weight 136 Body Mass Index (BMI) 21.8 Weight Status Approriate GI Symptoms GI Symptoms None Last BM none Difficult in: None Skin Integrity/Comment: pressure area to right buttocks, abrasion to left eye , redded to left toe and right ankle Current %PO Good (75-100%) Estimated Nutritional Goals BEE in Kcals: Using Current wt Calories/Kcals/Kg 25-30 Kcals Calculated 4152-6660 Protein: Using Current wt Protein g/k monitor renal labs Protein Calculated 60 Fluid: ml per MD Nutritional Problem 1. Problem Problem altered nutrition related labs Etiology electrolytes imbalance, renal dysfunction Signs/Symptoms: Na 153, Cl 119, BUN 37 Malnutrition Alert Is there a minimum of two criteria No selected? Query Text:Check all the applicable criteria. A minimum of two criteria are recommended for diagnosis of either severe or non-severe malnutrition. Malnutrition Related to Morbid Obesity Malnutrition related to morbid obesity No Intervention/Recommendation Comments 1. Continue with [facility] soft ground diet as ordered. Monitor renal labs and adjust diet as needed. 2. Monitor PO intake, wt, labs and skin integrity 3. F/U as high risk in 2-3 days, 08/17-08/18 Expected Outcomes/Goals Expected Outcomes/Goals 1. PO intake to meet at least 75% of nutritional needs. 2. Wt stability, skin to remain intact, labs to approach WNL.
[2017-08-30 05:41] LABS: ALBUMIN 2.8 gm/dL (4.2-5.5); ANION GAP 8.4 (7.0-16.0); BUN - UREA NITROGEN 10 mg/dL (7-25); CALCIUM SERUM 8.5 mg/dL (8.6-10.3); CARBON DIOXIDE 28.9 mEq/L (21.0-31.0); CHLORIDE 106 mEq/L (98-107); CREATININE - SERUM 0.6 mg/dL (0.7-1.3); GFR AFRICAN-AMERICAN > 60.0 ml/min (>90); GFR NON AFRICAN-AMERICAN > 60.0 ml/min; GLUCOSE 90 mg/dL (70-105); POTASSIUM SERUM 3.3 mEq/L (3.5-5.1); SODIUM SERUM 140 mEq/L (136-145); TOTAL PROTEIN,SERUM 6.1 gm/dL (6.0-8.3)
[2017-08-30 05:42] LABS: ALB/GLOB RATIO 0.9 (1.0-1.8); ALKALINE PHOSPHATASE 47 U/L (34-104); BILIRUBIN,TOTAL 0.5 mg/dL (0.3-1.0); SGOT 16 U/L (13-39); SGPT/ALT 8 U/L (7-52)
[2017-08-30] MEDS: Multivitamin Tab PO SCH (10:50)
[2017-08-30] MEDS: NYSTATIN 100000 UNITS/GM POWD TP SCH ×2 (10:50→16:44)
[2017-08-30] MEDS: Lactobacillus Rhamnosus GG 15 Billion CFU CAP.SPRINK PO SCH (10:50)
--- NOTE | 2017-08-30 22:07 | Internal Medicine Prog Note ---
Internal Medicine Subjective - Subjective Service Date: 08/30/17 Patient seen and examined:: with staff Patient is:: awake, verbal, in bed, talking Per staff patient has:: no adverse event Internal Medicine Objective - Results Result Diagrams: 08/29/17 05:55 08/30/17 05:01 Recent Labs: Laboratory Last Values WBC 7.0 Th/cmm (4.8-10.8) 08/29/17 05:55 RBC 3.74 Mil/cmm (3.80-5.80) L 08/29/17 05:55 Hgb 11.6 gm/dL (12-16) L 08/29/17 05:55 Hct 33.8 % (41.0-60) L 08/29/17 05:55 MCV 90.5 fl (80-99) 08/29/17 05:55 MCH 31.0 pg (27.0-31.0) 08/29/17 05:55 MCHC Differential 34.2 pg (28.0-36.0) 08/29/17 05:55 RDW 15.0 % (11.5-20.0) 08/29/17 05:55 Plt Count 274 Th/cmm (150-400) 08/29/17 05:55 MPV 8.0 fl 08/29/17 05:55 Neutrophils % 65.4 % (40.0-80.0) 08/29/17 05:55 Lymphocytes % 21.4 % (20.0-50.0) 08/29/17 05:55 Monocytes % 8.1 % (2.0-10.0) 08/29/17 05:55 Eosinophils % 3.7 % (0.0-5.0) 08/29/17 05:55 Basophils % 1.4 % (0.0-2.0) 08/29/17 05:55 Neutrophils (Manual) 83 % (40-80) H 08/15/17 04:05 Lymphocytes 13 % (20-50) L 08/15/17 04:05 Monocytes 4 % (2-10) 08/15/17 04:05 PT 14.0 SECONDS (9.5-11.5) H 08/14/17 10:10 INR 1.33 (0.5-1.4) 08/14/17 10:10 PTT (Actin FS) 31.6 SECONDS (26.0-38.0) 08/14/17 10:10 Sodium 140 mEq/L (136-145) 08/30/17 05:01 Potassium 3.3 mEq/L (3.5-5.1) L 08/30/17 05:01 Chloride 106 mEq/L (98-107) 08/30/17 05:01 Carbon Dioxide 28.9 mEq/L (21.0-31.0) 08/30/17 05:01 Anion Gap 8.4 (7.0-16.0) 08/30/17 05:01 BUN 10 mg/dL (7-25) 08/30/17 05:01 Creatinine 0.6 mg/dL (0.7-1.3) L 08/30/17 05:01 Est GFR ( Amer) > 60.0 ml/min (>90) 08/30/17 05:01 Est GFR (Non-Af Amer) > 60.0 ml/min 08/30/17 05:01 BUN/Creatinine Ratio 16.7 08/30/17 05:01 Glucose 90 mg/dL (70-105) 08/30/17 05:01 Calcium 8.5 mg/dL (8.6-10.3) L 08/30/17 05:01 Total Bilirubin 0.5 mg/dL (0.3-1.0) 08/30/17 05:01 AST 16 U/L (13-39) 08/30/17 05:01 ALT 8 U/L (7-52) 08/30/17 05:01 Alkaline Phosphatase 47 U/L (34-104) 08/30/17 05:01 Total Protein 6.1 gm/dL (6.0-8.3) 08/30/17 05:01 Albumin 2.8 gm/dL (4.2-5.5) L 08/30/17 05:01 Globulin 3.3 gm/dL 08/30/17 05:01 Albumin/Globulin Ratio 0.9 (1.0-1.8) L 08/30/17 05:01 Urine Source CATH 08/14/17 12:50 Urine Color YELLOW 08/14/17 12:50 Urine Clarity HAZY (CLEAR) 08/14/17 12:50 Urine pH 6.0 (4.6 - 8.0) 08/14/17 12:50 Ur Specific [place] <= 1.005 (1.005-1.030) 08/14/17 12:50 Urine Protein NEGATIVE mg/dL (NEGATIVE) 08/14/17 12:50 Urine Glucose (UA) NEGATIVE mg/dL (NEGATIVE) 08/14/17 12:50 Urine Ketones NEGATIVE mg/dL (NEGATIVE) 08/14/17 12:50 Urine Blood LARGE (NEGATIVE) H 08/14/17 12:50 Urine Nitrate NEGATIVE (NEGATIVE) 08/14/17 12:50 Urine Bilirubin NEGATIVE (NEGATIVE) 08/14/17 12:50 Urine Urobilinogen 0.2 E.U./dL (0.2 - 1.0) 08/14/17 12:50 Ur Leukocyte Esterase NEGATIVE (NEGATIVE) 08/14/17 12:50 Urine RBC 50-100 /hpf (0-5) H 08/14/17 12:50 Urine WBC 0-2 /hpf (0-5) 08/14/17 12:50 Ur Epithelial Cells FEW /lpf (FEW) 08/14/17 12:50 Urine Bacteria FEW /hpf (NONE SEEN) 08/14/17 12:50 Urine Mucus FEW /lpf (FEW) 08/14/17 12:50 Hepatitis A IgM Ab Negative (Negative) 08/15/17 04:05 Hep Bs Antigen Negative (Negative) 08/15/17 04:05 Hep B Core IgM Ab Negative (Negative) 08/15/17 04:05 Hepatitis C Antibody <0.1 s/co ratio (0.0-0.9) 08/15/17 04:05 - Physical Exam Vitals and I&O: Vital Signs Temp 98.1 F 08/30/17 16:00 Pulse 64 08/30/17 16:00 Resp 20 08/30/17 16:00 BP 100/67 08/30/17 16:00 Pulse Ox 96 08/30/17 16:00 Intake & Output 08/30/17 08/30/17 08/31/17 06:59 18:59 06:59 Intake Total 180 2400 Balance 180 2400 Weight (lbs) 59.874 kg 59.874 kg Intake: Oral 180 2400 Other: # Voids 1 4 # Bowel Movements 1 2 Stool Characteristics Soft Liquid Weight Source Bedscale Bedscale Active Medications: Current Medications Acetaminophen (Tylenol) 650 mg PO Q4H PRN PRN Reason: Pain or Fever >101 Stop: 10/14/17 18:42 Last Admin: 08/28/17 21:03 Dose: 650 mg Al Hydrox/Mg Hydrox/Simethicone (Maalox) 30 ml PO Q4H PRN PRN Reason: GI DISTRESS Stop: 10/14/17 18:42 Calamine/Phenol (Calmoseptine) 1 appl TP PRN PRN PRN Reason: AFFECTED AREA(PERIANAL AREA) Stop: 10/24/17 23:44 Docusate Sodium (Colace) 100 mg PO BID [facility] Stop: 10/15/17 08:59 Last Admin: 08/30/17 16:45 Dose: Not Given Famotidine (Pepcid) 20 mg PO DAILY [facility] Stop: 10/15/17 08:59 Last Admin: 08/30/17 10:50 Dose: 20 mg Sodium Chloride (Nacl 0.9%) 500 mls @ 0 mls/hr IV .Q0M [facility] Stop: 10/16/17 13:29 Lactobacillus Rhamnosus (Culturelle 15b) 1 each PO DAILY [facility] Stop: 10/14/17 12:59 Last Admin: 08/30/17 10:50 Dose: 1 each Magnesium Hydroxide (Milk Of Magnesia) 30 ml PO HS PRN PRN Reason: Constipation Stop: 10/14/17 18:42 Miscellaneous (Probiotic Screen) 1 ea MC PRN PRN PRN Reason: PROTOCOL Stop: 10/14/17 12:33 Multivitamins/Vitamin C (Theragran) 1 tab PO DAILY [facility] Stop: 10/15/17 08:59 Last Admin: 08/30/17 10:50 Dose: 1 tab Nystatin (Nystop) 100,000 units TP BID [facility] Stop: 10/28/17 16:59 Last Admin: 08/30/17 16:44 Dose: 100,000 units Tamsulosin HCl (Flomax) 0.4 mg PO DAILY [facility] Stop: 10/14/17 19:59 Last Admin: 08/30/17 10:50 Dose: 0.4 mg HEENT: PERRLA, anicteric sclerae, throat clear Neck: Supple, No JVD, No thyromegaly, +2 carotid pulse wo bruit, No LAD Cardiovascular: Normal S1, Normal S2, without murmur Abdomen: non-tender, non-distended Extremities: clear Neurological: no change - Procedures Procedures: Procedures Procedure Code Date INSERTION OF INFUSION DEV INTO L SUBCLAV VEIN, PERC APPROACH 31K281L 08/14/17 PERFORMANCE OF URINARY FILTRATION, <6 HRS/DAY [id number] 08/14/17 ULTRASONOGRAPHY OF LEFT SUBCLAVIAN VEIN, GUIDANCE [id number] 08/14/17 Internal Medicine Assmt/Plan - Assessment Assessment: 1.ACUTE OBSTRUCTIVE RENAL FAILURE. 2.BPH. 3.HISTORY OF PSYCHOSIS. 4.CONSTIPATION. 5.DEMENTIA. 6.LEFT LOWER PNEUMONIA - Plan Plan: CONTINUE ON CURRENT MEDICATION AND DIET. Nutritional Asmnt/Malnutr-PDOC - Dietary Evaluation Malnutrition Findings (Please click <Entered> for more info): Nutritional Asmnt/Malnutrition Start: 08/15/17 15: 52 Text: Status: Complete Freq: Protocol: Document 08/15/17 15:54 LCHENG (Rec: 08/15/17 16:24 LCHENG [email or web address]) Nutritional Asmnt/Malnutrition Patient General Information Nutritional Screening High Risk Consult Diagnosis pacemaker placement Pertinent Medical Hx/Surgical Hx HTN, BPH, dementia Subjective Information Consult received for poor intake and wounds. Pt was NPO since admitted noted. per nurse note in the morning, pt was yelling [facility] water and [facility]. Per nurse note in the afternoon, pt fed himself 100% of lunch. Pt had dialysis yetserday per nurse d /t elevated BUN/Crea and hyperkalemia. Current Diet Order/ Nutrition Support [facility] soft ground. Pertinent Medications D5w, culturelle, piperacillin Pertinent Labs 08/15 Na 153, Cl 119, BUN 37, glucose 120 7/ Na 128, K 8.8, BUN 212, Cr 13 Nutritional Hx/Data Height 1.65 m Height (Calculated Centimeters) 165.1 Current Weight (lbs) 59.421 kg Weight (Calculated Kilograms) 59.4 Weight (Calculated Grams) 07525.6 [place] Body Weight 136 Body Mass Index (BMI) 21.8 Weight Status Approriate GI Symptoms GI Symptoms None Last BM none Difficult in: None Skin Integrity/Comment: pressure area to right buttocks, abrasion to left eye , redded to left toe and right ankle Current %PO Good (75-100%) Estimated Nutritional Goals BEE in Kcals: Using Current wt Calories/Kcals/Kg 25-30 Kcals Calculated 4322-9771 Protein: Using Current wt Protein g/k monitor renal labs Protein Calculated 60 Fluid: ml per MD Nutritional Problem 1. Problem Problem altered nutrition related labs Etiology electrolytes imbalance, renal dysfunction Signs/Symptoms: Na 153, Cl 119, BUN 37 Malnutrition Alert Is there a minimum of two criteria No selected? Query Text:Check all the applicable criteria. A minimum of two criteria are recommended for diagnosis of either severe or non-severe malnutrition. Malnutrition Related to Morbid Obesity Malnutrition related to morbid obesity No Intervention/Recommendation Comments 1. Continue with [facility] soft ground diet as ordered. Monitor renal labs and adjust diet as needed. 2. Monitor PO intake, wt, labs and skin integrity 3. F/U as high risk in 2-3 days, 08/17-08/18 Expected Outcomes/Goals Expected Outcomes/Goals 1. PO intake to meet at least 75% of nutritional needs. 2. Wt stability, skin to remain intact, labs to approach WNL.
[2017-08-31] MEDS: NYSTATIN 100000 UNITS/GM POWD TP SCH ×2 (09:25→16:51)
[2017-08-31] MEDS: Multivitamin Tab PO SCH (09:25)
[2017-08-31] MEDS: Lactobacillus Rhamnosus GG 15 Billion CFU CAP.SPRINK PO SCH (09:25)
--- NOTE | 2017-08-31 21:32 | Internal Medicine Prog Note ---
Internal Medicine Subjective - Subjective Service Date: 08/31/17 Patient seen and examined:: with staff Patient is:: awake, verbal, in bed, talking Per staff patient has:: no adverse event Internal Medicine Objective - Results Result Diagrams: 08/29/17 05:55 08/30/17 05:01 Recent Labs: Laboratory Last Values WBC 7.0 Th/cmm (4.8-10.8) 08/29/17 05:55 RBC 3.74 Mil/cmm (3.80-5.80) L 08/29/17 05:55 Hgb 11.6 gm/dL (12-16) L 08/29/17 05:55 Hct 33.8 % (41.0-60) L 08/29/17 05:55 MCV 90.5 fl (80-99) 08/29/17 05:55 MCH 31.0 pg (27.0-31.0) 08/29/17 05:55 MCHC Differential 34.2 pg (28.0-36.0) 08/29/17 05:55 RDW 15.0 % (11.5-20.0) 08/29/17 05:55 Plt Count 274 Th/cmm (150-400) 08/29/17 05:55 MPV 8.0 fl 08/29/17 05:55 Neutrophils % 65.4 % (40.0-80.0) 08/29/17 05:55 Lymphocytes % 21.4 % (20.0-50.0) 08/29/17 05:55 Monocytes % 8.1 % (2.0-10.0) 08/29/17 05:55 Eosinophils % 3.7 % (0.0-5.0) 08/29/17 05:55 Basophils % 1.4 % (0.0-2.0) 08/29/17 05:55 Neutrophils (Manual) 83 % (40-80) H 08/15/17 04:05 Lymphocytes 13 % (20-50) L 08/15/17 04:05 Monocytes 4 % (2-10) 08/15/17 04:05 PT 14.0 SECONDS (9.5-11.5) H 08/14/17 10:10 INR 1.33 (0.5-1.4) 08/14/17 10:10 PTT (Actin FS) 31.6 SECONDS (26.0-38.0) 08/14/17 10:10 Sodium 140 mEq/L (136-145) 08/30/17 05:01 Potassium 3.3 mEq/L (3.5-5.1) L 08/30/17 05:01 Chloride 106 mEq/L (98-107) 08/30/17 05:01 Carbon Dioxide 28.9 mEq/L (21.0-31.0) 08/30/17 05:01 Anion Gap 8.4 (7.0-16.0) 08/30/17 05:01 BUN 10 mg/dL (7-25) 08/30/17 05:01 Creatinine 0.6 mg/dL (0.7-1.3) L 08/30/17 05:01 Est GFR ( Amer) > 60.0 ml/min (>90) 08/30/17 05:01 Est GFR (Non-Af Amer) > 60.0 ml/min 08/30/17 05:01 BUN/Creatinine Ratio 16.7 08/30/17 05:01 Glucose 90 mg/dL (70-105) 08/30/17 05:01 Calcium 8.5 mg/dL (8.6-10.3) L 08/30/17 05:01 Total Bilirubin 0.5 mg/dL (0.3-1.0) 08/30/17 05:01 AST 16 U/L (13-39) 08/30/17 05:01 ALT 8 U/L (7-52) 08/30/17 05:01 Alkaline Phosphatase 47 U/L (34-104) 08/30/17 05:01 Total Protein 6.1 gm/dL (6.0-8.3) 08/30/17 05:01 Albumin 2.8 gm/dL (4.2-5.5) L 08/30/17 05:01 Globulin 3.3 gm/dL 08/30/17 05:01 Albumin/Globulin Ratio 0.9 (1.0-1.8) L 08/30/17 05:01 Urine Source CATH 08/14/17 12:50 Urine Color YELLOW 08/14/17 12:50 Urine Clarity HAZY (CLEAR) 08/14/17 12:50 Urine pH 6.0 (4.6 - 8.0) 08/14/17 12:50 Ur Specific [place] <= 1.005 (1.005-1.030) 08/14/17 12:50 Urine Protein NEGATIVE mg/dL (NEGATIVE) 08/14/17 12:50 Urine Glucose (UA) NEGATIVE mg/dL (NEGATIVE) 08/14/17 12:50 Urine Ketones NEGATIVE mg/dL (NEGATIVE) 08/14/17 12:50 Urine Blood LARGE (NEGATIVE) H 08/14/17 12:50 Urine Nitrate NEGATIVE (NEGATIVE) 08/14/17 12:50 Urine Bilirubin NEGATIVE (NEGATIVE) 08/14/17 12:50 Urine Urobilinogen 0.2 E.U./dL (0.2 - 1.0) 08/14/17 12:50 Ur Leukocyte Esterase NEGATIVE (NEGATIVE) 08/14/17 12:50 Urine RBC 50-100 /hpf (0-5) H 08/14/17 12:50 Urine WBC 0-2 /hpf (0-5) 08/14/17 12:50 Ur Epithelial Cells FEW /lpf (FEW) 08/14/17 12:50 Urine Bacteria FEW /hpf (NONE SEEN) 08/14/17 12:50 Urine Mucus FEW /lpf (FEW) 08/14/17 12:50 Hepatitis A IgM Ab Negative (Negative) 08/15/17 04:05 Hep Bs Antigen Negative (Negative) 08/15/17 04:05 Hep B Core IgM Ab Negative (Negative) 08/15/17 04:05 Hepatitis C Antibody <0.1 s/co ratio (0.0-0.9) 08/15/17 04:05 - Physical Exam Vitals and I&O: Vital Signs Temp 97.1 F 08/31/17 16:13 Pulse 81 08/31/17 16:13 Resp 18 08/31/17 16:13 BP 130/80 08/31/17 16:13 Pulse Ox 96 08/31/17 16:13 Intake & Output 08/31/17 08/31/17 09/01/17 06:59 18:59 06:59 Intake Total 3000 Balance 3000 Weight (lbs) 59.421 kg Intake: Oral 3000 Other: # Voids 4 # Bowel Movements 1 Stool Characteristics Soft Weight Source Bedscale Active Medications: Current Medications Acetaminophen (Tylenol) 650 mg PO Q4H PRN PRN Reason: Pain or Fever >101 Stop: 10/14/17 18:42 Last Admin: 08/31/17 20:16 Dose: 650 mg Al Hydrox/Mg Hydrox/Simethicone (Maalox) 30 ml PO Q4H PRN PRN Reason: GI DISTRESS Stop: 10/14/17 18:42 Calamine/Phenol (Calmoseptine) 1 appl TP PRN PRN PRN Reason: AFFECTED AREA(PERIANAL AREA) Stop: 10/24/17 23:44 Docusate Sodium (Colace) 100 mg PO BID [facility] Stop: 10/15/17 08:59 Last Admin: 08/31/17 16:52 Dose: Not Given Famotidine (Pepcid) 20 mg PO DAILY [facility] Stop: 10/15/17 08:59 Last Admin: 08/31/17 09:25 Dose: 20 mg Sodium Chloride (Nacl 0.9%) 500 mls @ 0 mls/hr IV .Q0M [facility] Stop: 10/16/17 13:29 Lactobacillus Rhamnosus (Culturelle 15b) 1 each PO DAILY [facility] Stop: 10/14/17 12:59 Last Admin: 08/31/17 09:25 Dose: 1 each Lorazepam (Ativan) 1 mg PO Q6HR PRN; Protocol PRN Reason: Agitation Stop: 10/30/17 11:14 Last Admin: 08/31/17 20:16 Dose: 1 mg Magnesium Hydroxide (Milk Of Magnesia) 30 ml PO HS PRN PRN Reason: Constipation Stop: 10/14/17 18:42 Miscellaneous (Probiotic Screen) 1 ea PRN PRN PRN Reason: PROTOCOL Stop: 10/14/17 12:33 Multivitamins/Vitamin C (Theragran) 1 tab PO DAILY [facility] Stop: 10/15/17 08:59 Last Admin: 08/31/17 09:25 Dose: 1 tab Nystatin (Nystop) 100,000 units TP BID [facility] Stop: 10/28/17 16:59 Last Admin: 08/31/17 16:51 Dose: 100,000 units Tamsulosin HCl (Flomax) 0.4 mg PO DAILY [facility] Stop: 10/14/17 19:59 Last Admin: 08/31/17 09:25 Dose: 0.4 mg HEENT: PERRLA, anicteric sclerae, throat clear Neck: Supple, No JVD, No thyromegaly, +2 carotid pulse wo bruit, No LAD Cardiovascular: Normal S1, Normal S2, without murmur Abdomen: non-tender, non-distended Extremities: clear Neurological: no change - Procedures Procedures: Procedures Procedure Code Date INSERTION OF INFUSION DEV INTO L SUBCLAV VEIN, PERC APPROACH [id number] 08/14/17 PERFORMANCE OF URINARY FILTRATION, <6 HRS/DAY [id number] 08/14/17 ULTRASONOGRAPHY OF LEFT SUBCLAVIAN VEIN, GUIDANCE [id number] 08/14/17 Internal Medicine Assmt/Plan - Assessment Assessment: 1.ACUTE OBSTRUCTIVE RENAL FAILURE. 2.BPH. 3.HISTORY OF PSYCHOSIS. 4.CONSTIPATION. 5.DEMENTIA. 6.LEFT LOWER PNEUMONIA - Plan Plan: CONTINUE ON CURRENT MEDICATION AND DIET. Nutritional Asmnt/Malnutr-PDOC - Dietary Evaluation Malnutrition Findings (Please click <Entered> for more info): Nutritional Asmnt/Malnutrition Start: 08/15/17 15: 52 Text: Status: Complete Freq: Protocol: Document 08/15/17 15:54 [facility] (Rec: 08/15/17 16:24 HEN [email or web address]) Nutritional Asmnt/Malnutrition Patient General Information Nutritional Screening High Risk Consult Diagnosis pacemaker placement Pertinent Medical Hx/Surgical Hx HTN, BPH, dementia Subjective Information Consult received for poor intake and wounds. Pt was NPO since admitted noted. per nurse note in the morning, pt was yelling for water and food . [facility] soft ground diet stated from lunch. Per nurse note in the afternoon, pt fed himself 100% of lunch. Pt had dialysis yetserday per nurse d /t elevated BUN/Crea and hyperkalemia. Current Diet Order/ Nutrition Support [facility] soft ground. Pertinent Medications D5w, culturelle, piperacillin Pertinent Labs 7/2 Na 153, Cl 119, BUN 37, glucose 120 7/1 Na 128, K 8.8, BUN 212, Cr 13 Nutritional Hx/Data Height 1.65 m Height (Calculated Centimeters) 165.1 Current Weight (lbs) 59.421 kg Weight (Calculated Kilograms) 59.4 Weight (Calculated Grams) 82454.6 [place] Body Weight 136 Body Mass Index (BMI) 21.8 Weight Status Approriate GI Symptoms GI Symptoms None Last BM none Difficult in: None Skin Integrity/Comment: pressure area to right buttocks, abrasion to left eye , redded to left toe and right ankle Current %PO Good (75-100%) Estimated Nutritional Goals BEE in Kcals: Using Current wt Calories/Kcals/Kg 25-30 Kcals Calculated 0227-7400 Protein: Using Current wt Protein g/k monitor renal labs Protein Calculated 60 Fluid: ml per MD Nutritional Problem 1. Problem Problem altered nutrition related labs Etiology electrolytes imbalance, renal dysfunction Signs/Symptoms: Na 153, Cl 119, BUN 37 Malnutrition Alert Is there a minimum of two criteria No selected? Query Text:Check all the applicable criteria. A minimum of two criteria are recommended for diagnosis of either severe or non-severe malnutrition. Malnutrition Related to Morbid Obesity Malnutrition related to morbid obesity No Intervention/Recommendation Comments 1. Continue with [facility] soft ground diet as ordered. Monitor renal labs and adjust diet as needed. 2. Monitor PO intake, wt, labs and skin integrity 3. F/U as high risk in 2-3 days, 08/17-08/18 Expected Outcomes/Goals Expected Outcomes/Goals 1. PO intake to meet at least 75% of nutritional needs. 2. Wt stability, skin to remain intact, labs to approach WNL.
[2017-09-01] MEDS: Multivitamin Tab PO SCH (08:06)
[2017-09-01] MEDS: Lactobacillus Rhamnosus GG 15 Billion CFU CAP.SPRINK PO SCH (08:06)
[2017-09-01] MEDS: NYSTATIN 100000 UNITS/GM POWD TP SCH ×2 (08:07→16:13)
[2017-09-01] MEDS ORDERED: Potassium Chloride 20 mEq ER Tab PO ONE (11:35)
--- NOTE | 2017-09-01 21:18 | Internal Medicine Prog Note ---
Internal Medicine Subjective - Subjective Service Date: 09/01/17 Patient seen and examined:: with staff Patient is:: awake, verbal, in bed, talking Per staff patient has:: no adverse event Internal Medicine Objective - Results Result Diagrams: 08/29/17 05:55 08/30/17 05:01 Recent Labs: Laboratory Last Values WBC 7.0 Th/cmm (4.8-10.8) 08/29/17 05:55 RBC 3.74 Mil/cmm (3.80-5.80) L 08/29/17 05:55 Hgb 11.6 gm/dL (12-16) L 08/29/17 05:55 Hct 33.8 % (41.0-60) L 08/29/17 05:55 MCV 90.5 fl (80-99) 08/29/17 05:55 MCH 31.0 pg (27.0-31.0) 08/29/17 05:55 MCHC Differential 34.2 pg (28.0-36.0) 08/29/17 05:55 RDW 15.0 % (11.5-20.0) 08/29/17 05:55 Plt Count 274 Th/cmm (150-400) 08/29/17 05:55 MPV 8.0 fl 08/29/17 05:55 Neutrophils % 65.4 % (40.0-80.0) 08/29/17 05:55 Lymphocytes % 21.4 % (20.0-50.0) 08/29/17 05:55 Monocytes % 8.1 % (2.0-10.0) 08/29/17 05:55 Eosinophils % 3.7 % (0.0-5.0) 08/29/17 05:55 Basophils % 1.4 % (0.0-2.0) 08/29/17 05:55 Neutrophils (Manual) 83 % (40-80) H 08/15/17 04:05 Lymphocytes 13 % (20-50) L 08/15/17 04:05 Monocytes 4 % (2-10) 08/15/17 04:05 PT 14.0 SECONDS (9.5-11.5) H 08/14/17 10:10 INR 1.33 (0.5-1.4) 08/14/17 10:10 PTT (Actin FS) 31.6 SECONDS (26.0-38.0) 08/14/17 10:10 Sodium 140 mEq/L (136-145) 08/30/17 05:01 Potassium 3.3 mEq/L (3.5-5.1) L 08/30/17 05:01 Chloride 106 mEq/L (98-107) 08/30/17 05:01 Carbon Dioxide 28.9 mEq/L (21.0-31.0) 08/30/17 05:01 Anion Gap 8.4 (7.0-16.0) 08/30/17 05:01 BUN 10 mg/dL (7-25) 08/30/17 05:01 Creatinine 0.6 mg/dL (0.7-1.3) L 08/30/17 05:01 Est GFR ( Amer) > 60.0 ml/min (>90) 08/30/17 05:01 Est GFR (Non-Af Amer) > 60.0 ml/min 08/30/17 05:01 BUN/Creatinine Ratio 16.7 08/30/17 05:01 Glucose 90 mg/dL (70-105) 08/30/17 05:01 Calcium 8.5 mg/dL (8.6-10.3) L 08/30/17 05:01 Total Bilirubin 0.5 mg/dL (0.3-1.0) 08/30/17 05:01 AST 16 U/L (13-39) 08/30/17 05:01 ALT 8 U/L (7-52) 08/30/17 05:01 Alkaline Phosphatase 47 U/L (34-104) 08/30/17 05:01 Total Protein 6.1 gm/dL (6.0-8.3) 08/30/17 05:01 Albumin 2.8 gm/dL (4.2-5.5) L 08/30/17 05:01 Globulin 3.3 gm/dL 08/30/17 05:01 Albumin/Globulin Ratio 0.9 (1.0-1.8) L 08/30/17 05:01 Urine Source CATH 08/14/17 12:50 Urine Color YELLOW 08/14/17 12:50 Urine Clarity HAZY (CLEAR) 08/14/17 12:50 Urine pH 6.0 (4.6 - 8.0) 08/14/17 12:50 Ur Specific [place] <= 1.005 (1.005-1.030) 08/14/17 12:50 Urine Protein NEGATIVE mg/dL (NEGATIVE) 08/14/17 12:50 Urine Glucose (UA) NEGATIVE mg/dL (NEGATIVE) 08/14/17 12:50 Urine Ketones NEGATIVE mg/dL (NEGATIVE) 08/14/17 12:50 Urine Blood LARGE (NEGATIVE) H 08/14/17 12:50 Urine Nitrate NEGATIVE (NEGATIVE) 08/14/17 12:50 Urine Bilirubin NEGATIVE (NEGATIVE) 08/14/17 12:50 Urine Urobilinogen 0.2 E.U./dL (0.2 - 1.0) 08/14/17 12:50 Ur Leukocyte Esterase NEGATIVE (NEGATIVE) 08/14/17 12:50 Urine RBC 50-100 /hpf (0-5) H 08/14/17 12:50 Urine WBC 0-2 /hpf (0-5) 08/14/17 12:50 Ur Epithelial Cells FEW /lpf (FEW) 08/14/17 12:50 Urine Bacteria FEW /hpf (NONE SEEN) 08/14/17 12:50 Urine Mucus FEW /lpf (FEW) 08/14/17 12:50 Hepatitis A IgM Ab Negative (Negative) 08/15/17 04:05 Hep Bs Antigen Negative (Negative) 08/15/17 04:05 Hep B Core IgM Ab Negative (Negative) 08/15/17 04:05 Hepatitis C Antibody <0.1 s/co ratio (0.0-0.9) 08/15/17 04:05 - Physical Exam Vitals and I&O: Vital Signs Temp 98.1 F 09/01/17 16:02 Pulse 67 09/01/17 16:02 Resp 18 09/01/17 16:02 BP 127/80 09/01/17 16:02 Pulse Ox 99 09/01/17 16:02 Intake & Output 09/01/17 09/01/17 09/02/17 06:59 18:59 06:59 Intake Total 1000 680 Output Total 1 Balance 999 680 Weight (lbs) 61.326 kg 61.235 kg Intake: Oral 1000 680 Output: Stool 1 Other: # Voids 3 4 # Bowel Movements 1 0 Stool Characteristics Soft Soft Weight Source Bedscale Bedscale Active Medications: Current Medications Acetaminophen (Tylenol) 650 mg PO Q4H PRN PRN Reason: Pain or Fever >101 Stop: 10/14/17 18:42 Last Admin: 08/31/17 20:16 Dose: 650 mg Al Hydrox/Mg Hydrox/Simethicone (Maalox) 30 ml PO Q4H PRN PRN Reason: GI DISTRESS Stop: 10/14/17 18:42 Calamine/Phenol (Calmoseptine) 1 appl TP PRN PRN PRN Reason: AFFECTED AREA(PERIANAL AREA) Stop: 10/24/17 23:44 Last Admin: 09/01/17 08:06 Dose: 1 appl Docusate Sodium (Colace) 100 mg PO BID [facility] Stop: 10/15/17 08:59 Last Admin: 09/01/17 16:13 Dose: 100 mg Famotidine (Pepcid) 20 mg PO DAILY [facility] Stop: 10/15/17 08:59 Last Admin: 09/01/17 08:06 Dose: 20 mg Sodium Chloride (Nacl 0.9%) 500 mls @ 0 mls/hr IV .Q0M [facility] Stop: 10/16/17 13:29 Lactobacillus Rhamnosus (Culturelle 15b) 1 each PO DAILY [facility] Stop: 10/14/17 12:59 Last Admin: 09/01/17 08:06 Dose: 1 each Lorazepam (Ativan) 1 mg PO Q6HR PRN; Protocol PRN Reason: Agitation Stop: 10/30/17 11:14 Last Admin: 08/31/17 20:16 Dose: 1 mg Magnesium Hydroxide (Milk Of Magnesia) 30 ml PO HS PRN PRN Reason: Constipation Stop: 10/14/17 18:42 Miscellaneous (Probiotic Screen) 1 ea MC PRN PRN PRN Reason: PROTOCOL Stop: 10/14/17 12:33 Multivitamins/Vitamin C (Theragran) 1 tab PO DAILY [facility] Stop: 10/15/17 08:59 Last Admin: 09/01/17 08:06 Dose: 1 tab Nystatin (Nystop) 100,000 units TP BID [facility] Stop: 10/28/17 16:59 Last Admin: 09/01/17 16:13 Dose: 100,000 units Tamsulosin HCl (Flomax) 0.4 mg PO DAILY [facility] Stop: 10/14/17 19:59 Last Admin: 09/01/17 08:06 Dose: 0.4 mg HEENT: PERRLA, anicteric sclerae, throat clear Neck: Supple, No JVD, No thyromegaly, +2 carotid pulse wo bruit, No LAD Cardiovascular: Normal S1, Normal S2, without murmur Abdomen: non-tender, non-distended Extremities: clear Neurological: no change - Procedures Procedures: Procedures Procedure Code Date INSERTION OF INFUSION DEV INTO L SUBCLAV VEIN, PERC APPROACH [id number] 08/14/17 PERFORMANCE OF URINARY FILTRATION, <6 HRS/DAY [id number] 08/14/17 ULTRASONOGRAPHY OF LEFT SUBCLAVIAN VEIN, GUIDANCE [id number] 08/14/17 Internal Medicine Assmt/Plan - Assessment Assessment: 1.ACUTE OBSTRUCTIVE RENAL FAILURE. 2.BPH. 3.HISTORY OF PSYCHOSIS. 4.CONSTIPATION. 5.DEMENTIA. 6.LEFT LOWER PNEUMONIA - Plan Plan: CONTINUE ON CURRENT MEDICATION AND DIET. Nutritional Asmnt/Malnutr-PDOC - Dietary Evaluation Malnutrition Findings (Please click <Entered> for more info): Nutritional Asmnt/Malnutrition Start: 08/15/17 15: 52 Text: Status: Complete Freq: Protocol: Document 08/15/17 15:54 [facility] (Rec: 08/15/17 16:24 LCHENG [email or web address]) Nutritional Asmnt/Malnutrition Patient General Information Nutritional Screening High Risk Consult Diagnosis pacemaker placement Pertinent Medical Hx/Surgical Hx HTN, BPH, dementia Subjective Information Consult received for poor intake and wounds. Pt was NPO since admitted noted. per nurse note in the morning, pt was yelling for water and food . [facility] soft ground diet stated from lunch. Per nurse note in the afternoon, pt fed himself 100% of lunch. Pt had dialysis yetserday per nurse d /t elevated BUN/Crea and hyperkalemia. Current Diet Order/ Nutrition Support [facility] soft ground. Pertinent Medications D5w, culturelle, piperacillin Pertinent Labs 7/ Na 153, Cl 119, BUN 37, glucose 120 7/1 Na 128, K 8.8, BUN 212, Cr 13 Nutritional Hx/Data Height 1.65 m Height (Calculated Centimeters) 165.1 Current Weight (lbs) 59.421 kg Weight (Calculated Kilograms) 59.4 Weight (Calculated Grams) 17608.6 [place] Body Weight 136 Body Mass Index (BMI) 21.8 Weight Status Approriate GI Symptoms GI Symptoms None Last BM none Difficult in: None Skin Integrity/Comment: pressure area to right buttocks, abrasion to left eye , redded to left toe and right ankle Current %PO Good (75-100%) Estimated Nutritional Goals BEE in Kcals: Using Current wt Calories/Kcals/Kg 25-30 Kcals Calculated 6012-2021 Protein: Using Current wt Protein g/k monitor renal labs Protein Calculated 60 Fluid: ml per MD Nutritional Problem 1. Problem Problem altered nutrition related labs Etiology electrolytes imbalance, renal dysfunction Signs/Symptoms: Na 153, Cl 119, BUN 37 Malnutrition Alert Is there a minimum of two criteria No selected? Query Text:Check all the applicable criteria. A minimum of two criteria are recommended for diagnosis of either severe or non-severe malnutrition. Malnutrition Related to Morbid Obesity Malnutrition related to morbid obesity No Intervention/Recommendation Comments 1. Continue with [facility] soft ground diet as ordered. Monitor renal labs and adjust diet as needed. 2. Monitor PO intake, wt, labs and skin integrity 3. F/U as high risk in 2-3 days, 08/17-08/18 Expected Outcomes/Goals Expected Outcomes/Goals 1. PO intake to meet at least 75% of nutritional needs. 2. Wt stability, skin to remain intact, labs to approach WNL.
[2017-09-02 06:05] LABS: ANION GAP 6.3 (7.0-16.0); BUN - UREA NITROGEN 11 mg/dL (7-25); CALCIUM SERUM 9.2 mg/dL (8.6-10.3); CARBON DIOXIDE 31.7 mEq/L (21.0-31.0); CHLORIDE 106 mEq/L (98-107); CREATININE - SERUM 0.6 mg/dL (0.7-1.3); GFR AFRICAN-AMERICAN > 60.0 ml/min (>90); GFR NON AFRICAN-AMERICAN > 60.0 ml/min; GLUCOSE 88 mg/dL (70-105); SODIUM SERUM 141 mEq/L (136-145)
[2017-09-02] MEDS: Lactobacillus Rhamnosus GG 15 Billion CFU CAP.SPRINK PO SCH (08:54)
[2017-09-02] MEDS: Multivitamin Tab PO SCH (08:54)
[2017-09-02] MEDS: Potassium Chloride 20 mEq ER Tab PO SCH ×2 (08:54→18:18)
[2017-09-02] MEDS: NYSTATIN 100000 UNITS/GM POWD TP SCH ×2 (09:18→18:19)
--- NOTE | 2017-09-02 16:41 | Internal Medicine Prog Note ---
Internal Medicine Subjective - Subjective Service Date: 09/02/17 Patient seen and examined:: with staff Patient is:: awake, verbal, in bed, talking Per staff patient has:: no adverse event Internal Medicine Objective - Results Result Diagrams: 08/29/17 05:55 09/02/17 05:30 Recent Labs: Laboratory Last Values WBC 7.0 Th/cmm (4.8-10.8) 08/29/17 05:55 RBC 3.74 Mil/cmm (3.80-5.80) L 08/29/17 05:55 Hgb 11.6 gm/dL (12-16) L 08/29/17 05:55 Hct 33.8 % (41.0-60) L 08/29/17 05:55 MCV 90.5 fl (80-99) 08/29/17 05:55 MCH 31.0 pg (27.0-31.0) 08/29/17 05:55 MCHC Differential 34.2 pg (28.0-36.0) 08/29/17 05:55 RDW 15.0 % (11.5-20.0) 08/29/17 05:55 Plt Count 274 Th/cmm (150-400) 08/29/17 05:55 MPV 8.0 fl 08/29/17 05:55 Neutrophils % 65.4 % (40.0-80.0) 08/29/17 05:55 Lymphocytes % 21.4 % (20.0-50.0) 08/29/17 05:55 Monocytes % 8.1 % (2.0-10.0) 08/29/17 05:55 Eosinophils % 3.7 % (0.0-5.0) 08/29/17 05:55 Basophils % 1.4 % (0.0-2.0) 08/29/17 05:55 Neutrophils (Manual) 83 % (40-80) H 08/15/17 04:05 Lymphocytes 13 % (20-50) L 08/15/17 04:05 Monocytes 4 % (2-10) 08/15/17 04:05 PT 14.0 SECONDS (9.5-11.5) H 08/14/17 10:10 INR 1.33 (0.5-1.4) 08/14/17 10:10 PTT (Actin FS) 31.6 SECONDS (26.0-38.0) 08/14/17 10:10 Sodium 141 mEq/L (136-145) 09/02/17 05:30 Potassium 3.0 mEq/L (3.5-5.1) L 09/02/17 05:30 Chloride 106 mEq/L (98-107) 09/02/17 05:30 Carbon Dioxide 31.7 mEq/L (21.0-31.0) H 09/02/17 05:30 Anion Gap 6.3 (7.0-16.0) L 09/02/17 05:30 BUN 11 mg/dL (7-25) 09/02/17 05:30 Creatinine 0.6 mg/dL (0.7-1.3) L 09/02/17 05:30 Est GFR ( Amer) > 60.0 ml/min (>90) 09/02/17 05:30 Est GFR (Non-Af Amer) > 60.0 ml/min 09/02/17 05:30 BUN/Creatinine Ratio 18.3 09/02/17 05:30 Glucose 88 mg/dL (70-105) 09/02/17 05:30 Calcium 9.2 mg/dL (8.6-10.3) 09/02/17 05:30 Total Bilirubin 0.5 mg/dL (0.3-1.0) 08/30/17 05:01 AST 16 U/L (13-39) 08/30/17 05:01 ALT 8 U/L (7-52) 08/30/17 05:01 Alkaline Phosphatase 47 U/L (34-104) 08/30/17 05:01 Total Protein 6.1 gm/dL (6.0-8.3) 08/30/17 05:01 Albumin 2.8 gm/dL (4.2-5.5) L 08/30/17 05:01 Globulin 3.3 gm/dL 08/30/17 05:01 Albumin/Globulin Ratio 0.9 (1.0-1.8) L 08/30/17 05:01 Urine Source CATH 08/14/17 12:50 Urine Color YELLOW 08/14/17 12:50 Urine Clarity HAZY (CLEAR) 08/14/17 12:50 Urine pH 6.0 (4.6 - 8.0) 08/14/17 12:50 Ur Specific [place] <= 1.005 (1.005-1.030) 08/14/17 12:50 Urine Protein NEGATIVE mg/dL (NEGATIVE) 08/14/17 12:50 Urine Glucose (UA) NEGATIVE mg/dL (NEGATIVE) 08/14/17 12:50 Urine Ketones NEGATIVE mg/dL (NEGATIVE) 08/14/17 12:50 Urine Blood LARGE (NEGATIVE) H 08/14/17 12:50 Urine Nitrate NEGATIVE (NEGATIVE) 08/14/17 12:50 Urine Bilirubin NEGATIVE (NEGATIVE) 08/14/17 12:50 Urine Urobilinogen 0.2 E.U./dL (0.2 - 1.0) 08/14/17 12:50 Ur Leukocyte Esterase NEGATIVE (NEGATIVE) 08/14/17 12:50 Urine RBC 50-100 /hpf (0-5) H 08/14/17 12:50 Urine WBC 0-2 /hpf (0-5) 08/14/17 12:50 Ur Epithelial Cells FEW /lpf (FEW) 08/14/17 12:50 Urine Bacteria FEW /hpf (NONE SEEN) 08/14/17 12:50 Urine Mucus FEW /lpf (FEW) 08/14/17 12:50 Hepatitis A IgM Ab Negative (Negative) 08/15/17 04:05 Hep Bs Antigen Negative (Negative) 08/15/17 04:05 Hep B Core IgM Ab Negative (Negative) 08/15/17 04:05 Hepatitis C Antibody <0.1 s/co ratio (0.0-0.9) 08/15/17 04:05 - Physical Exam Vitals and I&O: Vital Signs Temp 97.9 F 09/02/17 15:06 Pulse 75 09/02/17 15:06 Resp 17 09/02/17 15:06 BP 130/82 09/02/17 15:06 Pulse Ox 97 09/02/17 15:06 Intake & Output 09/01/17 09/02/17 09/02/17 18:59 06:59 18:59 Intake Total 680 500 Balance 680 500 Weight (lbs) 61.235 kg 60.781 kg Intake: Oral 680 500 Other: # Voids 4 3 # Bowel Movements 0 3 Stool Characteristics Soft Weight Source Bedscale Bedscale Active Medications: Current Medications Acetaminophen (Tylenol) 650 mg PO Q4H PRN PRN Reason: Pain or Fever >101 Stop: 10/14/17 18:42 Last Admin: 08/31/17 20:16 Dose: 650 mg Al Hydrox/Mg Hydrox/Simethicone (Maalox) 30 ml PO Q4H PRN PRN Reason: GI DISTRESS Stop: 10/14/17 18:42 Calamine/Phenol (Calmoseptine) 1 appl TP PRN PRN PRN Reason: AFFECTED AREA(PERIANAL AREA) Stop: 10/24/17 23:44 Last Admin: 09/01/17 08:06 Dose: 1 appl Docusate Sodium (Colace) 100 mg PO BID SIMIN Stop: 10/15/17 08:59 Last Admin: 09/02/17 08:54 Dose: 100 mg Famotidine (Pepcid) 20 mg PO DAILY [facility] Stop: 10/15/17 08:59 Last Admin: 09/02/17 08:54 Dose: 20 mg Sodium Chloride (Nacl 0.9%) 500 mls @ 0 mls/hr IV .Q0M [facility] Stop: 10/16/17 13:29 Lactobacillus Rhamnosus (Culturelle 15b) 1 each PO DAILY SIMIN Stop: 10/14/17 12:59 Last Admin: 09/02/17 08:54 Dose: 1 each Lorazepam (Ativan) 1 mg PO Q6HR PRN; Protocol PRN Reason: Agitation Stop: 10/30/17 11:14 Last Admin: 09/02/17 03:34 Dose: 1 mg Magnesium Hydroxide (Milk Of Magnesia) 30 ml PO HS PRN PRN Reason: Constipation Stop: 10/14/17 18:42 Miscellaneous (Probiotic Screen) 1 ea MC PRN PRN PRN Reason: PROTOCOL Stop: 10/14/17 12:33 Multivitamins/Vitamin C (Theragran) 1 tab PO DAILY SIMNI Stop: 10/15/17 08:59 Last Admin: 09/02/17 08:54 Dose: 1 tab Nystatin (Nystop) 100,000 units TP BID SIMIN Stop: 10/28/17 16:59 Last Admin: 09/01/17 16:13 Dose: 100,000 units Potassium Chloride (Klor-Con) 40 meq PO BID SIMIN Stop: 11/01/17 08:59 Last Admin: 09/02/17 08:54 Dose: 40 meq Tamsulosin HCl (Flomax) 0.4 mg PO DAILY SIMIN Stop: 10/14/17 19:59 Last Admin: 09/02/17 08:55 Dose: 0.4 mg HEENT: PERRLA, anicteric sclerae, throat clear Neck: Supple, No JVD, No thyromegaly, +2 carotid pulse wo bruit, No LAD Cardiovascular: Normal S1, Normal S2, without murmur Abdomen: non-tender, non-distended Extremities: clear Neurological: no change - Procedures Procedures: Procedures Procedure Code Date INSERTION OF INFUSION DEV INTO L SUBCLAV VEIN, PERC APPROACH [id number] 08/14/17 PERFORMANCE OF URINARY FILTRATION, <6 HRS/DAY [id number] 08/14/17 ULTRASONOGRAPHY OF LEFT SUBCLAVIAN VEIN, GUIDANCE [id number] 08/14/17 Internal Medicine Assmt/Plan - Assessment Assessment: 1.ACUTE OBSTRUCTIVE RENAL FAILURE. 2.BPH. 3.HISTORY OF PSYCHOSIS. 4.CONSTIPATION. 5.DEMENTIA. 6.LEFT LOWER PNEUMONIA - Plan Plan: CONTINUE ON CURRENT MEDICATION AND DIET. Nutritional Asmnt/Malnutr-PDOC - Dietary Evaluation Malnutrition Findings (Please click <Entered> for more info): Nutritional Asmnt/Malnutrition Start: 08/15/17 15: 52 Text: Status: Complete Freq: Protocol: Document 08/15/17 15:54 LCHENG (Rec: 08/15/17 16:24 HENG [id number]) Nutritional Asmnt/Malnutrition Patient General Information Nutritional Screening High Risk Consult Diagnosis pacemaker placement Pertinent Medical Hx/Surgical Hx HTN, BPH, dementia Subjective Information Consult received for poor intake and wounds. Pt was NPO since admitted noted. per nurse note in the morning, pt was yelling for water and food . [facility] soft ground diet stated from lunch. Per nurse note in the afternoon, pt fed himself 100% of lunch. Pt had dialysis yetserday per nurse d /t elevated BUN/Crea and hyperkalemia. Current Diet Order/ Nutrition Support [facility] soft ground. Pertinent Medications D5w, culturelle, piperacillin Pertinent Labs 7/ Na 153, Cl 119, BUN 37, glucose 120 7/ Na 128, K 8.8, BUN 212, Cr 13 Nutritional Hx/Data Height 1.65 m Height (Calculated Centimeters) 165.1 Current Weight (lbs) 59.421 kg Weight (Calculated Kilograms) 59.4 Weight (Calculated Grams) 26927.6 [place] Body Weight 136 Body Mass Index (BMI) 21.8 Weight Status Approriate GI Symptoms GI Symptoms None Last BM none Difficult in: None Skin Integrity/Comment: pressure area to right buttocks, abrasion to left eye , redded to left toe and right ankle Current %PO Good (75-100%) Estimated Nutritional Goals BEE in Kcals: Using Current wt Calories/Kcals/Kg 25-30 Kcals Calculated 4646-4384 Protein: Using Current wt Protein g/k monitor renal labs Protein Calculated 60 Fluid: ml per MD Nutritional Problem 1. Problem Problem altered nutrition related labs Etiology electrolytes imbalance, renal dysfunction Signs/Symptoms: Na 153, Cl 119, BUN 37 Malnutrition Alert Is there a minimum of two criteria No selected? Query Text:Check all the applicable criteria. A minimum of two criteria are recommended for diagnosis of either severe or non-severe malnutrition. Malnutrition Related to Morbid Obesity Malnutrition related to morbid obesity No Intervention/Recommendation Comments 1. Continue with [facility] soft ground diet as ordered. Monitor renal labs and adjust diet as needed. 2. Monitor PO intake, wt, labs and skin integrity 3. F/U as high risk in 2-3 days, 08/17-08/18 Expected Outcomes/Goals Expected Outcomes/Goals 1. PO intake to meet at least 75% of nutritional needs. 2. Wt stability, skin to remain intact, labs to approach WNL.
== END 2017-09-02 19:56 | DRG 725 ==
LOC: ICU 11:00 → TELE 08-19 10:44 → MSI 08-19 16:31
PROVIDERS: ADMIT Family Medicine; ATTEND Family Medicine
PROC: 02HV33Z Insertion of Infusion Device into Superior Vena Cava, Percutaneous Approach (ICD-10-PCS; principal; 2017-08-14)
PROC: B548ZZA Ultrasonography of Superior Vena Cava, Guidance (ICD-10-PCS; 2017-08-14)
PROC: 5A1D70Z Performance of Urinary Filtration, Intermittent, Less than 6 Hours Per Day (ICD-10-PCS; 2017-08-14)
DX: N40.1 Benign prostatic hyperplasia with lower urinary tract symptoms (principal); E43 Unspecified severe protein-calorie malnutrition; N17.8 Other acute kidney failure; E87.2 Acidosis; N13.8 Other obstructive and reflux uropathy; E87.5 Hyperkalemia; R00.1 Bradycardia, unspecified; F03.90 Unspecified dementia, unspecified severity, without behavioral disturbance, psychotic disturbance, mood disturbance, and anxiety; F29 Unspecified psychosis not due to a substance or known physiological condition; M19.90 Unspecified osteoarthritis, unspecified site; K59.00 Constipation, unspecified; I10 Essential (primary) hypertension; J44.9 Chronic obstructive pulmonary disease, unspecified; R33.8 Other retention of urine; Z68.22 Body mass index [BMI] 22.0-22.9, adult
CPT/HCPCS: 36415-UA; 71045-TC; 76770-TC; 80048-TC; 80053-TC; 80074-90; 81001-TC; 82565-TC; 84132-TC; 84520-TC; 85007-TC; 85025-TC; 85027-TC; 85610-TC; 87086-90; 90799; 90937; 93005; 94760; J1630; J1644; J2543; J3480; J7030; J7040; J7042; J7070; Z7610

== ENCOUNTER 2017-09-02 19:57 | Inpatient (IN) | payer MEDICARE, MEDICAID ==
[2017-09-03 00:46] VITALS: BP 102/59
[2017-09-03] MEDS ORDERED: Maalox 30 mL Cup PO PRN (00:49)
[2017-09-03] MEDS ORDERED: Magnesium Hydroxide (MOM) 30 mL UDC PO PRN (00:49)
[2017-09-03] MEDS: Multivitamin Tab PO SCH (09:40)
--- NOTE | 2017-09-03 16:24 | History & Physical ---
ADMIT DATE: 09/03/2017 REASON FOR ADMISSION: Agitation. HISTORY OF PRESENT ILLNESS: A 66-year-old male with past medical history significant for psychiatric disorder, presents after a stay in the acute unit for dehydration. The patient is awake and alert, but poor historian. Denies any medical complaints. PAST MEDICAL HISTORY: The patient has a history of benign prostatic hypertrophy and dementia. MEDICATIONS: Pepcid, docusate and Flomax. ALLERGIES: No known drug allergy. SOCIAL HISTORY: No known tobacco, alcohol or illicit drug use. FAMILY HISTORY: Noncontributory. REVIEW OF SYSTEMS: IMMUNOLOGIC: No recurrent infection. CARDIOVASCULAR: No heart disease, no hypertension. GASTROINTESTINAL: No nausea, vomiting or diarrhea. ENDOCRINE: No diabetes or thyroid disorder. NEUROLOGIC: No seizure or stroke. HEMATOLOGIC: No bleeding or clotting disorder. PHYSICAL EXAMINATION: GENERAL: The patient is awake and alert, in no acute distress. The patient appears cachectic. VITAL SIGNS: Temperature 97.8, pulse 74, respiration 18 and blood pressure 119/68. HEENT: Pupils equally round, anicteric sclerae. NECK: Supple, no JVD, mass or bruit auscultation. HEART: S1 and S2. Regular rate and rhythm. ABDOMEN: Soft, nontender, positive bowel sounds. EXTREMITIES: No clubbing, cyanosis or edema. SKIN: The patient has a scab on the left side of his nose towards the eye and without any discharge or erythema. NEUROLOGIC: Moves all extremities equally. He is poor in following commands. IMPRESSION: 1. Dementia. 2. Benign prostatic hypertrophy. PLAN: Continue Flomax as well as the patient's other home medications. He is medically cleared to participate in activity. Advised to follow up with primary care physician upon discharge. JOB# [id number]
--- NOTE | 2017-09-03 18:01 | Psychiatric Evaluation ---
DATE OF SERVICE: 09/03/2017 IDENTIFYING DATA: The patient is a 66-year-old male initially admitted to the Geropsych Unit from [facility] in [place] and has been transferred to the Med/Surg Unit following which he has been medically stabilized and has been transferred over here for further observation. PAST PSYCHIATRIC HISTORY: Please refer to the above. MEDICAL HISTORY: Physical examination was requested done by Dr. Tucker. SUBSTANCE ABUSE HISTORY: None. PHYSICAL OR SEXUAL ABUSE HISTORY: None. LEGAL PROBLEMS: None at this time. MENTAL STATUS EXAMINATION: The patient is a 66-year-old, looking his stated age, superficially cooperative. Eye contact is poor. Mood is noted to be irritable. Affect is constricted. The patient is screaming and yelling. Insight and judgment at this time are noted to be still impaired. Impulse control noted to be limited. Coping skills are noted to be limited. The patient is alert and oriented to place and attention span and concentration are noted to be poor. The patient gets easily agitated. The patient has no insight into his illness. The patient's behavior is equally danger to others at this time and also self. DIAGNOSES: AXIS I: A. Psychotic disorder, not otherwise specified. B. Dementia and behavioral change, secondary trait. IMMEDIATE TREATMENT PLAN: The patient is going to be observed on the inpatient unit, provided with supportive psychotherapy. The patient is going to be stabilized. Once stabilized, the patient is going to be discharged to [facility] to be followed up on an outpatient basis. JOB# [id number]
[2017-09-04 08:45] LABS: ANION GAP 7.8 (7.0-16.0); BUN - UREA NITROGEN 12 mg/dL (7-25); CALCIUM SERUM 9.3 mg/dL (8.6-10.3); CARBON DIOXIDE 30.3 mEq/L (21.0-31.0); CHLORIDE 106 mEq/L (98-107); CREATININE - SERUM 0.6 mg/dL (0.7-1.3); GFR AFRICAN-AMERICAN > 60.0 ml/min (>90); GFR NON AFRICAN-AMERICAN > 60.0 ml/min; GLUCOSE 131 mg/dL (70-105); POTASSIUM SERUM 3.1 mEq/L (3.5-5.1); SODIUM SERUM 141 mEq/L (136-145)
[2017-09-04] MEDS: Multivitamin Tab PO SCH (08:46)
[2017-09-04 09:05] LABS: % BASOPHILS 1.1 % (0.0-2.0); % EOSINOPHILS 4.9 % (0.0-5.0); % LYMPHOCYTES 24.1 % (20.0-50.0); % MONOCYTES 8.8 % (2.0-10.0); % NEUTROPHILS 61.1 % (40.0-80.0); BASOPHILE ABSOLUTE 0.1 Th/cumm (0-0.2); EOSINOPHILE ABSOLUTE 0.3 Th/cmm (0.1-0.4); HEMATOCRIT 38.6 % (41.0-60); HEMOGLOBIN 13.1 gm/dL (12-16); LYMPHOCYTE ABSOLUTE 1.5 Th/cmm (1.5-3.0); MEAN CELL VOLUME 91.6 fl (80-99); MEAN CORPUSCULAR HGB CONC 33.8 pg (28.0-36.0); MEAN PLATELET VOLUME 8.4 fl; MONOCYTE ABSOLUTE 0.5 Th/cmm (0.3-1.0); NEUTROPHILE ABSOLUTE 3.8 Th/cmm (1.8-8.0); PLATELET COUNT 274 Th/cmm (150-400); RED BLOOD COUNT 4.22 Mil/cmm (3.80-5.80); RED CELL DISTRIBUTION WIDTH 15.7 % (11.5-20.0); WHITE BLOOD COUNT 6.2 Th/cmm (4.8-10.8)
--- NOTE | 2017-09-04 18:14 | General Progress Note ---
Subjective - Review of Systems Service Date: 09/04/17 Subjective: resting comfortably no distress Objective - Results Result Diagrams: 09/04/17 08:15 09/04/17 08:15 Recent Labs: Laboratory Last Values WBC 6.2 Th/cmm (4.8-10.8) 09/04/17 08:15 RBC 4.22 Mil/cmm (3.80-5.80) 09/04/17 08:15 Hgb 13.1 gm/dL (12-16) 09/04/17 08:15 Hct 38.6 % (41.0-60) L 09/04/17 08:15 MCV 91.6 fl (80-99) 09/04/17 08:15 MCH 31.0 pg (27.0-31.0) 09/04/17 08:15 MCHC Differential 33.8 pg (28.0-36.0) 09/04/17 08:15 RDW 15.7 % (11.5-20.0) 09/04/17 08:15 Plt Count 274 Th/cmm (150-400) 09/04/17 08:15 MPV 8.4 fl 09/04/17 08:15 Neutrophils % 61.1 % (40.0-80.0) 09/04/17 08:15 Lymphocytes % 24.1 % (20.0-50.0) 09/04/17 08:15 Monocytes % 8.8 % (2.0-10.0) 09/04/17 08:15 Eosinophils % 4.9 % (0.0-5.0) 09/04/17 08:15 Basophils % 1.1 % (0.0-2.0) 09/04/17 08:15 Sodium 141 mEq/L (136-145) 09/04/17 08:15 Potassium 3.1 mEq/L (3.5-5.1) L 09/04/17 08:15 Chloride 106 mEq/L (98-107) 09/04/17 08:15 Carbon Dioxide 30.3 mEq/L (21.0-31.0) 09/04/17 08:15 Anion Gap 7.8 (7.0-16.0) 09/04/17 08:15 BUN 12 mg/dL (7-25) 09/04/17 08:15 Creatinine 0.6 mg/dL (0.7-1.3) L 09/04/17 08:15 Est GFR ( Amer) > 60.0 ml/min (>90) 09/04/17 08:15 Est GFR (Non-Af Amer) > 60.0 ml/min 09/04/17 08:15 BUN/Creatinine Ratio 20.0 09/04/17 08:15 Glucose 131 mg/dL (70-105) H 09/04/17 08:15 Calcium 9.3 mg/dL (8.6-10.3) 09/04/17 08:15 - Physical Exam Vitals and I&O: Vital Signs Temp 97.7 F 09/04/17 15:54 Pulse 80 09/04/17 15:54 Resp 20 09/04/17 15:54 BP 105/64 09/04/17 15:54 Pulse Ox 95 09/04/17 15:54 Intake & Output 09/03/17 09/04/17 09/04/17 18:59 06:59 18:59 Intake Total 950 Balance 950 Intake: Oral 950 Other: # Voids 4 # Bowel Movements 2 Active Medications: Current Medications Acetaminophen (Tylenol) 650 mg PO Q4HR PRN PRN Reason: Mild Pain / Temp above 100 Stop: 11/02/17 00:48 Al Hydrox/Mg Hydrox/Simethicone (Maalox) 30 ml PO Q4HR PRN PRN Reason: GI DISTRESS Stop: 11/02/17 00:48 Haloperidol (Haldol) 2 mg PO BID SIMIN; Protocol Stop: 11/03/17 16:59 Last Admin: 09/04/17 17:38 Dose: 2 mg Lorazepam (Ativan) 0.5 mg PO Q4HR PRN; Protocol PRN Reason: Anxiety Stop: 10/03/17 00:48 Last Admin: 09/04/17 08:46 Dose: 0.5 mg Magnesium Hydroxide (Milk Of Magnesia) 30 ml PO HS PRN PRN Reason: Constipation Multivitamins/Vitamin C (Theragran) 1 tab PO DAILY SIMIN Stop: 11/02/17 08:59 Last Admin: 09/04/17 08:46 Dose: 1 tab Tamsulosin HCl (Flomax) 0.4 mg PO DAILY [facility] Stop: 11/03/17 08:59 Last Admin: 09/04/17 08:46 Dose: 0.4 mg Zolpidem Tartrate (Ambien) 5 mg PO HS PRN PRN Reason: Insomnia Stop: 11/02/17 00:48 Last Admin: 09/03/17 21:19 Dose: 5 mg General: Alert, No acute distress HEENT: Atraumatic, PERRLA Neck: Supple, JVD Cardiovascular: Regular rate, Normal S1, Normal S2 Lungs: Clear to auscultation Abdomen: Bowel sounds, Soft - Procedures Procedures: Procedures Procedure Code Date INSERTION OF INFUSION DEV INTO L SUBCLAV VEIN, PERC APPROACH [id number] 08/14/17 PERFORMANCE OF URINARY FILTRATION, <6 HRS/DAY [id number] 08/14/17 ULTRASONOGRAPHY OF LEFT SUBCLAVIAN VEIN, GUIDANCE [id number] 08/14/17 Assessment/Plan - Assessment Assessment: dementia BPH - Plan Plan: continue current treatment
--- NOTE | 2017-09-04 22:18 | Progress Notes ---
DATE: 09/04/2017 SUBJECTIVE: Staff was spoken to. The patient is interviewed. Mood is noted to be irritable. Affect is constricted. Insight and judgment at this time are noted to be still impaired. Impulse control is noted to be poor. Coping skills are noted to be very poor. The patient is grossly psychotic and has been playing with the feces and trying to create more problems on the unit. The patient has no insight into his illness. The patient is screaming and yelling and has been becoming difficult to redirect the patient in view of this one, it is decided to ____ the patient on haloperidol, which is going to be given at 2 mg twice a day and the patient is going to be followed up with the supportive therapy. Please note that the patient is grossly psychotic and impulsive and has no place to return to. PLAN: Plan to continue the patient with the supportive therapy with the current medications and followup. JOB# [id number]
[2017-09-05] MEDS: Multivitamin Tab PO SCH (09:44)
--- NOTE | 2017-09-05 20:41 | Internal Medicine Prog Note ---
Internal Medicine Subjective - Subjective Service Date: 09/05/17 Patient seen and examined:: with staff (HE FEELS BETTER) Patient is:: awake, verbal, in bed, talking Per staff patient has:: no adverse event Internal Medicine Objective - Results Result Diagrams: 09/04/17 08:15 09/04/17 08:15 Recent Labs: Laboratory Last Values WBC 6.2 Th/cmm (4.8-10.8) 09/04/17 08:15 RBC 4.22 Mil/cmm (3.80-5.80) 09/04/17 08:15 Hgb 13.1 gm/dL (12-16) 09/04/17 08:15 Hct 38.6 % (41.0-60) L 09/04/17 08:15 MCV 91.6 fl (80-99) 09/04/17 08:15 MCH 31.0 pg (27.0-31.0) 09/04/17 08:15 MCHC Differential 33.8 pg (28.0-36.0) 09/04/17 08:15 RDW 15.7 % (11.5-20.0) 09/04/17 08:15 Plt Count 274 Th/cmm (150-400) 09/04/17 08:15 MPV 8.4 fl 09/04/17 08:15 Neutrophils % 61.1 % (40.0-80.0) 09/04/17 08:15 Lymphocytes % 24.1 % (20.0-50.0) 09/04/17 08:15 Monocytes % 8.8 % (2.0-10.0) 09/04/17 08:15 Eosinophils % 4.9 % (0.0-5.0) 09/04/17 08:15 Basophils % 1.1 % (0.0-2.0) 09/04/17 08:15 Sodium 141 mEq/L (136-145) 09/04/17 08:15 Potassium 3.1 mEq/L (3.5-5.1) L 09/04/17 08:15 Chloride 106 mEq/L (98-107) 09/04/17 08:15 Carbon Dioxide 30.3 mEq/L (21.0-31.0) 09/04/17 08:15 Anion Gap 7.8 (7.0-16.0) 09/04/17 08:15 BUN 12 mg/dL (7-25) 09/04/17 08:15 Creatinine 0.6 mg/dL (0.7-1.3) L 09/04/17 08:15 Est GFR ( Amer) > 60.0 ml/min (>90) 09/04/17 08:15 Est GFR (Non-Af Amer) > 60.0 ml/min 09/04/17 08:15 BUN/Creatinine Ratio 20.0 09/04/17 08:15 Glucose 131 mg/dL (70-105) H 09/04/17 08:15 Calcium 9.3 mg/dL (8.6-10.3) 09/04/17 08:15 - Physical Exam Vitals and I&O: Vital Signs Temp 97.2 F 09/05/17 20:33 Pulse 71 09/05/17 20:33 Resp 20 09/05/17 20:33 BP 103/65 09/05/17 20:33 Pulse Ox 95 09/05/17 20:33 Intake & Output 09/05/17 09/05/17 09/06/17 06:59 18:59 06:59 Intake Total 120 950 180 Balance 120 950 180 Intake: Oral 120 950 180 Other: # Voids 3 4 2 # Bowel Movements 0 1 1 Active Medications: Current Medications Acetaminophen (Tylenol) 650 mg PO Q4HR PRN PRN Reason: Mild Pain / Temp above 100 Stop: 11/02/17 00:48 Al Hydrox/Mg Hydrox/Simethicone (Maalox) 30 ml PO Q4HR PRN PRN Reason: GI DISTRESS Stop: 11/02/17 00:48 Haloperidol (Haldol) 2 mg PO BID SIMIN; Protocol Stop: 11/03/17 16:59 Last Admin: 09/05/17 17:15 Dose: 2 mg Lorazepam (Ativan) 0.5 mg PO Q4HR PRN; Protocol PRN Reason: Anxiety Stop: 10/03/17 00:48 Last Admin: 09/04/17 21:49 Dose: 0.5 mg Magnesium Hydroxide (Milk Of Magnesia) 30 ml PO HS PRN PRN Reason: Constipation Multivitamins/Vitamin C (Theragran) 1 tab PO DAILY SIMIN Stop: 11/02/17 08:59 Last Admin: 09/05/17 09:44 Dose: 1 tab Tamsulosin HCl (Flomax) 0.4 mg PO DAILY SIMIN Stop: 11/03/17 08:59 Last Admin: 09/05/17 09:44 Dose: 0.4 mg Zolpidem Tartrate (Ambien) 5 mg PO HS PRN PRN Reason: Insomnia Stop: 11/02/17 00:48 Last Admin: 09/04/17 21:49 Dose: 5 mg General: demented HEENT: NC/AT, PERRLA, EOMI, anicteric sclerae, throat clear Neck: Supple, No JVD, No thyromegaly, +2 carotid pulse wo bruit, No LAD Lungs: CTAB Cardiovascular: RRR, Normal S1, Normal S2, without murmur Abdomen: soft, non-tender, non-distended Extremities: clear Neurological: no change - Procedures Procedures: Procedures Procedure Code Date INSERTION OF INFUSION DEV INTO SUP VENA CAVA, PERC APPROACH [id number] 08/14/17 PERFORMANCE OF URINARY FILTRATION, <6 HRS/DAY [id number] 08/14/17 ULTRASONOGRAPHY OF SUPERIOR VENA CAVA, GUIDANCE [id number] 08/14/17 Internal Medicine Assmt/Plan - Assessment Assessment: 1.COPD. 2.BPH. 3.DEMENTIA. - Plan Plan: CONTINUE ON CURRENT MEDICVATION AND DIET.
--- NOTE | 2017-09-05 21:52 | Consultation ---
DATE OF CONSULTATION: 09/05/2017 REFERRING PHYSICIAN: Aditya Ramirez M.D. TYPE OF CONSULTATION: Psychology. HISTORY OF PRESENT ILLNESS: The patient is a 66-year-old male. 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 The patient is a resident of [facility]. The patient had been transferred to the [facility] unit. The patient was medically stabilized and then transferred here for further observation and treatment. Upon interview, the patient is irritable and angry and raising his voice. The patient was unable to verbally contract for safety. The patient is having difficulty following through with staff direction as well as compliance with treatment. The patient did not answer questions about suicidal ideation, plan or intention or wish to . PAST MEDICAL HISTORY: Please see history and physical by Dr. Tucker. PAST PSYCHIATRIC HISTORY: The patient has a history of dementia with behavioral disturbance as well as psychotic disorder, not otherwise specified. The patient is under the care of a psychiatrist and psychologist at his longterm facility. The patient has previous hospitalizations here at [facility]. SUBSTANCE ABUSE HISTORY: The patient denied any history. PSYCHOSOCIAL HISTORY: The patient did not answer questions about occupational or educational history or jewish affiliation. The patient did not answer questions about family involvement, family relationships, and marital status, etc. The patient did not answer questions about history of physical or sexual abuse. The patient did not answer the question about current legal problems. MENTAL STATUS EXAMINATION: The patient appears to be his stated age. The patient's attitude is cooperative. Eye contact is poor. Speech is pressured and loud with yelling episodes. Mood is irritable and angry. Affect is constricted. Thought process shows to be confused. The patient did not answer questions about suicidal ideation, plan or intention. The patient did not answer questions about delusions or auditory or visual hallucinations. The patient's behavior has been screaming and yelling on the unit and difficult to redirect as well as poor compliance with care. Impulse control is inadequate. Concentration is poor. The patient's sensorium is alert and oriented to place. The patient was unable to sustain focus and attention. The patient is easily agitated. The patient did not participate in the memory assessment. Review of the medical record indicates impaired short term and manager forensic memory. The patient did not participate in the interpretation of proverbs. Insight is impaired. Judgment is impaired. DIAGNOSTIC IMPRESSION: AXIS I: 1. Psychotic disorder, not otherwise specified. 2. History of dementia with behavioral disturbance. AXIS II: Deferred. AXIS III: Please see history and physical by Dr. Tucker. PLAN: The patient has been seen by Dr. Ramirez for psychiatric evaluation and for the management of the patient's psychotropic medications. We will provide supportive psychotherapy to include limit setting and de-escalation. We will provide motivational enhancement for the patient to become compliant and stay compliant with all aspects of his care and treatment plan. We will provide daily opportunities for the patient to verbally contract for safety, including no harm to self and no harm to others. We will provide reality orientation, reality integration and reality differentiation. We will provide coping strategies for phase of life issues. We will encourage the patient to be able to demonstrate emotional and self-regulation prior to his discharge. Thank you, Dr. Ramirez for this consult and the opportunity to participate in this patient's care. [facility]# [id number] RAFAEL
--- NOTE | 2017-09-06 01:38 | Progress Notes ---
DATE: 09/05/2017 SUBJECTIVE: Staff was spoken to. The patient is interviewed. Mood is noted to be irritable. Affect is constricted. The patient is regressing. The patient has been playing with the feces and has smearing all over. Insight and judgment at this time are very much impaired. Impulse control is noted to be limited. The patient is to be closely monitored. The patient has been ____ psychiatric medications: So far has been able to tolerate. ASSESSMENT: The patient is still impulsive. PLAN: To continue the patient with the supportive therapy and followup. JOB# [id number]
[2017-09-06] MEDS: Multivitamin Tab PO SCH (09:18)
--- NOTE | 2017-09-06 21:03 | Internal Medicine Prog Note ---
Internal Medicine Subjective - Subjective Service Date: 09/06/17 Patient seen and examined:: with staff Patient is:: awake, verbal, in bed, talking Per staff patient has:: no adverse event Internal Medicine Objective - Results Result Diagrams: 09/04/17 08:15 09/04/17 08:15 Recent Labs: Laboratory Last Values WBC 6.2 Th/cmm (4.8-10.8) 09/04/17 08:15 RBC 4.22 Mil/cmm (3.80-5.80) 09/04/17 08:15 Hgb 13.1 gm/dL (12-16) 09/04/17 08:15 Hct 38.6 % (41.0-60) L 09/04/17 08:15 MCV 91.6 fl (80-99) 09/04/17 08:15 MCH 31.0 pg (27.0-31.0) 09/04/17 08:15 MCHC Differential 33.8 pg (28.0-36.0) 09/04/17 08:15 RDW 15.7 % (11.5-20.0) 09/04/17 08:15 Plt Count 274 Th/cmm (150-400) 09/04/17 08:15 MPV 8.4 fl 09/04/17 08:15 Neutrophils % 61.1 % (40.0-80.0) 09/04/17 08:15 Lymphocytes % 24.1 % (20.0-50.0) 09/04/17 08:15 Monocytes % 8.8 % (2.0-10.0) 09/04/17 08:15 Eosinophils % 4.9 % (0.0-5.0) 09/04/17 08:15 Basophils % 1.1 % (0.0-2.0) 09/04/17 08:15 Sodium 141 mEq/L (136-145) 09/04/17 08:15 Potassium 3.1 mEq/L (3.5-5.1) L 09/04/17 08:15 Chloride 106 mEq/L (98-107) 09/04/17 08:15 Carbon Dioxide 30.3 mEq/L (21.0-31.0) 09/04/17 08:15 Anion Gap 7.8 (7.0-16.0) 09/04/17 08:15 BUN 12 mg/dL (7-25) 09/04/17 08:15 Creatinine 0.6 mg/dL (0.7-1.3) L 09/04/17 08:15 Est GFR ( Amer) > 60.0 ml/min (>90) 09/04/17 08:15 Est GFR (Non-Af Amer) > 60.0 ml/min 09/04/17 08:15 BUN/Creatinine Ratio 20.0 09/04/17 08:15 Glucose 131 mg/dL (70-105) H 09/04/17 08:15 Calcium 9.3 mg/dL (8.6-10.3) 09/04/17 08:15 - Physical Exam Vitals and I&O: Vital Signs Temp 97.6 F 09/06/17 14:00 Pulse 93 09/06/17 14:00 Resp 20 09/06/17 14:00 BP 102/60 09/06/17 14:00 Pulse Ox 97 09/06/17 14:00 Intake & Output 09/06/17 09/06/17 09/07/17 06:59 18:59 06:59 Intake Total 180 1600 Balance 180 1600 Intake: Oral 180 1600 Other: # Voids 3 4 # Bowel Movements 1 1 Active Medications: Current Medications Acetaminophen (Tylenol) 650 mg PO Q4HR PRN PRN Reason: Mild Pain / Temp above 100 Stop: 11/02/17 00:48 Al Hydrox/Mg Hydrox/Simethicone (Maalox) 30 ml PO Q4HR PRN PRN Reason: GI DISTRESS Stop: 11/02/17 00:48 Haloperidol (Haldol) 2 mg PO BID SIMIN; Protocol Stop: 11/03/17 16:59 Last Admin: 09/06/17 16:53 Dose: 2 mg Lorazepam (Ativan) 0.5 mg PO Q4HR PRN; Protocol PRN Reason: Anxiety Stop: 10/03/17 00:48 Last Admin: 09/06/17 05:34 Dose: 0.5 mg Magnesium Hydroxide (Milk Of Magnesia) 30 ml PO HS PRN PRN Reason: Constipation Multivitamins/Vitamin C (Theragran) 1 tab PO DAILY SIMIN Stop: 11/02/17 08:59 Last Admin: 09/06/17 09:18 Dose: 1 tab Tamsulosin HCl (Flomax) 0.4 mg PO DAILY SIMIN Stop: 11/03/17 08:59 Last Admin: 09/06/17 09:17 Dose: 0.4 mg Zolpidem Tartrate (Ambien) 5 mg PO HS PRN PRN Reason: Insomnia Stop: 11/02/17 00:48 Last Admin: 09/05/17 21:24 Dose: 5 mg General: demented HEENT: NC/AT, PERRLA, EOMI, anicteric sclerae, throat clear Neck: Supple, No JVD, No thyromegaly, +2 carotid pulse wo bruit, No LAD Lungs: CTAB Cardiovascular: RRR, Normal S1, Normal S2, without murmur Abdomen: soft, non-tender, non-distended Extremities: clear Neurological: no change - Procedures Procedures: Procedures Procedure Code Date INSERTION OF INFUSION DEV INTO SUP VENA CAVA, PERC APPROACH [id number] 08/14/17 PERFORMANCE OF URINARY FILTRATION, <6 HRS/DAY [id number] 08/14/17 ULTRASONOGRAPHY OF SUPERIOR VENA CAVA, GUIDANCE [id number] 08/14/17 Internal Medicine Assmt/Plan - Assessment Assessment: 1.COPD. 2.BPH. 3.DEMENTIA. - Plan Plan: CONTINUE ON CURRENT MEDICVATION AND DIET. Nutritional Asmnt/Malnutr-PDOC - Dietary Evaluation Malnutrition Findings (Please click <Entered> for more info): Nutritional Asmnt/Malnutrition Start: 09/06/17 13: 19 Text: Status: Complete Freq: Protocol: Document 09/06/17 13:19 LCHENG (Rec: 09/06/17 13:28 [email or web address]) Nutritional Asmnt/Malnutrition Patient General Information Nutritional Screening Moderate Risk Diagnosis psychosis Pertinent Medical Hx/Surgical Hx BPH, dementia Subjective Information Pt seen sitting in rich-chair at dining room. Pt stated hungry. Per EMR, PO intake 100 % of meals. Current Diet Order/ Nutrition Support CCHO-60gm Pertinent Medications theragran Pertinent Labs 09/04 K 3.1, Cr 0.6, glucose 131 Nutritional Hx/Data Height 1.65 m Height (Calculated Centimeters) 165.1 Current Weight (lbs) 60.781 kg Weight (Calculated Kilograms) 60.8 Weight (Calculated Grams) 30808.4 [place] Body Weight 136 Body Mass Index (BMI) 22.3 Weight Status Approriate GI Symptoms GI Symptoms None Last BM 09/06 Difficult in: None Skin Integrity/Comment: dryness Current %PO Good (75-100%) Estimated Nutritional Goals BEE in Kcals: Using Current wt Calories/Kcals/Kg 25-30 Kcals Calculated 9615-3188 Protein: Using Current wt Protein g/k Protein Calculated 61 Fluid: ml 7846-8473 Nutritional Problem No current Nutrition Prob Problem N/A Malnutrition Alert Is there a minimum of two criteria No selected? Query Text:Check all the applicable criteria. A minimum of two criteria are recommended for diagnosis of either severe or non-severe malnutrition. Malnutrition Related to Morbid Obesity Malnutrition related to morbid obesity No Intervention/Recommendation Comments 1. Continue with CCHO 60gm diet as ordered. If glucose level change toward to normal range, will consider removing CCHO restriction. 2. Monitor PO intake, wt, labs and skin integrity 3. F/U as low risk in 7 days, 09/13. Expected Outcomes/Goals Expected Outcomes/Goals 1. PO intake to meet at least 75% of nutritional needs. 2. Wt stability, skin to remain intact, labs to approach WNL.
--- NOTE | 2017-09-07 00:47 | Progress Notes ---
DATE: 09/06/2017 SUBJECTIVE: Staff was spoken to. The patient is interviewed. Mood is noted to be irritable. Affect is constricted. Insight and judgment at this time are noted to be still impaired. Impulse control is noted to be poor. Coping skills are noted to be very poor. The patient has been having difficult time to cope with the stress. The patient is agitated and disorganized and has been resorting to aggressive behavior such as throwing the feces on the floor. ASSESSMENT: The patient is still impulsive and paranoid. PLAN: To continue the patient with the Haldol and encouraged the patient to verbalize the concerns rather than to act out. JOB# [id number]
[2017-09-07] MEDS: Multivitamin Tab PO SCH (08:21)
--- NOTE | 2017-09-07 19:56 | Progress Notes ---
DATE: 09/07/2017 PSYCHIATRIC PROGRESS NOTE SUBJECTIVE: Staff was spoken to. The patient is interviewed. Mood is noted to be irritable. Affect is constricted. The patient is still very disruptive. The patient has no placement yet. Coping skills are noted to be very poor. Insight and judgment are also noted to be limited. ASSESSMENT: The patient is still psychotic. PLAN: To continue the patient with the current medications. I encouraged the patient to verbalize the concerns rather than to act out. [facility]# [id number]
--- NOTE | 2017-09-07 21:50 | Internal Medicine Prog Note ---
Internal Medicine Subjective - Subjective Service Date: 09/07/17 Patient seen and examined:: with staff Patient is:: awake, verbal, in bed, talking Per staff patient has:: no adverse event Internal Medicine Objective - Results Result Diagrams: 09/04/17 08:15 09/04/17 08:15 Recent Labs: Laboratory Last Values WBC 6.2 Th/cmm (4.8-10.8) 09/04/17 08:15 RBC 4.22 Mil/cmm (3.80-5.80) 09/04/17 08:15 Hgb 13.1 gm/dL (12-16) 09/04/17 08:15 Hct 38.6 % (41.0-60) L 09/04/17 08:15 MCV 91.6 fl (80-99) 09/04/17 08:15 MCH 31.0 pg (27.0-31.0) 09/04/17 08:15 MCHC Differential 33.8 pg (28.0-36.0) 09/04/17 08:15 RDW 15.7 % (11.5-20.0) 09/04/17 08:15 Plt Count 274 Th/cmm (150-400) 09/04/17 08:15 MPV 8.4 fl 09/04/17 08:15 Neutrophils % 61.1 % (40.0-80.0) 09/04/17 08:15 Lymphocytes % 24.1 % (20.0-50.0) 09/04/17 08:15 Monocytes % 8.8 % (2.0-10.0) 09/04/17 08:15 Eosinophils % 4.9 % (0.0-5.0) 09/04/17 08:15 Basophils % 1.1 % (0.0-2.0) 09/04/17 08:15 Sodium 141 mEq/L (136-145) 09/04/17 08:15 Potassium 3.1 mEq/L (3.5-5.1) L 09/04/17 08:15 Chloride 106 mEq/L (98-107) 09/04/17 08:15 Carbon Dioxide 30.3 mEq/L (21.0-31.0) 09/04/17 08:15 Anion Gap 7.8 (7.0-16.0) 09/04/17 08:15 BUN 12 mg/dL (7-25) 09/04/17 08:15 Creatinine 0.6 mg/dL (0.7-1.3) L 09/04/17 08:15 Est GFR ( Amer) > 60.0 ml/min (>90) 09/04/17 08:15 Est GFR (Non-Af Amer) > 60.0 ml/min 09/04/17 08:15 BUN/Creatinine Ratio 20.0 09/04/17 08:15 Glucose 131 mg/dL (70-105) H 09/04/17 08:15 Calcium 9.3 mg/dL (8.6-10.3) 09/04/17 08:15 - Physical Exam Vitals and I&O: Vital Signs Temp 97.2 F 09/07/17 20:00 Pulse 99 09/07/17 20:00 Resp 20 09/07/17 20:00 BP 107/72 09/07/17 20:00 Pulse Ox 97 09/07/17 20:00 Intake & Output 09/07/17 09/07/17 09/08/17 06:59 18:59 06:59 Intake Total 120 900 Balance 120 900 Intake: Oral 120 900 Other: # Voids 3 3 # Bowel Movements 2 Active Medications: Current Medications Acetaminophen (Tylenol) 650 mg PO Q4HR PRN PRN Reason: Mild Pain / Temp above 100 Stop: 11/02/17 00:48 Al Hydrox/Mg Hydrox/Simethicone (Maalox) 30 ml PO Q4HR PRN PRN Reason: GI DISTRESS Stop: 11/02/17 00:48 Haloperidol (Haldol) 2 mg PO BID SIMIN; Protocol Stop: 11/03/17 16:59 Last Admin: 09/07/17 17:11 Dose: 2 mg Lorazepam (Ativan) 0.5 mg PO Q4HR PRN; Protocol PRN Reason: Anxiety Stop: 10/03/17 00:48 Last Admin: 09/07/17 17:11 Dose: 0.5 mg Magnesium Hydroxide (Milk Of Magnesia) 30 ml PO HS PRN PRN Reason: Constipation Multivitamins/Vitamin C (Theragran) 1 tab PO DAILY SIMIN Stop: 11/02/17 08:59 Last Admin: 09/07/17 08:21 Dose: 1 tab Tamsulosin HCl (Flomax) 0.4 mg PO DAILY SIMIN Stop: 11/03/17 08:59 Last Admin: 09/07/17 08:21 Dose: 0.4 mg Zolpidem Tartrate (Ambien) 5 mg PO HS PRN PRN Reason: Insomnia Stop: 11/02/17 00:48 Last Admin: 09/06/17 22:26 Dose: 5 mg General: demented HEENT: NC/AT, PERRLA, EOMI, anicteric sclerae, throat clear Neck: Supple, No JVD, No thyromegaly, +2 carotid pulse wo bruit, No LAD Lungs: CTAB Cardiovascular: RRR, Normal S1, Normal S2, without murmur Abdomen: soft, non-tender, non-distended Extremities: clear Neurological: no change - Procedures Procedures: Procedures Procedure Code Date INSERTION OF INFUSION DEV INTO SUP VENA CAVA, PERC APPROACH [id number] 08/14/17 PERFORMANCE OF URINARY FILTRATION, <6 HRS/DAY [id number] 08/14/17 ULTRASONOGRAPHY OF SUPERIOR VENA CAVA, GUIDANCE [id number] 08/14/17 Internal Medicine Assmt/Plan - Assessment Assessment: 1.COPD. 2.BPH. 3.DEMENTIA. - Plan Plan: CONTINUE ON CURRENT MEDICVATION AND DIET. Nutritional Asmnt/Malnutr-PDOC - Dietary Evaluation Malnutrition Findings (Please click <Entered> for more info): Nutritional Asmnt/Malnutrition Start: 09/06/17 13: 19 Text: Status: Complete Freq: Protocol: Document 09/06/17 13:19 LCHENG (Rec: 09/06/17 13:28 LCHENG [email or web address]) Nutritional Asmnt/Malnutrition Patient General Information Nutritional Screening Moderate Risk Diagnosis psychosis Pertinent Medical Hx/Surgical Hx BPH, dementia Subjective Information Pt seen sitting in rich-chair at dining room. Pt stated hungry. Per EMR, PO intake 100 % of meals. Current Diet Order/ Nutrition Support CCHO-60gm Pertinent Medications theragran Pertinent Labs 09/04 K 3.1, Cr 0.6, glucose 131 Nutritional Hx/Data Height 1.65 m Height (Calculated Centimeters) 165.1 Current Weight (lbs) 60.781 kg Weight (Calculated Kilograms) 60.8 Weight (Calculated Grams) 88918.4 [place] Body Weight 136 Body Mass Index (BMI) 22.3 Weight Status Approriate GI Symptoms GI Symptoms None Last BM 09/06 Difficult in: None Skin Integrity/Comment: dryness Current %PO Good (75-100%) Estimated Nutritional Goals BEE in Kcals: Using Current wt Calories/Kcals/Kg 25-30 Kcals Calculated 2204-0651 Protein: Using Current wt Protein g/k Protein Calculated 61 Fluid: ml 1282-7851 Nutritional Problem No current Nutrition Prob Problem N/A Malnutrition Alert Is there a minimum of two criteria No selected? Query Text:Check all the applicable criteria. A minimum of two criteria are recommended for diagnosis of either severe or non-severe malnutrition. Malnutrition Related to Morbid Obesity Malnutrition related to morbid obesity No Intervention/Recommendation Comments 1. Continue with CCHO 60gm diet as ordered. If glucose level change toward to normal range, will consider removing CCHO restriction. 2. Monitor PO intake, wt, labs and skin integrity 3. F/U as low risk in 7 days, 09/13. Expected Outcomes/Goals Expected Outcomes/Goals 1. PO intake to meet at least 75% of nutritional needs. 2. Wt stability, skin to remain intact, labs to approach WNL.
[2017-09-08] MEDS: Multivitamin Tab PO SCH (08:32)
--- NOTE | 2017-09-08 14:59 | Progress Notes ---
DATE: 09/08/2017 PSYCHIATRIC PROGRESS NOTE SUBJECTIVE: Staff was spoken to. The patient is interviewed. Mood is noted to be irritable. Affect is constricted. Insight and judgment at this time are noted to be still impaired. Impulse control seems to be limited. The patient has been just resorting to aggressive behavior. The patient needs to be redirected constantly. ASSESSMENT: The patient is still impulsive and psychotic. PLAN: To continue the patient with the current medications and followup. JOB# [id number]
--- NOTE | 2017-09-08 22:21 | Internal Medicine Prog Note ---
Internal Medicine Subjective - Subjective Service Date: 09/08/17 Patient seen and examined:: with staff Patient is:: awake, verbal, in bed, talking Per staff patient has:: no adverse event Internal Medicine Objective - Results Result Diagrams: 09/04/17 08:15 09/04/17 08:15 Recent Labs: Laboratory Last Values WBC 6.2 Th/cmm (4.8-10.8) 09/04/17 08:15 RBC 4.22 Mil/cmm (3.80-5.80) 09/04/17 08:15 Hgb 13.1 gm/dL (12-16) 09/04/17 08:15 Hct 38.6 % (41.0-60) L 09/04/17 08:15 MCV 91.6 fl (80-99) 09/04/17 08:15 MCH 31.0 pg (27.0-31.0) 09/04/17 08:15 MCHC Differential 33.8 pg (28.0-36.0) 09/04/17 08:15 RDW 15.7 % (11.5-20.0) 09/04/17 08:15 Plt Count 274 Th/cmm (150-400) 09/04/17 08:15 MPV 8.4 fl 09/04/17 08:15 Neutrophils % 61.1 % (40.0-80.0) 09/04/17 08:15 Lymphocytes % 24.1 % (20.0-50.0) 09/04/17 08:15 Monocytes % 8.8 % (2.0-10.0) 09/04/17 08:15 Eosinophils % 4.9 % (0.0-5.0) 09/04/17 08:15 Basophils % 1.1 % (0.0-2.0) 09/04/17 08:15 Sodium 141 mEq/L (136-145) 09/04/17 08:15 Potassium 3.1 mEq/L (3.5-5.1) L 09/04/17 08:15 Chloride 106 mEq/L (98-107) 09/04/17 08:15 Carbon Dioxide 30.3 mEq/L (21.0-31.0) 09/04/17 08:15 Anion Gap 7.8 (7.0-16.0) 09/04/17 08:15 BUN 12 mg/dL (7-25) 09/04/17 08:15 Creatinine 0.6 mg/dL (0.7-1.3) L 09/04/17 08:15 Est GFR ( Amer) > 60.0 ml/min (>90) 09/04/17 08:15 Est GFR (Non-Af Amer) > 60.0 ml/min 09/04/17 08:15 BUN/Creatinine Ratio 20.0 09/04/17 08:15 Glucose 131 mg/dL (70-105) H 09/04/17 08:15 Calcium 9.3 mg/dL (8.6-10.3) 09/04/17 08:15 - Physical Exam Vitals and I&O: Vital Signs Temp 97.8 F 09/08/17 14:00 Pulse 82 09/08/17 14:00 Resp 20 09/08/17 14:00 BP 126/79 09/08/17 14:00 Pulse Ox 93 09/08/17 14:00 Intake & Output 09/08/17 09/08/17 09/09/17 06:59 18:59 06:59 Intake Total 120 Balance 120 Intake: Oral 120 Other: # Voids 3 # Bowel Movements 1 Active Medications: Current Medications Acetaminophen (Tylenol) 650 mg PO Q4HR PRN PRN Reason: Mild Pain / Temp above 100 Stop: 11/02/17 00:48 Al Hydrox/Mg Hydrox/Simethicone (Maalox) 30 ml PO Q4HR PRN PRN Reason: GI DISTRESS Stop: 11/02/17 00:48 Haloperidol (Haldol) 2 mg PO BID SIMIN; Protocol Stop: 11/03/17 16:59 Last Admin: 09/08/17 16:30 Dose: 2 mg Lorazepam (Ativan) 0.5 mg PO Q4HR PRN; Protocol PRN Reason: Anxiety Stop: 10/03/17 00:48 Last Admin: 09/08/17 20:59 Dose: 0.5 mg Magnesium Hydroxide (Milk Of Magnesia) 30 ml PO HS PRN PRN Reason: Constipation Multivitamins/Vitamin C (Theragran) 1 tab PO DAILY SIMIN Stop: 11/02/17 08:59 Last Admin: 09/08/17 08:32 Dose: 1 tab Tamsulosin HCl (Flomax) 0.4 mg PO DAILY SIMIN Stop: 11/03/17 08:59 Last Admin: 09/08/17 08:32 Dose: 0.4 mg Zolpidem Tartrate (Ambien) 5 mg PO HS PRN PRN Reason: Insomnia Stop: 11/02/17 00:48 Last Admin: 09/08/17 20:59 Dose: 5 mg General: demented HEENT: NC/AT, PERRLA, EOMI, anicteric sclerae, throat clear Neck: Supple, No JVD, No thyromegaly, +2 carotid pulse wo bruit, No LAD Lungs: CTAB Cardiovascular: RRR, Normal S1, Normal S2, without murmur Abdomen: soft, non-tender, non-distended Extremities: clear Neurological: no change - Procedures Procedures: Procedures Procedure Code Date INSERTION OF INFUSION DEV INTO SUP VENA CAVA, PERC APPROACH [id number] 08/14/17 PERFORMANCE OF URINARY FILTRATION, <6 HRS/DAY [id number] 08/14/17 ULTRASONOGRAPHY OF SUPERIOR VENA CAVA, GUIDANCE [id number] 08/14/17 Internal Medicine Assmt/Plan - Assessment Assessment: 1.COPD. 2.BPH. 3.DEMENTIA. - Plan Plan: CONTINUE ON CURRENT MEDICVATION AND DIET. Nutritional Asmnt/Malnutr-PDOC - Dietary Evaluation Malnutrition Findings (Please click <Entered> for more info): Nutritional Asmnt/Malnutrition Start: 09/06/17 13: 19 Text: Status: Complete Freq: Protocol: Document 09/06/17 13:19 LCHENG (Rec: 09/06/17 13:28 LCHENG [email or web address]) Nutritional Asmnt/Malnutrition Patient General Information Nutritional Screening Moderate Risk Diagnosis psychosis Pertinent Medical Hx/Surgical Hx BPH, dementia Subjective Information Pt seen sitting in rich-chair at dining room. Pt stated hungry. Per EMR, PO intake 100 % of meals. Current Diet Order/ Nutrition Support CCHO-60gm Pertinent Medications theragran Pertinent Labs 09/04 K 3.1, Cr 0.6, glucose 131 Nutritional Hx/Data Height 1.65 m Height (Calculated Centimeters) 165.1 Current Weight (lbs) 60.781 kg Weight (Calculated Kilograms) 60.8 Weight (Calculated Grams) 28282.4 [place] Body Weight 136 Body Mass Index (BMI) 22.3 Weight Status Approriate GI Symptoms GI Symptoms None Last BM 09/06 Difficult in: None Skin Integrity/Comment: dryness Current %PO Good (75-100%) Estimated Nutritional Goals BEE in Kcals: Using Current wt Calories/Kcals/Kg 25-30 Kcals Calculated 1505-3982 Protein: Using Current wt Protein g/k Protein Calculated 61 Fluid: ml 3324-2230 Nutritional Problem No current Nutrition Prob Problem N/A Malnutrition Alert Is there a minimum of two criteria No selected? Query Text:Check all the applicable criteria. A minimum of two criteria are recommended for diagnosis of either severe or non-severe malnutrition. Malnutrition Related to Morbid Obesity Malnutrition related to morbid obesity No Intervention/Recommendation Comments 1. Continue with CCHO 60gm diet as ordered. If glucose level change toward to normal range, will consider removing CCHO restriction. 2. Monitor PO intake, wt, labs and skin integrity 3. F/U as low risk in 7 days, 09/13. Expected Outcomes/Goals Expected Outcomes/Goals 1. PO intake to meet at least 75% of nutritional needs. 2. Wt stability, skin to remain intact, labs to approach WNL.
[2017-09-09] MEDS: Multivitamin Tab PO SCH (08:33)
--- NOTE | 2017-09-09 22:52 | Internal Medicine Prog Note ---
Internal Medicine Subjective - Subjective Service Date: 09/09/17 Patient seen and examined:: with staff Patient is:: awake, verbal, in bed, talking Per staff patient has:: no adverse event Internal Medicine Objective - Results Result Diagrams: 09/04/17 08:15 09/04/17 08:15 Recent Labs: Laboratory Last Values WBC 6.2 Th/cmm (4.8-10.8) 09/04/17 08:15 RBC 4.22 Mil/cmm (3.80-5.80) 09/04/17 08:15 Hgb 13.1 gm/dL (12-16) 09/04/17 08:15 Hct 38.6 % (41.0-60) L 09/04/17 08:15 MCV 91.6 fl (80-99) 09/04/17 08:15 MCH 31.0 pg (27.0-31.0) 09/04/17 08:15 MCHC Differential 33.8 pg (28.0-36.0) 09/04/17 08:15 RDW 15.7 % (11.5-20.0) 09/04/17 08:15 Plt Count 274 Th/cmm (150-400) 09/04/17 08:15 MPV 8.4 fl 09/04/17 08:15 Neutrophils % 61.1 % (40.0-80.0) 09/04/17 08:15 Lymphocytes % 24.1 % (20.0-50.0) 09/04/17 08:15 Monocytes % 8.8 % (2.0-10.0) 09/04/17 08:15 Eosinophils % 4.9 % (0.0-5.0) 09/04/17 08:15 Basophils % 1.1 % (0.0-2.0) 09/04/17 08:15 Sodium 141 mEq/L (136-145) 09/04/17 08:15 Potassium 3.1 mEq/L (3.5-5.1) L 09/04/17 08:15 Chloride 106 mEq/L (98-107) 09/04/17 08:15 Carbon Dioxide 30.3 mEq/L (21.0-31.0) 09/04/17 08:15 Anion Gap 7.8 (7.0-16.0) 09/04/17 08:15 BUN 12 mg/dL (7-25) 09/04/17 08:15 Creatinine 0.6 mg/dL (0.7-1.3) L 09/04/17 08:15 Est GFR ( Amer) > 60.0 ml/min (>90) 09/04/17 08:15 Est GFR (Non-Af Amer) > 60.0 ml/min 09/04/17 08:15 BUN/Creatinine Ratio 20.0 09/04/17 08:15 Glucose 131 mg/dL (70-105) H 09/04/17 08:15 Calcium 9.3 mg/dL (8.6-10.3) 09/04/17 08:15 - Physical Exam Vitals and I&O: Vital Signs Temp 98.2 F 09/09/17 14:00 Pulse 82 09/09/17 14:00 Resp 19 09/09/17 14:00 BP 115/63 09/09/17 14:00 Pulse Ox 98 09/09/17 14:00 Intake & Output 09/09/17 09/09/17 09/10/17 06:59 18:59 06:59 Intake Total 500 1000 Balance 500 1000 Intake: Oral 500 1000 Other: # Voids 3 4 # Bowel Movements 0 1 Active Medications: Current Medications Acetaminophen (Tylenol) 650 mg PO Q4HR PRN PRN Reason: Mild Pain / Temp above 100 Stop: 11/02/17 00:48 Al Hydrox/Mg Hydrox/Simethicone (Maalox) 30 ml PO Q4HR PRN PRN Reason: GI DISTRESS Stop: 11/02/17 00:48 Haloperidol (Haldol) 2 mg PO BID SIMIN; Protocol Stop: 11/03/17 16:59 Last Admin: 09/09/17 16:11 Dose: 2 mg Lorazepam (Ativan) 0.5 mg PO Q4HR PRN; Protocol PRN Reason: Anxiety Stop: 10/03/17 00:48 Last Admin: 09/09/17 20:54 Dose: 0.5 mg Magnesium Hydroxide (Milk Of Magnesia) 30 ml PO HS PRN PRN Reason: Constipation Multivitamins/Vitamin C (Theragran) 1 tab PO DAILY SIMIN Stop: 11/02/17 08:59 Last Admin: 09/09/17 08:33 Dose: 1 tab Tamsulosin HCl (Flomax) 0.4 mg PO DAILY SIMIN Stop: 11/03/17 08:59 Last Admin: 09/09/17 08:33 Dose: 0.4 mg Zolpidem Tartrate (Ambien) 5 mg PO HS PRN PRN Reason: Insomnia Stop: 11/02/17 00:48 Last Admin: 09/09/17 20:54 Dose: 5 mg General: demented HEENT: NC/AT, PERRLA, EOMI, anicteric sclerae, throat clear Neck: Supple, No JVD, No thyromegaly, +2 carotid pulse wo bruit, No LAD Lungs: CTAB Cardiovascular: RRR, Normal S1, Normal S2, without murmur Abdomen: soft, non-tender, non-distended Extremities: clear Neurological: no change - Procedures Procedures: Procedures Procedure Code Date INSERTION OF INFUSION DEV INTO SUP VENA CAVA, PERC APPROACH [id number] 08/14/17 PERFORMANCE OF URINARY FILTRATION, <6 HRS/DAY [id number] 08/14/17 ULTRASONOGRAPHY OF SUPERIOR VENA CAVA, GUIDANCE [id number] 08/14/17 Internal Medicine Assmt/Plan - Assessment Assessment: 1.COPD. 2.BPH. 3.DEMENTIA. - Plan Plan: CONTINUE ON CURRENT MEDICATION AND DIET. Nutritional Asmnt/Malnutr-PDOC - Dietary Evaluation Malnutrition Findings (Please click <Entered> for more info): Nutritional Asmnt/Malnutrition Start: 09/06/17 13: 19 Text: Status: Complete Freq: Protocol: Document 09/06/17 13:19 LCHENG (Rec: 09/06/17 13:28 [email or web address] [email or web address]) Nutritional Asmnt/Malnutrition Patient General Information Nutritional Screening Moderate Risk Diagnosis psychosis Pertinent Medical Hx/Surgical Hx BPH, dementia Subjective Information Pt seen sitting in rich-chair at dining room. Pt stated hungry. Per EMR, PO intake 100 % of meals. Current Diet Order/ Nutrition Support CCHO-60gm Pertinent Medications theragran Pertinent Labs 09/04 K 3.1, Cr 0.6, glucose 131 Nutritional Hx/Data Height 1.65 m Height (Calculated Centimeters) 165.1 Current Weight (lbs) 60.781 kg Weight (Calculated Kilograms) 60.8 Weight (Calculated Grams) 39366.4 [place] Body Weight 136 Body Mass Index (BMI) 22.3 Weight Status Approriate GI Symptoms GI Symptoms None Last BM 09/06 Difficult in: None Skin Integrity/Comment: dryness Current %PO Good (75-100%) Estimated Nutritional Goals BEE in Kcals: Using Current wt Calories/Kcals/Kg 25-30 Kcals Calculated 2397-2855 Protein: Using Current wt Protein g/k Protein Calculated 61 Fluid: ml 5666-2728 Nutritional Problem No current Nutrition Prob Problem N/A Malnutrition Alert Is there a minimum of two criteria No selected? Query Text:Check all the applicable criteria. A minimum of two criteria are recommended for diagnosis of either severe or non-severe malnutrition. Malnutrition Related to Morbid Obesity Malnutrition related to morbid obesity No Intervention/Recommendation Comments 1. Continue with CCHO 60gm diet as ordered. If glucose level change toward to normal range, will consider removing CCHO restriction. 2. Monitor PO intake, wt, labs and skin integrity 3. F/U as low risk in 7 days, 09/13. Expected Outcomes/Goals Expected Outcomes/Goals 1. PO intake to meet at least 75% of nutritional needs. 2. Wt stability, skin to remain intact, labs to approach WNL.
--- NOTE | 2017-09-10 09:28 | Progress Notes ---
DATE: 09/09/2017 PSYCHIATRIC PROGRESS NOTE SUBJECTIVE: Staff was spoken to. The patient is interviewed. Mood is noted to be irritable. Affect is constricted. Insight and judgment at this time are noted to be still impaired. Impulse control is noted to be limited. Coping skills are also noted to be limited. The patient has been having difficult time to cope with the stress. The patient has been getting easily frustrated. The patient is currently on haloperidol 2 mg twice a day and has been able to tolerate the medications. No side effects to the medications are noted. ASSESSMENT: The patient is still impulsive and awaiting placement. PLAN: To continue the patient with supportive therapy. I encouraged the patient to verbalize the concerns rather than to act out. [facility]# [phone] [id number]
[2017-09-10] MEDS: Multivitamin Tab PO SCH (09:44)
--- NOTE | 2017-09-10 19:02 | Progress Notes ---
DATE: 09/10/2017 PSYCHIATRIC PROGRESS NOTE SUBJECTIVE: Staff was spoken to. The patient is interviewed. Mood is noted to be irritable. Affect is constricted. The patient focuses are noted to be poor. The patient has been getting easily frustrated. No side effects to the medications are noted at this time. The patient is currently on low dose of Haldol and has been able to tolerate the medications. a problem for this patient. intervention manager, working with the same. ASSESSMENT: The patient is still impulsive. PLAN: To continue the patient with supportive therapy and followup. JOB# [id number]
--- NOTE | 2017-09-10 19:40 | Internal Medicine Prog Note ---
Internal Medicine Subjective - Subjective Service Date: 09/10/17 Patient seen and examined:: without staff Patient is:: awake, verbal, in bed, talking Per staff patient has:: no adverse event Internal Medicine Objective - Results Result Diagrams: 09/04/17 08:15 09/04/17 08:15 Recent Labs: Laboratory Last Values WBC 6.2 Th/cmm (4.8-10.8) 09/04/17 08:15 RBC 4.22 Mil/cmm (3.80-5.80) 09/04/17 08:15 Hgb 13.1 gm/dL (12-16) 09/04/17 08:15 Hct 38.6 % (41.0-60) L 09/04/17 08:15 MCV 91.6 fl (80-99) 09/04/17 08:15 MCH 31.0 pg (27.0-31.0) 09/04/17 08:15 MCHC Differential 33.8 pg (28.0-36.0) 09/04/17 08:15 RDW 15.7 % (11.5-20.0) 09/04/17 08:15 Plt Count 274 Th/cmm (150-400) 09/04/17 08:15 MPV 8.4 fl 09/04/17 08:15 Neutrophils % 61.1 % (40.0-80.0) 09/04/17 08:15 Lymphocytes % 24.1 % (20.0-50.0) 09/04/17 08:15 Monocytes % 8.8 % (2.0-10.0) 09/04/17 08:15 Eosinophils % 4.9 % (0.0-5.0) 09/04/17 08:15 Basophils % 1.1 % (0.0-2.0) 09/04/17 08:15 Sodium 141 mEq/L (136-145) 09/04/17 08:15 Potassium 3.1 mEq/L (3.5-5.1) L 09/04/17 08:15 Chloride 106 mEq/L (98-107) 09/04/17 08:15 Carbon Dioxide 30.3 mEq/L (21.0-31.0) 09/04/17 08:15 Anion Gap 7.8 (7.0-16.0) 09/04/17 08:15 BUN 12 mg/dL (7-25) 09/04/17 08:15 Creatinine 0.6 mg/dL (0.7-1.3) L 09/04/17 08:15 Est GFR ( Amer) > 60.0 ml/min (>90) 09/04/17 08:15 Est GFR (Non-Af Amer) > 60.0 ml/min 09/04/17 08:15 BUN/Creatinine Ratio 20.0 09/04/17 08:15 Glucose 131 mg/dL (70-105) H 09/04/17 08:15 Calcium 9.3 mg/dL (8.6-10.3) 09/04/17 08:15 - Physical Exam Vitals and I&O: Vital Signs Temp 98.7 F 09/10/17 14:00 Pulse 73 09/10/17 14:00 Resp 18 09/10/17 14:00 BP 124/75 09/10/17 14:00 Pulse Ox 95 09/10/17 14:00 Intake & Output 09/10/17 09/10/17 09/11/17 06:59 18:59 06:59 Intake Total 1500 Balance 1500 Intake: Oral 1500 Other: # Voids 4 # Bowel Movements 2 Active Medications: Current Medications Acetaminophen (Tylenol) 650 mg PO Q4HR PRN PRN Reason: Mild Pain / Temp above 100 Stop: 11/02/17 00:48 Al Hydrox/Mg Hydrox/Simethicone (Maalox) 30 ml PO Q4HR PRN PRN Reason: GI DISTRESS Stop: 11/02/17 00:48 Haloperidol (Haldol) 2 mg PO BID SIMIN; Protocol Stop: 11/03/17 16:59 Last Admin: 09/10/17 16:49 Dose: 2 mg Lorazepam (Ativan) 0.5 mg PO Q4HR PRN; Protocol PRN Reason: Anxiety Stop: 10/03/17 00:48 Last Admin: 09/09/17 20:54 Dose: 0.5 mg Magnesium Hydroxide (Milk Of Magnesia) 30 ml PO HS PRN PRN Reason: Constipation Multivitamins/Vitamin C (Theragran) 1 tab PO DAILY SIMIN Stop: 11/02/17 08:59 Last Admin: 09/10/17 09:44 Dose: 1 tab Tamsulosin HCl (Flomax) 0.4 mg PO DAILY SIMIN Stop: 11/03/17 08:59 Last Admin: 09/10/17 09:44 Dose: 0.4 mg Zolpidem Tartrate (Ambien) 5 mg PO HS PRN PRN Reason: Insomnia Stop: 11/02/17 00:48 Last Admin: 09/09/17 20:54 Dose: 5 mg General: demented HEENT: NC/AT, PERRLA, EOMI, anicteric sclerae, throat clear Neck: Supple, No JVD, No thyromegaly, +2 carotid pulse wo bruit, No LAD Lungs: CTAB Cardiovascular: RRR, Normal S1, Normal S2, without murmur Abdomen: soft, non-tender, non-distended Extremities: clear Neurological: no change - Procedures Procedures: Procedures Procedure Code Date INSERTION OF INFUSION DEV INTO SUP VENA CAVA, PERC APPROACH [id number] 08/14/17 PERFORMANCE OF URINARY FILTRATION, <6 HRS/DAY [id number] 08/14/17 ULTRASONOGRAPHY OF SUPERIOR VENA CAVA, GUIDANCE [id number] 08/14/17 Internal Medicine Assmt/Plan - Assessment Assessment: 1.COPD. 2.BPH. 3.DEMENTIA. - Plan Plan: CONTINUE ON CURRENT MEDICATION AND DIET. Nutritional Asmnt/Malnutr-PDOC - Dietary Evaluation Malnutrition Findings (Please click <Entered> for more info): Nutritional Asmnt/Malnutrition Start: 09/06/17 13: 19 Text: Status: Complete Freq: Protocol: Document 09/06/17 13:19 LCHENG (Rec: 09/06/17 13:28 LCHENG [email or web address]) Nutritional Asmnt/Malnutrition Patient General Information Nutritional Screening Moderate Risk Diagnosis psychosis Pertinent Medical Hx/Surgical Hx BPH, dementia Subjective Information Pt seen sitting in rich-chair at dining room. Pt stated hungry. Per EMR, PO intake 100 % of meals. Current Diet Order/ Nutrition Support CCHO-60gm Pertinent Medications theragran Pertinent Labs 09/04 K 3.1, Cr 0.6, glucose 131 Nutritional Hx/Data Height 1.65 m Height (Calculated Centimeters) 165.1 Current Weight (lbs) 60.781 kg Weight (Calculated Kilograms) 60.8 Weight (Calculated Grams) 46958.4 [place] Body Weight 136 Body Mass Index (BMI) 22.3 Weight Status Approriate GI Symptoms GI Symptoms None Last BM 09/06 Difficult in: None Skin Integrity/Comment: dryness Current %PO Good (75-100%) Estimated Nutritional Goals BEE in Kcals: Using Current wt Calories/Kcals/Kg 25-30 Kcals Calculated 9832-2222 Protein: Using Current wt Protein g/k Protein Calculated 61 Fluid: ml 7447-1216 Nutritional Problem No current Nutrition Prob Problem N/A Malnutrition Alert Is there a minimum of two criteria No selected? Query Text:Check all the applicable criteria. A minimum of two criteria are recommended for diagnosis of either severe or non-severe malnutrition. Malnutrition Related to Morbid Obesity Malnutrition related to morbid obesity No Intervention/Recommendation Comments 1. Continue with CCHO 60gm diet as ordered. If glucose level change toward to normal range, will consider removing CCHO restriction. 2. Monitor PO intake, wt, labs and skin integrity 3. F/U as low risk in 7 days, 09/13. Expected Outcomes/Goals Expected Outcomes/Goals 1. PO intake to meet at least 75% of nutritional needs. 2. Wt stability, skin to remain intact, labs to approach WNL.
[2017-09-11] MEDS: Multivitamin Tab PO SCH (09:18)
--- NOTE | 2017-09-11 13:15 | Internal Medicine Prog Note ---
Internal Medicine Subjective - Subjective Service Date: 09/11/17 Patient seen and examined:: with staff Patient is:: awake, verbal, in bed, talking Per staff patient has:: no adverse event Internal Medicine Objective - Results Result Diagrams: 09/04/17 08:15 09/04/17 08:15 Recent Labs: Laboratory Last Values WBC 6.2 Th/cmm (4.8-10.8) 09/04/17 08:15 RBC 4.22 Mil/cmm (3.80-5.80) 09/04/17 08:15 Hgb 13.1 gm/dL (12-16) 09/04/17 08:15 Hct 38.6 % (41.0-60) L 09/04/17 08:15 MCV 91.6 fl (80-99) 09/04/17 08:15 MCH 31.0 pg (27.0-31.0) 09/04/17 08:15 MCHC Differential 33.8 pg (28.0-36.0) 09/04/17 08:15 RDW 15.7 % (11.5-20.0) 09/04/17 08:15 Plt Count 274 Th/cmm (150-400) 09/04/17 08:15 MPV 8.4 fl 09/04/17 08:15 Neutrophils % 61.1 % (40.0-80.0) 09/04/17 08:15 Lymphocytes % 24.1 % (20.0-50.0) 09/04/17 08:15 Monocytes % 8.8 % (2.0-10.0) 09/04/17 08:15 Eosinophils % 4.9 % (0.0-5.0) 09/04/17 08:15 Basophils % 1.1 % (0.0-2.0) 09/04/17 08:15 Sodium 141 mEq/L (136-145) 09/04/17 08:15 Potassium 3.1 mEq/L (3.5-5.1) L 09/04/17 08:15 Chloride 106 mEq/L (98-107) 09/04/17 08:15 Carbon Dioxide 30.3 mEq/L (21.0-31.0) 09/04/17 08:15 Anion Gap 7.8 (7.0-16.0) 09/04/17 08:15 BUN 12 mg/dL (7-25) 09/04/17 08:15 Creatinine 0.6 mg/dL (0.7-1.3) L 09/04/17 08:15 Est GFR ( Amer) > 60.0 ml/min (>90) 09/04/17 08:15 Est GFR (Non-Af Amer) > 60.0 ml/min 09/04/17 08:15 BUN/Creatinine Ratio 20.0 09/04/17 08:15 Glucose 131 mg/dL (70-105) H 09/04/17 08:15 Calcium 9.3 mg/dL (8.6-10.3) 09/04/17 08:15 - Physical Exam Vitals and I&O: Vital Signs Temp 98.4 F 09/11/17 06:29 Pulse 74 09/11/17 06:29 Resp 20 09/11/17 06:29 BP 132/79 09/11/17 06:29 Pulse Ox 98 09/11/17 06:29 Intake & Output 09/10/17 09/11/17 09/11/17 18:59 06:59 18:59 Intake Total 1500 Balance 1500 Intake: Oral 1500 Other: # Voids 4 # Bowel Movements 2 Active Medications: Current Medications Acetaminophen (Tylenol) 650 mg PO Q4HR PRN PRN Reason: Mild Pain / Temp above 100 Stop: 11/02/17 00:48 Al Hydrox/Mg Hydrox/Simethicone (Maalox) 30 ml PO Q4HR PRN PRN Reason: GI DISTRESS Stop: 11/02/17 00:48 Haloperidol (Haldol) 2 mg PO BID SIMIN; Protocol Stop: 11/03/17 16:59 Last Admin: 09/11/17 09:18 Dose: 2 mg Lorazepam (Ativan) 0.5 mg PO Q4HR PRN; Protocol PRN Reason: Anxiety Stop: 10/03/17 00:48 Last Admin: 09/11/17 10:46 Dose: 0.5 mg Magnesium Hydroxide (Milk Of Magnesia) 30 ml PO HS PRN PRN Reason: Constipation Multivitamins/Vitamin C (Theragran) 1 tab PO DAILY SIMIN Stop: 11/02/17 08:59 Last Admin: 09/11/17 09:18 Dose: 1 tab Tamsulosin HCl (Flomax) 0.4 mg PO DAILY SIMIN Stop: 11/03/17 08:59 Last Admin: 09/11/17 09:18 Dose: 0.4 mg Zolpidem Tartrate (Ambien) 5 mg PO HS PRN PRN Reason: Insomnia Stop: 11/02/17 00:48 Last Admin: 09/10/17 20:40 Dose: 5 mg General: demented HEENT: NC/AT, PERRLA, EOMI, anicteric sclerae, throat clear Neck: Supple, No JVD, No thyromegaly, +2 carotid pulse wo bruit, No LAD Lungs: CTAB Cardiovascular: RRR, Normal S1, Normal S2, without murmur Abdomen: soft, non-tender, non-distended Extremities: clear Neurological: no change - Procedures Procedures: Procedures Procedure Code Date INSERTION OF INFUSION DEV INTO SUP VENA CAVA, PERC APPROACH [id number] 08/14/17 PERFORMANCE OF URINARY FILTRATION, <6 HRS/DAY [id number] 08/14/17 ULTRASONOGRAPHY OF SUPERIOR VENA CAVA, GUIDANCE [id number] 08/14/17 Internal Medicine Assmt/Plan - Assessment Assessment: 1.COPD. 2.BPH. 3.DEMENTIA. - Plan Plan: CONTINUE ON CURRENT MEDICATION AND DIET. Nutritional Asmnt/Malnutr-PDOC - Dietary Evaluation Malnutrition Findings (Please click <Entered> for more info): Nutritional Asmnt/Malnutrition Start: 09/06/17 13: 19 Text: Status: Complete Freq: Protocol: Document 09/06/17 13:19 LCHENG (Rec: 09/06/17 13:28 LCHENG [email or web address]) Nutritional Asmnt/Malnutrition Patient General Information Nutritional Screening Moderate Risk Diagnosis psychosis Pertinent Medical Hx/Surgical Hx BPH, dementia Subjective Information Pt seen sitting in rich-chair at dining room. Pt stated hungry. Per EMR, PO intake 100 % of meals. Current Diet Order/ Nutrition Support CCHO-60gm Pertinent Medications theragran Pertinent Labs 09/04 K 3.1, Cr 0.6, glucose 131 Nutritional Hx/Data Height 1.65 m Height (Calculated Centimeters) 165.1 Current Weight (lbs) 60.781 kg Weight (Calculated Kilograms) 60.8 Weight (Calculated Grams) 86168.4 [place] Body Weight 136 Body Mass Index (BMI) 22.3 Weight Status Approriate GI Symptoms GI Symptoms None Last BM 09/06 Difficult in: None Skin Integrity/Comment: dryness Current %PO Good (75-100%) Estimated Nutritional Goals BEE in Kcals: Using Current wt Calories/Kcals/Kg 25-30 Kcals Calculated 7795-2361 Protein: Using Current wt Protein g/k Protein Calculated 61 Fluid: ml 8285-5875 Nutritional Problem No current Nutrition Prob Problem N/A Malnutrition Alert Is there a minimum of two criteria No selected? Query Text:Check all the applicable criteria. A minimum of two criteria are recommended for diagnosis of either severe or non-severe malnutrition. Malnutrition Related to Morbid Obesity Malnutrition related to morbid obesity No Intervention/Recommendation Comments 1. Continue with CCHO 60gm diet as ordered. If glucose level change toward to normal range, will consider removing CCHO restriction. 2. Monitor PO intake, wt, labs and skin integrity 3. F/U as low risk in 7 days, 09/13. Expected Outcomes/Goals Expected Outcomes/Goals 1. PO intake to meet at least 75% of nutritional needs. 2. Wt stability, skin to remain intact, labs to approach WNL.
--- NOTE | 2017-09-11 20:58 | Progress Notes ---
DATE: 09/11/2017 PSYCHIATRIC PROGRESS NOTE SUBJECTIVE: Staff was spoken to. The patient is interviewed. Mood is noted to be less irritable. Affect is appropriate. The patient's aggression seems to be coming under control. Paranoia is less. The patient denies any auditory hallucinations, but the patient gets angry when he does not get his way. ASSESSMENT: The patient's verbally abusive behavior has been coming under control. PLAN: To continue the patient with the current medications and follow up with the supportive therapy. JOB# [id number]
[2017-09-12] MEDS: Multivitamin Tab PO SCH (09:00)
--- NOTE | 2017-09-12 14:05 | Progress Notes ---
DATE: 09/12/2017 SUBJECTIVE: Staff was spoken to. The patient is interviewed. Mood is noted to be dysphoric. Coping skills are noted to be poor. Insight and judgment also noted to be still impaired. No side effects to the medications are noted. The patient is still testing the limits, but not that aggressive like before. No side effects to the medications are noted. ASSESSMENT: The patient is still impulsive. PLAN: To continue the patient with the supportive therapy and followup. [facility]# [phone] [id number]
--- NOTE | 2017-09-12 22:18 | Internal Medicine Prog Note ---
Internal Medicine Subjective - Subjective Service Date: 09/12/17 Patient seen and examined:: with staff Patient is:: awake, verbal, in bed, talking Per staff patient has:: no adverse event Internal Medicine Objective - Results Result Diagrams: 09/04/17 08:15 09/04/17 08:15 Recent Labs: Laboratory Last Values WBC 6.2 Th/cmm (4.8-10.8) 09/04/17 08:15 RBC 4.22 Mil/cmm (3.80-5.80) 09/04/17 08:15 Hgb 13.1 gm/dL (12-16) 09/04/17 08:15 Hct 38.6 % (41.0-60) L 09/04/17 08:15 MCV 91.6 fl (80-99) 09/04/17 08:15 MCH 31.0 pg (27.0-31.0) 09/04/17 08:15 MCHC Differential 33.8 pg (28.0-36.0) 09/04/17 08:15 RDW 15.7 % (11.5-20.0) 09/04/17 08:15 Plt Count 274 Th/cmm (150-400) 09/04/17 08:15 MPV 8.4 fl 09/04/17 08:15 Neutrophils % 61.1 % (40.0-80.0) 09/04/17 08:15 Lymphocytes % 24.1 % (20.0-50.0) 09/04/17 08:15 Monocytes % 8.8 % (2.0-10.0) 09/04/17 08:15 Eosinophils % 4.9 % (0.0-5.0) 09/04/17 08:15 Basophils % 1.1 % (0.0-2.0) 09/04/17 08:15 Sodium 141 mEq/L (136-145) 09/04/17 08:15 Potassium 3.1 mEq/L (3.5-5.1) L 09/04/17 08:15 Chloride 106 mEq/L (98-107) 09/04/17 08:15 Carbon Dioxide 30.3 mEq/L (21.0-31.0) 09/04/17 08:15 Anion Gap 7.8 (7.0-16.0) 09/04/17 08:15 BUN 12 mg/dL (7-25) 09/04/17 08:15 Creatinine 0.6 mg/dL (0.7-1.3) L 09/04/17 08:15 Est GFR ( Amer) > 60.0 ml/min (>90) 09/04/17 08:15 Est GFR (Non-Af Amer) > 60.0 ml/min 09/04/17 08:15 BUN/Creatinine Ratio 20.0 09/04/17 08:15 Glucose 131 mg/dL (70-105) H 09/04/17 08:15 Calcium 9.3 mg/dL (8.6-10.3) 09/04/17 08:15 - Physical Exam Vitals and I&O: Vital Signs Temp 98.4 F 09/12/17 20:40 Pulse 91 09/12/17 20:40 Resp 20 09/12/17 20:40 BP 127/79 09/12/17 20:40 Pulse Ox 97 09/12/17 20:40 Intake & Output 09/12/17 09/12/17 09/13/17 06:59 18:59 06:59 Intake Total 180 1200 180 Balance 180 1200 180 Intake: Oral 180 1200 180 Other: # Voids 3 3 2 # Bowel Movements 1 1 1 Stool Characteristics Soft Formed Brown Active Medications: Current Medications Acetaminophen (Tylenol) 650 mg PO Q4HR PRN PRN Reason: Mild Pain / Temp above 100 Stop: 11/02/17 00:48 Al Hydrox/Mg Hydrox/Simethicone (Maalox) 30 ml PO Q4HR PRN PRN Reason: GI DISTRESS Stop: 11/02/17 00:48 Haloperidol (Haldol) 2 mg PO BID SIMIN; Protocol Stop: 11/03/17 16:59 Last Admin: 09/12/17 17:31 Dose: 2 mg Lorazepam (Ativan) 0.5 mg PO Q4HR PRN; Protocol PRN Reason: Anxiety Stop: 10/03/17 00:48 Last Admin: 09/12/17 17:31 Dose: 0.5 mg Magnesium Hydroxide (Milk Of Magnesia) 30 ml PO HS PRN PRN Reason: Constipation Multivitamins/Vitamin C (Theragran) 1 tab PO DAILY SIMIN Stop: 11/02/17 08:59 Last Admin: 09/12/17 09:00 Dose: 1 tab Tamsulosin HCl (Flomax) 0.4 mg PO DAILY SIMIN Stop: 11/03/17 08:59 Last Admin: 09/12/17 09:00 Dose: 0.4 mg Zolpidem Tartrate (Ambien) 5 mg PO HS PRN PRN Reason: Insomnia Stop: 11/02/17 00:48 Last Admin: 09/11/17 20:54 Dose: 5 mg General: demented HEENT: NC/AT, PERRLA, EOMI, anicteric sclerae, throat clear Neck: Supple, No JVD, No thyromegaly, +2 carotid pulse wo bruit, No LAD Lungs: CTAB Cardiovascular: RRR, Normal S1, Normal S2, without murmur Abdomen: soft, non-tender, non-distended Extremities: clear Neurological: no change - Procedures Procedures: Procedures Procedure Code Date INSERTION OF INFUSION DEV INTO SUP VENA CAVA, PERC APPROACH [id number] 08/14/17 PERFORMANCE OF URINARY FILTRATION, <6 HRS/DAY [id number] 08/14/17 ULTRASONOGRAPHY OF SUPERIOR VENA CAVA, GUIDANCE [id number] 08/14/17 Internal Medicine Assmt/Plan - Assessment Assessment: 1.COPD. 2.BPH. 3.DEMENTIA. - Plan Plan: CONTINUE ON CURRENT MEDICATION AND DIET. Nutritional Asmnt/Malnutr-PDOC - Dietary Evaluation Malnutrition Findings (Please click <Entered> for more info): Nutritional Asmnt/Malnutrition Start: 09/06/17 13: 19 Text: Status: Complete Freq: Protocol: Document 09/06/17 13:19 LCHENG (Rec: 09/06/17 13:28 LCBRENDONG [email or web address]) Nutritional Asmnt/Malnutrition Patient General Information Nutritional Screening Moderate Risk Diagnosis psychosis Pertinent Medical Hx/Surgical Hx BPH, dementia Subjective Information Pt seen sitting in rich-chair at dining room. Pt stated hungry. Per EMR, PO intake 100 % of meals. [facility] Diet [facility] Pertinent Medications theragran Pertinent Labs 09/04 K 3.1, Cr 0.6, glucose 131 Nutritional Hx/Data Height 1.65 m Height (Calculated Centimeters) 165.1 Current Weight (lbs) 60.781 kg Weight (Calculated Kilograms) 60.8 Weight (Calculated Grams) 03478.4 [place] Body Weight 136 Body Mass Index (BMI) 22.3 Weight Status Approriate GI Symptoms GI Symptoms None Last BM 09/06 Difficult in: None Skin Integrity/Comment: dryness Current %PO Good (75-100%) Estimated Nutritional Goals BEE in Kcals: Using Current wt Calories/Kcals/Kg 25-30 Kcals Calculated 3887-6998 Protein: Using Current wt Protein g/k Protein Calculated 61 Fluid: ml 4600-4256 Nutritional Problem No current Nutrition Prob Problem N/A Malnutrition Alert Is there a minimum of two criteria No selected? Query Text:Check all the applicable criteria. A minimum of two criteria are recommended for diagnosis of either severe or non-severe malnutrition. Malnutrition Related to Morbid Obesity Malnutrition related to morbid obesity No Intervention/Recommendation Comments 1. Continue with CCHO 60gm diet as ordered. If glucose level change toward to normal range, will consider removing CCHO restriction. 2. Monitor PO intake, wt, labs and skin integrity 3. F/U as low risk in 7 days, 09/13. Expected Outcomes/Goals Expected Outcomes/Goals 1. PO intake to meet at least 75% of nutritional needs. 2. Wt stability, skin to remain intact, labs to approach WNL.
[2017-09-13] MEDS: Multivitamin Tab PO SCH (08:19)
--- NOTE | 2017-09-13 11:56 | Internal Medicine Prog Note ---
Internal Medicine Subjective - Subjective Service Date: 09/13/17 Patient seen and examined:: with staff Patient is:: awake, verbal, in bed, talking Per staff patient has:: no adverse event Internal Medicine Objective - Results Result Diagrams: 09/04/17 08:15 09/04/17 08:15 Recent Labs: Laboratory Last Values WBC 6.2 Th/cmm (4.8-10.8) 09/04/17 08:15 RBC 4.22 Mil/cmm (3.80-5.80) 09/04/17 08:15 Hgb 13.1 gm/dL (12-16) 09/04/17 08:15 Hct 38.6 % (41.0-60) L 09/04/17 08:15 MCV 91.6 fl (80-99) 09/04/17 08:15 MCH 31.0 pg (27.0-31.0) 09/04/17 08:15 MCHC Differential 33.8 pg (28.0-36.0) 09/04/17 08:15 RDW 15.7 % (11.5-20.0) 09/04/17 08:15 Plt Count 274 Th/cmm (150-400) 09/04/17 08:15 MPV 8.4 fl 09/04/17 08:15 Neutrophils % 61.1 % (40.0-80.0) 09/04/17 08:15 Lymphocytes % 24.1 % (20.0-50.0) 09/04/17 08:15 Monocytes % 8.8 % (2.0-10.0) 09/04/17 08:15 Eosinophils % 4.9 % (0.0-5.0) 09/04/17 08:15 Basophils % 1.1 % (0.0-2.0) 09/04/17 08:15 Sodium 141 mEq/L (136-145) 09/04/17 08:15 Potassium 3.1 mEq/L (3.5-5.1) L 09/04/17 08:15 Chloride 106 mEq/L (98-107) 09/04/17 08:15 Carbon Dioxide 30.3 mEq/L (21.0-31.0) 09/04/17 08:15 Anion Gap 7.8 (7.0-16.0) 09/04/17 08:15 BUN 12 mg/dL (7-25) 09/04/17 08:15 Creatinine 0.6 mg/dL (0.7-1.3) L 09/04/17 08:15 Est GFR ( Amer) > 60.0 ml/min (>90) 09/04/17 08:15 Est GFR (Non-Af Amer) > 60.0 ml/min 09/04/17 08:15 BUN/Creatinine Ratio 20.0 09/04/17 08:15 Glucose 131 mg/dL (70-105) H 09/04/17 08:15 Calcium 9.3 mg/dL (8.6-10.3) 09/04/17 08:15 - Physical Exam Vitals and I&O: Vital Signs Temp 97.5 F 09/13/17 06:39 Pulse 68 09/13/17 06:39 Resp 19 09/13/17 11:21 BP 124/76 09/13/17 06:39 Pulse Ox 98 09/13/17 06:39 Intake & Output 09/12/17 09/13/17 09/13/17 18:59 06:59 18:59 Intake Total 1200 300 Balance 1200 300 Intake: Oral 1200 300 Other: # Voids 3 2 # Bowel Movements 1 0 Stool Characteristics Soft Soft Formed Formed Brown Brown Active Medications: Current Medications Acetaminophen (Tylenol) 650 mg PO Q4HR PRN PRN Reason: Mild Pain / Temp above 100 Stop: 11/02/17 00:48 Al Hydrox/Mg Hydrox/Simethicone (Maalox) 30 ml PO Q4HR PRN PRN Reason: GI DISTRESS Stop: 11/02/17 00:48 Haloperidol (Haldol) 2 mg PO BID SIMIN; Protocol Stop: 11/03/17 16:59 Last Admin: 09/13/17 08:19 Dose: 2 mg Lorazepam (Ativan) 0.5 mg PO Q4HR PRN; Protocol PRN Reason: Anxiety Stop: 10/03/17 00:48 Last Admin: 09/13/17 08:19 Dose: 0.5 mg Magnesium Hydroxide (Milk Of Magnesia) 30 ml PO HS PRN PRN Reason: Constipation Multivitamins/Vitamin C (Theragran) 1 tab PO DAILY SIMIN Stop: 11/02/17 08:59 Last Admin: 09/13/17 08:19 Dose: 1 tab Tamsulosin HCl (Flomax) 0.4 mg PO DAILY SIMIN Stop: 11/03/17 08:59 Last Admin: 09/13/17 08:19 Dose: 0.4 mg Zolpidem Tartrate (Ambien) 5 mg PO HS PRN PRN Reason: Insomnia Stop: 11/02/17 00:48 Last Admin: 09/13/17 00:29 Dose: 5 mg General: demented HEENT: NC/AT, PERRLA, EOMI, anicteric sclerae, throat clear Neck: Supple, No JVD, No thyromegaly, +2 carotid pulse wo bruit, No LAD Lungs: CTAB Cardiovascular: RRR, Normal S1, Normal S2, without murmur Abdomen: soft, non-tender, non-distended Extremities: clear Neurological: no change - Procedures Procedures: Procedures Procedure Code Date INSERTION OF INFUSION DEV INTO SUP VENA CAVA, PERC APPROACH [id number] 08/14/17 PERFORMANCE OF URINARY FILTRATION, <6 HRS/DAY [id number] 08/14/17 ULTRASONOGRAPHY OF SUPERIOR VENA CAVA, GUIDANCE [id number] 08/14/17 Internal Medicine Assmt/Plan - Assessment Assessment: 1.COPD. 2.BPH. 3.DEMENTIA. - Plan Plan: CONTINUE ON CURRENT MEDICATION AND DIET. Nutritional Asmnt/Malnutr-PDOC - Dietary Evaluation Malnutrition Findings (Please click <Entered> for more info): Nutritional Asmnt/Malnutrition Start: 09/06/17 13: 19 Text: Status: Complete Freq: Protocol: Document 09/06/17 13:19 LCHENG (Rec: 09/06/17 13:28 LCBRENDONG [email or web address]) Nutritional Asmnt/Malnutrition Patient General Information Nutritional Screening Moderate Risk Diagnosis psychosis Pertinent Medical Hx/Surgical Hx BPH, dementia Subjective Information Pt seen sitting in rich-chair at dining room. Pt stated hungry. Per EMR, PO intake 100 % of meals. Current Diet Order/ Nutrition Support CCHO-60gm Pertinent Medications theragran Pertinent Labs 09/04 K 3.1, Cr 0.6, glucose 131 Nutritional Hx/Data Height 1.65 m Height (Calculated Centimeters) 165.1 Current Weight (lbs) 60.781 kg Weight (Calculated Kilograms) 60.8 Weight (Calculated Grams) 83288.4 [place] Body Weight 136 Body Mass Index (BMI) 22.3 Weight Status Approriate GI Symptoms GI Symptoms None Last BM 09/06 Difficult in: None Skin Integrity/Comment: dryness Current %PO Good (75-100%) Estimated Nutritional Goals BEE in Kcals: Using Current wt Calories/Kcals/Kg 25-30 Kcals Calculated 1546-2063 Protein: Using Current wt Protein g/k Protein Calculated 61 Fluid: ml 9602-6702 Nutritional Problem No current Nutrition Prob Problem N/A Malnutrition Alert Is there a minimum of two criteria No selected? Query Text:Check all the applicable criteria. A minimum of two criteria are recommended for diagnosis of either severe or non-severe malnutrition. Malnutrition Related to Morbid Obesity Malnutrition related to morbid obesity No Intervention/Recommendation Comments 1. Continue with CCHO 60gm diet as ordered. If glucose level change toward to normal range, will consider removing CCHO restriction. 2. Monitor PO intake, wt, labs and skin integrity 3. F/U as low risk in 7 days, 09/13. Expected Outcomes/Goals Expected Outcomes/Goals 1. PO intake to meet at least 75% of nutritional needs. 2. Wt stability, skin to remain intact, labs to approach WNL.
--- NOTE | 2017-09-14 05:57 | Progress Notes ---
DATE: 09/13/2017 PSYCHIATRIC PROGRESS NOTE SUBJECTIVE: Staff was spoken to. The patient is interviewed. Mood is noted to be irritable. Affect is constricted. The patient has been having difficult time to cope with the stress. No side effects to the medications are noted. The patient has been getting easily upset, but could be redirectable compared to before. No major side effects from the haloperidol noted. ASSESSMENT: The patient is less impulsive. PLAN: To continue the patient with the supportive therapy and coordinate with the returned case inspector with regard to the discharge planning. JOB# [id number]
[2017-09-14] MEDS: Multivitamin Tab PO SCH (09:22)
--- NOTE | 2017-09-14 22:31 | Internal Medicine Prog Note ---
Internal Medicine Subjective - Subjective Service Date: 09/14/17 Patient seen and examined:: without staff Patient is:: awake, verbal, in bed, talking Per staff patient has:: no adverse event Internal Medicine Objective - Results Result Diagrams: 09/04/17 08:15 09/04/17 08:15 Recent Labs: Laboratory Last Values WBC 6.2 Th/cmm (4.8-10.8) 09/04/17 08:15 RBC 4.22 Mil/cmm (3.80-5.80) 09/04/17 08:15 Hgb 13.1 gm/dL (12-16) 09/04/17 08:15 Hct 38.6 % (41.0-60) L 09/04/17 08:15 MCV 91.6 fl (80-99) 09/04/17 08:15 MCH 31.0 pg (27.0-31.0) 09/04/17 08:15 MCHC Differential 33.8 pg (28.0-36.0) 09/04/17 08:15 RDW 15.7 % (11.5-20.0) 09/04/17 08:15 Plt Count 274 Th/cmm (150-400) 09/04/17 08:15 MPV 8.4 fl 09/04/17 08:15 Neutrophils % 61.1 % (40.0-80.0) 09/04/17 08:15 Lymphocytes % 24.1 % (20.0-50.0) 09/04/17 08:15 Monocytes % 8.8 % (2.0-10.0) 09/04/17 08:15 Eosinophils % 4.9 % (0.0-5.0) 09/04/17 08:15 Basophils % 1.1 % (0.0-2.0) 09/04/17 08:15 Sodium 141 mEq/L (136-145) 09/04/17 08:15 Potassium 3.1 mEq/L (3.5-5.1) L 09/04/17 08:15 Chloride 106 mEq/L (98-107) 09/04/17 08:15 Carbon Dioxide 30.3 mEq/L (21.0-31.0) 09/04/17 08:15 Anion Gap 7.8 (7.0-16.0) 09/04/17 08:15 BUN 12 mg/dL (7-25) 09/04/17 08:15 Creatinine 0.6 mg/dL (0.7-1.3) L 09/04/17 08:15 Est GFR ( Amer) > 60.0 ml/min (>90) 09/04/17 08:15 Est GFR (Non-Af Amer) > 60.0 ml/min 09/04/17 08:15 BUN/Creatinine Ratio 20.0 09/04/17 08:15 Glucose 131 mg/dL (70-105) H 09/04/17 08:15 Calcium 9.3 mg/dL (8.6-10.3) 09/04/17 08:15 - Physical Exam Vitals and I&O: Vital Signs Temp 98.4 F 09/14/17 20:00 Pulse 70 09/14/17 20:00 Resp 20 09/14/17 20:00 BP 115/64 09/14/17 20:00 Pulse Ox 97 09/14/17 20:00 Intake & Output 09/14/17 09/14/17 09/15/17 06:59 18:59 06:59 Intake Total 120 Balance 120 Intake: Oral 120 Other: # Voids 3 6 # Bowel Movements 1 1 Active Medications: Current Medications Acetaminophen (Tylenol) 650 mg PO Q4HR PRN PRN Reason: Mild Pain / Temp above 100 Stop: 11/02/17 00:48 Al Hydrox/Mg Hydrox/Simethicone (Maalox) 30 ml PO Q4HR PRN PRN Reason: GI DISTRESS Stop: 11/02/17 00:48 Haloperidol (Haldol) 2 mg PO BID SIMIN; Protocol Stop: 11/03/17 16:59 Last Admin: 09/14/17 16:58 Dose: 2 mg Lorazepam (Ativan) 0.5 mg PO Q4HR PRN; Protocol PRN Reason: Anxiety Stop: 10/03/17 00:48 Last Admin: 09/14/17 21:12 Dose: 0.5 mg Magnesium Hydroxide (Milk Of Magnesia) 30 ml PO HS PRN PRN Reason: Constipation Multivitamins/Vitamin C (Theragran) 1 tab PO DAILY SIMIN Stop: 11/02/17 08:59 Last Admin: 09/14/17 09:22 Dose: 1 tab Tamsulosin HCl (Flomax) 0.4 mg PO DAILY SIMIN Stop: 11/03/17 08:59 Last Admin: 09/14/17 09:22 Dose: 0.4 mg Zolpidem Tartrate (Ambien) 5 mg PO HS PRN PRN Reason: Insomnia Stop: 11/02/17 00:48 Last Admin: 09/14/17 21:12 Dose: 5 mg General: demented HEENT: NC/AT, PERRLA, EOMI, anicteric sclerae, throat clear Neck: Supple, No JVD, No thyromegaly, +2 carotid pulse wo bruit, No LAD Lungs: CTAB Cardiovascular: RRR, Normal S1, Normal S2, without murmur Abdomen: soft, non-tender, non-distended Extremities: clear Neurological: no change - Procedures Procedures: Procedures Procedure Code Date INSERTION OF INFUSION DEV INTO SUP VENA CAVA, PERC APPROACH [id number] 08/14/17 PERFORMANCE OF URINARY FILTRATION, <6 HRS/DAY [id number] 08/14/17 ULTRASONOGRAPHY OF SUPERIOR VENA CAVA, GUIDANCE [id number] 08/14/17 Internal Medicine Assmt/Plan - Assessment Assessment: 1.COPD. 2.BPH. 3.DEMENTIA. - Plan Plan: CONTINUE ON CURRENT MEDICATION AND DIET. Nutritional Asmnt/Malnutr-PDOC - Dietary Evaluation Malnutrition Findings (Please click <Entered> for more info): Nutritional Asmnt/Malnutrition Start: 09/06/17 13: 19 Text: Status: Complete Freq: Protocol: Document 09/06/17 13:19 LCHENG (Rec: 09/06/17 13:28 LCHENG [email or web address]) Nutritional Asmnt/Malnutrition Patient General Information Nutritional Screening Moderate Risk Diagnosis psychosis Pertinent Medical Hx/Surgical Hx BPH, dementia Subjective Information Pt seen sitting in rich-chair at dining room. Pt stated hungry. Per EMR, PO intake 100 % of meals. Current Diet Order/ Nutrition Support CCHO-60gm Pertinent Medications theragran Pertinent Labs 09/04 K 3.1, Cr 0.6, glucose 131 Nutritional Hx/Data Height 1.65 m Height (Calculated Centimeters) 165.1 Current Weight (lbs) 60.781 kg Weight (Calculated Kilograms) 60.8 Weight (Calculated Grams) 79583.4 [place] Body Weight 136 Body Mass Index (BMI) 22.3 Weight Status Approriate GI Symptoms GI Symptoms None Last BM 09/06 Difficult in: None Skin Integrity/Comment: dryness Current %PO Good (75-100%) Estimated Nutritional Goals BEE in Kcals: Using Current wt Calories/Kcals/Kg 25-30 Kcals Calculated 5821-9071 Protein: Using Current wt Protein g/k Protein Calculated 61 Fluid: ml 7674-4356 Nutritional Problem No current Nutrition Prob Problem N/A Malnutrition Alert Is there a minimum of two criteria No selected? Query Text:Check all the applicable criteria. A minimum of two criteria are recommended for diagnosis of either severe or non-severe malnutrition. Malnutrition Related to Morbid Obesity Malnutrition related to morbid obesity No Intervention/Recommendation Comments 1. Continue with CCHO 60gm diet as ordered. If glucose level change toward to normal range, will consider removing CCHO restriction. 2. Monitor PO intake, wt, labs and skin integrity 3. F/U as low risk in 7 days, 09/13. Expected Outcomes/Goals Expected Outcomes/Goals 1. PO intake to meet at least 75% of nutritional needs. 2. Wt stability, skin to remain intact, labs to approach WNL.
--- NOTE | 2017-09-14 23:45 | Progress Notes ---
DATE: 09/14/2017 SUBJECTIVE: Staff was spoken to. The patient is interviewed. Mood is noted to be irritable. Affect is constricted. Insight and judgment noted to be still impaired. Impulse control is noted to be limited. Coping skills are noted to be limited. The patient has been, however, redirectable at this time compared to before. The patient's aggressive behavior seems to be coming under control. ASSESSMENT: The patient is stabilizing. PLAN: To continue the patient with the supportive therapy and work with the patient case manager with regards to discharge of the patient. JOB# [id number]
[2017-09-15] MEDS: Multivitamin Tab PO SCH (12:07)
--- NOTE | 2017-09-15 20:18 | Internal Medicine Prog Note ---
Internal Medicine Subjective - Subjective Service Date: 09/15/17 Patient seen and examined:: without staff Patient is:: awake, verbal, in bed, talking Per staff patient has:: no adverse event Internal Medicine Objective - Results Result Diagrams: 09/04/17 08:15 09/04/17 08:15 Recent Labs: Laboratory Last Values WBC 6.2 Th/cmm (4.8-10.8) 09/04/17 08:15 RBC 4.22 Mil/cmm (3.80-5.80) 09/04/17 08:15 Hgb 13.1 gm/dL (12-16) 09/04/17 08:15 Hct 38.6 % (41.0-60) L 09/04/17 08:15 MCV 91.6 fl (80-99) 09/04/17 08:15 MCH 31.0 pg (27.0-31.0) 09/04/17 08:15 MCHC Differential 33.8 pg (28.0-36.0) 09/04/17 08:15 RDW 15.7 % (11.5-20.0) 09/04/17 08:15 Plt Count 274 Th/cmm (150-400) 09/04/17 08:15 MPV 8.4 fl 09/04/17 08:15 Neutrophils % 61.1 % (40.0-80.0) 09/04/17 08:15 Lymphocytes % 24.1 % (20.0-50.0) 09/04/17 08:15 Monocytes % 8.8 % (2.0-10.0) 09/04/17 08:15 Eosinophils % 4.9 % (0.0-5.0) 09/04/17 08:15 Basophils % 1.1 % (0.0-2.0) 09/04/17 08:15 Sodium 141 mEq/L (136-145) 09/04/17 08:15 Potassium 3.1 mEq/L (3.5-5.1) L 09/04/17 08:15 Chloride 106 mEq/L (98-107) 09/04/17 08:15 Carbon Dioxide 30.3 mEq/L (21.0-31.0) 09/04/17 08:15 Anion Gap 7.8 (7.0-16.0) 09/04/17 08:15 BUN 12 mg/dL (7-25) 09/04/17 08:15 Creatinine 0.6 mg/dL (0.7-1.3) L 09/04/17 08:15 Est GFR ( Amer) > 60.0 ml/min (>90) 09/04/17 08:15 Est GFR (Non-Af Amer) > 60.0 ml/min 09/04/17 08:15 BUN/Creatinine Ratio 20.0 09/04/17 08:15 Glucose 131 mg/dL (70-105) H 09/04/17 08:15 Calcium 9.3 mg/dL (8.6-10.3) 09/04/17 08:15 - Physical Exam Vitals and I&O: Vital Signs Temp 98.4 F 09/15/17 15:00 Pulse 62 09/15/17 15:00 Resp 20 09/15/17 15:00 BP 114/62 09/15/17 15:00 Pulse Ox 97 09/15/17 15:00 Intake & Output 09/15/17 09/15/17 09/16/17 06:59 18:59 06:59 Intake Total 120 1080 Balance 120 1080 Intake: Oral 120 1080 Other: # Voids 3 3 # Bowel Movements 0 Active Medications: Current Medications Acetaminophen (Tylenol) 650 mg PO Q4HR PRN PRN Reason: Mild Pain / Temp above 100 Stop: 11/02/17 00:48 Al Hydrox/Mg Hydrox/Simethicone (Maalox) 30 ml PO Q4HR PRN PRN Reason: GI DISTRESS Stop: 11/02/17 00:48 Haloperidol (Haldol) 2 mg PO BID SIMIN; Protocol Stop: 11/03/17 16:59 Last Admin: 09/15/17 16:13 Dose: 2 mg Lorazepam (Ativan) 0.5 mg PO Q4HR PRN; Protocol PRN Reason: Anxiety Stop: 10/03/17 00:48 Last Admin: 09/14/17 21:12 Dose: 0.5 mg Magnesium Hydroxide (Milk Of Magnesia) 30 ml PO HS PRN PRN Reason: Constipation Multivitamins/Vitamin C (Theragran) 1 tab PO DAILY SIMIN Stop: 11/02/17 08:59 Last Admin: 09/15/17 12:07 Dose: 1 tab Tamsulosin HCl (Flomax) 0.4 mg PO DAILY SIMIN Stop: 11/03/17 08:59 Last Admin: 09/15/17 09:58 Dose: 0.4 mg Zolpidem Tartrate (Ambien) 5 mg PO HS PRN PRN Reason: Insomnia Stop: 11/02/17 00:48 Last Admin: 09/14/17 21:12 Dose: 5 mg General: demented HEENT: NC/AT, PERRLA, EOMI, anicteric sclerae, throat clear Neck: Supple, No JVD, No thyromegaly, +2 carotid pulse wo bruit, No LAD Lungs: CTAB Cardiovascular: RRR, Normal S1, Normal S2, without murmur Abdomen: soft, non-tender, non-distended Extremities: clear Neurological: no change - Procedures Procedures: Procedures Procedure Code Date INSERTION OF INFUSION DEV INTO SUP VENA CAVA, PERC APPROACH [id number] 08/14/17 PERFORMANCE OF URINARY FILTRATION, <6 HRS/DAY [id number] 08/14/17 ULTRASONOGRAPHY OF SUPERIOR VENA CAVA, GUIDANCE [id number] 08/14/17 Internal Medicine Assmt/Plan - Assessment Assessment: 1.COPD. 2.BPH. 3.DEMENTIA. - Plan Plan: CONTINUE ON CURRENT MEDICATION AND DIET. Nutritional Asmnt/Malnutr-PDOC - Dietary Evaluation Malnutrition Findings (Please click <Entered> for more info): Nutritional Asmnt/Malnutrition Start: 09/06/17 13: 19 Text: Status: Complete Freq: Protocol: Document 09/06/17 13:19 LCHENG (Rec: 09/06/17 13:28 LCHENG [email or web address]) Nutritional Asmnt/Malnutrition Patient General Information Nutritional Screening Moderate Risk Diagnosis psychosis Pertinent Medical Hx/Surgical Hx BPH, dementia Subjective Information Pt seen sitting in rich-chair at dining room. Pt stated hungry. Per EMR, PO intake 100 % of meals. Current Diet Order/ Nutrition Support CCHO-60gm Pertinent Medications theragran Pertinent Labs 09/04 K 3.1, Cr 0.6, glucose 131 Nutritional Hx/Data Height 1.65 m Height (Calculated Centimeters) 165.1 Current Weight (lbs) 60.781 kg Weight (Calculated Kilograms) 60.8 Weight (Calculated Grams) 07232.4 [place] Body Weight 136 Body Mass Index (BMI) 22.3 Weight Status Approriate GI Symptoms GI Symptoms None Last BM 09/06 Difficult in: None Skin Integrity/Comment: dryness Current %PO Good (75-100%) Estimated Nutritional Goals BEE in Kcals: Using Current wt Calories/Kcals/Kg 25-30 Kcals Calculated 3440-7082 Protein: Using Current wt Protein g/k Protein Calculated 61 Fluid: ml 8841-2386 Nutritional Problem No current Nutrition Prob Problem N/A Malnutrition Alert Is there a minimum of two criteria No selected? Query Text:Check all the applicable criteria. A minimum of two criteria are recommended for diagnosis of either severe or non-severe malnutrition. Malnutrition Related to Morbid Obesity Malnutrition related to morbid obesity No Intervention/Recommendation Comments 1. Continue with CCHO 60gm diet as ordered. If glucose level change toward to normal range, will consider removing CCHO restriction. 2. Monitor PO intake, wt, labs and skin integrity 3. F/U as low risk in 7 days, 09/13. Expected Outcomes/Goals Expected Outcomes/Goals 1. PO intake to meet at least 75% of nutritional needs. 2. Wt stability, skin to remain intact, labs to approach WNL.
--- NOTE | 2017-09-15 20:51 | Progress Notes ---
DATE: 09/15/2017 SUBJECTIVE: Staff was spoken to. The patient is interviewed. Mood is noted to be irritable. Affect is constricted. The patient's coping skills are noted to be still poor. The patient has been having difficult time. The patient is screaming and yelling and stating and wants to get his ____. No side effects to the medications are noted at this time. ASSESSMENT: The patient is still impulsive. PLAN: To continue the patient with the supportive therapy and followup. [facility]# [id number]
[2017-09-16] MEDS: Multivitamin Tab PO SCH (08:41)
[2017-09-16] MEDS: Nystatin Cream 100,000 u/gm Cream 15 gm TP SCH (08:41)
[2017-09-16 10:31] LABS: ANION GAP 9.9 (7.0-16.0); BUN - UREA NITROGEN 13 mg/dL (7-25); CALCIUM SERUM 9.3 mg/dL (8.6-10.3); CARBON DIOXIDE 29.4 mEq/L (21.0-31.0); CHLORIDE 105 mEq/L (98-107); CREATININE - SERUM 0.6 mg/dL (0.7-1.3); GFR AFRICAN-AMERICAN > 60.0 ml/min (>90); GFR NON AFRICAN-AMERICAN > 60.0 ml/min; GLUCOSE 82 mg/dL (70-105); POTASSIUM SERUM 3.3 mEq/L (3.5-5.1); SODIUM SERUM 141 mEq/L (136-145)
--- NOTE | 2017-09-16 19:12 | Internal Medicine Prog Note ---
Internal Medicine Subjective - Subjective Service Date: 09/16/17 Patient seen and examined:: without staff Patient is:: awake, verbal, in bed, talking Per staff patient has:: no adverse event Internal Medicine Objective - Results Result Diagrams: 09/04/17 08:15 09/16/17 09:58 Recent Labs: Laboratory Last Values WBC 6.2 Th/cmm (4.8-10.8) 09/04/17 08:15 RBC 4.22 Mil/cmm (3.80-5.80) 09/04/17 08:15 Hgb 13.1 gm/dL (12-16) 09/04/17 08:15 Hct 38.6 % (41.0-60) L 09/04/17 08:15 MCV 91.6 fl (80-99) 09/04/17 08:15 MCH 31.0 pg (27.0-31.0) 09/04/17 08:15 MCHC Differential 33.8 pg (28.0-36.0) 09/04/17 08:15 RDW 15.7 % (11.5-20.0) 09/04/17 08:15 Plt Count 274 Th/cmm (150-400) 09/04/17 08:15 MPV 8.4 fl 09/04/17 08:15 Neutrophils % 61.1 % (40.0-80.0) 09/04/17 08:15 Lymphocytes % 24.1 % (20.0-50.0) 09/04/17 08:15 Monocytes % 8.8 % (2.0-10.0) 09/04/17 08:15 Eosinophils % 4.9 % (0.0-5.0) 09/04/17 08:15 Basophils % 1.1 % (0.0-2.0) 09/04/17 08:15 Sodium 141 mEq/L (136-145) 09/16/17 09:58 Potassium 3.3 mEq/L (3.5-5.1) L 09/16/17 09:58 Chloride 105 mEq/L (98-107) 09/16/17 09:58 Carbon Dioxide 29.4 mEq/L (21.0-31.0) 09/16/17 09:58 Anion Gap 9.9 (7.0-16.0) 09/16/17 09:58 BUN 13 mg/dL (7-25) 09/16/17 09:58 Creatinine 0.6 mg/dL (0.7-1.3) L 09/16/17 09:58 Est GFR ( Amer) > 60.0 ml/min (>90) 09/16/17 09:58 Est GFR (Non-Af Amer) > 60.0 ml/min 09/16/17 09:58 BUN/Creatinine Ratio 21.7 09/16/17 09:58 Glucose 82 mg/dL (70-105) 09/16/17 09:58 Calcium 9.3 mg/dL (8.6-10.3) 09/16/17 09:58 - Physical Exam Vitals and I&O: Vital Signs Temp 97.3 F 09/16/17 14:00 Pulse 83 09/16/17 14:00 Resp 20 09/16/17 14:00 BP 107/60 09/16/17 14:00 Pulse Ox 96 09/16/17 14:00 Intake & Output 09/16/17 09/16/17 09/17/17 06:59 18:59 06:59 Intake Total 120 1500 Balance 120 1500 Intake: Oral 120 1500 Other: # Voids 3 3 # Bowel Movements 1 0 Stool Characteristics Soft Formed Brown Active Medications: Current Medications Acetaminophen (Tylenol) 650 mg PO Q4HR PRN PRN Reason: Mild Pain / Temp above 100 Stop: 11/02/17 00:48 Al Hydrox/Mg Hydrox/Simethicone (Maalox) 30 ml PO Q4HR PRN PRN Reason: GI DISTRESS Stop: 11/02/17 00:48 Haloperidol (Haldol) 2 mg PO BID SIMIN; Protocol Stop: 11/03/17 16:59 Last Admin: 09/16/17 17:04 Dose: 2 mg Lorazepam (Ativan) 0.5 mg PO Q4HR PRN; Protocol PRN Reason: Anxiety Stop: 10/03/17 00:48 Last Admin: 09/16/17 10:08 Dose: 0.5 mg Magnesium Hydroxide (Milk Of Magnesia) 30 ml PO HS PRN PRN Reason: Constipation Multivitamins/Vitamin C (Theragran) 1 tab PO DAILY SIMIN Stop: 11/02/17 08:59 Last Admin: 09/16/17 08:41 Dose: 1 tab Nystatin (Mycostatin Cream) 1 appl TP DAILY SIMIN Stop: 09/30/17 09:00 Last Admin: 09/16/17 08:41 Dose: 1 appl Potassium Chloride (Klor-Con) 40 meq PO DAILY SIMIN Stop: 11/16/17 08:59 Tamsulosin HCl (Flomax) 0.4 mg PO DAILY SIMIN Stop: 11/03/17 08:59 Last Admin: 09/16/17 08:41 Dose: 0.4 mg Zolpidem Tartrate (Ambien) 5 mg PO HS PRN PRN Reason: Insomnia Stop: 11/02/17 00:48 Last Admin: 09/14/17 21:12 Dose: 5 mg General: demented HEENT: NC/AT, PERRLA, EOMI, anicteric sclerae, throat clear Neck: Supple, No JVD, No thyromegaly, +2 carotid pulse wo bruit, No LAD Lungs: CTAB Cardiovascular: RRR, Normal S1, Normal S2, without murmur Abdomen: soft, non-tender, non-distended Extremities: clear Neurological: no change - Procedures Procedures: Procedures Procedure Code Date INSERTION OF INFUSION DEV INTO SUP VENA CAVA, PERC APPROACH [id number] 08/14/17 PERFORMANCE OF URINARY FILTRATION, <6 HRS/DAY [id number] 08/14/17 ULTRASONOGRAPHY OF SUPERIOR VENA CAVA, GUIDANCE [id number] 08/14/17 Internal Medicine Assmt/Plan - Assessment Assessment: 1.COPD. 2.BPH. 3.DEMENTIA. - Plan Plan: CONTINUE ON CURRENT MEDICATION AND DIET. Nutritional Asmnt/Malnutr-PDOC - Dietary Evaluation Malnutrition Findings (Please click <Entered> for more info): Nutritional Asmnt/Malnutrition Start: 09/06/17 13: 19 Text: Status: Complete Freq: Protocol: Document 09/06/17 13:19 LCHENG (Rec: 09/06/17 13:28 [email or web address]) Nutritional Asmnt/Malnutrition Patient General Information Nutritional Screening Moderate Risk Diagnosis psychosis Pertinent Medical Hx/Surgical Hx BPH, dementia Subjective Information Pt seen sitting in rich-chair at dining room. Pt stated hungry. Per EMR, PO intake 100 % of meals. Current Diet Order/ Nutrition Support CCHO-60gm Pertinent Medications theragran Pertinent Labs 09/04 K 3.1, Cr 0.6, glucose 131 Nutritional Hx/Data Height 1.65 m Height (Calculated Centimeters) 165.1 Current Weight (lbs) 60.781 kg Weight (Calculated Kilograms) 60.8 Weight (Calculated Grams) 48187.4 [place] Body Weight 136 Body Mass Index (BMI) 22.3 Weight Status Approriate GI Symptoms GI Symptoms None Last BM 09/06 Difficult in: None Skin Integrity/Comment: dryness Current %PO Good (75-100%) Estimated Nutritional Goals BEE in Kcals: Using Current wt Calories/Kcals/Kg 25-30 Kcals Calculated 5455-3912 Protein: Using Current wt Protein g/k Protein Calculated 61 Fluid: ml 5431-8067 Nutritional Problem No current Nutrition Prob Problem N/A Malnutrition Alert Is there a minimum of two criteria No selected? Query Text:Check all the applicable criteria. A minimum of two criteria are recommended for diagnosis of either severe or non-severe malnutrition. Malnutrition Related to Morbid Obesity Malnutrition related to morbid obesity No Intervention/Recommendation Comments 1. Continue with CCHO 60gm diet as ordered. If glucose level change toward to normal range, will consider removing CCHO restriction. 2. Monitor PO intake, wt, labs and skin integrity 3. F/U as low risk in 7 days, 09/13. Expected Outcomes/Goals Expected Outcomes/Goals 1. PO intake to meet at least 75% of nutritional needs. 2. Wt stability, skin to remain intact, labs to approach WNL.
--- NOTE | 2017-09-17 03:07 | Progress Notes ---
DATE: 09/16/2017 PSYCHIATRIC PROGRESS NOTE PROGRESS ON THE UNIT: Staff was spoken to. The patient is interviewed. Mood is noted to be irritable. Affect is constricted. Insight and judgment are noted to be still impaired. Impulse control is noted to be poor. The patient has been having difficult time to cope with the stress. No side effects to the medications are noted. The patient's behavior is still disruptive, but he could be redirected at this time. branch operations manager has been spoken to and they are mentioning that no place is willing to take the patient and they have been sending the packers to different places to see if there is going to be anyone that is going to be accepting the patient. The patient at this time is still receptive. PLAN: To continue the patient with current medications and followup. JOB# [id number]
[2017-09-17] MEDS: Nystatin Cream 100,000 u/gm Cream 15 gm TP SCH (08:36)
[2017-09-17] MEDS: Multivitamin Tab PO SCH (08:36)
[2017-09-17] MEDS: Potassium Chloride 20 mEq ER Tab PO SCH (08:36)
--- NOTE | 2017-09-17 10:10 | Progress Notes ---
DATE: 09/17/2017 SUBJECTIVE: Staff was spoken to. The patient is interviewed. Mood is noted to be irritable. Affect is constricted. Insight and judgment noted to be still impaired. The patient has been having difficult time to cope with the stress. The patient has been constantly testing the limits. The patient has been having problems and constantly banging the chair. The patient has no insight into his illness. The patient is currently on Haldol 2 mg b.i.d. and is able to tolerate the medications. No side effects to the medications are noted. In view of the patient's impulsivity, it is decided to start the patient on Depakote, which is going to be given at 125 mg twice a day and the patient is going to be followed up with the supportive therapy. ASSESSMENT: The patient is still impulsive and has been displaying a lot of mood swings. PLAN: To continue the patient with the supportive therapy, encouraged the patient to verbalize the concerns because the patient does not have any retirement facility days. None of facilities are willing to accept the patient. service manager has been trying to look for placement for this patient. JOB# [id number]
--- NOTE | 2017-09-17 13:53 | General Progress Note ---
Subjective - Review of Systems Service Date: 09/17/17 Subjective: resting comfortably no distress Objective - Results Result Diagrams: 09/04/17 08:15 09/16/17 09:58 Recent Labs: Laboratory Last Values WBC 6.2 Th/cmm (4.8-10.8) 09/04/17 08:15 RBC 4.22 Mil/cmm (3.80-5.80) 09/04/17 08:15 Hgb 13.1 gm/dL (12-16) 09/04/17 08:15 Hct 38.6 % (41.0-60) L 09/04/17 08:15 MCV 91.6 fl (80-99) 09/04/17 08:15 MCH 31.0 pg (27.0-31.0) 09/04/17 08:15 MCHC Differential 33.8 pg (28.0-36.0) 09/04/17 08:15 RDW 15.7 % (11.5-20.0) 09/04/17 08:15 Plt Count 274 Th/cmm (150-400) 09/04/17 08:15 MPV 8.4 fl 09/04/17 08:15 Neutrophils % 61.1 % (40.0-80.0) 09/04/17 08:15 Lymphocytes % 24.1 % (20.0-50.0) 09/04/17 08:15 Monocytes % 8.8 % (2.0-10.0) 09/04/17 08:15 Eosinophils % 4.9 % (0.0-5.0) 09/04/17 08:15 Basophils % 1.1 % (0.0-2.0) 09/04/17 08:15 Sodium 141 mEq/L (136-145) 09/16/17 09:58 Potassium 3.3 mEq/L (3.5-5.1) L 09/16/17 09:58 Chloride 105 mEq/L (98-107) 09/16/17 09:58 Carbon Dioxide 29.4 mEq/L (21.0-31.0) 09/16/17 09:58 Anion Gap 9.9 (7.0-16.0) 09/16/17 09:58 BUN 13 mg/dL (7-25) 09/16/17 09:58 Creatinine 0.6 mg/dL (0.7-1.3) L 09/16/17 09:58 Est GFR ( Amer) > 60.0 ml/min (>90) 09/16/17 09:58 Est GFR (Non-Af Amer) > 60.0 ml/min 09/16/17 09:58 BUN/Creatinine Ratio 21.7 09/16/17 09:58 Glucose 82 mg/dL (70-105) 09/16/17 09:58 Calcium 9.3 mg/dL (8.6-10.3) 09/16/17 09:58 - Physical Exam Vitals and I&O: Vital Signs Temp 97.9 F 09/17/17 06:42 Pulse 68 09/17/17 06:42 Resp 20 09/17/17 08:00 BP 110/70 09/17/17 06:42 Pulse Ox 99 09/17/17 06:42 Intake & Output 09/16/17 09/17/17 09/17/17 18:59 06:59 18:59 Intake Total 1500 120 Balance 1500 120 Intake: Oral 1500 120 Other: # Voids 3 3 # Bowel Movements 0 1 Stool Characteristics Soft Soft Soft Formed Formed Formed Brown Brown Brown Active Medications: Current Medications Acetaminophen (Tylenol) 650 mg PO Q4HR PRN PRN Reason: Mild Pain / Temp above 100 Stop: 11/02/17 00:48 Al Hydrox/Mg Hydrox/Simethicone (Maalox) 30 ml PO Q4HR PRN PRN Reason: GI DISTRESS Stop: 11/02/17 00:48 Divalproex Sodium (Depakote Dr) 125 mg PO Q12HR [facility]; Protocol Stop: 11/16/17 20:59 Haloperidol (Haldol) 2 mg PO BID SIMIN; Protocol Stop: 11/03/17 16:59 Last Admin: 09/17/17 08:36 Dose: 2 mg Lorazepam (Ativan) 0.5 mg PO Q4HR PRN; Protocol PRN Reason: Anxiety Stop: 10/03/17 00:48 Last Admin: 09/17/17 08:36 Dose: 0.5 mg Magnesium Hydroxide (Milk Of Magnesia) 30 ml PO HS PRN PRN Reason: Constipation Multivitamins/Vitamin C (Theragran) 1 tab PO DAILY [facility] Stop: 11/02/17 08:59 Last Admin: 08/04/18 08:36 Dose: 1 tab Nystatin (Mycostatin Cream) 1 appl TP DAILY SIMIN Stop: 09/30/17 09:00 Last Admin: 09/17/17 08:36 Dose: 1 appl Potassium Chloride (Klor-Con) 40 meq PO DAILY SIMIN Stop: 11/16/17 08:59 Last Admin: 09/17/17 08:36 Dose: 40 meq Tamsulosin HCl (Flomax) 0.4 mg PO DAILY SIMIN Stop: 11/03/17 08:59 Last Admin: 09/17/17 08:36 Dose: 0.4 mg Zolpidem Tartrate (Ambien) 5 mg PO HS PRN PRN Reason: Insomnia Stop: 11/02/17 00:48 Last Admin: 09/14/17 21:12 Dose: 5 mg General: Alert, No acute distress HEENT: Atraumatic, PERRLA Neck: Supple, JVD Cardiovascular: Regular rate, Normal S1, Normal S2 Lungs: Clear to auscultation Abdomen: Bowel sounds, Soft - Procedures Procedures: Procedures Procedure Code Date INSERTION OF INFUSION DEV INTO SUP VENA CAVA, PERC APPROACH [id number] 08/14/17 PERFORMANCE OF URINARY FILTRATION, <6 HRS/DAY [id number] 08/14/17 ULTRASONOGRAPHY OF SUPERIOR VENA CAVA, GUIDANCE [id number] 08/14/17 Assessment/Plan - Assessment Assessment: dementia BPH - Plan Plan: continue current treatment Nutritional Asmnt/Malnutr-PDOC - Dietary Evaluation Malnutrition Findings (Please click <Entered> for more info): Nutritional Asmnt/Malnutrition Start: 09/06/17 13: 19 Text: Status: Complete Freq: Protocol: Document 09/06/17 13:19 LCHENG (Rec: 09/06/17 13:28 LCHENG [email or web address]) Nutritional Asmnt/Malnutrition Patient General Information Nutritional Screening Moderate Risk Diagnosis psychosis Pertinent Medical Hx/Surgical Hx BPH, dementia Subjective Information Pt seen sitting in rich-chair at dining room. Pt stated hungry. Per EMR, PO intake 100 % of meals. Current Diet Order/ Nutrition Support CCHO-60gm Pertinent Medications theragran Pertinent Labs 09/04 K 3.1, Cr 0.6, glucose 131 Nutritional Hx/Data Height 1.65 m Height (Calculated Centimeters) 165.1 Current Weight (lbs) 60.781 kg Weight (Calculated Kilograms) 60.8 Weight (Calculated Grams) 43970.4 [place] Body Weight 136 Body Mass Index (BMI) 22.3 Weight Status Approriate GI Symptoms GI Symptoms None Last BM 09/06 Difficult in: None Skin Integrity/Comment: dryness Current %PO Good (75-100%) Estimated Nutritional Goals BEE in Kcals: Using Current wt Calories/Kcals/Kg 25-30 Kcals Calculated 8720-0860 Protein: Using Current wt Protein g/k Protein Calculated 61 Fluid: ml 3666-4225 Nutritional Problem No current Nutrition Prob Problem N/A Malnutrition Alert Is there a minimum of two criteria No selected? Query Text:Check all the applicable criteria. A minimum of two criteria are recommended for diagnosis of either severe or non-severe malnutrition. Malnutrition Related to Morbid Obesity Malnutrition related to morbid obesity No Intervention/Recommendation Comments 1. Continue with CCHO 60gm diet as ordered. If glucose level change toward to normal range, will consider removing CCHO restriction. 2. Monitor PO intake, wt, labs and skin integrity 3. F/U as low risk in 7 days, 09/13. Expected Outcomes/Goals Expected Outcomes/Goals 1. PO intake to meet at least 75% of nutritional needs. 2. Wt stability, skin to remain intact, labs to approach WNL.
[2017-09-18 06:46] LABS: CHOLESTEROL 171 mg/dL (<200); HDL -HIGH DENSITY LIPOPROTEIN 44 mg/dL (23-92); TRIGLYCERIDES 76 mg/dL (<150)
[2017-09-18] MEDS: Multivitamin Tab PO SCH (08:09)
[2017-09-18] MEDS: Potassium Chloride 20 mEq ER Tab PO SCH (08:10)
[2017-09-18] MEDS: Nystatin Cream 100,000 u/gm Cream 15 gm TP SCH (08:11)
--- NOTE | 2017-09-18 17:09 | General Progress Note ---
Subjective - Review of Systems Service Date: 09/18/17 Subjective: resting comfortably no distress Objective - Results Result Diagrams: 09/04/17 08:15 09/16/17 09:58 Recent Labs: Laboratory Last Values WBC 6.2 Th/cmm (4.8-10.8) 09/04/17 08:15 RBC 4.22 Mil/cmm (3.80-5.80) 09/04/17 08:15 Hgb 13.1 gm/dL (12-16) 09/04/17 08:15 Hct 38.6 % (41.0-60) L 09/04/17 08:15 MCV 91.6 fl (80-99) 09/04/17 08:15 MCH 31.0 pg (27.0-31.0) 09/04/17 08:15 MCHC Differential 33.8 pg (28.0-36.0) 09/04/17 08:15 RDW 15.7 % (11.5-20.0) 09/04/17 08:15 Plt Count 274 Th/cmm (150-400) 09/04/17 08:15 MPV 8.4 fl 09/04/17 08:15 Neutrophils % 61.1 % (40.0-80.0) 09/04/17 08:15 Lymphocytes % 24.1 % (20.0-50.0) 09/04/17 08:15 Monocytes % 8.8 % (2.0-10.0) 09/04/17 08:15 Eosinophils % 4.9 % (0.0-5.0) 09/04/17 08:15 Basophils % 1.1 % (0.0-2.0) 09/04/17 08:15 Sodium 141 mEq/L (136-145) 09/16/17 09:58 Potassium 3.3 mEq/L (3.5-5.1) L 09/16/17 09:58 Chloride 105 mEq/L (98-107) 09/16/17 09:58 Carbon Dioxide 29.4 mEq/L (21.0-31.0) 09/16/17 09:58 Anion Gap 9.9 (7.0-16.0) 09/16/17 09:58 BUN 13 mg/dL (7-25) 09/16/17 09:58 Creatinine 0.6 mg/dL (0.7-1.3) L 09/16/17 09:58 Est GFR ( Amer) > 60.0 ml/min (>90) 09/16/17 09:58 Est GFR (Non-Af Amer) > 60.0 ml/min 09/16/17 09:58 BUN/Creatinine Ratio 21.7 09/16/17 09:58 Glucose 82 mg/dL (70-105) 09/16/17 09:58 Calcium 9.3 mg/dL (8.6-10.3) 09/16/17 09:58 Triglycerides 76 mg/dL (<150) 09/18/17 05:50 Cholesterol 171 mg/dL (<200) 09/18/17 05:50 LDL Cholesterol Direct 118 mg/dL (75-193) 09/18/17 05:50 HDL Cholesterol 44 mg/dL (23-92) 09/18/17 05:50 - Physical Exam Vitals and I&O: Vital Signs Temp 97.3 F 09/18/17 15:00 Pulse 70 09/18/17 15:00 Resp 70 09/18/17 15:00 BP 102/67 09/18/17 15:00 Pulse Ox 96 09/18/17 15:00 Intake & Output 09/17/17 09/18/17 09/18/17 18:59 06:59 18:59 Intake Total 950 240 Balance 950 240 Intake: Oral 950 240 Other: # Voids 4 3 # Bowel Movements 1 1 Stool Characteristics Soft Soft Soft Formed Formed Formed Brown Active Medications: Current Medications Acetaminophen (Tylenol) 650 mg PO Q4HR PRN PRN Reason: Mild Pain / Temp above 100 Stop: 11/02/17 00:48 Al Hydrox/Mg Hydrox/Simethicone (Maalox) 30 ml PO Q4HR PRN PRN Reason: GI DISTRESS Stop: 11/02/17 00:48 Divalproex Sodium (Depakote Dr) 125 mg PO Q12HR [facility]; Protocol Stop: 11/16/17 20:59 Last Admin: 09/18/17 08:11 Dose: 125 mg Haloperidol (Haldol) 2 mg PO BID SIMIN; Protocol Stop: 11/03/17 16:59 Last Admin: 09/18/17 16:15 Dose: 2 mg Lorazepam (Ativan) 0.5 mg PO Q4HR PRN; Protocol PRN Reason: Anxiety Stop: 10/03/17 00:48 Last Admin: 09/18/17 16:15 Dose: 0.5 mg Magnesium Hydroxide (Milk Of Magnesia) 30 ml PO HS PRN PRN Reason: Constipation Multivitamins/Vitamin C (Theragran) 1 tab PO DAILY SIMIN Stop: 11/02/17 08:59 Last Admin: 09/18/17 08:09 Dose: 1 tab Nystatin (Mycostatin Cream) 1 appl TP DAILY SIMIN Stop: 09/30/17 09:00 Last Admin: 09/18/17 08:11 Dose: 1 appl Potassium Chloride (Klor-Con) 40 meq PO DAILY SIMIN Stop: 11/16/17 08:59 Last Admin: 09/18/17 08:10 Dose: 40 meq Tamsulosin HCl (Flomax) 0.4 mg PO DAILY SIMIN Stop: 11/03/17 08:59 Last Admin: 09/18/17 08:08 Dose: 0.4 mg Zolpidem Tartrate (Ambien) 5 mg PO HS PRN PRN Reason: Insomnia Stop: 11/02/17 00:48 Last Admin: 09/17/17 20:20 Dose: 5 mg General: Alert, No acute distress HEENT: Atraumatic, PERRLA Neck: Supple, JVD Cardiovascular: Regular rate, Normal S1, Normal S2 Lungs: Clear to auscultation Abdomen: Bowel sounds, Soft - Procedures Procedures: Procedures Procedure Code Date INSERTION OF INFUSION DEV INTO SUP VENA CAVA, PERC APPROACH [id number] 08/14/17 PERFORMANCE OF URINARY FILTRATION, <6 HRS/DAY [id number] 08/14/17 ULTRASONOGRAPHY OF SUPERIOR VENA CAVA, GUIDANCE [id number] 08/14/17 Assessment/Plan - Assessment Assessment: dementia BPH - Plan Plan: continue current treatment Nutritional Asmnt/Malnutr-PDOC - Dietary Evaluation Malnutrition Findings (Please click <Entered> for more info): Nutritional Asmnt/Malnutrition Start: 09/06/17 13: 19 Text: Status: Complete Freq: Protocol: Document 09/06/17 13:19 CURRY (Rec: 09/06/17 13:28 BRENDON [email or web address]) Nutritional Asmnt/Malnutrition Patient General Information Nutritional Screening Moderate Risk Diagnosis psychosis Pertinent Medical Hx/Surgical Hx BPH, dementia Subjective Information Pt seen sitting in rich-chair at dining room. Pt stated hungry. Per EMR, PO intake 100 % of meals. Current Diet Order/ Nutrition Support CCHO-60gm Pertinent Medications theragran Pertinent Labs 09/04 K 3.1, Cr 0.6, glucose 131 Nutritional Hx/Data Height 1.65 m Height (Calculated Centimeters) 165.1 Current Weight (lbs) 60.781 kg Weight (Calculated Kilograms) 60.8 Weight (Calculated Grams) 95344.4 [place] Body Weight 136 Body Mass Index (BMI) 22.3 Weight Status Approriate GI Symptoms GI Symptoms None Last BM 09/06 Difficult in: None Skin Integrity/Comment: dryness Current %PO Good (75-100%) Estimated Nutritional Goals BEE in Kcals: Using Current wt Calories/Kcals/Kg 25-30 Kcals Calculated 0198-9920 Protein: Using Current wt Protein g/k Protein Calculated 61 Fluid: ml 0452-4508 Nutritional Problem No current Nutrition Prob Problem N/A Malnutrition Alert Is there a minimum of two criteria No selected? Query Text:Check all the applicable criteria. A minimum of two criteria are recommended for diagnosis of either severe or non-severe malnutrition. Malnutrition Related to Morbid Obesity Malnutrition related to morbid obesity No Intervention/Recommendation Comments 1. Continue with CCHO 60gm diet as ordered. If glucose level change toward to normal range, will consider removing CCHO restriction. 2. Monitor PO intake, wt, labs and skin integrity 3. F/U as low risk in 7 days, 09/13. Expected Outcomes/Goals Expected Outcomes/Goals 1. PO intake to meet at least 75% of nutritional needs. 2. Wt stability, skin to remain intact, labs to approach WNL.
--- NOTE | 2017-09-18 20:48 | Progress Notes ---
DATE: 09/18/2017 PSYCHIATRIC PROGRESS NOTE SUBJECTIVE: Staff was spoken to. The patient is interviewed. Mood is noted to be irritable. Affect is constricted. The patient is still banging on the table and the patient has to be given a dose of the lorazepam. Coping skills at this time are noted to be very poor. Insight and judgment are also noted to be limited. ASSESSMENT: The patient is still impulsive. PLAN: To continue the patient with the supportive therapy and followup. JOB# [id number]
[2017-09-19] MEDS: Potassium Chloride 20 mEq ER Tab PO SCH (09:40)
[2017-09-19] MEDS: Multivitamin Tab PO SCH (09:40)
[2017-09-19] MEDS: Nystatin Cream 100,000 u/gm Cream 15 gm TP SCH (09:41)
--- NOTE | 2017-09-19 23:33 | Internal Medicine Prog Note ---
Internal Medicine Subjective - Subjective Service Date: 09/19/17 Patient seen and examined:: with staff (he has hematuria) Patient is:: awake, verbal, in bed, talking Per staff patient has:: no adverse event Internal Medicine Objective - Results Result Diagrams: 09/04/17 08:15 09/16/17 09:58 Recent Labs: Laboratory Last Values WBC 6.2 Th/cmm (4.8-10.8) 09/04/17 08:15 RBC 4.22 Mil/cmm (3.80-5.80) 09/04/17 08:15 Hgb 13.1 gm/dL (12-16) 09/04/17 08:15 Hct 38.6 % (41.0-60) L 09/04/17 08:15 MCV 91.6 fl (80-99) 09/04/17 08:15 MCH 31.0 pg (27.0-31.0) 09/04/17 08:15 MCHC Differential 33.8 pg (28.0-36.0) 09/04/17 08:15 RDW 15.7 % (11.5-20.0) 09/04/17 08:15 Plt Count 274 Th/cmm (150-400) 09/04/17 08:15 MPV 8.4 fl 09/04/17 08:15 Neutrophils % 61.1 % (40.0-80.0) 09/04/17 08:15 Lymphocytes % 24.1 % (20.0-50.0) 09/04/17 08:15 Monocytes % 8.8 % (2.0-10.0) 09/04/17 08:15 Eosinophils % 4.9 % (0.0-5.0) 09/04/17 08:15 Basophils % 1.1 % (0.0-2.0) 09/04/17 08:15 Sodium 141 mEq/L (136-145) 09/16/17 09:58 Potassium 3.3 mEq/L (3.5-5.1) L 09/16/17 09:58 Chloride 105 mEq/L (98-107) 09/16/17 09:58 Carbon Dioxide 29.4 mEq/L (21.0-31.0) 09/16/17 09:58 Anion Gap 9.9 (7.0-16.0) 09/16/17 09:58 BUN 13 mg/dL (7-25) 09/16/17 09:58 Creatinine 0.6 mg/dL (0.7-1.3) L 09/16/17 09:58 Est GFR ( Amer) > 60.0 ml/min (>90) 09/16/17 09:58 Est GFR (Non-Af Amer) > 60.0 ml/min 09/16/17 09:58 BUN/Creatinine Ratio 21.7 09/16/17 09:58 Glucose 82 mg/dL (70-105) 09/16/17 09:58 Calcium 9.3 mg/dL (8.6-10.3) 09/16/17 09:58 Triglycerides 76 mg/dL (<150) 09/18/17 05:50 Cholesterol 171 mg/dL (<200) 09/18/17 05:50 LDL Cholesterol Direct 118 mg/dL (75-193) 09/18/17 05:50 HDL Cholesterol 44 mg/dL (23-92) 09/18/17 05:50 - Physical Exam Vitals and I&O: Vital Signs Temp 97.9 F 09/19/17 20:17 Pulse 100 09/19/17 20:17 Resp 20 09/19/17 20:17 BP 136/81 09/19/17 20:17 Pulse Ox 97 09/19/17 20:17 Intake & Output 09/19/17 09/19/17 09/20/17 06:59 18:59 06:59 Intake Total 360 240 Balance 360 240 Intake: Oral 360 240 Other: # Voids 2 5 1 # Bowel Movements 1 2 Stool Characteristics Soft Soft Formed Formed Active Medications: Current Medications Acetaminophen (Tylenol) 650 mg PO Q4HR PRN PRN Reason: Mild Pain / Temp above 100 Stop: 11/02/17 00:48 Al Hydrox/Mg Hydrox/Simethicone (Maalox) 30 ml PO Q4HR PRN PRN Reason: GI DISTRESS Stop: 11/02/17 00:48 Divalproex Sodium (Depakote Dr) 250 mg PO Q12HR [facility]; Protocol Stop: 11/18/17 20:59 Last Admin: 09/19/17 21:34 Dose: 250 mg Haloperidol (Haldol) 2 mg PO BID [facility]; Protocol Stop: 11/03/17 16:59 Last Admin: 09/19/17 17:36 Dose: 2 mg Lorazepam (Ativan) 0.5 mg PO Q4HR PRN; Protocol PRN Reason: Anxiety Stop: 10/03/17 00:48 Last Admin: 09/19/17 21:34 Dose: 0.5 mg Magnesium Hydroxide (Milk Of Magnesia) 30 ml PO HS PRN PRN Reason: Constipation Multivitamins/Vitamin C (Theragran) 1 tab PO DAILY [facility] Stop: 11/02/17 08:59 Last Admin: 09/19/17 09:40 Dose: 1 tab Nystatin (Mycostatin Cream) 1 appl TP DAILY [facility] Stop: 09/30/17 09:00 Last Admin: 09/19/17 09:41 Dose: 1 appl Potassium Chloride (Klor-Con) 40 meq PO DAILY [facility] Stop: 11/16/17 08:59 Last Admin: 09/19/17 09:40 Dose: 40 meq Tamsulosin HCl (Flomax) 0.4 mg PO DAILY [facility] Stop: 11/03/17 08:59 Last Admin: 09/19/17 09:39 Dose: 0.4 mg Zolpidem Tartrate (Ambien) 5 mg PO HS PRN PRN Reason: Insomnia Stop: 11/02/17 00:48 Last Admin: 09/19/17 21:34 Dose: 5 mg General: demented HEENT: NC/AT, PERRLA, EOMI, anicteric sclerae, throat clear Neck: Supple, No JVD, No thyromegaly, +2 carotid pulse wo bruit, No LAD Lungs: CTAB Cardiovascular: RRR, Normal S1, Normal S2, without murmur Abdomen: soft, non-tender, non-distended Extremities: clear Neurological: no change - Procedures Procedures: Procedures Procedure Code Date INSERTION OF INFUSION DEV INTO SUP VENA CAVA, PERC APPROACH [id number] 08/14/17 PERFORMANCE OF URINARY FILTRATION, <6 HRS/DAY [id number] 08/14/17 ULTRASONOGRAPHY OF SUPERIOR VENA CAVA, GUIDANCE [id number] 08/14/17 Internal Medicine Assmt/Plan - Assessment Assessment: 1.COPD. 2.BPH. 3.DEMENTIA. 4.HEMATUREA. - Plan Plan: CONTINUE ON CURRENT MEDICATION AND DIET.UA AND CS.CBC IN AM. Nutritional Asmnt/Malnutr-PDOC - Dietary Evaluation Malnutrition Findings (Please click <Entered> for more info): Nutritional Asmnt/Malnutrition Start: 09/06/17 13: 19 Text: Status: Complete Freq: Protocol: Document 09/06/17 13:19 LEROYMINISTERIO (Rec: 09/06/17 13:28 LEROYMINISTERIO [email or web address]) Nutritional Asmnt/Malnutrition Patient General Information Nutritional Screening Moderate Risk Diagnosis psychosis Pertinent Medical Hx/Surgical Hx BPH, dementia Subjective Information Pt seen sitting in rich-chair at dining room. Pt stated hungry. Per EMR, PO intake 100 % of meals. Current Diet Order/ Nutrition Support CCHO-60gm Pertinent Medications theragran Pertinent Labs 09/04 K 3.1, Cr 0.6, glucose 131 Nutritional Hx/Data Height 1.65 m Height (Calculated Centimeters) 165.1 Current Weight (lbs) 60.781 kg Weight (Calculated Kilograms) 60.8 Weight (Calculated Grams) 09866.4 [place] Body Weight 136 Body Mass Index (BMI) 22.3 Weight Status Approriate GI Symptoms GI Symptoms None Last BM 09/06 Difficult in: None Skin Integrity/Comment: dryness Current %PO Good (75-100%) Estimated Nutritional Goals BEE in Kcals: Using Current wt Calories/Kcals/Kg 25-30 Kcals Calculated 3575-4338 Protein: Using Current wt Protein g/k Protein Calculated 61 Fluid: ml 7245-3207 Nutritional Problem No current Nutrition Prob Problem N/A Malnutrition Alert Is there a minimum of two criteria No selected? Query Text:Check all the applicable criteria. A minimum of two criteria are recommended for diagnosis of either severe or non-severe malnutrition. Malnutrition Related to Morbid Obesity Malnutrition related to morbid obesity No Intervention/Recommendation Comments 1. Continue with CCHO 60gm diet as ordered. If glucose level change toward to normal range, will consider removing CCHO restriction. 2. Monitor PO intake, wt, labs and skin integrity 3. F/U as low risk in 7 days, 09/13. Expected Outcomes/Goals Expected Outcomes/Goals 1. PO intake to meet at least 75% of nutritional needs. 2. Wt stability, skin to remain intact, labs to approach WNL.
[2017-09-19 23:34] LABS: URINE SOURCE CLEAN C
[2017-09-20 00:14] LABS: URINE BILIRUBIN NEGATIVE (NEGATIVE); URINE BLOOD LARGE (NEGATIVE); URINE CLARITY BLOODY (CLEAR); URINE COLOR RED; URINE GLUCOSE (UA) NEGATIVE (NEGATIVE); URINE KETONE NEGATIVE (NEGATIVE); URINE MICROSCOPIC INDICATED? YES; URINE PROTEIN >300 mg/dL (NEGATIVE)
[2017-09-20 00:15] LABS: URINE BACTERIA FEW /hpf (NONE SEEN); URINE EPITHELIAL CELLS FEW /lpf (FEW); URINE LEUKOCYTE ESTERASE TRACE (NEGATIVE); URINE NITRATE NEGATIVE (NEGATIVE); URINE RBC >100 /hpf (0-5); URINE UROBILINOGEN 0.2 E.U./dL (0.2 - 1.0)
--- NOTE | 2017-09-20 02:28 | Progress Notes ---
DATE: 09/19/2017 PSYCHIATRIC PROGRESS NOTE SUBJECTIVE: Staff was spoken to. The patient is interviewed. Mood is noted to be irritable. Affect is constricted. Coping skills at this time are noted to be extremely poor. Insight and judgment also noted to be impaired. The patient has been very disruptive. The patient is currently maintained on Depakote, which is given 125 mg twice a day, Haldol is being given 2 mg twice a day. In view of the impulsivity, it is decided to raise the dose of the Depakote to 250 mg twice a day. The patient is going to be followed up with the supportive therapy. The patient has no place to return to. Because none of the facilities are willing to accept the patient, hence the patient is going to be closely monitored. Encouraged to verbalize the concerns rather than act out. JOB# [id number]
[2017-09-20 06:35] LABS: % BASOPHILS 0.6 % (0.0-2.0); % EOSINOPHILS 0.4 % (0.0-5.0); % LYMPHOCYTES 11.7 % (20.0-50.0); % MONOCYTES 10.7 % (2.0-10.0); % NEUTROPHILS 76.6 % (40.0-80.0); BASOPHILE ABSOLUTE 0.1 Th/cumm (0-0.2); EOSINOPHILE ABSOLUTE 0.1 Th/cmm (0.1-0.4); HEMATOCRIT 43.3 % (41.0-60); HEMOGLOBIN 14.6 gm/dL (12-16); LYMPHOCYTE ABSOLUTE 1.7 Th/cmm (1.5-3.0); MEAN CELL VOLUME 93.7 fl (80-99); MEAN CORPUSCULAR HEMOGLOBIN 31.6 pg (27.0-31.0); MEAN CORPUSCULAR HGB CONC 33.7 pg (28.0-36.0); MEAN PLATELET VOLUME 9.5 fl; MONOCYTE ABSOLUTE 1.6 Th/cmm (0.3-1.0); NEUTROPHILE ABSOLUTE 11.3 Th/cmm (1.8-8.0); PLATELET COUNT 272 Th/cmm (150-400); RED BLOOD COUNT 4.62 Mil/cmm (3.80-5.80); RED CELL DISTRIBUTION WIDTH 15.4 % (11.5-20.0); WHITE BLOOD COUNT 14.8 Th/cmm (4.8-10.8)
[2017-09-20 06:44] LABS: ALBUMIN 3.4 gm/dL (4.2-5.5); ALKALINE PHOSPHATASE 65 U/L (34-104); ANION GAP 11.6 (7.0-16.0); BILIRUBIN,TOTAL 0.5 mg/dL (0.3-1.0); BUN - UREA NITROGEN 17 mg/dL (7-25); CALCIUM SERUM 9.5 mg/dL (8.6-10.3); CARBON DIOXIDE 26.1 mEq/L (21.0-31.0); CHLORIDE 101 mEq/L (98-107); CREATININE - SERUM 0.6 mg/dL (0.7-1.3); GFR AFRICAN-AMERICAN > 60.0 ml/min (>90); GFR NON AFRICAN-AMERICAN > 60.0 ml/min; GLUCOSE 112 mg/dL (70-105); POTASSIUM SERUM 3.7 mEq/L (3.5-5.1); SGOT 15 U/L (13-39); SGPT/ALT 11 U/L (7-52); SODIUM SERUM 135 mEq/L (136-145); TOTAL PROTEIN,SERUM 6.8 gm/dL (6.0-8.3)
[2017-09-20] MEDS: Multivitamin Tab PO SCH (09:07)
[2017-09-20] MEDS: Potassium Chloride 20 mEq ER Tab PO SCH (09:08)
[2017-09-20] MEDS: Nystatin Cream 100,000 u/gm Cream 15 gm TP SCH (09:09)
--- NOTE | 2017-09-20 12:14 | Internal Medicine Prog Note ---
Internal Medicine Subjective - Subjective Service Date: 09/20/17 Patient seen and examined:: with staff Patient is:: awake, verbal, in bed, talking Per staff patient has:: no adverse event Internal Medicine Objective - Results Result Diagrams: 09/20/17 06:00 09/20/17 06:00 Recent Labs: Laboratory Last Values WBC 14.8 Th/cmm (4.8-10.8) H 09/20/17 06:00 RBC 4.62 Mil/cmm (3.80-5.80) 09/20/17 06:00 Hgb 14.6 gm/dL (12-16) 09/20/17 06:00 Hct 43.3 % (41.0-60) 09/20/17 06:00 MCV 93.7 fl (80-99) 09/20/17 06:00 MCH 31.6 pg (27.0-31.0) H 09/20/17 06:00 MCHC Differential 33.7 pg (28.0-36.0) 09/20/17 06:00 RDW 15.4 % (11.5-20.0) 09/20/17 06:00 Plt Count 272 Th/cmm (150-400) 09/20/17 06:00 MPV 9.5 fl 09/20/17 06:00 Neutrophils % 76.6 % (40.0-80.0) 09/20/17 06:00 Lymphocytes % 11.7 % (20.0-50.0) L 09/20/17 06:00 Monocytes % 10.7 % (2.0-10.0) H 09/20/17 06:00 Eosinophils % 0.4 % (0.0-5.0) 09/20/17 06:00 Basophils % 0.6 % (0.0-2.0) 09/20/17 06:00 Sodium 135 mEq/L (136-145) L 09/20/17 06:00 Potassium 3.7 mEq/L (3.5-5.1) 09/20/17 06:00 Chloride 101 mEq/L (98-107) 09/20/17 06:00 Carbon Dioxide 26.1 mEq/L (21.0-31.0) 09/20/17 06:00 Anion Gap 11.6 (7.0-16.0) 09/20/17 06:00 BUN 17 mg/dL (7-25) 09/20/17 06:00 Creatinine 0.6 mg/dL (0.7-1.3) L 09/20/17 06:00 Est GFR ( Amer) > 60.0 ml/min (>90) 09/20/17 06:00 Est GFR (Non-Af Amer) > 60.0 ml/min 09/20/17 06:00 BUN/Creatinine Ratio 28.3 09/20/17 06:00 Glucose 112 mg/dL (70-105) H 09/20/17 06:00 Calcium 9.5 mg/dL (8.6-10.3) 09/20/17 06:00 Total Bilirubin 0.5 mg/dL (0.3-1.0) 09/20/17 06:00 AST 15 U/L (13-39) 09/20/17 06:00 ALT 11 U/L (7-52) 09/20/17 06:00 Alkaline Phosphatase 65 U/L (34-104) 09/20/17 06:00 Total Protein 6.8 gm/dL (6.0-8.3) 09/20/17 06:00 Albumin 3.4 gm/dL (4.2-5.5) L 09/20/17 06:00 Globulin 3.4 gm/dL 09/20/17 06:00 Albumin/Globulin Ratio 1.0 (1.0-1.8) 09/20/17 06:00 Triglycerides 76 mg/dL (<150) 09/18/17 05:50 Cholesterol 171 mg/dL (<200) 09/18/17 05:50 LDL Cholesterol Direct 118 mg/dL (75-193) 09/18/17 05:50 HDL Cholesterol 44 mg/dL (23-92) 09/18/17 05:50 Urine Source CLEAN C 09/19/17 23:30 Urine Color RED 09/19/17 23:30 Urine Clarity BLOODY (CLEAR) 09/19/17 23:30 Urine pH 6.0 (4.6 - 8.0) 09/19/17 23:30 Ur Specific [place] 1.020 (1.005-1.030) 09/19/17 23:30 Urine Protein >300 mg/dL (NEGATIVE) H 09/19/17 23:30 Urine Glucose (UA) NEGATIVE mg/dL (NEGATIVE) 09/19/17 23:30 Urine Ketones NEGATIVE mg/dL (NEGATIVE) 09/19/17 23:30 Urine Blood LARGE (NEGATIVE) H 09/19/17 23:30 Urine Nitrate NEGATIVE (NEGATIVE) 09/19/17 23:30 Urine Bilirubin NEGATIVE (NEGATIVE) 09/19/17 23:30 Urine Urobilinogen 0.2 E.U./dL (0.2 - 1.0) 09/19/17 23:30 Ur Leukocyte Esterase TRACE (NEGATIVE) H 09/19/17 23:30 Urine RBC >100 /hpf (0-5) H 09/19/17 23:30 Urine WBC 6-10 /hpf (0-5) 09/19/17 23:30 Ur Epithelial Cells FEW /lpf (FEW) 09/19/17 23:30 Urine Bacteria FEW /hpf (NONE SEEN) 09/19/17 23:30 - Physical Exam Vitals and I&O: Vital Signs Temp 98.9 F 09/20/17 06:44 Pulse 84 09/20/17 06:44 Resp 20 09/20/17 06:44 BP 103/67 09/20/17 06:44 Pulse Ox 96 09/20/17 06:44 Intake & Output 09/19/17 09/20/17 09/20/17 18:59 06:59 18:59 Intake Total 240 Balance 240 Intake: Oral 240 Other: # Voids 5 3 # Bowel Movements 2 1 Stool Characteristics Soft Formed Active Medications: Current Medications Acetaminophen (Tylenol) 650 mg PO Q4HR PRN PRN Reason: Mild Pain / Temp above 100 Stop: 11/02/17 00:48 Al Hydrox/Mg Hydrox/Simethicone (Maalox) 30 ml PO Q4HR PRN PRN Reason: GI DISTRESS Stop: 11/02/17 00:48 Divalproex Sodium (Depakote Dr) 250 mg PO Q12HR [facility]; Protocol Stop: 11/18/17 20:59 Last Admin: 09/20/17 09:08 Dose: 250 mg Haloperidol (Haldol) 2 mg PO BID [facility]; Protocol Stop: 11/03/17 16:59 Last Admin: 09/20/17 09:07 Dose: 2 mg Lorazepam (Ativan) 0.5 mg PO Q4HR PRN; Protocol PRN Reason: Anxiety Stop: 10/03/17 00:48 Last Admin: 09/19/17 21:34 Dose: 0.5 mg Magnesium Hydroxide (Milk Of Magnesia) 30 ml PO HS PRN PRN Reason: Constipation Multivitamins/Vitamin C (Theragran) 1 tab PO DAILY [facility] Stop: 11/02/17 08:59 Last Admin: 09/20/17 09:07 Dose: 1 tab Nystatin (Mycostatin Cream) 1 appl TP DAILY [facility] Stop: 09/30/17 09:00 Last Admin: 09/20/17 09:09 Dose: 1 appl Potassium Chloride (Klor-Con) 40 meq PO DAILY [facility] Stop: 11/16/17 08:59 Last Admin: 09/20/17 09:08 Dose: 40 meq Tamsulosin HCl (Flomax) 0.4 mg PO DAILY [facility] Stop: 11/03/17 08:59 Last Admin: 09/20/17 09:07 Dose: 0.4 mg Zolpidem Tartrate (Ambien) 5 mg PO HS PRN PRN Reason: Insomnia Stop: 11/02/17 00:48 Last Admin: 09/19/17 21:34 Dose: 5 mg General: demented HEENT: NC/AT, PERRLA, EOMI, anicteric sclerae, throat clear Neck: Supple, No JVD, No thyromegaly, +2 carotid pulse wo bruit, No LAD Lungs: CTAB Cardiovascular: RRR, Normal S1, Normal S2, without murmur Abdomen: soft, non-tender, non-distended Extremities: clear Neurological: no change - Procedures Procedures: Procedures Procedure Code Date INSERTION OF INFUSION DEV INTO SUP VENA CAVA, PERC APPROACH [id number] 08/14/17 PERFORMANCE OF URINARY FILTRATION, <6 HRS/DAY [id number] 08/14/17 ULTRASONOGRAPHY OF SUPERIOR VENA CAVA, GUIDANCE [id number] 08/14/17 Internal Medicine Assmt/Plan - Assessment Assessment: 1.COPD. 2.BPH. 3.DEMENTIA. 4.HEMATUREA. - Plan Plan: CONTINUE ON CURRENT MEDICATION AND DIET. Nutritional Asmnt/Malnutr-PDOC - Dietary Evaluation Malnutrition Findings (Please click <Entered> for more info): Nutritional Asmnt/Malnutrition Start: 09/06/17 13: 19 Text: Status: Complete Freq: Protocol: Document 09/06/17 13:19 LCHENG (Rec: 09/06/17 13:28 LCHENG [email or web address]) Nutritional Asmnt/Malnutrition Patient General Information Nutritional Screening Moderate Risk Diagnosis psychosis Pertinent Medical Hx/Surgical Hx BPH, dementia Subjective Information Pt seen sitting in rich-chair at dining room. Pt stated hungry. Per EMR, PO intake 100 % of meals. Current Diet Order/ Nutrition Support CCHO-60gm Pertinent Medications theragran Pertinent Labs 09/04 K 3.1, Cr 0.6, glucose 131 Nutritional Hx/Data Height 1.65 m Height (Calculated Centimeters) 165.1 Current Weight (lbs) 60.781 kg Weight (Calculated Kilograms) 60.8 Weight (Calculated Grams) 51164.4 [place] Body Weight 136 Body Mass Index (BMI) 22.3 Weight Status Approriate GI Symptoms GI Symptoms None Last BM 09/06 Difficult in: None Skin Integrity/Comment: dryness Current %PO Good (75-100%) Estimated Nutritional Goals BEE in Kcals: Using Current wt Calories/Kcals/Kg 25-30 Kcals Calculated 3482-8608 Protein: Using Current wt Protein g/k Protein Calculated 61 Fluid: ml 3086-8651 Nutritional Problem No current Nutrition Prob Problem N/A Malnutrition Alert Is there a minimum of two criteria No selected? Query Text:Check all the applicable criteria. A minimum of two criteria are recommended for diagnosis of either severe or non-severe malnutrition. Malnutrition Related to Morbid Obesity Malnutrition related to morbid obesity No Intervention/Recommendation Comments 1. Continue with CCHO 60gm diet as ordered. If glucose level change toward to normal range, will consider removing CCHO restriction. 2. Monitor PO intake, wt, labs and skin integrity 3. F/U as low risk in 7 days, 09/13. Expected Outcomes/Goals Expected Outcomes/Goals 1. PO intake to meet at least 75% of nutritional needs. 2. Wt stability, skin to remain intact, labs to approach WNL.
--- NOTE | 2017-09-21 00:54 | Progress Notes ---
DATE: 09/20/2017 PSYCHIATRIC PROGRESS NOTE Staff was spoken to. The patient is interviewed. Mood is noted to be less irritable. The patient has paranoia, but denies any command hallucinations. Aggressive behavior has been coming down. Sleep and appetite are noted to be improving. No side effects to medications are noted. ASSESSMENT: The patient's psychosis is resolving and the patient is awaiting placement. PLAN: To continue the patient with supportive therapy and followup. JOB# [id number]
[2017-09-21] MEDS: Potassium Chloride 20 mEq ER Tab PO SCH (09:23)
[2017-09-21] MEDS: Multivitamin Tab PO SCH (09:23)
[2017-09-21] MEDS: Nystatin Cream 100,000 u/gm Cream 15 gm TP SCH (09:25)
--- NOTE | 2017-09-21 21:36 | Internal Medicine Prog Note ---
Internal Medicine Subjective - Subjective Service Date: 09/21/17 Patient seen and examined:: with staff Patient is:: awake, verbal, in bed, talking Per staff patient has:: no adverse event Internal Medicine Objective - Results Result Diagrams: 09/20/17 06:00 09/20/17 06:00 Recent Labs: Laboratory Last Values WBC 14.8 Th/cmm (4.8-10.8) H 09/20/17 06:00 RBC 4.62 Mil/cmm (3.80-5.80) 09/20/17 06:00 Hgb 14.6 gm/dL (12-16) 09/20/17 06:00 Hct 43.3 % (41.0-60) 09/20/17 06:00 MCV 93.7 fl (80-99) 09/20/17 06:00 MCH 31.6 pg (27.0-31.0) H 09/20/17 06:00 MCHC Differential 33.7 pg (28.0-36.0) 09/20/17 06:00 RDW 15.4 % (11.5-20.0) 09/20/17 06:00 Plt Count 272 Th/cmm (150-400) 09/20/17 06:00 MPV 9.5 fl 09/20/17 06:00 Neutrophils % 76.6 % (40.0-80.0) 09/20/17 06:00 Lymphocytes % 11.7 % (20.0-50.0) L 09/20/17 06:00 Monocytes % 10.7 % (2.0-10.0) H 09/20/17 06:00 Eosinophils % 0.4 % (0.0-5.0) 09/20/17 06:00 Basophils % 0.6 % (0.0-2.0) 09/20/17 06:00 Sodium 135 mEq/L (136-145) L 09/20/17 06:00 Potassium 3.7 mEq/L (3.5-5.1) 09/20/17 06:00 Chloride 101 mEq/L (98-107) 09/20/17 06:00 Carbon Dioxide 26.1 mEq/L (21.0-31.0) 09/20/17 06:00 Anion Gap 11.6 (7.0-16.0) 09/20/17 06:00 BUN 17 mg/dL (7-25) 09/20/17 06:00 Creatinine 0.6 mg/dL (0.7-1.3) L 09/20/17 06:00 Est GFR ( Amer) > 60.0 ml/min (>90) 09/20/17 06:00 Est GFR (Non-Af Amer) > 60.0 ml/min 09/20/17 06:00 BUN/Creatinine Ratio 28.3 09/20/17 06:00 Glucose 112 mg/dL (70-105) H 09/20/17 06:00 Calcium 9.5 mg/dL (8.6-10.3) 09/20/17 06:00 Total Bilirubin 0.5 mg/dL (0.3-1.0) 09/20/17 06:00 AST 15 U/L (13-39) 09/20/17 06:00 ALT 11 U/L (7-52) 09/20/17 06:00 Alkaline Phosphatase 65 U/L (34-104) 09/20/17 06:00 Total Protein 6.8 gm/dL (6.0-8.3) 09/20/17 06:00 Albumin 3.4 gm/dL (4.2-5.5) L 09/20/17 06:00 Globulin 3.4 gm/dL 09/20/17 06:00 Albumin/Globulin Ratio 1.0 (1.0-1.8) 09/20/17 06:00 Triglycerides 76 mg/dL (<150) 09/18/17 05:50 Cholesterol 171 mg/dL (<200) 09/18/17 05:50 LDL Cholesterol Direct 118 mg/dL (75-193) 09/18/17 05:50 HDL Cholesterol 44 mg/dL (23-92) 09/18/17 05:50 Urine Source CLEAN C 09/19/17 23:30 Urine Color RED 09/19/17 23:30 Urine Clarity BLOODY (CLEAR) 09/19/17 23:30 Urine pH 6.0 (4.6 - 8.0) 09/19/17 23:30 Ur Specific [place] 1.020 (1.005-1.030) 09/19/17 23:30 Urine Protein >300 mg/dL (NEGATIVE) H 09/19/17 23:30 Urine Glucose (UA) NEGATIVE mg/dL (NEGATIVE) 09/19/17 23:30 Urine Ketones NEGATIVE mg/dL (NEGATIVE) 09/19/17 23:30 Urine Blood LARGE (NEGATIVE) H 09/19/17 23:30 Urine Nitrate NEGATIVE (NEGATIVE) 09/19/17 23:30 Urine Bilirubin NEGATIVE (NEGATIVE) 09/19/17 23:30 Urine Urobilinogen 0.2 E.U./dL (0.2 - 1.0) 09/19/17 23:30 Ur Leukocyte Esterase TRACE (NEGATIVE) H 09/19/17 23:30 Urine RBC >100 /hpf (0-5) H 09/19/17 23:30 Urine WBC 6-10 /hpf (0-5) 09/19/17 23:30 Ur Epithelial Cells FEW /lpf (FEW) 09/19/17 23:30 Urine Bacteria FEW /hpf (NONE SEEN) 09/19/17 23:30 - Physical Exam Vitals and I&O: Vital Signs Temp 98.9 F 09/21/17 20:01 Pulse 100 09/21/17 20:01 Resp 18 09/21/17 20:01 BP 106/58 09/21/17 20:01 Pulse Ox 98 09/21/17 20:01 Intake & Output 09/21/17 09/21/17 09/22/17 06:59 18:59 06:59 Intake Total 240 900 Balance 240 900 Intake: Oral 240 900 Other: # Voids 2 3 # Bowel Movements 0 1 Active Medications: Current Medications Acetaminophen (Tylenol) 650 mg PO Q4HR PRN PRN Reason: Mild Pain / Temp above 100 Stop: 11/02/17 00:48 Last Admin: 09/21/17 16:35 Dose: 650 mg Al Hydrox/Mg Hydrox/Simethicone (Maalox) 30 ml PO Q4HR PRN PRN Reason: GI DISTRESS Stop: 11/02/17 00:48 Divalproex Sodium (Depakote Dr) 250 mg PO Q12HR [facility]; Protocol Stop: 11/18/17 20:59 Haloperidol (Haldol) 2 mg PO BID [facility]; Protocol Stop: 11/03/17 16:59 Last Admin: 09/21/17 16:36 Dose: 2 mg Lorazepam (Ativan) 0.5 mg PO Q4HR PRN; Protocol PRN Reason: Anxiety Stop: 10/03/17 00:48 Last Admin: 09/21/17 16:35 Dose: 0.5 mg Magnesium Hydroxide (Milk Of Magnesia) 30 ml PO HS PRN PRN Reason: Constipation Multivitamins/Vitamin C (Theragran) 1 tab PO DAILY [facility] Stop: 11/02/17 08:59 Last Admin: 09/21/17 09:23 Dose: 1 tab Nystatin (Mycostatin Cream) 1 appl TP DAILY [facility] Stop: 09/30/17 09:00 Last Admin: 09/21/17 09:25 Dose: 1 appl Potassium Chloride (Klor-Con) 40 meq PO DAILY [facility] Stop: 11/16/17 08:59 Last Admin: 09/21/17 09:23 Dose: 40 meq Tamsulosin HCl (Flomax) 0.4 mg PO DAILY [facility] Stop: 11/03/17 08:59 Last Admin: 09/21/17 09:24 Dose: 0.4 mg Zolpidem Tartrate (Ambien) 5 mg PO HS PRN PRN Reason: Insomnia Stop: 11/02/17 00:48 Last Admin: 09/20/17 20:34 Dose: 5 mg General: demented HEENT: NC/AT, PERRLA, EOMI, anicteric sclerae, throat clear Neck: Supple, No JVD, No thyromegaly, +2 carotid pulse wo bruit, No LAD Lungs: CTAB Cardiovascular: RRR, Normal S1, Normal S2, without murmur Abdomen: soft, non-tender, non-distended Extremities: clear Neurological: no change - Procedures Procedures: Procedures Procedure Code Date INSERTION OF INFUSION DEV INTO SUP VENA CAVA, PERC APPROACH [id number] 08/14/17 PERFORMANCE OF URINARY FILTRATION, <6 HRS/DAY [id number] 08/14/17 ULTRASONOGRAPHY OF SUPERIOR VENA CAVA, GUIDANCE [id number] 08/14/17 Internal Medicine Assmt/Plan - Assessment Assessment: 1.COPD. 2.BPH. 3.DEMENTIA. 4.HEMATUREA. - Plan Plan: CONTINUE ON CURRENT MEDICATION AND DIET. Nutritional Asmnt/Malnutr-PDOC - Dietary Evaluation Malnutrition Findings (Please click <Entered> for more info): Nutritional Asmnt/Malnutrition Start: 09/06/17 13: 19 Text: Status: Complete Freq: Protocol: Document 09/06/17 13:19 LCHENG (Rec: 09/06/17 13:28 LCHENG [email or web address]) Nutritional Asmnt/Malnutrition Patient General Information Nutritional Screening Moderate Risk Diagnosis psychosis Pertinent Medical Hx/Surgical Hx BPH, dementia Subjective Information Pt seen sitting in rich-chair at dining room. Pt stated hungry. Per EMR, PO intake 100 % of meals. Current Diet Order/ Nutrition Support CCHO-60gm Pertinent Medications theragran Pertinent Labs 09/04 K 3.1, Cr 0.6, glucose 131 Nutritional Hx/Data Height 1.65 m Height (Calculated Centimeters) 165.1 Current Weight (lbs) 60.781 kg Weight (Calculated Kilograms) 60.8 Weight (Calculated Grams) 68721.4 [place] Body Weight 136 Body Mass Index (BMI) 22.3 Weight Status Approriate GI Symptoms GI Symptoms None Last BM 09/06 Difficult in: None Skin Integrity/Comment: dryness Current %PO Good (75-100%) Estimated Nutritional Goals BEE in Kcals: Using Current wt Calories/Kcals/Kg 25-30 Kcals Calculated 8738-6434 Protein: Using Current wt Protein g/k Protein Calculated 61 Fluid: ml 5816-0625 Nutritional Problem No current Nutrition Prob Problem N/A Malnutrition Alert Is there a minimum of two criteria No selected? Query Text:Check all the applicable criteria. A minimum of two criteria are recommended for diagnosis of either severe or non-severe malnutrition. Malnutrition Related to Morbid Obesity Malnutrition related to morbid obesity No Intervention/Recommendation Comments 1. Continue with CCHO 60gm diet as ordered. If glucose level change toward to normal range, will consider removing CCHO restriction. 2. Monitor PO intake, wt, labs and skin integrity 3. F/U as low risk in 7 days, 09/13. Expected Outcomes/Goals Expected Outcomes/Goals 1. PO intake to meet at least 75% of nutritional needs. 2. Wt stability, skin to remain intact, labs to approach WNL.
--- NOTE | 2017-09-22 01:55 | Progress Notes ---
DATE: 09/21/2017 SUBJECTIVE: Staff was spoken to. The patient is interviewed. Mood is noted to be irritable. Affect is constricted. Coping skills are noted to be still poor. The patient has no place to return to. The patient has been getting easily frustrated. 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 The patient has been still disruptive and has been able to comply with the medications. No side effects to the medications are noted. ASSESSMENT: The patient is currently on haloperidol and Depakote and able to tolerate the medication. JOB# [id number]
[2017-09-22 08:12] LABS: CHOLESTEROL 145 mg/dL (<200); HDL -HIGH DENSITY LIPOPROTEIN 41 mg/dL (23-92); TRIGLYCERIDES 74 mg/dL (<150)
[2017-09-22] MEDS: Nystatin Cream 100,000 u/gm Cream 15 gm TP SCH (09:50)
[2017-09-22] MEDS: Multivitamin Tab PO SCH (09:50)
[2017-09-22] MEDS: Potassium Chloride 20 mEq ER Tab PO SCH (09:50)
--- NOTE | 2017-09-22 18:52 | Internal Medicine Prog Note ---
Internal Medicine Subjective - Subjective Service Date: 09/22/17 Patient seen and examined:: without staff Patient is:: awake, verbal, in bed, talking Per staff patient has:: no adverse event Internal Medicine Objective - Results Result Diagrams: 09/20/17 06:00 09/20/17 06:00 Recent Labs: Laboratory Last Values WBC 14.8 Th/cmm (4.8-10.8) H 09/20/17 06:00 RBC 4.62 Mil/cmm (3.80-5.80) 09/20/17 06:00 Hgb 14.6 gm/dL (12-16) 09/20/17 06:00 Hct 43.3 % (41.0-60) 09/20/17 06:00 MCV 93.7 fl (80-99) 09/20/17 06:00 MCH 31.6 pg (27.0-31.0) H 09/20/17 06:00 MCHC Differential 33.7 pg (28.0-36.0) 09/20/17 06:00 RDW 15.4 % (11.5-20.0) 09/20/17 06:00 Plt Count 272 Th/cmm (150-400) 09/20/17 06:00 MPV 9.5 fl 09/20/17 06:00 Neutrophils % 76.6 % (40.0-80.0) 09/20/17 06:00 Lymphocytes % 11.7 % (20.0-50.0) L 09/20/17 06:00 Monocytes % 10.7 % (2.0-10.0) H 09/20/17 06:00 Eosinophils % 0.4 % (0.0-5.0) 09/20/17 06:00 Basophils % 0.6 % (0.0-2.0) 09/20/17 06:00 Sodium 135 mEq/L (136-145) L 09/20/17 06:00 Potassium 3.7 mEq/L (3.5-5.1) 09/20/17 06:00 Chloride 101 mEq/L (98-107) 09/20/17 06:00 Carbon Dioxide 26.1 mEq/L (21.0-31.0) 09/20/17 06:00 Anion Gap 11.6 (7.0-16.0) 09/20/17 06:00 BUN 17 mg/dL (7-25) 09/20/17 06:00 Creatinine 0.6 mg/dL (0.7-1.3) L 09/20/17 06:00 Est GFR ( Amer) > 60.0 ml/min (>90) 09/20/17 06:00 Est GFR (Non-Af Amer) > 60.0 ml/min 09/20/17 06:00 BUN/Creatinine Ratio 28.3 09/20/17 06:00 Glucose 112 mg/dL (70-105) H 09/20/17 06:00 Calcium 9.5 mg/dL (8.6-10.3) 09/20/17 06:00 Total Bilirubin 0.5 mg/dL (0.3-1.0) 09/20/17 06:00 AST 15 U/L (13-39) 09/20/17 06:00 ALT 11 U/L (7-52) 09/20/17 06:00 Alkaline Phosphatase 65 U/L (34-104) 09/20/17 06:00 Total Protein 6.8 gm/dL (6.0-8.3) 09/20/17 06:00 Albumin 3.4 gm/dL (4.2-5.5) L 09/20/17 06:00 Globulin 3.4 gm/dL 09/20/17 06:00 Albumin/Globulin Ratio 1.0 (1.0-1.8) 09/20/17 06:00 Triglycerides 74 mg/dL (<150) 09/22/17 07:05 Cholesterol 145 mg/dL (<200) 09/22/17 07:05 LDL Cholesterol Direct 91 mg/dL (75-193) 09/22/17 07:05 HDL Cholesterol 41 mg/dL (23-92) 09/22/17 07:05 Urine Source CLEAN C 09/19/17 23:30 Urine Color RED 09/19/17 23:30 Urine Clarity BLOODY (CLEAR) 09/19/17 23:30 Urine pH 6.0 (4.6 - 8.0) 09/19/17 23:30 Ur Specific [place] 1.020 (1.005-1.030) 09/19/17 23:30 Urine Protein >300 mg/dL (NEGATIVE) H 09/19/17 23:30 Urine Glucose (UA) NEGATIVE mg/dL (NEGATIVE) 09/19/17 23:30 Urine Ketones NEGATIVE mg/dL (NEGATIVE) 09/19/17 23:30 Urine Blood LARGE (NEGATIVE) H 09/19/17 23:30 Urine Nitrate NEGATIVE (NEGATIVE) 09/19/17 23:30 Urine Bilirubin NEGATIVE (NEGATIVE) 09/19/17 23:30 Urine Urobilinogen 0.2 E.U./dL (0.2 - 1.0) 09/19/17 23:30 Ur Leukocyte Esterase TRACE (NEGATIVE) H 09/19/17 23:30 Urine RBC >100 /hpf (0-5) H 09/19/17 23:30 Urine WBC 6-10 /hpf (0-5) 09/19/17 23:30 Ur Epithelial Cells FEW /lpf (FEW) 09/19/17 23:30 Urine Bacteria FEW /hpf (NONE SEEN) 09/19/17 23:30 Valproic Acid 38.2 ug/mL (50.0-100.0) L 09/22/17 07:05 - Physical Exam Vitals and I&O: Vital Signs Temp 97.4 F 09/22/17 14:00 Pulse 90 09/22/17 14:00 Resp 18 09/22/17 14:00 BP 105/67 09/22/17 14:00 Pulse Ox 98 09/21/17 20:01 Intake & Output 09/21/17 09/22/17 09/22/17 18:59 06:59 18:59 Intake Total 438 511 0328 Balance 169 365 9167 Intake: Oral 506 868 0601 Other: # Voids 3 3 4 # Bowel Movements 1 1 1 Active Medications: Current Medications Acetaminophen (Tylenol) 650 mg PO Q4HR PRN PRN Reason: Mild Pain / Temp above 100 Stop: 11/02/17 00:48 Last Admin: 09/21/17 16:35 Dose: 650 mg Al Hydrox/Mg Hydrox/Simethicone (Maalox) 30 ml PO Q4HR PRN PRN Reason: GI DISTRESS Stop: 11/02/17 00:48 Divalproex Sodium (Depakote Dr) 250 mg PO Q12HR [facility]; Protocol Stop: 11/18/17 20:59 Last Admin: 09/22/17 09:50 Dose: 250 mg Haloperidol (Haldol) 2 mg PO BID [facility]; Protocol Stop: 11/03/17 16:59 Last Admin: 09/22/17 16:55 Dose: 2 mg Lorazepam (Ativan) 0.5 mg PO Q4HR PRN; Protocol PRN Reason: Anxiety Stop: 10/03/17 00:48 Last Admin: 09/22/17 16:55 Dose: 0.5 mg Magnesium Hydroxide (Milk Of Magnesia) 30 ml PO HS PRN PRN Reason: Constipation Multivitamins/Vitamin C (Theragran) 1 tab PO DAILY SIMIN Stop: 11/02/17 08:59 Last Admin: 09/22/17 09:50 Dose: 1 tab Nystatin (Mycostatin Cream) 1 appl TP DAILY SIMIN Stop: 09/30/17 09:00 Last Admin: 09/22/17 09:50 Dose: 1 appl Potassium Chloride (Klor-Con) 40 meq PO DAILY SIMIN Stop: 11/16/17 08:59 Last Admin: 09/22/17 09:50 Dose: 40 meq Tamsulosin HCl (Flomax) 0.4 mg PO DAILY SIMIN Stop: 11/03/17 08:59 Last Admin: 09/22/17 09:50 Dose: 0.4 mg Zolpidem Tartrate (Ambien) 5 mg PO HS PRN PRN Reason: Insomnia Stop: 11/02/17 00:48 Last Admin: 09/20/17 20:34 Dose: 5 mg General: demented HEENT: NC/AT, PERRLA, EOMI, anicteric sclerae, throat clear Neck: Supple, No JVD, No thyromegaly, +2 carotid pulse wo bruit, No LAD Lungs: CTAB Cardiovascular: RRR, Normal S1, Normal S2, without murmur Abdomen: soft, non-tender, non-distended Extremities: clear Neurological: no change - Procedures Procedures: Procedures Procedure Code Date INSERTION OF INFUSION DEV INTO SUP VENA CAVA, PERC APPROACH [id number] 08/14/17 PERFORMANCE OF URINARY FILTRATION, <6 HRS/DAY [id number] 08/14/17 ULTRASONOGRAPHY OF SUPERIOR VENA CAVA, GUIDANCE [id number] 08/14/17 Internal Medicine Assmt/Plan - Assessment Assessment: 1.COPD. 2.BPH. 3.DEMENTIA. 4.HEMATUREA. - Plan Plan: CONTINUE ON CURRENT MEDICATION AND DIET. Nutritional Asmnt/Malnutr-PDOC - Dietary Evaluation Malnutrition Findings (Please click <Entered> for more info): Nutritional Asmnt/Malnutrition Start: 09/06/17 13: 19 Text: Status: Complete Freq: Protocol: Document 09/06/17 13:19 LEROYMINISTERIO (Rec: 09/06/17 13:28 LEROYMINISTERIO [email or web address]) Nutritional Asmnt/Malnutrition Patient General Information Nutritional Screening Moderate Risk Diagnosis psychosis Pertinent Medical Hx/Surgical Hx BPH, dementia Subjective Information Pt seen sitting in rich-chair at dining room. Pt stated hungry. Per EMR, PO intake 100 % of meals. Current Diet Order/ Nutrition Support CCHO-60gm Pertinent Medications theragran Pertinent Labs 09/04 K 3.1, Cr 0.6, glucose 131 Nutritional Hx/Data Height 1.65 m Height (Calculated Centimeters) 165.1 Current Weight (lbs) 60.781 kg Weight (Calculated Kilograms) 60.8 Weight (Calculated Grams) 20536.4 [place] Body Weight 136 Body Mass Index (BMI) 22.3 Weight Status Approriate GI Symptoms GI Symptoms None Last BM 09/06 Difficult in: None Skin Integrity/Comment: dryness Current %PO Good (75-100%) Estimated Nutritional Goals BEE in Kcals: Using Current wt Calories/Kcals/Kg 25-30 Kcals Calculated 6466-8182 Protein: Using Current wt Protein g/k Protein Calculated 61 Fluid: ml 7563-9931 Nutritional Problem No current Nutrition Prob Problem N/A Malnutrition Alert Is there a minimum of two criteria No selected? Query Text:Check all the applicable criteria. A minimum of two criteria are recommended for diagnosis of either severe or non-severe malnutrition. Malnutrition Related to Morbid Obesity Malnutrition related to morbid obesity No Intervention/Recommendation Comments 1. Continue with CCHO 60gm diet as ordered. If glucose level change toward to normal range, will consider removing CCHO restriction. 2. Monitor PO intake, wt, labs and skin integrity 3. F/U as low risk in 7 days, 09/13. Expected Outcomes/Goals Expected Outcomes/Goals 1. PO intake to meet at least 75% of nutritional needs. 2. Wt stability, skin to remain intact, labs to approach WNL.
--- NOTE | 2017-09-23 00:38 | Progress Notes ---
DATE: 09/22/2017 PSYCHIATRIC PROGRESS NOTE SUBJECTIVE: Staff was spoken to. The patient is interviewed. Mood is noted to be irritable. Affect is constricted. Coping skills are noted to be still poor. The patient has no place to return to and since the patient has ran out of the retirement facility, none of the facilities are willing to take the patient. No side effects to the medications are noted. The patient has been maintained on Haldol and Depakote. PLAN: To continue the patient with the supportive therapy and await for placement. JOB# [id number]
[2017-09-23] MEDS: Potassium Chloride 20 mEq ER Tab PO SCH (08:35)
[2017-09-23] MEDS: Nystatin Cream 100,000 u/gm Cream 15 gm TP SCH (08:35)
[2017-09-23] MEDS: Multivitamin Tab PO SCH (08:35)
--- NOTE | 2017-09-23 19:17 | Internal Medicine Prog Note ---
Internal Medicine Subjective - Subjective Service Date: 09/23/17 Patient seen and examined:: with staff Patient is:: awake, verbal, in bed, talking Per staff patient has:: no adverse event Internal Medicine Objective - Results Result Diagrams: 09/20/17 06:00 09/20/17 06:00 Recent Labs: Laboratory Last Values WBC 14.8 Th/cmm (4.8-10.8) H 09/20/17 06:00 RBC 4.62 Mil/cmm (3.80-5.80) 09/20/17 06:00 Hgb 14.6 gm/dL (12-16) 09/20/17 06:00 Hct 43.3 % (41.0-60) 09/20/17 06:00 MCV 93.7 fl (80-99) 09/20/17 06:00 MCH 31.6 pg (27.0-31.0) H 09/20/17 06:00 MCHC Differential 33.7 pg (28.0-36.0) 09/20/17 06:00 RDW 15.4 % (11.5-20.0) 09/20/17 06:00 Plt Count 272 Th/cmm (150-400) 09/20/17 06:00 MPV 9.5 fl 09/20/17 06:00 Neutrophils % 76.6 % (40.0-80.0) 09/20/17 06:00 Lymphocytes % 11.7 % (20.0-50.0) L 09/20/17 06:00 Monocytes % 10.7 % (2.0-10.0) H 09/20/17 06:00 Eosinophils % 0.4 % (0.0-5.0) 09/20/17 06:00 Basophils % 0.6 % (0.0-2.0) 09/20/17 06:00 Sodium 135 mEq/L (136-145) L 09/20/17 06:00 Potassium 3.7 mEq/L (3.5-5.1) 09/20/17 06:00 Chloride 101 mEq/L (98-107) 09/20/17 06:00 Carbon Dioxide 26.1 mEq/L (21.0-31.0) 09/20/17 06:00 Anion Gap 11.6 (7.0-16.0) 09/20/17 06:00 BUN 17 mg/dL (7-25) 09/20/17 06:00 Creatinine 0.6 mg/dL (0.7-1.3) L 09/20/17 06:00 Est GFR ( Amer) > 60.0 ml/min (>90) 09/20/17 06:00 Est GFR (Non-Af Amer) > 60.0 ml/min 09/20/17 06:00 BUN/Creatinine Ratio 28.3 09/20/17 06:00 Glucose 112 mg/dL (70-105) H 09/20/17 06:00 Calcium 9.5 mg/dL (8.6-10.3) 09/20/17 06:00 Total Bilirubin 0.5 mg/dL (0.3-1.0) 09/20/17 06:00 AST 15 U/L (13-39) 09/20/17 06:00 ALT 11 U/L (7-52) 09/20/17 06:00 Alkaline Phosphatase 65 U/L (34-104) 09/20/17 06:00 Total Protein 6.8 gm/dL (6.0-8.3) 09/20/17 06:00 Albumin 3.4 gm/dL (4.2-5.5) L 09/20/17 06:00 Globulin 3.4 gm/dL 09/20/17 06:00 Albumin/Globulin Ratio 1.0 (1.0-1.8) 09/20/17 06:00 Triglycerides 74 mg/dL (<150) 09/22/17 07:05 Cholesterol 145 mg/dL (<200) 09/22/17 07:05 LDL Cholesterol Direct 91 mg/dL (75-193) 09/22/17 07:05 HDL Cholesterol 41 mg/dL (23-92) 09/22/17 07:05 Urine Source CLEAN C 09/19/17 23:30 Urine Color RED 09/19/17 23:30 Urine Clarity BLOODY (CLEAR) 09/19/17 23:30 Urine pH 6.0 (4.6 - 8.0) 09/19/17 23:30 Ur Specific [place] 1.020 (1.005-1.030) 09/19/17 23:30 Urine Protein >300 mg/dL (NEGATIVE) H 09/19/17 23:30 Urine Glucose (UA) NEGATIVE mg/dL (NEGATIVE) 09/19/17 23:30 Urine Ketones NEGATIVE mg/dL (NEGATIVE) 09/19/17 23:30 Urine Blood LARGE (NEGATIVE) H 09/19/17 23:30 Urine Nitrate NEGATIVE (NEGATIVE) 09/19/17 23:30 Urine Bilirubin NEGATIVE (NEGATIVE) 09/19/17 23:30 Urine Urobilinogen 0.2 E.U./dL (0.2 - 1.0) 09/19/17 23:30 Ur Leukocyte Esterase TRACE (NEGATIVE) H 09/19/17 23:30 Urine RBC >100 /hpf (0-5) H 09/19/17 23:30 Urine WBC 6-10 /hpf (0-5) 09/19/17 23:30 Ur Epithelial Cells FEW /lpf (FEW) 09/19/17 23:30 Urine Bacteria FEW /hpf (NONE SEEN) 09/19/17 23:30 Valproic Acid 38.2 ug/mL (50.0-100.0) L 09/22/17 07:05 - Physical Exam Vitals and I&O: Vital Signs Temp 98.3 F 09/23/17 14:00 Pulse 96 09/23/17 14:00 Resp 20 09/23/17 14:00 BP 99/68 09/23/17 14:00 Pulse Ox 97 09/23/17 14:00 Intake & Output 09/23/17 09/23/17 09/24/17 06:59 18:59 06:59 Intake Total 1200 Balance 1200 Intake: Oral 1200 Other: # Bowel Movements 1 Active Medications: Current Medications Acetaminophen (Tylenol) 650 mg PO Q4HR PRN PRN Reason: Mild Pain / Temp above 100 Stop: 11/02/17 00:48 Last Admin: 09/21/17 16:35 Dose: 650 mg Al Hydrox/Mg Hydrox/Simethicone (Maalox) 30 ml PO Q4HR PRN PRN Reason: GI DISTRESS Stop: 11/02/17 00:48 Divalproex Sodium (Depakote Dr) 250 mg PO Q12HR [facility]; Protocol Stop: 11/18/17 20:59 Last Admin: 09/23/17 08:35 Dose: 250 mg Haloperidol (Haldol) 2 mg PO BID [facility]; Protocol Stop: 11/03/17 16:59 Last Admin: 09/23/17 16:25 Dose: 2 mg Lorazepam (Ativan) 0.5 mg PO Q4HR PRN; Protocol PRN Reason: Anxiety Stop: 10/03/17 00:48 Last Admin: 09/23/17 03:47 Dose: 0.5 mg Magnesium Hydroxide (Milk Of Magnesia) 30 ml PO HS PRN PRN Reason: Constipation Multivitamins/Vitamin C (Theragran) 1 tab PO DAILY SIMIN Stop: 11/02/17 08:59 Last Admin: 09/23/17 08:35 Dose: 1 tab Nystatin (Mycostatin Cream) 1 appl TP DAILY SIMIN Stop: 09/30/17 09:00 Last Admin: 09/23/17 08:35 Dose: 1 appl Potassium Chloride (Klor-Con) 40 meq PO DAILY SIMIN Stop: 11/16/17 08:59 Last Admin: 09/23/17 08:35 Dose: Not Given Tamsulosin HCl (Flomax) 0.4 mg PO DAILY SIMIN Stop: 11/03/17 08:59 Last Admin: 09/23/17 08:35 Dose: 0.4 mg Zolpidem Tartrate (Ambien) 5 mg PO HS PRN PRN Reason: Insomnia Stop: 11/02/17 00:48 Last Admin: 09/22/17 21:36 Dose: 5 mg General: demented HEENT: NC/AT, PERRLA, EOMI, anicteric sclerae, throat clear Neck: Supple, No JVD, No thyromegaly, +2 carotid pulse wo bruit, No LAD Lungs: CTAB Cardiovascular: RRR, Normal S1, Normal S2, without murmur Abdomen: soft, non-tender, non-distended Extremities: clear Neurological: no change - Procedures Procedures: Procedures Procedure Code Date INSERTION OF INFUSION DEV INTO SUP VENA CAVA, PERC APPROACH [id number] 08/14/17 PERFORMANCE OF URINARY FILTRATION, <6 HRS/DAY [id number] 08/14/17 ULTRASONOGRAPHY OF SUPERIOR VENA CAVA, GUIDANCE [id number] 08/14/17 Internal Medicine Assmt/Plan - Assessment Assessment: 1.COPD. 2.BPH. 3.DEMENTIA. 4.HEMATUREA. - Plan Plan: CONTINUE ON CURRENT MEDICATION AND DIET. Nutritional Asmnt/Malnutr-PDOC - Dietary Evaluation Malnutrition Findings (Please click <Entered> for more info): Nutritional Asmnt/Malnutrition Start: 09/06/17 13: 19 Text: Status: Complete Freq: Protocol: Document 09/06/17 13:19 LEROYMINISTERIO (Rec: 09/06/17 13:28 LEROYMINISTERIO [email or web address]) Nutritional Asmnt/Malnutrition Patient General Information Nutritional Screening Moderate Risk Diagnosis psychosis Pertinent Medical Hx/Surgical Hx BPH, dementia Subjective Information Pt seen sitting in rich-chair at dining room. Pt stated hungry. Per EMR, PO intake 100 % of meals. Current Diet Order/ Nutrition Support CCHO-60gm Pertinent Medications theragran Pertinent Labs 09/04 K 3.1, Cr 0.6, glucose 131 Nutritional Hx/Data Height 1.65 m Height (Calculated Centimeters) 165.1 Current Weight (lbs) 60.781 kg Weight (Calculated Kilograms) 60.8 Weight (Calculated Grams) 31012.4 [place] Body Weight 136 Body Mass Index (BMI) 22.3 Weight Status Approriate GI Symptoms GI Symptoms None Last BM 09/06 Difficult in: None Skin Integrity/Comment: dryness Current %PO Good (75-100%) Estimated Nutritional Goals BEE in Kcals: Using Current wt Calories/Kcals/Kg 25-30 Kcals Calculated 8408-6401 Protein: Using Current wt Protein g/k Protein Calculated 61 Fluid: ml 2207-1060 Nutritional Problem No current Nutrition Prob Problem N/A Malnutrition Alert Is there a minimum of two criteria No selected? Query Text:Check all the applicable criteria. A minimum of two criteria are recommended for diagnosis of either severe or non-severe malnutrition. Malnutrition Related to Morbid Obesity Malnutrition related to morbid obesity No Intervention/Recommendation Comments 1. Continue with CCHO 60gm diet as ordered. If glucose level change toward to normal range, will consider removing CCHO restriction. 2. Monitor PO intake, wt, labs and skin integrity 3. F/U as low risk in 7 days, 09/13. Expected Outcomes/Goals Expected Outcomes/Goals 1. PO intake to meet at least 75% of nutritional needs. 2. Wt stability, skin to remain intact, labs to approach WNL.
--- NOTE | 2017-09-23 23:55 | Progress Notes ---
DATE: 09/23/2017 PSYCHIATRIC PROGRESS NOTE SUBJECTIVE: Staff was spoken to. The patient is interviewed. Mood is noted to be irritable. Affect is constricted. Insight and judgment are noted to be still impaired. Impulse control is noted to be poor. Coping skills are also noted to be very poor. The patient has been getting easily frustrated. The patient is being redirected at this time. ASSESSMENT: The patient is still impulsive and awaiting placement. PLAN: To continue the patient with the supportive therapy and followup. [facility]# [id number]
[2017-09-24] MEDS: Potassium Chloride 20 mEq ER Tab PO SCH (08:19)
[2017-09-24] MEDS: Multivitamin Tab PO SCH (08:19)
[2017-09-24] MEDS: Nystatin Cream 100,000 u/gm Cream 15 gm TP SCH (08:19)
--- NOTE | 2017-09-24 21:01 | Internal Medicine Prog Note ---
Internal Medicine Subjective - Subjective Service Date: 09/24/17 Patient seen and examined:: with staff Patient is:: awake, verbal, in bed, talking Per staff patient has:: no adverse event Internal Medicine Objective - Results Result Diagrams: 09/20/17 06:00 09/20/17 06:00 Recent Labs: Laboratory Last Values WBC 14.8 Th/cmm (4.8-10.8) H 09/20/17 06:00 RBC 4.62 Mil/cmm (3.80-5.80) 09/20/17 06:00 Hgb 14.6 gm/dL (12-16) 09/20/17 06:00 Hct 43.3 % (41.0-60) 09/20/17 06:00 MCV 93.7 fl (80-99) 09/20/17 06:00 MCH 31.6 pg (27.0-31.0) H 09/20/17 06:00 MCHC Differential 33.7 pg (28.0-36.0) 09/20/17 06:00 RDW 15.4 % (11.5-20.0) 09/20/17 06:00 Plt Count 272 Th/cmm (150-400) 09/20/17 06:00 MPV 9.5 fl 09/20/17 06:00 Neutrophils % 76.6 % (40.0-80.0) 09/20/17 06:00 Lymphocytes % 11.7 % (20.0-50.0) L 09/20/17 06:00 Monocytes % 10.7 % (2.0-10.0) H 09/20/17 06:00 Eosinophils % 0.4 % (0.0-5.0) 09/20/17 06:00 Basophils % 0.6 % (0.0-2.0) 09/20/17 06:00 Sodium 135 mEq/L (136-145) L 09/20/17 06:00 Potassium 3.7 mEq/L (3.5-5.1) 09/20/17 06:00 Chloride 101 mEq/L (98-107) 09/20/17 06:00 Carbon Dioxide 26.1 mEq/L (21.0-31.0) 09/20/17 06:00 Anion Gap 11.6 (7.0-16.0) 09/20/17 06:00 BUN 17 mg/dL (7-25) 09/20/17 06:00 Creatinine 0.6 mg/dL (0.7-1.3) L 09/20/17 06:00 Est GFR ( Amer) > 60.0 ml/min (>90) 09/20/17 06:00 Est GFR (Non-Af Amer) > 60.0 ml/min 09/20/17 06:00 BUN/Creatinine Ratio 28.3 09/20/17 06:00 Glucose 112 mg/dL (70-105) H 09/20/17 06:00 Calcium 9.5 mg/dL (8.6-10.3) 09/20/17 06:00 Total Bilirubin 0.5 mg/dL (0.3-1.0) 09/20/17 06:00 AST 15 U/L (13-39) 09/20/17 06:00 ALT 11 U/L (7-52) 09/20/17 06:00 Alkaline Phosphatase 65 U/L (34-104) 09/20/17 06:00 Total Protein 6.8 gm/dL (6.0-8.3) 09/20/17 06:00 Albumin 3.4 gm/dL (4.2-5.5) L 09/20/17 06:00 Globulin 3.4 gm/dL 09/20/17 06:00 Albumin/Globulin Ratio 1.0 (1.0-1.8) 09/20/17 06:00 Triglycerides 74 mg/dL (<150) 09/22/17 07:05 Cholesterol 145 mg/dL (<200) 09/22/17 07:05 LDL Cholesterol Direct 91 mg/dL (75-193) 09/22/17 07:05 HDL Cholesterol 41 mg/dL (23-92) 09/22/17 07:05 Urine Source CLEAN C 09/19/17 23:30 Urine Color RED 09/19/17 23:30 Urine Clarity BLOODY (CLEAR) 09/19/17 23:30 Urine pH 6.0 (4.6 - 8.0) 09/19/17 23:30 Ur Specific [place] 1.020 (1.005-1.030) 09/19/17 23:30 Urine Protein >300 mg/dL (NEGATIVE) H 09/19/17 23:30 Urine Glucose (UA) NEGATIVE mg/dL (NEGATIVE) 09/19/17 23:30 Urine Ketones NEGATIVE mg/dL (NEGATIVE) 09/19/17 23:30 Urine Blood LARGE (NEGATIVE) H 09/19/17 23:30 Urine Nitrate NEGATIVE (NEGATIVE) 09/19/17 23:30 Urine Bilirubin NEGATIVE (NEGATIVE) 09/19/17 23:30 Urine Urobilinogen 0.2 E.U./dL (0.2 - 1.0) 09/19/17 23:30 Ur Leukocyte Esterase TRACE (NEGATIVE) H 09/19/17 23:30 Urine RBC >100 /hpf (0-5) H 09/19/17 23:30 Urine WBC 6-10 /hpf (0-5) 09/19/17 23:30 Ur Epithelial Cells FEW /lpf (FEW) 09/19/17 23:30 Urine Bacteria FEW /hpf (NONE SEEN) 09/19/17 23:30 Valproic Acid 38.2 ug/mL (50.0-100.0) L 09/22/17 07:05 - Physical Exam Vitals and I&O: Vital Signs Temp 98.5 F 09/24/17 20:00 Pulse 91 09/24/17 20:00 Resp 19 09/24/17 20:00 BP 105/65 09/24/17 20:00 Pulse Ox 96 09/24/17 20:00 Intake & Output 09/24/17 09/24/17 09/25/17 06:59 18:59 06:59 Intake Total 240 1800 Balance 240 1800 Intake: Oral 240 1800 Other: # Voids 1 4 # Bowel Movements 0 Active Medications: Current Medications Acetaminophen (Tylenol) 650 mg PO Q4HR PRN PRN Reason: Mild Pain / Temp above 100 Stop: 11/02/17 00:48 Last Admin: 09/21/17 16:35 Dose: 650 mg Al Hydrox/Mg Hydrox/Simethicone (Maalox) 30 ml PO Q4HR PRN PRN Reason: GI DISTRESS Stop: 11/02/17 00:48 Divalproex Sodium (Depakote Dr) 250 mg PO Q12HR [facility]; Protocol Stop: 11/18/17 20:59 Last Admin: 09/24/17 08:18 Dose: 250 mg Haloperidol (Haldol) 2 mg PO BID [facility]; Protocol Stop: 11/03/17 16:59 Last Admin: 09/24/17 16:31 Dose: 2 mg Lorazepam (Ativan) 0.5 mg PO Q4HR PRN; Protocol PRN Reason: Anxiety Stop: 10/03/17 00:48 Last Admin: 09/23/17 21:23 Dose: 0.5 mg Magnesium Hydroxide (Milk Of Magnesia) 30 ml PO HS PRN PRN Reason: Constipation Multivitamins/Vitamin C (Theragran) 1 tab PO DAILY SIMIN Stop: 11/02/17 08:59 Last Admin: 09/24/17 08:19 Dose: 1 tab Nystatin (Mycostatin Cream) 1 appl TP DAILY [facility] Stop: 09/30/17 09:00 Last Admin: 09/24/17 08:19 Dose: 1 appl Potassium Chloride (Klor-Con) 40 meq PO DAILY [facility] Stop: 11/16/17 08:59 Last Admin: 09/24/17 08:19 Dose: 40 meq Tamsulosin HCl (Flomax) 0.4 mg PO DAILY SIMIN Stop: 11/03/17 08:59 Last Admin: 09/24/17 08:19 Dose: 0.4 mg Zolpidem Tartrate (Ambien) 5 mg PO HS PRN PRN Reason: Insomnia Stop: 11/02/17 00:48 Last Admin: 09/23/17 21:23 Dose: 5 mg General: demented HEENT: NC/AT, PERRLA, EOMI, anicteric sclerae, throat clear Neck: Supple, No JVD, No thyromegaly, +2 carotid pulse wo bruit, No LAD Lungs: CTAB Cardiovascular: RRR, Normal S1, Normal S2, without murmur Abdomen: soft, non-tender, non-distended Extremities: clear Neurological: no change - Procedures Procedures: Procedures Procedure Code Date INSERTION OF INFUSION DEV INTO SUP VENA CAVA, PERC APPROACH [id number] 08/14/17 PERFORMANCE OF URINARY FILTRATION, <6 HRS/DAY [id number] 08/14/17 ULTRASONOGRAPHY OF SUPERIOR VENA CAVA, GUIDANCE [id number] 08/14/17 Internal Medicine Assmt/Plan - Assessment Assessment: 1.COPD. 2.BPH. 3.DEMENTIA. 4.HEMATUREA. - Plan Plan: CONTINUE ON CURRENT MEDICATION AND DIET. Nutritional Asmnt/Malnutr-PDOC - Dietary Evaluation Malnutrition Findings (Please click <Entered> for more info): Nutritional Asmnt/Malnutrition Start: 09/06/17 13: 19 Text: Status: Complete Freq: Protocol: Document 09/06/17 13:19 CURRY (Rec: 09/06/17 13:28 LEROYMINISTERIO [email or web address]) Nutritional Asmnt/Malnutrition Patient General Information Nutritional Screening Moderate Risk Diagnosis psychosis Pertinent Medical Hx/Surgical Hx BPH, dementia Subjective Information Pt seen sitting in rich-chair at dining room. Pt stated hungry. Per EMR, PO intake 100 % of meals. Current Diet Order/ Nutrition Support CCHO-60gm Pertinent Medications theragran Pertinent Labs 09/04 K 3.1, Cr 0.6, glucose 131 Nutritional Hx/Data Height 1.65 m Height (Calculated Centimeters) 165.1 Current Weight (lbs) 60.781 kg Weight (Calculated Kilograms) 60.8 Weight (Calculated Grams) 63897.4 [place] Body Weight 136 Body Mass Index (BMI) 22.3 Weight Status Approriate GI Symptoms GI Symptoms None Last BM 09/06 Difficult in: None Skin Integrity/Comment: dryness Current %PO Good (75-100%) Estimated Nutritional Goals BEE in Kcals: Using Current wt Calories/Kcals/Kg 25-30 Kcals Calculated 7598-1553 Protein: Using Current wt Protein g/k Protein Calculated 61 Fluid: ml 7008-0592 Nutritional Problem No current Nutrition Prob Problem N/A Malnutrition Alert Is there a minimum of two criteria No selected? Query Text:Check all the applicable criteria. A minimum of two criteria are recommended for diagnosis of either severe or non-severe malnutrition. Malnutrition Related to Morbid Obesity Malnutrition related to morbid obesity No Intervention/Recommendation Comments 1. Continue with CCHO 60gm diet as ordered. If glucose level change toward to normal range, will consider removing CCHO restriction. 2. Monitor PO intake, wt, labs and skin integrity 3. F/U as low risk in 7 days, 09/13. Expected Outcomes/Goals Expected Outcomes/Goals 1. PO intake to meet at least 75% of nutritional needs. 2. Wt stability, skin to remain intact, labs to approach WNL.
--- NOTE | 2017-09-25 01:32 | Progress Notes ---
DATE: 09/24/2017 PROGRESS NOTE SUBJECTIVE: Staff was spoken to. The patient is interviewed. Mood is noted to be irritable. Affect is constricted. The patient has been very disruptive. Today, coping are noted to be poor. The patient needs to be redirected. The patient is currently on the valproic acid 250 mg 2 times a day and Haldol 2 mg b.i.d. The patient has been able to tolerate the medication. We are careful not to overmedicate the patient because of the possibility of dehydration and urinary retention. JOB# [id number]
[2017-09-25] MEDS: Multivitamin Tab PO SCH (08:56)
[2017-09-25] MEDS: Potassium Chloride 20 mEq ER Tab PO SCH (08:59)
[2017-09-25] MEDS: Nystatin Cream 100,000 u/gm Cream 15 gm TP SCH (09:05)
--- NOTE | 2017-09-25 13:18 | Progress Notes ---
DATE: 09/25/2017 SUBJECTIVE: Staff was spoken to. The patient is interviewed. Mood is noted to be irritable. Affect is constricted. Coping skills are noted to be still poor. The patient has been having difficult time to cope with the stress test to get easily agitated whenever he does not get his way. Apparently on Depakote and haloperidol and has been able to tolerate. ASSESSMENT: The patient is still impulsive and awaiting placement. PLAN: To continue the patient with the supportive therapy, I encouraged the patient to verbalize the concerns rather than to act out. JOB# [id number]
--- NOTE | 2017-09-25 20:27 | Internal Medicine Prog Note ---
Internal Medicine Subjective - Subjective Service Date: 09/25/17 Patient seen and examined:: with staff Patient is:: awake, verbal, in bed, talking Per staff patient has:: no adverse event Internal Medicine Objective - Results Result Diagrams: 09/20/17 06:00 09/20/17 06:00 Recent Labs: Laboratory Last Values WBC 14.8 Th/cmm (4.8-10.8) H 09/20/17 06:00 RBC 4.62 Mil/cmm (3.80-5.80) 09/20/17 06:00 Hgb 14.6 gm/dL (12-16) 09/20/17 06:00 Hct 43.3 % (41.0-60) 09/20/17 06:00 MCV 93.7 fl (80-99) 09/20/17 06:00 MCH 31.6 pg (27.0-31.0) H 09/20/17 06:00 MCHC Differential 33.7 pg (28.0-36.0) 09/20/17 06:00 RDW 15.4 % (11.5-20.0) 09/20/17 06:00 Plt Count 272 Th/cmm (150-400) 09/20/17 06:00 MPV 9.5 fl 09/20/17 06:00 Neutrophils % 76.6 % (40.0-80.0) 09/20/17 06:00 Lymphocytes % 11.7 % (20.0-50.0) L 09/20/17 06:00 Monocytes % 10.7 % (2.0-10.0) H 09/20/17 06:00 Eosinophils % 0.4 % (0.0-5.0) 09/20/17 06:00 Basophils % 0.6 % (0.0-2.0) 09/20/17 06:00 Sodium 135 mEq/L (136-145) L 09/20/17 06:00 Potassium 3.7 mEq/L (3.5-5.1) 09/20/17 06:00 Chloride 101 mEq/L (98-107) 09/20/17 06:00 Carbon Dioxide 26.1 mEq/L (21.0-31.0) 09/20/17 06:00 Anion Gap 11.6 (7.0-16.0) 09/20/17 06:00 BUN 17 mg/dL (7-25) 09/20/17 06:00 Creatinine 0.6 mg/dL (0.7-1.3) L 09/20/17 06:00 Est GFR ( Amer) > 60.0 ml/min (>90) 09/20/17 06:00 Est GFR (Non-Af Amer) > 60.0 ml/min 09/20/17 06:00 BUN/Creatinine Ratio 28.3 09/20/17 06:00 Glucose 112 mg/dL (70-105) H 09/20/17 06:00 Calcium 9.5 mg/dL (8.6-10.3) 09/20/17 06:00 Total Bilirubin 0.5 mg/dL (0.3-1.0) 09/20/17 06:00 AST 15 U/L (13-39) 09/20/17 06:00 ALT 11 U/L (7-52) 09/20/17 06:00 Alkaline Phosphatase 65 U/L (34-104) 09/20/17 06:00 Total Protein 6.8 gm/dL (6.0-8.3) 09/20/17 06:00 Albumin 3.4 gm/dL (4.2-5.5) L 09/20/17 06:00 Globulin 3.4 gm/dL 09/20/17 06:00 Albumin/Globulin Ratio 1.0 (1.0-1.8) 09/20/17 06:00 Triglycerides 74 mg/dL (<150) 09/22/17 07:05 Cholesterol 145 mg/dL (<200) 09/22/17 07:05 LDL Cholesterol Direct 91 mg/dL (75-193) 09/22/17 07:05 HDL Cholesterol 41 mg/dL (23-92) 09/22/17 07:05 Urine Source CLEAN C 09/19/17 23:30 Urine Color RED 09/19/17 23:30 Urine Clarity BLOODY (CLEAR) 09/19/17 23:30 Urine pH 6.0 (4.6 - 8.0) 09/19/17 23:30 Ur Specific [place] 1.020 (1.005-1.030) 09/19/17 23:30 Urine Protein >300 mg/dL (NEGATIVE) H 09/19/17 23:30 Urine Glucose (UA) NEGATIVE mg/dL (NEGATIVE) 09/19/17 23:30 Urine Ketones NEGATIVE mg/dL (NEGATIVE) 09/19/17 23:30 Urine Blood LARGE (NEGATIVE) H 09/19/17 23:30 Urine Nitrate NEGATIVE (NEGATIVE) 09/19/17 23:30 Urine Bilirubin NEGATIVE (NEGATIVE) 09/19/17 23:30 Urine Urobilinogen 0.2 E.U./dL (0.2 - 1.0) 09/19/17 23:30 Ur Leukocyte Esterase TRACE (NEGATIVE) H 09/19/17 23:30 Urine RBC >100 /hpf (0-5) H 09/19/17 23:30 Urine WBC 6-10 /hpf (0-5) 09/19/17 23:30 Ur Epithelial Cells FEW /lpf (FEW) 09/19/17 23:30 Urine Bacteria FEW /hpf (NONE SEEN) 09/19/17 23:30 Valproic Acid 38.2 ug/mL (50.0-100.0) L 09/22/17 07:05 - Physical Exam Vitals and I&O: Vital Signs Temp 97.2 F 09/25/17 20:00 Pulse 96 09/25/17 20:00 Resp 20 09/25/17 20:00 BP 100/67 09/25/17 20:00 Pulse Ox 96 09/25/17 20:00 Intake & Output 09/25/17 09/25/17 09/26/17 06:59 18:59 06:59 Intake Total 120 2200 Balance 120 2200 Intake: Oral 120 2200 Other: # Voids 3 4 # Bowel Movements 1 1 Active Medications: Current Medications Acetaminophen (Tylenol) 650 mg PO Q4HR PRN PRN Reason: Mild Pain / Temp above 100 Stop: 11/02/17 00:48 Last Admin: 09/21/17 16:35 Dose: 650 mg Al Hydrox/Mg Hydrox/Simethicone (Maalox) 30 ml PO Q4HR PRN PRN Reason: GI DISTRESS Stop: 11/02/17 00:48 Divalproex Sodium (Depakote Dr) 250 mg PO Q12HR [facility]; Protocol Stop: 11/18/17 20:59 Last Admin: 09/25/17 08:59 Dose: 250 mg Haloperidol (Haldol) 2 mg PO BID [facility]; Protocol Stop: 11/03/17 16:59 Last Admin: 09/25/17 16:53 Dose: 2 mg Lorazepam (Ativan) 0.5 mg PO Q4HR PRN; Protocol PRN Reason: Anxiety Stop: 10/03/17 00:48 Last Admin: 09/25/17 14:46 Dose: 0.5 mg Magnesium Hydroxide (Milk Of Magnesia) 30 ml PO HS PRN PRN Reason: Constipation Multivitamins/Vitamin C (Theragran) 1 tab PO DAILY SIMIN Stop: 11/02/17 08:59 Last Admin: 09/25/17 08:56 Dose: 1 tab Nystatin (Mycostatin Cream) 1 appl TP DAILY SIMIN Stop: 09/30/17 09:00 Last Admin: 09/25/17 09:05 Dose: 1 appl Potassium Chloride (Klor-Con) 40 meq PO DAILY SIMIN Stop: 11/16/17 08:59 Last Admin: 09/25/17 08:59 Dose: 40 meq Tamsulosin HCl (Flomax) 0.4 mg PO DAILY SIMIN Stop: 11/03/17 08:59 Last Admin: 09/25/17 09:00 Dose: 0.4 mg Zolpidem Tartrate (Ambien) 5 mg PO HS PRN PRN Reason: Insomnia Stop: 11/02/17 00:48 Last Admin: 09/24/17 21:42 Dose: 5 mg General: demented HEENT: NC/AT, PERRLA, EOMI, anicteric sclerae, throat clear Neck: Supple, No JVD, No thyromegaly, +2 carotid pulse wo bruit, No LAD Lungs: CTAB Cardiovascular: RRR, Normal S1, Normal S2, without murmur Abdomen: soft, non-tender, non-distended Extremities: clear Neurological: no change - Procedures Procedures: Procedures Procedure Code Date INSERTION OF INFUSION DEV INTO SUP VENA CAVA, PERC APPROACH 94AL22T 08/14/17 PERFORMANCE OF URINARY FILTRATION, <6 HRS/DAY [id number] 08/14/17 ULTRASONOGRAPHY OF SUPERIOR VENA CAVA, GUIDANCE [id number] 08/14/17 Internal Medicine Assmt/Plan - Assessment Assessment: 1.COPD. 2.BPH. 3.DEMENTIA. - Plan Plan: CONTINUE ON CURRENT MEDICATION AND DIET. Nutritional Asmnt/Malnutr-PDOC - Dietary Evaluation Malnutrition Findings (Please click <Entered> for more info): Nutritional Asmnt/Malnutrition Start: 09/06/17 13: 19 Text: Status: Complete Freq: Protocol: Document 09/06/17 13:19 CURRY (Rec: 09/06/17 13:28 [email or web address]) Nutritional Asmnt/Malnutrition Patient General Information Nutritional Screening Moderate Risk Diagnosis psychosis Pertinent Medical Hx/Surgical Hx BPH, dementia Subjective Information Pt seen sitting in rich-chair at dining room. Pt stated hungry. Per EMR, PO intake 100 % of meals. Current Diet Order/ Nutrition Support CCHO-60gm Pertinent Medications theragran Pertinent Labs 09/04 K 3.1, Cr 0.6, glucose 131 Nutritional Hx/Data Height 1.65 m Height (Calculated Centimeters) 165.1 Current Weight (lbs) 60.781 kg Weight (Calculated Kilograms) 60.8 Weight (Calculated Grams) 01887.4 [place] Body Weight 136 Body Mass Index (BMI) 22.3 Weight Status Approriate GI Symptoms GI Symptoms None Last BM 09/06 Difficult in: None Skin Integrity/Comment: dryness Current %PO Good (75-100%) Estimated Nutritional Goals BEE in Kcals: Using Current wt Calories/Kcals/Kg 25-30 Kcals Calculated 0657-2164 Protein: Using Current wt Protein g/k Protein Calculated 61 Fluid: ml 0706-0717 Nutritional Problem No current Nutrition Prob Problem N/A Malnutrition Alert Is there a minimum of two criteria No selected? Query Text:Check all the applicable criteria. A minimum of two criteria are recommended for diagnosis of either severe or non-severe malnutrition. Malnutrition Related to Morbid Obesity Malnutrition related to morbid obesity No Intervention/Recommendation Comments 1. Continue with CCHO 60gm diet as ordered. If glucose level change toward to normal range, will consider removing CCHO restriction. 2. Monitor PO intake, wt, labs and skin integrity 3. F/U as low risk in 7 days, 09/13. Expected Outcomes/Goals Expected Outcomes/Goals 1. PO intake to meet at least 75% of nutritional needs. 2. Wt stability, skin to remain intact, labs to approach WNL.
[2017-09-26] MEDS: Potassium Chloride 20 mEq ER Tab PO SCH (09:39)
[2017-09-26] MEDS: Multivitamin Tab PO SCH (09:39)
[2017-09-26] MEDS: Nystatin Cream 100,000 u/gm Cream 15 gm TP SCH (15:17)
[2017-09-26] MEDS ORDERED: Betamethasone/Clotrimazole Cream 15 gm Tube TP SCH (17:00)
[2017-09-26] MEDS: Betamethasone/Clotrimazole Cream 15 gm Tube TP SCH (17:07)
--- NOTE | 2017-09-26 17:29 | Progress Notes ---
DATE: 09/26/2017 SUBJECTIVE: Staff was spoken to. The patient is interviewed. Mood is noted to be irritable. Affect is constricted. Coping skills are noted to be still poor. Sleep and appetite are also noted to be poor. The patient has been having difficult time to cope with the stress. No side effects to the medications are noted. ASSESSMENT: The patient is still impulsive and awaiting placement. PLAN: To continue the patient with the current medications and followup. JOB# [id number]
--- NOTE | 2017-09-26 20:37 | Internal Medicine Prog Note ---
Internal Medicine Subjective - Subjective Service Date: 09/26/17 Patient seen and examined:: with staff Patient is:: awake, verbal, in bed, talking Per staff patient has:: no adverse event Internal Medicine Objective - Results Result Diagrams: 09/20/17 06:00 09/20/17 06:00 Recent Labs: Laboratory Last Values WBC 14.8 Th/cmm (4.8-10.8) H 09/20/17 06:00 RBC 4.62 Mil/cmm (3.80-5.80) 09/20/17 06:00 Hgb 14.6 gm/dL (12-16) 09/20/17 06:00 Hct 43.3 % (41.0-60) 09/20/17 06:00 MCV 93.7 fl (80-99) 09/20/17 06:00 MCH 31.6 pg (27.0-31.0) H 09/20/17 06:00 MCHC Differential 33.7 pg (28.0-36.0) 09/20/17 06:00 RDW 15.4 % (11.5-20.0) 09/20/17 06:00 Plt Count 272 Th/cmm (150-400) 09/20/17 06:00 MPV 9.5 fl 09/20/17 06:00 Neutrophils % 76.6 % (40.0-80.0) 09/20/17 06:00 Lymphocytes % 11.7 % (20.0-50.0) L 09/20/17 06:00 Monocytes % 10.7 % (2.0-10.0) H 09/20/17 06:00 Eosinophils % 0.4 % (0.0-5.0) 09/20/17 06:00 Basophils % 0.6 % (0.0-2.0) 09/20/17 06:00 Sodium 135 mEq/L (136-145) L 09/20/17 06:00 Potassium 3.7 mEq/L (3.5-5.1) 09/20/17 06:00 Chloride 101 mEq/L (98-107) 09/20/17 06:00 Carbon Dioxide 26.1 mEq/L (21.0-31.0) 09/20/17 06:00 Anion Gap 11.6 (7.0-16.0) 09/20/17 06:00 BUN 17 mg/dL (7-25) 09/20/17 06:00 Creatinine 0.6 mg/dL (0.7-1.3) L 09/20/17 06:00 Est GFR ( Amer) > 60.0 ml/min (>90) 09/20/17 06:00 Est GFR (Non-Af Amer) > 60.0 ml/min 09/20/17 06:00 BUN/Creatinine Ratio 28.3 09/20/17 06:00 Glucose 112 mg/dL (70-105) H 09/20/17 06:00 Calcium 9.5 mg/dL (8.6-10.3) 09/20/17 06:00 Total Bilirubin 0.5 mg/dL (0.3-1.0) 09/20/17 06:00 AST 15 U/L (13-39) 09/20/17 06:00 ALT 11 U/L (7-52) 09/20/17 06:00 Alkaline Phosphatase 65 U/L (34-104) 09/20/17 06:00 Total Protein 6.8 gm/dL (6.0-8.3) 09/20/17 06:00 Albumin 3.4 gm/dL (4.2-5.5) L 09/20/17 06:00 Globulin 3.4 gm/dL 09/20/17 06:00 Albumin/Globulin Ratio 1.0 (1.0-1.8) 09/20/17 06:00 Triglycerides 74 mg/dL (<150) 09/22/17 07:05 Cholesterol 145 mg/dL (<200) 09/22/17 07:05 LDL Cholesterol Direct 91 mg/dL (75-193) 09/22/17 07:05 HDL Cholesterol 41 mg/dL (23-92) 09/22/17 07:05 Urine Source CLEAN C 09/19/17 23:30 Urine Color RED 09/19/17 23:30 Urine Clarity BLOODY (CLEAR) 09/19/17 23:30 Urine pH 6.0 (4.6 - 8.0) 09/19/17 23:30 Ur Specific [place] 1.020 (1.005-1.030) 09/19/17 23:30 Urine Protein >300 mg/dL (NEGATIVE) H 09/19/17 23:30 Urine Glucose (UA) NEGATIVE mg/dL (NEGATIVE) 09/19/17 23:30 Urine Ketones NEGATIVE mg/dL (NEGATIVE) 09/19/17 23:30 Urine Blood LARGE (NEGATIVE) H 09/19/17 23:30 Urine Nitrate NEGATIVE (NEGATIVE) 09/19/17 23:30 Urine Bilirubin NEGATIVE (NEGATIVE) 09/19/17 23:30 Urine Urobilinogen 0.2 E.U./dL (0.2 - 1.0) 09/19/17 23:30 Ur Leukocyte Esterase TRACE (NEGATIVE) H 09/19/17 23:30 Urine RBC >100 /hpf (0-5) H 09/19/17 23:30 Urine WBC 6-10 /hpf (0-5) 09/19/17 23:30 Ur Epithelial Cells FEW /lpf (FEW) 09/19/17 23:30 Urine Bacteria FEW /hpf (NONE SEEN) 09/19/17 23:30 Valproic Acid 38.2 ug/mL (50.0-100.0) L 09/22/17 07:05 - Physical Exam Vitals and I&O: Vital Signs Temp 98.4 F 09/26/17 20:32 Pulse 91 09/26/17 20:32 Resp 18 09/26/17 20:32 BP 97/62 09/26/17 20:32 Pulse Ox 96 09/26/17 20:32 Intake & Output 09/26/17 09/26/17 09/27/17 06:59 18:59 06:59 Intake Total 120 240 240 Balance 120 240 240 Intake: Oral 120 240 240 Other: # Voids 3 2 1 # Bowel Movements 1 Stool Characteristics Soft Active Medications: Current Medications Acetaminophen (Tylenol) 650 mg PO Q4HR PRN PRN Reason: Mild Pain / Temp above 100 Stop: 11/02/17 00:48 Last Admin: 09/21/17 16:35 Dose: 650 mg Al Hydrox/Mg Hydrox/Simethicone (Maalox) 30 ml PO Q4HR PRN PRN Reason: GI DISTRESS Stop: 11/02/17 00:48 Betamethasone/Clotrimazole (Lotrisone Cream) 1 appl TP BID [facility] Stop: 11/25/17 16:59 Last Admin: 09/26/17 17:07 Dose: 1 appl Divalproex Sodium (Depakote Dr) 250 mg PO Q12HR [facility]; Protocol Stop: 11/18/17 20:59 Last Admin: 09/26/17 09:38 Dose: 250 mg Haloperidol (Haldol) 2 mg PO BID [facility]; Protocol Stop: 11/03/17 16:59 Last Admin: 09/26/17 17:07 Dose: 2 mg Lorazepam (Ativan) 0.5 mg PO Q4HR PRN; Protocol PRN Reason: Anxiety Stop: 10/03/17 00:48 Last Admin: 09/25/17 14:46 Dose: 0.5 mg Magnesium Hydroxide (Milk Of Magnesia) 30 ml PO HS PRN PRN Reason: Constipation Multivitamins/Vitamin C (Theragran) 1 tab PO DAILY SIMIN Stop: 11/02/17 08:59 Last Admin: 09/26/17 09:39 Dose: 1 tab Nystatin (Mycostatin Cream) 1 appl TP DAILY [facility] Stop: 09/30/17 09:00 Last Admin: 09/26/17 15:17 Dose: 1 appl Potassium Chloride (Klor-Con) 40 meq PO DAILY [facility]IN Stop: 11/16/17 08:59 Last Admin: 09/26/17 09:39 Dose: 40 meq Tamsulosin HCl (Flomax) 0.4 mg PO DAILY SIMIN Stop: 11/03/17 08:59 Last Admin: 09/26/17 09:39 Dose: 0.4 mg Zolpidem Tartrate (Ambien) 5 mg PO HS PRN PRN Reason: Insomnia Stop: 11/02/17 00:48 Last Admin: 09/25/17 21:01 Dose: 5 mg General: demented HEENT: NC/AT, PERRLA, EOMI, anicteric sclerae, throat clear Neck: Supple, No JVD, No thyromegaly, +2 carotid pulse wo bruit, No LAD Lungs: CTAB Cardiovascular: RRR, Normal S1, Normal S2, without murmur Abdomen: soft, non-tender, non-distended Extremities: clear Neurological: no change - Procedures Procedures: Procedures Procedure Code Date INSERTION OF INFUSION DEV INTO SUP VENA CAVA, PERC APPROACH [id number] 08/14/17 PERFORMANCE OF URINARY FILTRATION, <6 HRS/DAY [id number] 08/14/17 ULTRASONOGRAPHY OF SUPERIOR VENA CAVA, GUIDANCE [id number] 08/14/17 Internal Medicine Assmt/Plan - Assessment Assessment: 1.COPD. 2.BPH. 3.DEMENTIA. - Plan Plan: CONTINUE ON CURRENT MEDICATION AND DIET. Nutritional Asmnt/Malnutr-PDOC - Dietary Evaluation Malnutrition Findings (Please click <Entered> for more info): Nutritional Asmnt/Malnutrition Start: 09/06/17 13: 19 Text: Status: Complete Freq: Protocol: Document 09/06/17 13:19 AJG (Rec: 09/06/17 13:28 CURRY [email or web address]) Nutritional Asmnt/Malnutrition Patient General Information Nutritional Screening Moderate Risk Diagnosis psychosis Pertinent Medical Hx/Surgical Hx BPH, dementia Subjective Information Pt seen sitting in rich-chair at dining room. Pt stated hungry. Per EMR, PO intake 100 % of meals. Current Diet Order/ Nutrition Support CCHO-60gm Pertinent Medications theragran Pertinent Labs 09/04 K 3.1, Cr 0.6, glucose 131 Nutritional Hx/Data Height 1.65 m Height (Calculated Centimeters) 165.1 Current Weight (lbs) 60.781 kg Weight (Calculated Kilograms) 60.8 Weight (Calculated Grams) 51302.4 [place] Body Weight 136 Body Mass Index (BMI) 22.3 Weight Status Approriate GI Symptoms GI Symptoms None Last BM 09/06 Difficult in: None Skin Integrity/Comment: dryness Current %PO Good (75-100%) Estimated Nutritional Goals BEE in Kcals: Using Current wt Calories/Kcals/Kg 25-30 Kcals Calculated 9190-8237 Protein: Using Current wt Protein g/k Protein Calculated 61 Fluid: ml 6985-4195 Nutritional Problem No current Nutrition Prob Problem N/A Malnutrition Alert Is there a minimum of two criteria No selected? Query Text:Check all the applicable criteria. A minimum of two criteria are recommended for diagnosis of either severe or non-severe malnutrition. Malnutrition Related to Morbid Obesity Malnutrition related to morbid obesity No Intervention/Recommendation Comments 1. Continue with CCHO 60gm diet as ordered. If glucose level change toward to normal range, will consider removing CCHO restriction. 2. Monitor PO intake, wt, labs and skin integrity 3. F/U as low risk in 7 days, 09/13. Expected Outcomes/Goals Expected Outcomes/Goals 1. PO intake to meet at least 75% of nutritional needs. 2. Wt stability, skin to remain intact, labs to approach WNL.
[2017-09-27] MEDS: Betamethasone/Clotrimazole Cream 15 gm Tube TP SCH (16:27)
[2017-09-27] MEDS: Multivitamin Tab PO SCH (16:29)
[2017-09-27] MEDS: Potassium Chloride 20 mEq ER Tab PO SCH (16:29)
[2017-09-27] MEDS: Nystatin Cream 100,000 u/gm Cream 15 gm TP SCH (16:29)
--- NOTE | 2017-09-27 20:24 | Internal Medicine Prog Note ---
Internal Medicine Subjective - Subjective Service Date: 09/27/17 Patient seen and examined:: with staff Patient is:: awake, verbal, in bed, talking Per staff patient has:: no adverse event Internal Medicine Objective - Results Result Diagrams: 09/20/17 06:00 09/20/17 06:00 Recent Labs: Laboratory Last Values WBC 14.8 Th/cmm (4.8-10.8) H 09/20/17 06:00 RBC 4.62 Mil/cmm (3.80-5.80) 09/20/17 06:00 Hgb 14.6 gm/dL (12-16) 09/20/17 06:00 Hct 43.3 % (41.0-60) 09/20/17 06:00 MCV 93.7 fl (80-99) 09/20/17 06:00 MCH 31.6 pg (27.0-31.0) H 09/20/17 06:00 MCHC Differential 33.7 pg (28.0-36.0) 09/20/17 06:00 RDW 15.4 % (11.5-20.0) 09/20/17 06:00 Plt Count 272 Th/cmm (150-400) 09/20/17 06:00 MPV 9.5 fl 09/20/17 06:00 Neutrophils % 76.6 % (40.0-80.0) 09/20/17 06:00 Lymphocytes % 11.7 % (20.0-50.0) L 09/20/17 06:00 Monocytes % 10.7 % (2.0-10.0) H 09/20/17 06:00 Eosinophils % 0.4 % (0.0-5.0) 09/20/17 06:00 Basophils % 0.6 % (0.0-2.0) 09/20/17 06:00 Sodium 135 mEq/L (136-145) L 09/20/17 06:00 Potassium 3.7 mEq/L (3.5-5.1) 09/20/17 06:00 Chloride 101 mEq/L (98-107) 09/20/17 06:00 Carbon Dioxide 26.1 mEq/L (21.0-31.0) 09/20/17 06:00 Anion Gap 11.6 (7.0-16.0) 09/20/17 06:00 BUN 17 mg/dL (7-25) 09/20/17 06:00 Creatinine 0.6 mg/dL (0.7-1.3) L 09/20/17 06:00 Est GFR ( Amer) > 60.0 ml/min (>90) 09/20/17 06:00 Est GFR (Non-Af Amer) > 60.0 ml/min 09/20/17 06:00 BUN/Creatinine Ratio 28.3 09/20/17 06:00 Glucose 112 mg/dL (70-105) H 09/20/17 06:00 Calcium 9.5 mg/dL (8.6-10.3) 09/20/17 06:00 Total Bilirubin 0.5 mg/dL (0.3-1.0) 09/20/17 06:00 AST 15 U/L (13-39) 09/20/17 06:00 ALT 11 U/L (7-52) 09/20/17 06:00 Alkaline Phosphatase 65 U/L (34-104) 09/20/17 06:00 Total Protein 6.8 gm/dL (6.0-8.3) 09/20/17 06:00 Albumin 3.4 gm/dL (4.2-5.5) L 09/20/17 06:00 Globulin 3.4 gm/dL 09/20/17 06:00 Albumin/Globulin Ratio 1.0 (1.0-1.8) 09/20/17 06:00 Triglycerides 74 mg/dL (<150) 09/22/17 07:05 Cholesterol 145 mg/dL (<200) 09/22/17 07:05 LDL Cholesterol Direct 91 mg/dL (75-193) 09/22/17 07:05 HDL Cholesterol 41 mg/dL (23-92) 09/22/17 07:05 Urine Source CLEAN C 09/19/17 23:30 Urine Color RED 09/19/17 23:30 Urine Clarity BLOODY (CLEAR) 09/19/17 23:30 Urine pH 6.0 (4.6 - 8.0) 09/19/17 23:30 Ur Specific [place] 1.020 (1.005-1.030) 09/19/17 23:30 Urine Protein >300 mg/dL (NEGATIVE) H 09/19/17 23:30 Urine Glucose (UA) NEGATIVE mg/dL (NEGATIVE) 09/19/17 23:30 Urine Ketones NEGATIVE mg/dL (NEGATIVE) 09/19/17 23:30 Urine Blood LARGE (NEGATIVE) H 09/19/17 23:30 Urine Nitrate NEGATIVE (NEGATIVE) 09/19/17 23:30 Urine Bilirubin NEGATIVE (NEGATIVE) 09/19/17 23:30 Urine Urobilinogen 0.2 E.U./dL (0.2 - 1.0) 09/19/17 23:30 Ur Leukocyte Esterase TRACE (NEGATIVE) H 09/19/17 23:30 Urine RBC >100 /hpf (0-5) H 09/19/17 23:30 Urine WBC 6-10 /hpf (0-5) 09/19/17 23:30 Ur Epithelial Cells FEW /lpf (FEW) 09/19/17 23:30 Urine Bacteria FEW /hpf (NONE SEEN) 09/19/17 23:30 Valproic Acid 38.2 ug/mL (50.0-100.0) L 09/22/17 07:05 - Physical Exam Vitals and I&O: Vital Signs Temp 98.6 F 09/27/17 20:19 Pulse 86 09/27/17 20:19 Resp 19 09/27/17 20:19 BP 94/67 09/27/17 20:19 Pulse Ox 95 09/27/17 20:19 Intake & Output 09/27/17 09/27/17 09/28/17 06:59 18:59 06:59 Intake Total 360 900 240 Output Total 1 Balance 360 900 239 Intake: Oral 360 900 240 Output: Stool 1 Other: # Voids 2 4 1 # Bowel Movements 1 0 Stool Characteristics Soft Soft Active Medications: Current Medications Acetaminophen (Tylenol) 650 mg PO Q4HR PRN PRN Reason: Mild Pain / Temp above 100 Stop: 11/02/17 00:48 Last Admin: 09/21/17 16:35 Dose: 650 mg Al Hydrox/Mg Hydrox/Simethicone (Maalox) 30 ml PO Q4HR PRN PRN Reason: GI DISTRESS Stop: 11/02/17 00:48 Betamethasone/Clotrimazole (Lotrisone Cream) 1 appl TP BID SIMIN Stop: 11/25/17 16:59 Last Admin: 09/27/17 16:27 Dose: Not Given Divalproex Sodium (Depakote Dr) 250 mg PO Q12HR SIMIN; Protocol Stop: 11/18/17 20:59 Last Admin: 09/27/17 16:28 Dose: Not Given Haloperidol (Haldol) 2 mg PO BID SIMIN; Protocol Stop: 11/03/17 16:59 Last Admin: 09/27/17 18:12 Dose: Not Given Lorazepam (Ativan) 0.5 mg PO Q4HR PRN; Protocol PRN Reason: Anxiety Stop: 10/03/17 00:48 Last Admin: 09/25/17 14:46 Dose: 0.5 mg Magnesium Hydroxide (Milk Of Magnesia) 30 ml PO HS PRN PRN Reason: Constipation Multivitamins/Vitamin C (Theragran) 1 tab PO DAILY SIMIN Stop: 11/02/17 08:59 Last Admin: 09/27/17 16:29 Dose: Not Given Nystatin (Mycostatin Cream) 1 appl TP DAILY SIMIN Stop: 09/30/17 09:00 Last Admin: 09/27/17 16:29 Dose: Not Given Potassium Chloride (Klor-Con) 40 meq PO DAILY SIMIN Stop: 11/16/17 08:59 Last Admin: 09/27/17 16:29 Dose: Not Given Tamsulosin HCl (Flomax) 0.4 mg PO DAILY SIMIN Stop: 11/03/17 08:59 Last Admin: 09/27/17 16:30 Dose: Not Given Zolpidem Tartrate (Ambien) 5 mg PO HS PRN PRN Reason: Insomnia Stop: 11/02/17 00:48 Last Admin: 09/26/17 21:01 Dose: 5 mg General: demented HEENT: NC/AT, PERRLA, EOMI, anicteric sclerae, throat clear Neck: Supple, No JVD, No thyromegaly, +2 carotid pulse wo bruit, No LAD Lungs: CTAB Cardiovascular: RRR, Normal S1, Normal S2, without murmur Abdomen: soft, non-tender, non-distended Extremities: clear Neurological: no change - Procedures Procedures: Procedures Procedure Code Date INSERTION OF INFUSION DEV INTO SUP VENA CAVA, PERC APPROACH [id number] 08/14/17 PERFORMANCE OF URINARY FILTRATION, <6 HRS/DAY [id number] 08/14/17 ULTRASONOGRAPHY OF SUPERIOR VENA CAVA, GUIDANCE [id number] 08/14/17 Internal Medicine Assmt/Plan - Assessment Assessment: 1.COPD. 2.BPH. 3.DEMENTIA. - Plan Plan: CONTINUE ON CURRENT MEDICATION AND DIET. Nutritional Asmnt/Malnutr-PDOC - Dietary Evaluation Malnutrition Findings (Please click <Entered> for more info): Nutritional Asmnt/Malnutrition Start: 09/06/17 13: 19 Text: Status: Complete Freq: Protocol: Document 09/06/17 13:19 [email or web address] (Rec: 09/06/17 13:28 [email or web address]) Nutritional Asmnt/Malnutrition Patient General Information Nutritional Screening Moderate Risk Diagnosis psychosis Pertinent Medical Hx/Surgical Hx BPH, dementia Subjective Information Pt seen sitting in rich-chair at dining room. Pt stated hungry. Per EMR, PO intake 100 % of meals. Current Diet Order/ Nutrition Support CCHO-60gm Pertinent Medications theragran Pertinent Labs 09/04 K 3.1, Cr 0.6, glucose 131 Nutritional Hx/Data Height 1.65 m Height (Calculated Centimeters) 165.1 Current Weight (lbs) 60.781 kg Weight (Calculated Kilograms) 60.8 Weight (Calculated Grams) 45273.4 [place] Body Weight 136 Body Mass Index (BMI) 22.3 Weight Status Approriate GI Symptoms GI Symptoms None Last BM 09/06 Difficult in: None Skin Integrity/Comment: dryness Current %PO Good (75-100%) Estimated Nutritional Goals BEE in Kcals: Using Current wt Calories/Kcals/Kg 25-30 Kcals Calculated 8318-8887 Protein: Using Current wt Protein g/k Protein Calculated 61 Fluid: ml 8301-9696 Nutritional Problem No current Nutrition Prob Problem N/A Malnutrition Alert Is there a minimum of two criteria No selected? Query Text:Check all the applicable criteria. A minimum of two criteria are recommended for diagnosis of either severe or non-severe malnutrition. Malnutrition Related to Morbid Obesity Malnutrition related to morbid obesity No Intervention/Recommendation Comments 1. Continue with CCHO 60gm diet as ordered. If glucose level change toward to normal range, will consider removing CCHO restriction. 2. Monitor PO intake, wt, labs and skin integrity 3. F/U as low risk in 7 days, 09/13. Expected Outcomes/Goals Expected Outcomes/Goals 1. PO intake to meet at least 75% of nutritional needs. 2. Wt stability, skin to remain intact, labs to approach WNL.
--- NOTE | 2017-09-27 21:02 | Progress Notes ---
DATE: 09/27/2017 PSYCHIATRIC PROGRESS NOTE SUBJECTIVE: Staff was spoken to. The patient is interviewed. Mood is noted to be irritable. Affect is constricted. The patient has no insight into his illness. The patient has been having difficult time to find a place. No side effects to the medications are noted. media intern have been working to look for placement for this patient and no one is willing to accept because he does not have the intermediate facility days. PLAN: To continue the patient with the supportive therapy and await for placement. JOB# [id number]
[2017-09-28] MEDS: Multivitamin Tab PO SCH (13:28)
[2017-09-28] MEDS: Potassium Chloride 20 mEq ER Tab PO SCH (13:28)
[2017-09-28] MEDS: Nystatin Cream 100,000 u/gm Cream 15 gm TP SCH (17:51)
[2017-09-28] MEDS: Betamethasone/Clotrimazole Cream 15 gm Tube TP SCH ×2 (17:51→17:52)
--- NOTE | 2017-09-28 20:56 | Internal Medicine Prog Note ---
Internal Medicine Subjective - Subjective Patient seen and examined:: with staff Patient is:: awake, verbal, in bed, talking Per staff patient has:: no adverse event Internal Medicine Objective - Results Result Diagrams: 09/20/17 06:00 09/20/17 06:00 Recent Labs: Laboratory Last Values WBC 14.8 Th/cmm (4.8-10.8) H 09/20/17 06:00 RBC 4.62 Mil/cmm (3.80-5.80) 09/20/17 06:00 Hgb 14.6 gm/dL (12-16) 09/20/17 06:00 Hct 43.3 % (41.0-60) 09/20/17 06:00 MCV 93.7 fl (80-99) 09/20/17 06:00 MCH 31.6 pg (27.0-31.0) H 09/20/17 06:00 MCHC Differential 33.7 pg (28.0-36.0) 09/20/17 06:00 RDW 15.4 % (11.5-20.0) 09/20/17 06:00 Plt Count 272 Th/cmm (150-400) 09/20/17 06:00 MPV 9.5 fl 09/20/17 06:00 Neutrophils % 76.6 % (40.0-80.0) 09/20/17 06:00 Lymphocytes % 11.7 % (20.0-50.0) L 09/20/17 06:00 Monocytes % 10.7 % (2.0-10.0) H 09/20/17 06:00 Eosinophils % 0.4 % (0.0-5.0) 09/20/17 06:00 Basophils % 0.6 % (0.0-2.0) 09/20/17 06:00 Sodium 135 mEq/L (136-145) L 09/20/17 06:00 Potassium 3.7 mEq/L (3.5-5.1) 09/20/17 06:00 Chloride 101 mEq/L (98-107) 09/20/17 06:00 Carbon Dioxide 26.1 mEq/L (21.0-31.0) 09/20/17 06:00 Anion Gap 11.6 (7.0-16.0) 09/20/17 06:00 BUN 17 mg/dL (7-25) 09/20/17 06:00 Creatinine 0.6 mg/dL (0.7-1.3) L 09/20/17 06:00 Est GFR ( Amer) > 60.0 ml/min (>90) 09/20/17 06:00 Est GFR (Non-Af Amer) > 60.0 ml/min 09/20/17 06:00 BUN/Creatinine Ratio 28.3 09/20/17 06:00 Glucose 112 mg/dL (70-105) H 09/20/17 06:00 Calcium 9.5 mg/dL (8.6-10.3) 09/20/17 06:00 Total Bilirubin 0.5 mg/dL (0.3-1.0) 09/20/17 06:00 AST 15 U/L (13-39) 09/20/17 06:00 ALT 11 U/L (7-52) 09/20/17 06:00 Alkaline Phosphatase 65 U/L (34-104) 09/20/17 06:00 Total Protein 6.8 gm/dL (6.0-8.3) 09/20/17 06:00 Albumin 3.4 gm/dL (4.2-5.5) L 09/20/17 06:00 Globulin 3.4 gm/dL 09/20/17 06:00 Albumin/Globulin Ratio 1.0 (1.0-1.8) 09/20/17 06:00 Triglycerides 74 mg/dL (<150) 09/22/17 07:05 Cholesterol 145 mg/dL (<200) 09/22/17 07:05 LDL Cholesterol Direct 91 mg/dL (75-193) 09/22/17 07:05 HDL Cholesterol 41 mg/dL (23-92) 09/22/17 07:05 Urine Source CLEAN C 09/19/17 23:30 Urine Color RED 09/19/17 23:30 Urine Clarity BLOODY (CLEAR) 09/19/17 23:30 Urine pH 6.0 (4.6 - 8.0) 09/19/17 23:30 Ur Specific [place] 1.020 (1.005-1.030) 09/19/17 23:30 Urine Protein >300 mg/dL (NEGATIVE) H 09/19/17 23:30 Urine Glucose (UA) NEGATIVE mg/dL (NEGATIVE) 09/19/17 23:30 Urine Ketones NEGATIVE mg/dL (NEGATIVE) 09/19/17 23:30 Urine Blood LARGE (NEGATIVE) H 09/19/17 23:30 Urine Nitrate NEGATIVE (NEGATIVE) 09/19/17 23:30 Urine Bilirubin NEGATIVE (NEGATIVE) 09/19/17 23:30 Urine Urobilinogen 0.2 E.U./dL (0.2 - 1.0) 09/19/17 23:30 Ur Leukocyte Esterase TRACE (NEGATIVE) H 09/19/17 23:30 Urine RBC >100 /hpf (0-5) H 09/19/17 23:30 Urine WBC 6-10 /hpf (0-5) 09/19/17 23:30 Ur Epithelial Cells FEW /lpf (FEW) 09/19/17 23:30 Urine Bacteria FEW /hpf (NONE SEEN) 09/19/17 23:30 Valproic Acid 38.2 ug/mL (50.0-100.0) L 09/22/17 07:05 - Physical Exam Vitals and I&O: Vital Signs Temp 97.5 F 09/28/17 14:00 Pulse 90 09/28/17 14:00 Resp 20 09/28/17 14:00 BP 100/65 09/28/17 14:00 Pulse Ox 97 09/28/17 14:00 Intake & Output 09/28/17 09/28/17 09/29/17 06:59 18:59 06:59 Intake Total 240 1000 Output Total 1 Balance 239 1000 Intake: Oral 240 1000 Output: Stool 1 Other: # Voids 3 3 # Bowel Movements 1 2 Stool Characteristics Soft Soft Active Medications: Current Medications Acetaminophen (Tylenol) 650 mg PO Q4HR PRN PRN Reason: Mild Pain / Temp above 100 Stop: 11/02/17 00:48 Last Admin: 09/21/17 16:35 Dose: 650 mg Al Hydrox/Mg Hydrox/Simethicone (Maalox) 30 ml PO Q4HR PRN PRN Reason: GI DISTRESS Stop: 11/02/17 00:48 Betamethasone/Clotrimazole (Lotrisone Cream) 1 appl TP BID SIMIN Stop: 11/25/17 16:59 Last Admin: 09/28/17 17:52 Dose: Not Given Divalproex Sodium (Depakote Dr) 250 mg PO Q12HR SIMIN; Protocol Stop: 11/18/17 20:59 Last Admin: 09/28/17 13:27 Dose: Not Given Haloperidol (Haldol) 2 mg PO BID SIMIN; Protocol Stop: 11/03/17 16:59 Last Admin: 09/28/17 17:52 Dose: Not Given Lorazepam (Ativan) 0.5 mg PO Q4HR PRN; Protocol PRN Reason: Anxiety Stop: 10/03/17 00:48 Last Admin: 09/28/17 10:28 Dose: 0.5 mg Magnesium Hydroxide (Milk Of Magnesia) 30 ml PO HS PRN PRN Reason: Constipation Multivitamins/Vitamin C (Theragran) 1 tab PO DAILY SIMIN Stop: 11/02/17 08:59 Last Admin: 09/28/17 13:28 Dose: Not Given Nystatin (Mycostatin Cream) 1 appl TP DAILY SIMIN Stop: 09/30/17 09:00 Last Admin: 09/28/17 17:51 Dose: 1 appl Potassium Chloride (Klor-Con) 40 meq PO DAILY SIMIN Stop: 11/16/17 08:59 Last Admin: 09/28/17 13:28 Dose: Not Given Tamsulosin HCl (Flomax) 0.4 mg PO DAILY SIMIN Stop: 11/03/17 08:59 Last Admin: 09/28/17 13:28 Dose: Not Given Zolpidem Tartrate (Ambien) 5 mg PO HS PRN PRN Reason: Insomnia Stop: 11/02/17 00:48 Last Admin: 09/27/17 21:53 Dose: 5 mg General: demented HEENT: NC/AT, PERRLA, EOMI, anicteric sclerae, throat clear Neck: Supple, No JVD, No thyromegaly, +2 carotid pulse wo bruit, No LAD Lungs: CTAB Cardiovascular: RRR, Normal S1, Normal S2, without murmur Abdomen: soft, non-tender, non-distended Extremities: clear Neurological: no change - Procedures Procedures: Procedures Procedure Code Date INSERTION OF INFUSION DEV INTO SUP VENA CAVA, PERC APPROACH [id number] 08/14/17 PERFORMANCE OF URINARY FILTRATION, <6 HRS/DAY [id number] 08/14/17 ULTRASONOGRAPHY OF SUPERIOR VENA CAVA, GUIDANCE [id number] 08/14/17 Internal Medicine Assmt/Plan - Assessment Assessment: 1.COPD. 2.BPH. 3.DEMENTIA. - Plan Plan: CONTINUE ON CURRENT MEDICATION AND DIET. Nutritional Asmnt/Malnutr-PDOC - Dietary Evaluation Malnutrition Findings (Please click <Entered> for more info): Nutritional Asmnt/Malnutrition Start: 09/06/17 13: 19 Text: Status: Complete Freq: Protocol: Document 09/06/17 13:19 CURRY (Rec: 09/06/17 13:28 [email or web address] [email or web address]) Nutritional Asmnt/Malnutrition Patient General Information Nutritional Screening Moderate Risk Diagnosis psychosis Pertinent Medical Hx/Surgical Hx BPH, dementia Subjective Information Pt seen sitting in rich-chair at dining room. Pt stated hungry. Per EMR, PO intake 100 % of meals. Current Diet Order/ Nutrition Support CCHO-60gm Pertinent Medications theragran Pertinent Labs 09/04 K 3.1, Cr 0.6, glucose 131 Nutritional Hx/Data Height 1.65 m Height (Calculated Centimeters) 165.1 Current Weight (lbs) 60.781 kg Weight (Calculated Kilograms) 60.8 Weight (Calculated Grams) 71876.4 [place] Body Weight 136 Body Mass Index (BMI) 22.3 Weight Status Approriate GI Symptoms GI Symptoms None Last BM 09/06 Difficult in: None Skin Integrity/Comment: dryness Current %PO Good (75-100%) Estimated Nutritional Goals BEE in Kcals: Using Current wt Calories/Kcals/Kg 25-30 Kcals Calculated 2080-1638 Protein: Using Current wt Protein g/k Protein Calculated 61 Fluid: ml 6969-4972 Nutritional Problem No current Nutrition Prob Problem N/A Malnutrition Alert Is there a minimum of two criteria No selected? Query Text:Check all the applicable criteria. A minimum of two criteria are recommended for diagnosis of either severe or non-severe malnutrition. Malnutrition Related to Morbid Obesity Malnutrition related to morbid obesity No Intervention/Recommendation Comments 1. Continue with CCHO 60gm diet as ordered. If glucose level change toward to normal range, will consider removing CCHO restriction. 2. Monitor PO intake, wt, labs and skin integrity 3. F/U as low risk in 7 days, 09/13. Expected Outcomes/Goals Expected Outcomes/Goals 1. PO intake to meet at least 75% of nutritional needs. 2. Wt stability, skin to remain intact, labs to approach WNL.
--- NOTE | 2017-09-29 00:22 | Progress Notes ---
DATE: 09/28/2017 SUBJECTIVE: Staff was spoken to. The patient is interviewed. Mood is noted to be irritable. Affect is constricted. Coping skills are noted to be still poor. The patient's aggressive behavior has been coming down, but the patient has not been able to get secure placement yet. director clinical information services have been trying to look for placement for the patient, but none is available so far. ASSESSMENT: The patient is still impulsive. PLAN: To continue the patient with the supportive therapy and follow up. JOB# [id number]
[2017-09-29] MEDS: Betamethasone/Clotrimazole Cream 15 gm Tube TP SCH ×2 (13:35→17:16)
[2017-09-29] MEDS: Potassium Chloride 20 mEq ER Tab PO SCH (13:36)
[2017-09-29] MEDS: Nystatin Cream 100,000 u/gm Cream 15 gm TP SCH (13:36)
[2017-09-29] MEDS: Multivitamin Tab PO SCH (13:36)
--- NOTE | 2017-09-29 16:37 | Progress Notes ---
DATE: 09/29/2017 SUBJECTIVE: Staff was spoken to. The patient is interviewed. Mood is noted to be irritable. Affect is constricted. The patient is stating that he is getting frustrated for being in here for too long. No side effects to the medications are noted. The manager case management have been trying to look for placement for this patient so far, none is available. The patient has been less aggressive compared to the previous days. ASSESSMENT: The patient is awaiting placement. PLAN: To continue the patient with the supportive therapy and followup. JOB# [id number]
--- NOTE | 2017-09-29 21:10 | Internal Medicine Prog Note ---
Internal Medicine Subjective - Subjective Service Date: 09/29/17 Patient seen and examined:: without staff Patient is:: awake, verbal, in bed, talking Per staff patient has:: no adverse event Internal Medicine Objective - Results Result Diagrams: 09/20/17 06:00 09/20/17 06:00 Recent Labs: Laboratory Last Values WBC 14.8 Th/cmm (4.8-10.8) H 09/20/17 06:00 RBC 4.62 Mil/cmm (3.80-5.80) 09/20/17 06:00 Hgb 14.6 gm/dL (12-16) 09/20/17 06:00 Hct 43.3 % (41.0-60) 09/20/17 06:00 MCV 93.7 fl (80-99) 09/20/17 06:00 MCH 31.6 pg (27.0-31.0) H 09/20/17 06:00 MCHC Differential 33.7 pg (28.0-36.0) 09/20/17 06:00 RDW 15.4 % (11.5-20.0) 09/20/17 06:00 Plt Count 272 Th/cmm (150-400) 09/20/17 06:00 MPV 9.5 fl 09/20/17 06:00 Neutrophils % 76.6 % (40.0-80.0) 09/20/17 06:00 Lymphocytes % 11.7 % (20.0-50.0) L 09/20/17 06:00 Monocytes % 10.7 % (2.0-10.0) H 09/20/17 06:00 Eosinophils % 0.4 % (0.0-5.0) 09/20/17 06:00 Basophils % 0.6 % (0.0-2.0) 09/20/17 06:00 Sodium 135 mEq/L (136-145) L 09/20/17 06:00 Potassium 3.7 mEq/L (3.5-5.1) 09/20/17 06:00 Chloride 101 mEq/L (98-107) 09/20/17 06:00 Carbon Dioxide 26.1 mEq/L (21.0-31.0) 09/20/17 06:00 Anion Gap 11.6 (7.0-16.0) 09/20/17 06:00 BUN 17 mg/dL (7-25) 09/20/17 06:00 Creatinine 0.6 mg/dL (0.7-1.3) L 09/20/17 06:00 Est GFR ( Amer) > 60.0 ml/min (>90) 09/20/17 06:00 Est GFR (Non-Af Amer) > 60.0 ml/min 09/20/17 06:00 BUN/Creatinine Ratio 28.3 09/20/17 06:00 Glucose 112 mg/dL (70-105) H 09/20/17 06:00 Calcium 9.5 mg/dL (8.6-10.3) 09/20/17 06:00 Total Bilirubin 0.5 mg/dL (0.3-1.0) 09/20/17 06:00 AST 15 U/L (13-39) 09/20/17 06:00 ALT 11 U/L (7-52) 09/20/17 06:00 Alkaline Phosphatase 65 U/L (34-104) 09/20/17 06:00 Total Protein 6.8 gm/dL (6.0-8.3) 09/20/17 06:00 Albumin 3.4 gm/dL (4.2-5.5) L 09/20/17 06:00 Globulin 3.4 gm/dL 09/20/17 06:00 Albumin/Globulin Ratio 1.0 (1.0-1.8) 09/20/17 06:00 Triglycerides 74 mg/dL (<150) 09/22/17 07:05 Cholesterol 145 mg/dL (<200) 09/22/17 07:05 LDL Cholesterol Direct 91 mg/dL (75-193) 09/22/17 07:05 HDL Cholesterol 41 mg/dL (23-92) 09/22/17 07:05 Urine Source CLEAN C 09/19/17 23:30 Urine Color RED 09/19/17 23:30 Urine Clarity BLOODY (CLEAR) 09/19/17 23:30 Urine pH 6.0 (4.6 - 8.0) 09/19/17 23:30 Ur Specific [place] 1.020 (1.005-1.030) 09/19/17 23:30 Urine Protein >300 mg/dL (NEGATIVE) H 09/19/17 23:30 Urine Glucose (UA) NEGATIVE mg/dL (NEGATIVE) 09/19/17 23:30 Urine Ketones NEGATIVE mg/dL (NEGATIVE) 09/19/17 23:30 Urine Blood LARGE (NEGATIVE) H 09/19/17 23:30 Urine Nitrate NEGATIVE (NEGATIVE) 09/19/17 23:30 Urine Bilirubin NEGATIVE (NEGATIVE) 09/19/17 23:30 Urine Urobilinogen 0.2 E.U./dL (0.2 - 1.0) 09/19/17 23:30 Ur Leukocyte Esterase TRACE (NEGATIVE) H 09/19/17 23:30 Urine RBC >100 /hpf (0-5) H 09/19/17 23:30 Urine WBC 6-10 /hpf (0-5) 09/19/17 23:30 Ur Epithelial Cells FEW /lpf (FEW) 09/19/17 23:30 Urine Bacteria FEW /hpf (NONE SEEN) 09/19/17 23:30 Valproic Acid 38.2 ug/mL (50.0-100.0) L 09/22/17 07:05 - Physical Exam Vitals and I&O: Vital Signs Temp 97.4 F 09/29/17 20:00 Pulse 87 09/29/17 20:00 Resp 20 09/29/17 20:00 BP 99/66 09/29/17 20:00 Pulse Ox 98 09/29/17 20:00 Intake & Output 09/29/17 09/29/17 09/30/17 06:59 18:59 06:59 Intake Total 120 800 Balance 120 800 Intake: Oral 120 800 Other: # Voids 1 2 # Bowel Movements 1 Stool Characteristics Soft Soft Active Medications: Current Medications Acetaminophen (Tylenol) 650 mg PO Q4HR PRN PRN Reason: Mild Pain / Temp above 100 Stop: 11/02/17 00:48 Last Admin: 09/21/17 16:35 Dose: 650 mg Al Hydrox/Mg Hydrox/Simethicone (Maalox) 30 ml PO Q4HR PRN PRN Reason: GI DISTRESS Stop: 11/02/17 00:48 Betamethasone/Clotrimazole (Lotrisone Cream) 1 appl TP BID SIMIN Stop: 11/25/17 16:59 Last Admin: 09/29/17 17:16 Dose: 1 appl Divalproex Sodium (Depakote Dr) 250 mg PO Q12HR SIMIN; Protocol Stop: 11/18/17 20:59 Last Admin: 09/29/17 13:35 Dose: Not Given Haloperidol (Haldol) 2 mg PO BID SIMIN; Protocol Stop: 11/03/17 16:59 Last Admin: 09/29/17 17:16 Dose: Not Given Lorazepam (Ativan) 0.5 mg PO Q4HR PRN; Protocol PRN Reason: Anxiety Stop: 10/03/17 00:48 Last Admin: 09/29/17 14:52 Dose: 0.5 mg Magnesium Hydroxide (Milk Of Magnesia) 30 ml PO HS PRN PRN Reason: Constipation Multivitamins/Vitamin C (Theragran) 1 tab PO DAILY SIMIN Stop: 11/02/17 08:59 Last Admin: 09/29/17 13:36 Dose: Not Given Nystatin (Mycostatin Cream) 1 appl TP DAILY SIMIN Stop: 09/30/17 09:00 Last Admin: 09/29/17 13:36 Dose: 1 appl Potassium Chloride (Klor-Con) 40 meq PO DAILY SIMIN Stop: 11/16/17 08:59 Last Admin: 09/29/17 13:36 Dose: Not Given Tamsulosin HCl (Flomax) 0.4 mg PO DAILY SIMIN Stop: 11/03/17 08:59 Last Admin: 09/29/17 13:36 Dose: Not Given Zolpidem Tartrate (Ambien) 5 mg PO HS PRN PRN Reason: Insomnia Stop: 11/02/17 00:48 Last Admin: 09/28/17 21:21 Dose: 5 mg General: demented HEENT: NC/AT, PERRLA, EOMI, anicteric sclerae, throat clear Neck: Supple, No JVD, No thyromegaly, +2 carotid pulse wo bruit, No LAD Lungs: CTAB Cardiovascular: RRR, Normal S1, Normal S2, without murmur Abdomen: soft, non-tender, non-distended Extremities: clear Neurological: no change - Procedures Procedures: Procedures Procedure Code Date INSERTION OF INFUSION DEV INTO SUP VENA CAVA, PERC APPROACH [id number] 08/14/17 PERFORMANCE OF URINARY FILTRATION, <6 HRS/DAY [id number] 08/14/17 ULTRASONOGRAPHY OF SUPERIOR VENA CAVA, GUIDANCE [id number] 08/14/17 Internal Medicine Assmt/Plan - Assessment Assessment: 1.COPD. 2.BPH. 3.DEMENTIA. - Plan Plan: CONTINUE ON CURRENT MEDICATION AND DIET. Nutritional Asmnt/Malnutr-PDOC - Dietary Evaluation Malnutrition Findings (Please click <Entered> for more info): Nutritional Asmnt/Malnutrition Start: 09/06/17 13: 19 Text: Status: Complete Freq: Protocol: Document 09/06/17 13:19 CURRY (Rec: 09/06/17 13:28 [email or web address]) Nutritional Asmnt/Malnutrition Patient General Information Nutritional Screening Moderate Risk Diagnosis psychosis Pertinent Medical Hx/Surgical Hx BPH, dementia Subjective Information Pt seen sitting in rich-chair at dining room. Pt stated hungry. Per EMR, PO intake 100 % of meals. Current Diet Order/ Nutrition Support CCHO-60gm Pertinent Medications theragran Pertinent Labs 09/04 K 3.1, Cr 0.6, glucose 131 Nutritional Hx/Data Height 1.65 m Height (Calculated Centimeters) 165.1 Current Weight (lbs) 60.781 kg Weight (Calculated Kilograms) 60.8 Weight (Calculated Grams) 74745.4 [place] Body Weight 136 Body Mass Index (BMI) 22.3 Weight Status Approriate GI Symptoms GI Symptoms None Last BM 09/06 Difficult in: None Skin Integrity/Comment: dryness Current %PO Good (75-100%) Estimated Nutritional Goals BEE in Kcals: Using Current wt Calories/Kcals/Kg 25-30 Kcals Calculated 6731-4227 Protein: Using Current wt Protein g/k Protein Calculated 61 Fluid: ml 4756-8898 Nutritional Problem No current Nutrition Prob Problem N/A Malnutrition Alert Is there a minimum of two criteria No selected? Query Text:Check all the applicable criteria. A minimum of two criteria are recommended for diagnosis of either severe or non-severe malnutrition. Malnutrition Related to Morbid Obesity Malnutrition related to morbid obesity No Intervention/Recommendation Comments 1. Continue with CCHO 60gm diet as ordered. If glucose level change toward to normal range, will consider removing CCHO restriction. 2. Monitor PO intake, wt, labs and skin integrity 3. F/U as low risk in 7 days, 09/13. Expected Outcomes/Goals Expected Outcomes/Goals 1. PO intake to meet at least 75% of nutritional needs. 2. Wt stability, skin to remain intact, labs to approach WNL.
[2017-09-30] MEDS: Potassium Chloride 20 mEq ER Tab PO SCH (08:37)
[2017-09-30] MEDS: Multivitamin Tab PO SCH (08:37)
[2017-09-30] MEDS: Betamethasone/Clotrimazole Cream 15 gm Tube TP SCH (08:37)
[2017-09-30] MEDS: Nystatin Cream 100,000 u/gm Cream 15 gm TP SCH (08:38)
--- NOTE | 2017-10-01 05:06 | Progress Notes ---
DATE: 09/30/2017 SUBJECTIVE: Staff was spoken to. The patient is interviewed. Mood is noted to be anxious. Affect is appropriate. Not suicidal or homicidal. Insight and judgment are noted to be improving. Impulse control is noted to be fair. Coping skills are noted to be fair. The patient has been able to verbalize ____ act out. ASSESSMENT: The patient is stabilizing. PLAN: To discharge the patient today at [facility] and for further followup. JOB# [id number]
--- NOTE | 2017-10-01 11:54 | Discharge Summary ---
DATE OF DISCHARGE: 09/30/2017 IDENTIFYING DATA: The patient is a 66-year-old male admitted to the Geropsych Unit from [facility] in [place]. Information obtained by directly interviewing the patient as well as reviewing the admission papers. The patient has been transferred to the medical surgical unit and has been transferred here for stabilization. PAST PSYCHIATRIC HISTORY: Please refer to the above. The patient's details about the prior psychiatric hospitalization are not known. MEDICAL HISTORY AND PHYSICAL EXAMINATION: Requested to be done by Dr. Tucker and is noted to be significant for COPD and BPH. HOSPITAL COURSE AND RESPONSE TO TREATMENT: The patient has been observed on inpatient unit, provided with supportive psychotherapy. The patient has been closely monitored for his behavior and has been noted to be very impulsive, screaming, and yelling and throwing stuff whenever he does not get his way and the patient has been closely monitored. I encouraged to verbalize the concerns. The patient has been placed on the haloperidol and Depakote. The haloperidol was given 2 mg twice a day and Depakote was given 250 mg twice a day. With these medications, the patient has been observed and the patient started to do fairly well and hence the patient was discharged on 09/30/2017 with recommendation that he is going to be followed up on an outpatient basis. MENTAL STATUS EXAMINATION: At the time of discharge, the patient's mood is noted to be less irritable. Affect is appropriate. Not suicidal or homicidal. Insight and judgment are fair. Impulse control is also noted to be fair. The patient is able to verbalize the concerns rather than to act out. ASSESSMENT: The patient is stabilizing. Plan to discharge the patient today for followup on an outpatient basis. PROGNOSIS: At the time of discharge noted to be guarded. JOB# [id number]
== END 2017-09-30 16:45 | DRG 885 ==
LOC: GERO 19:57
PROVIDERS: ADMIT Psychiatry & Neurology Psychiatry; ATTEND Psychiatry & Neurology Psychiatry
DX: F29 Unspecified psychosis not due to a substance or known physiological condition (principal); F03.91 Unspecified dementia, unspecified severity, with behavioral disturbance; N40.0 Benign prostatic hyperplasia without lower urinary tract symptoms; E86.0 Dehydration; J44.9 Chronic obstructive pulmonary disease, unspecified; R31.9 Hematuria, unspecified
CPT/HCPCS: 36415-UA; 80048-TC; 80053-TC; 80061-TC; 80164-TC; 81001-TC; 81003-TC; 85025-TC; 90899; G0410; J2060; Z7610